=== PATIENT | male | born 1940 | race African-American/Black ===

== ENCOUNTER 2020-01-08 16:16 | Inpatient (IN) | payer OTHER, SELFPAY ==
--- NOTE | ~2020-01-08 | XR_ITS ---
EXAMINATION: XR chest 2V EXAM DATE: 01/08/2020 17:17 INDICATION: Left-sided weakness and shortness of breath. TECHNIQUE: Frontal and lateral projections of the chest obtained and reviewed. Comparison is made to prior examination from 10/16/2018. FINDINGS: Cardiac silhouette is enlarged but stable in size compared to prior exam. There is pulmonar y vascular congestion. There are small bilateral pleural effusions. Nonspecific small amount of rig ht basilar atelectasis, edema or pneumonia. There is no pneumothorax suspected. There are bony degene rative changes. IMPRESSION: 1. Findings consistent with mild CHF exacerbation. 2. Right basilar subsegmental nonspecific airspace disease. Reviewed, dictated and finalized at location A.
--- NOTE | ~2020-01-08 | MR_ITS ---
EXAMINATION: MR brain/brain stem wo con DATE: 01/11/2020 11:01 INDICATION: TIA. TECHNIQUE: Magnetic resonance imaging (MRI) of the brain and brainstem was performed without intraven ous contrast. Sequences included sagittal and axial T1-weighted SE, axial diffusion-weighted FS SE, a xial T2*-weighted GRE, axial T2-weighted FLAIR Propeller, and axial T2-weighted Propeller. Apparent d iffusion coefficient (ADC) maps were created. COMPARISON: CT dated 01/08/2020 and MRI dated 10/16/2018 FINDINGS: There is generalized atrophy. There are scattered severe periventricular and subcortical wh ite matter changes, most likely related to small vessel ischemic disease (microangiopathy). No eviden ce for acute infarction or hemorrhage. There are chronic bilateral cerebellar infarctions. No ventric ulomegaly or midline shift. Orbits are symmetric without disconjugate gaze. Paranasal sinuses are unr emarkable. Midline sagittal images are unremarkable. IMPRESSION: 1. No acute intracranial abnormality. 2: Chronic bilateral cerebellar infarctions. 3: Chronic age-related findings. Reviewed, dictated and finalized at location A.
--- NOTE | ~2020-01-08 | US_ITS ---
EXAMINATION: US carotid duplex BI DATE: 01/10/2020 10:00 INDICATION: Cerebellar infarct. Transient ischemic attack. TECHNIQUE: Grayscale, color Doppler, and pulsed Doppler images of the cervical carotid arteries were obtained. The degree of vessel stenosis is placed in one of the following categories: normal, <50%, 5 0-69%, >=70% but less than near-occlusion, near-occlusion, or total occlusion. Note that percent sten osis relative to normal distal artery lumen diameter is indirectly measured from velocity measurement s as described by Rommel, et al. Radiology 2003; 229:340-346. COMPARISON: Ultrasound 10/16/2018 FINDINGS: RIGHT: The right common carotid artery (CCA) peak systolic velocity (PSV) is 76 cm/s. The right internal car otid artery (ICA) PSV is 80 cm/s. The right ICA end-diastolic velocity (EDV) is 25 cm/s. The right IC A/CCA PSV ratio is 1.1. Grayscale and color Doppler images yield an estimate of <50% diameter reducti on from plaque in the ICA. There is antegrade flow in the right vertebral artery. LEFT: The left CCA PSV is 67 cm/s. The left ICA PSV is 94 cm/s. The left ICA EDV is 22 cm/s. The left ICA/C CA PSV ratio is 1.4. Grayscale and color Doppler images yield an estimate of <50% diameter reduction from plaque in the ICA. There is antegrade flow in the left vertebral artery. IMPRESSION: 1. <50% stenosis in the right internal carotid artery. 2. <50% stenosis in the left internal carotid artery. Reviewed, dictated and finalized at location A.
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
[2020-01-08 16:19] VITALS: BP 175/107; PULSE 82; RESP 18; TEMP 36.8; O2SAT 97
--- NOTE | 2020-01-08 16:28 | ECG_ITS ---
Measurements Intervals [place] Rate: 76 P: [place]: 0 QRS: 12 QRSD: 86 T: 120 QT: 425 QTc: 480 Interpretive Statements ATRIAL FIBRILLATION VENTRICULAR PREMATURE COMPLEX NONSPECIFIC T-WAVE ABNORMALITY- ANTEROLAT/LAT LEADS ABNORMAL ECG Electronically Signed On 01-08-2020 17:42:30 CDT by Hermelindo Mahoney D.O.
[2020-01-08 16:29] VITALS: PULSE 78
--- NOTE | 2020-01-08 16:30 | ED.GENADULT ---
HPI - General Adult General Chief complaint: Weakness Stated complaint: weakness Source: patient, family and EMS Mode of arrival: EMS Limitations: no limitations History of Present Illness HPI narrative: Patient is a 79-year-old gentleman with chronic kidney disease on dialysis who presents for evaluation of several symptoms including cough, congestion, sore throat, weakness originally seen at [facility] for coronavirus type symptoms. Patient's states he has been weak on the right side over the past 72 hours. She states that his foot has been dragging while he walks. Patient is mostly reporting difficulty walking, cough and congestion; he denies current dypsnea. No chest pain or shortness of breath. No nausea, vomiting or diarrhea. Patient has felt febrile at night, has not been taking his temperature. No recent sick contacts. His is still working. Patient otherwise has been staying at home. Related Data Allergies Allergy/AdvReac Type Severity Reaction Status Date / Time No Known Allergies Allergy Verified 01/08/20 16:28 Review of Systems Review of Systems: Narrative: CONSTITUTIONAL: Reports fever EYES: Denies visual changes, redness, or discharge. ENT: Reports rhinorrhea, congestion, sore throat, otalgia CARDIOVASCULAR: Denies chest pain, palpitations, or edema. RESPIRATORY: Reports productive cough GASTROINTESTINAL: Denies abdominal pain, nausea, vomiting, or diarrhea. GENITOURINARY: Denies dysuria or hematuria. SKIN: Denies rash or itching. MUSCULOSKELETAL: Denies back pain, joint pain, or myalgia. NEUROLOGIC: Denies headache, numbness, reports right sided weakness PMFSH Past Medical History Medical History (Updated 01/08/20 @ 18:39 by María Hernandez MD) Amputation of finger of right hand Arthritis Dialysis patient Hypertension Osteoporosis Sleep apnea Surgical History Surgical History (Updated 01/08/20 @ 16:34 by María Hernandez MD) Status post surgical amputation of finger of right hand Exam Narrative: Exam Narrative: GENERAL: Awake, alert, conversant HEAD: Normocephalic, atraumatic. EYES: PERRLA and EOMI. ENT: Nares clear, no rhinorrhea or epistaxis. Mucous membranes moist. Cerumen obstruction bilaterally. Oropharynx is clear without exudate. No trismus. NECK: Supple. CHEST: No respiratory distress, breathing even and non labored HEART: Regular rate, sinus rhythm ABDOMEN:Non distended, non tender EXTREMITIES: Normal range of motion. No edema. SKIN: Warm, dry, no rash. NEURO: Alert and oriented x3. Finger to nose intact bilaterally slowed on the right. EOMs intact without nystagmus. No facial droop/asymmetry noted bilaterally. Grimace intact. Intact sensation in face. Hearing intact bilaterally. Shoulder shrug lessened on the right. Strength 5/5 bilateral upper extremities. Strength 5/5 bilateral lower extremities, greater on the left than on the right. Reflexes 2+ patellar. Ambulatory exam deferred. Course Course Emergency Course: Pt presented to the ED for evaluation of weakness, cough/cold type symptoms. Pt referred from . At time of assessment, patient is neurologically intact without any focal deficits. He is somewhat decreased strength with right shoulder shrug and right leg. However, his strength is still 5/5 in both upper and lower extremities. Not able to localize any lesion. Laboratory work is consistent with CHF exacerbation given elevated BNP, pulmonary edema on CXR. Stable anemia. Pt also swabbed for COVID19 given prodrome of URI type symptoms. Pt is afebrile here, no markers of severe disease based on lab markers. CXR at this point with elevated BNP most consistent with CHF. Pt with possible stroke type symptoms, but no findings on CT of acute infarct. Pt given Lasix in the ED. Neurologist was consulted. Pt was admitted to telemetry in stable condition. Vital Signs Vital signs: Vital Signs Temperature 36.8 C 01/08/20 16:19 Pulse Rate 82 01/08/20 16:19 Respiratory Ra
[2020-01-08 16:54] LABS: Basophils Percent Auto 0.5 % (0.2-1.2); Eosinophils Percent Auto 0.7 % (0-4.4); Hematocrit 30.9 % (42.0-52.0); Immature Granulocyte Absolute 0.03 K/mm3 (0.00-0.031); Immature Granulocyte Percent A 0.5 % (0-0.5); Immature Platelet Fraction Pct 9.8 % (0.9-11.2); Lymphocytes Absolute Auto 1.03 K/mm3 (0.9-3.2); Lymphocytes Percent Auto 16.9 % (18.3-44.2); Mean Corpuscular HGB Conc 32.4 g/dl (32-36); Mean Corpuscular Hemoglobin 34.2 pg (26-34); Mean Corpuscular Volume 105.8 fl (80-100); Mean Platelet Volume 12.2 fl (7.4-10.4); Monocytes Absolute Auto 0.6 K/mm3 (0.1-0.6); Monocytes Percent Auto 10.2 % (2.6-8.5); Neutrophils Absolute Auto 4.3 K/mm3 (1.3-6.7); Neutrophils Percent Auto 71.2 % (45.5-73.1); Platelet Count Result 126 k/mm3 (150-375); Red Blood Count 2.92 M/mm3 (4.6-6.20); Red Cell Distribution Width 15.9 % (11.5-14.5); White Blood Count 6.1 K/mm3 (4.5-10.0)
[2020-01-08 17:02] LABS: INR 1.1; Prothrombin Time 13.7 Seconds (11.1-14.7)
[2020-01-08 17:03] LABS: Partial Thromboplastin Time 30.3 SECONDS (22.3-36.8)
[2020-01-08 17:16] LABS: Troponin I 0.031 ng/mL (0.000-0.034)
[2020-01-08 17:29] LABS: Alanine Aminotransferase 14 U/L (4-50); Albumin Level 4.1 g/dL (3.5-5.1); Alkaline Phosphatase 109 U/L (38-126); Aspartate Amino Transferase 27 U/L (17-59); Bilirubin,Total 0.8 mg/dL (0.2-1.3); Blood Urea Nitrogen 25 mg/dL (9-20); Calcium 9.4 mg/dL (8.4-10.2); Carbon Dioxide 35 mmol/L (22-30); Chloride 91 mmol/L (98-107); Estimated CRCL calculation 9 ml/min; Estimated Glomerular Filt Rate 9; Glucose 103 mg/dL (75-110); Potassium 3.5 mmol/L (3.4-5.0); Sodium 137 mmol/L (137-145)
[2020-01-08 17:51] LABS: Lactate Dehydrogenase 409 U/L (313-618)
[2020-01-08 17:54] LABS: NT Pro B Type Natriuretic Pept > 35000 PG/ML (5-100)
--- NOTE | 2020-01-08 18:00 | PC.NURSE ---
Called lab to add on BNP.
[2020-01-08 18:19] VITALS: BP 157/100; PULSE 67; RESP 18; TEMP 36.3; O2SAT 100
[2020-01-08 19:22] VITALS: BP 145/89; PULSE 70; RESP 18; TEMP 36.6; O2SAT 96
[2020-01-08] MEDS: FUROSEMIDE INJ 40 MG/4 ML VIAL 20 MG IV PUSH (19:52)
[2020-01-08 20:10] VITALS: BP 166/93; PULSE 76; RESP 18; TEMP 36.8; O2SAT 97
[2020-01-08 20:30] VITALS: BMI 27.9
--- NOTE | 2020-01-08 20:40 | ADMGEN ---
This patient, Partha Carias, was admitted to [facility] Surg Room 331-01. Patient/family oriented to hospital policies and general routines including ID bracelet, bed and alarms, visiting hours, pain management, procedures, bathroom and other care routines, personal items, smoking policy, room service/diet, and visiting hours. Valuables list has been completed. Information on how to activate the Rapid Response Team has been discussed. Patient/Family are encouraged to report perceived risks to care and to ask questions if they do not understand what they are told or what they should do.
[2020-01-08 22:00] VITALS: BMI 28.2
[2020-01-08 22:14] LABS: Troponin I 0.028 ng/mL (0.000-0.034)
--- NOTE | 2020-01-08 23:24 | PM.IMHP ---
H&P: HPI History of Present Illness Chief complaint: CHF Exacerbation Narrative: This is a 79 year old male with ESRD on HD M/W/ and who presented to the hospital from Urgent care for shortness of breath and a dry hacking cough for the past 2 weeks. The patient states his has been urging him to be seen for his symptoms and today he finally decided to go to Urgent Care. The patient presented to the ER and complained of shortness of breath, congestion, fever and generalized weakness. The patient has not required any oxygen whatsover and was evaluated in the ER. Routine labs were obtained and CXR was consistent with mild CHF. On my encounter with the patient he has no complaints and asking me when he can go home. I did not experience any coughing from the patient during my encounter with him. He denies any chest pain, palpitations, headache, abdominal pain, dysuria, hematuria, diarrhea, nausea, vomiting, or rectal bleeding. The patient was incidently found to have atrial fibrillation on his EKG which he tells me is new to him. The patient was tested for COVID-19 viral infection in ER. Review of Systems Review of Systems: All systems reviewed & are unremarkable except as noted in HPI and below PMFSH Past Medical History Medical History Amputation of finger of right hand Arthritis Dialysis patient Hypertension Osteoporosis Sleep apnea Surgical History Surgical History Status post surgical amputation of finger of right hand Family History Family History Sibling CKD (chronic kidney disease) Social History Social History Smoking status: Never smoker Alcohol intake: current Drinks per week: 1 Substance use: never Gender identity (if verbalized by the patient): Male Spiritual care concerns: No Agree to blood products: No Meds Home Medications and Allergies Home Medications Medication Instructions Recorded Confirmed Type atorvastatin 20 mg tablet 20 mg PO DAILY #30 tablet 10/24/19 01/08/20 Rx cinacalcet 30 mg PO DAILY 01/08/20 01/08/20 History sodium bicarbonate 1,300 mg PO DAILY 01/08/20 01/08/20 History Allergies Allergy/AdvReac Type Severity Reaction Status Date / Time No Known Allergies Allergy Verified 01/08/20 16:28 Vital Signs Vital Signs - 24 hr 01/08/20 16:19 01/08/20 16:29 01/08/20 18:19 Temperature 36.8 C 36.3 C L Pulse Rate 82 78 67 Respiratory Rate 18 18 Blood Pressure 175/107 H 157/100 H Pulse Oximetry 97 100 01/08/20 19:22 01/08/20 20:10 Temperature 36.6 C 36.8 C Pulse Rate 70 76 Respiratory Rate 18 18 Blood Pressure 145/89 H 166/93 H Pulse Oximetry 96 97 Exam Const: General: cooperative, no acute distress, alert and awake Nutritional Appearance: well nourished Orientation/consciousness: patient oriented x3 HENMT: Head: normal to inspection General nose exam: Normal external nose present Face and sinus: normal facial exam Mouth: Yes Normal oral and palatal mucosa present and Yes oropharynx normal Eyes: Pupils: Equal, round and reactive pupils present EOM: EOMs intact bilaterally Neck: Neck: supple and no JVD Thyroid: thyroid normal Lymphatic: lymphadenopathy not noted Resp: Effort & Inspection: normal respiratory effort Auscultation: clear to auscultation bilaterally Cardio: Rate: regular rate Rhythm: regular rhythm Heart sounds: no murmurs GI: Inspection: normal to inspection Auscultation: normal bowel sounds Skin: General skin exam: normal color and no rashes or lesions noted Neuro: General: patient oriented x3 Cranial nerves: Yes CN's II-XII intact bilaterally and Yes Equal, round and reactive pupils present Speech: normal speech Motor exam (neuro): 5/5 motor strength present throughout Sensory Exam: normal
[2020-01-08 23:50] LABS: Troponin I 0.029 ng/mL (0.000-0.034)
[2020-01-09] VITALS (30 sets, daily range): BP systolic 141–206; BP diastolic 59–111; PULSE 64–92; RESP 16–18; TEMP 36.3–37; O2SAT 94–98
[2020-01-09 06:11] LABS: Basophils Percent Auto 0.5 % (0.2-1.2); Eosinophils Absolute Auto 0.1 K/mm3 (0-0.3); Eosinophils Percent Auto 1.4 % (0-4.4); Immature Granulocyte Absolute 0.01 K/mm3 (0.00-0.031); Immature Granulocyte Percent A 0.2 % (0-0.5); Lymphocytes Absolute Auto 1.22 K/mm3 (0.9-3.2); Mean Corpuscular HGB Conc 33.3 g/dl (32-36); Mean Corpuscular Hemoglobin 34.7 pg (26-34); Mean Corpuscular Volume 104.2 fl (80-100); Mean Platelet Volume 12.2 fl (7.4-10.4); Monocytes Absolute Auto 0.6 K/mm3 (0.1-0.6); Monocytes Percent Auto 10.8 % (2.6-8.5); Neutrophils Absolute Auto 3.6 K/mm3 (1.3-6.7); Neutrophils Percent Auto 65.1 % (45.5-73.1); Platelet Count Result 121 k/mm3 (150-375); Red Blood Count 2.88 M/mm3 (4.6-6.20); Red Cell Distribution Width 15.9 % (11.5-14.5); White Blood Count 5.6 K/mm3 (4.5-10.0)
[2020-01-09 06:14] LABS: Blood Urea Nitrogen 30 mg/dL (9-20); Calcium 9.4 mg/dL (8.4-10.2); Carbon Dioxide 34 mmol/L (22-30); Chloride 94 mmol/L (98-107); Estimated CRCL calculation 8 ml/min; Estimated Glomerular Filt Rate 8; Glucose 102 mg/dL (75-110); Magnesium 2.2 mg/dL (1.6-2.3); Potassium 3.5 mmol/L (3.4-5.0); Sodium 138 mmol/L (137-145)
--- NOTE | 2020-01-09 07:17 | PHAR ---
PT EPOGEN INFO SHEET SENT WITH FIRST DOSE
[2020-01-09] MEDS: ATORVASTATIN 20 MG TABLET PO (08:19)
[2020-01-09] MEDS: SODIUM BICARBONATE TAB 650 MG TABLET 1300 MG PO (08:19)
[2020-01-09] MEDS: FUROSEMIDE INJ 40 MG/4 ML VIAL 20 MG IV PUSH (09:46)
--- NOTE | 2020-01-09 12:12 | CONS_ITS ---
DATE OF CONSULTATION: 01/08/2020 HISTORY OF PRESENT ILLNESS: A 79-year-old has been admitted to [facility] through the emergency room with the ongoing diagnoses of: 1. End-stage renal disease for which he is on hemodialysis on Tuesday, Tuesday, and Tuesday. 2. Shortness of breath with dry hacking cough for 48 hours duration along with the fever and generalized weakness. On initial evaluation in the emergency room, chest x-ray was consistent with mild congestive heart failure. 3. Atrial fibrillation on his EKG. 4. Has also been tested for COVID-19 in the ER. PAST HISTORY: Consistent with the amputation of the finger of the right hand, arthritis, hypertension, osteoporosis, and sleep apnea. FAMILY HISTORY: Positive for chronic kidney disease in his siblings. SOCIAL HISTORY: He is a never smoker. Drinks 1 drink per week. Do not use substance abuse. MEDICATIONS: Included: 1. Atorvastatin 20 mg daily. 2. Cinacalcet 30 mg daily. 3. Sodium bicarb 1300 mg daily. ALLERGIES: HE IS NOT ALLERGIC TO ANY MEDICATION. PHYSICAL EXAMINATION: VITAL SIGNS: Evaluation revealed him to be afebrile with pulse 82, respirations 18, blood pressure 175/107, which has come down to 157/100, pulse ox 97%. GENERAL: Examination revealed him to be awake, alert, cooperative, in no obvious acute distress. HEENT: Head normocephalic with no cranial bruits. Ear, nose, throat examination normal. NECK: Supple with no meningeal signs. No cervical bruits. No thyromegaly. No lymphadenopathy. HEART: Regular. LUNGS: Clear. ABDOMEN: Soft. NEUROLOGICAL: Awake, alert, oriented x3. Pupils round, regular. [place] of vision full. Extraocular movements full. Face symmetrical. Tongue midline. Motor examination revealed him to have no drift of one side or other side. EXTREMITIES: Noted to have very mild lower extremity edema. LABORATORY DATA: Evaluation up until now documented WBC 6.1, hemoglobin 10.0 with platelet count 126. Normal basic metabolic panel. Troponin 0.031. Hepatic enzymes normal. Chest x-ray consistent with mild congestive heart failure, right basilar subsegmental nonspecific airspace disease. Negative CT scan of the head. In addition to the atrial fibrillation has had CT scan of the head in the emergency room, which was negative and at this stage, he is receiving all his medication. Plan is to continue the treatment as such. Further recommendation as needed. KEMAL GONZALEZ M.D. BOXING INSTRUCTOR BOXING INSTRUCTOR D Yaw MT: Faye
--- NOTE | 2020-01-09 13:16 | PM.IMPN ---
Progress Note: A&P Assessment and Plan (1) Right sided weakness: Code(s): R53.1 - Weakness Status: Acute Assessment and Plan: -----resolved. Concerning for TIA since the patient has new onset atrial fibrillation. CT of the brain negative. Patient is not on aspirin at this time but is on Lipitor. Will start 81 mg of aspirin. Echo pending. Will order carotid ultrasound. CHADS2 Vasc 5, consider anticoagulation but I want to get the MRI before starting it. MRI planned for tomorrow once his COVID-19 testing is back. (2) Fluid overload: Qualifiers: Hypervolemia type: unspecified Qualified Code(s): E87.70 - Fluid overload, unspecified Code(s): E87.70 - Fluid overload, unspecified Status: Acute Assessment and Plan: -----The patient has mild fluid overload which may be secondary to mild acute CHF. Echo pending. Patient is feeling much better on room air at this time. Plan for dialysis later I believe. Continue Lasix (3) Dialysis patient: Code(s): Z99.2 - Dependence on renal dialysis Status: Acute Assessment and Plan: -----continue dialysis per Nephrology. (4) Atrial fibrillation: Qualifiers: Atrial fibrillation type: unspecified Qualified Code(s): I48.91 - Unspecified atrial fibrillation Code(s): I48.91 - Unspecified atrial fibrillation Status: Acute Assessment and Plan: -----new onset atrial fibrillation without pain. Troponins negative x3. Echo pending. Will order TSH for the morning. No infection suspected at this time to be the etiology. COVID pending although I think his cough was from fluid overload as it has improved with the Lasix. He has been afebrile. CRP is normal, again makes infection less likely. Will consult Cardiology. CHADS2 Vasc 5, see above. Awaiting MRI for anticoagulation.. (5) Hypertension: Code(s): I10 - Essential (primary) hypertension Status: Acute Assessment and Plan: Last blood pressure 167/101. Patient not on any hypertension medications other than Lasix. Will await echo before starting hypertensive medications. If this is normal, will likely start Norvasc. (6) Sleep apnea: Qualifiers: Sleep apnea type: unspecified type Qualified Code(s): G47.30 - Sleep apnea, unspecified Code(s): G47.30 - Sleep apnea, unspecified Status: Chronic Assessment and Plan: -----The patient is being investigated for possible COVID-19 infection. We will hold on home Cpap until we are certain he is COVID-19 negative. (7) Upper respiratory infection: Qualifiers: URI type: unspecified viral URI Qualified Code(s): J06.9 - Acute upper respiratory infection, unspecified Code(s): J06.9 - Acute upper respiratory infection, unspecified Status: Acute Assessment and Plan: -----infection seems less likely at this time.. No antibiotics needed. COVID pending (8) Suspected COVID-19 virus infection: Code(s): R68.89 - Other general symptoms and signs Status: Acute Assessment and Plan: -----being tested for COVID-19 due to cough. LDH and CRP normal. Additional Plan Date of service was 01/08/2020 at 22:45 hrs. Time Spent With Patient Time with patient: 25 - 35 minutes Subjective Date/time seen: 01/09/20 13:16 Interval history: Pt is a 79-year-old male here for cough and right-sided weakness. Patient states that his right side does not feel weak anymore and his cough has improved significantly. He does not feel short of breath at this time. He is awaiting dialysis. He is eating drinking well with no complaints there. He denies chest pain, shortness of breath, fevers, chills, heart palpitations, abdominal pain, or leg swelling. Review of Systems Review of Systems: All systems reviewed & are unremarkable except as noted in HPI and below Exam Narrative: Exam
--- NOTE | 2020-01-09 15:24 | PM.CNCAR ---
Assessment and Plan Assessment and plan (1) Atrial fibrillation: Qualifiers: Atrial fibrillation type: unspecified Qualified Code(s): I48.91 - Unspecified atrial fibrillation Code(s): I48.91 - Unspecified atrial fibrillation Status: Acute Assessment and Plan: History of atrial fibrillation. Uncertain if he is on anticoagulation. Reportedly discharged on Eliquis in the past but apparently not taking at this point. Heart rate is controlled. 2D echocardiogram Doppler will be ordered and reviewed. Depending on COVID test and potential MRI, would recommend anticoagulation. Given his end-stage renal disease, in my opinion, warfarin would be best option. Certainly could start with heparinization and then transition to warfarin. He definitely has a chest vascular which would support need for anticoagulation long-term. (2) Suspected COVID-19 virus infection: Code(s): R68.89 - Other general symptoms and signs Status: Acute Assessment and Plan: Symptoms are certainly concerning for COVID. Test pending (3) Fluid overload: Qualifiers: Hypervolemia type: unspecified Qualified Code(s): E87.70 - Fluid overload, unspecified Code(s): E87.70 - Fluid overload, unspecified Status: Acute Assessment and Plan: chest x-ray may be CHF versus viral pneumonia. Volume removal via dialysis and diuresis (4) Sleep apnea: Qualifiers: Sleep apnea type: unspecified type Qualified Code(s): G47.30 - Sleep apnea, unspecified Code(s): G47.30 - Sleep apnea, unspecified Status: Chronic (5) Hypertension: Code(s): I10 - Essential (primary) hypertension Status: Acute Assessment and Plan: will add some carvedilol 3.125 mg p.o. b.i.d. History of Present Illness History of Present Illness Consult date/time: 01/09/20 15:24 Requesting physician: Bhavesh Rodriguez MD Consult reason: atrial fibrillation and congestive heart failure Reason For Visit: CHF Exacerbation Narrative: Date of service: 01/09/2020 History: Patient is a 79-year-old male came to the hospital via urgent care because of shortness of breath, cough as well as some concerns about some weakness involving the right side. He is found to be in atrial fibrillation and consultation was requested. Patient formally saw Dr. Yeung remotely. He has not been seen though in our office in several years. He does have a history of atrial fibrillation even dating back to 2013. Also has chronic kidney disease and now in stage renal disease, hyperlipidemia, hypertension. Patient admits to having chest pain for years with exertion. He states that this is not particularly worse. He has been short of breath recently and he does describe a cough. He denies any palpitations, syncope, presyncope, paroxysmal nocturnal dyspnea, orthopnea. He is feeling better today. He is less short of breath and his cough has improved. Review of Systems Review of Systems: All systems reviewed & are unremarkable except as noted in HPI and below Constitutional: Constitutional: Reports weakness Eyes: Eyes: Denies blurry vision ENT: Denies Normal hearing present Cardiovascular: Cardiovascular: Reports chest pain Respiratory: Respiratory: Reports cough and Reports dyspnea Gastrointestinal: Gastrointestinal: Denies abdominal pain Genitourinary: Genitourinary: Denies dysuria and Denies urinary frequency Musculoskeletal: Musculoskeletal: Denies back pain and Denies neck pain Integumentary/Breasts: Skin/Breast: Denies pruritus, Denies rash and Denies skin pain Neurologic: Denies headache(s) and Denies numbness Psychiatric: Psychiatric: Denies anxiety and Denies behavioral changes Endocrine: Endocrine: Denies fatigue and Denies flushing Hematologic/Lymphatic: Hematologic/Lymphatic: Denies easy bleeding and Denies easy bruising Allergic/Immunologic: Allergic/Immunologic: Denies GI upset with c
--- NOTE | 2020-01-09 18:41 | PM.PNNEP ---
Progress Note: A&P Assessment and Plan (1) End stage renal disease: Code(s): N18.6 - End stage renal disease Status: Acute Assessment and Plan: HD today and continue M/W/ schedule while hospitalized FULL CONSULT TO FOLLOW Subjective Date/time seen: 01/09/20 18:41 Tolerating dialysis at the time of my visit (seen on HD at ~ 6:30PM); no apparent issues or problems voiced at this time. Exam Narrative: Exam Narrative: General: WD/WN male in NAD Heart: normal S1 and S2; no rub Lungs: clear to auscultation Abdomen: soft, nontender, nondistended, positive bowel sounds Extremities: no cyanosis or clubbing; no edema Skin: warm and dry Objective Data Vital Signs Vital Signs: Vital Signs Temp Pulse Resp BP Pulse Ox 01/09/20 18:12 36.3 C L 74 18 181/88 H 96 01/09/20 16:00 73 01/09/20 13:46 36.7 C 73 18 141/93 H 96 01/09/20 12:00 78 01/09/20 08:00 75 01/09/20 06:00 36.9 C 78 18 167/101 H 94 01/09/20 05:14 94 01/09/20 04:00 75 01/09/20 02:00 36.6 C 68 18 152/101 H 96 01/09/20 00:00 72 01/08/20 20:10 36.8 C 76 18 166/93 H 97 01/08/20 19:22 36.6 C 70 18 145/89 H 96 Intake/Output Intake/Output: Intake & Output 01/06/20 01/07/20 01/08/20 01/09/20 23:59 23:59 23:59 23:59 Intake Total 2570 Output Total 300 Balance 2270 Meds/Results Medications: Active Medications Generic Name Dose Route Start Last Admin Trade Name Freq PRN Reason Stop Dose Admin Acetaminophen 650 mg 01/08/20 23:35 Tylenol Tablet PO Q4H PRN Mild Pain (1-3) or Fever Aspirin 81 mg 01/09/20 13:45 Aspirin Ec PO QAM [facility] Atorvastatin Calcium 20 mg 01/09/20 09:00 01/09/20 08:19 Lipitor PO 20 mg DAILY JAY Administration Carvedilol 3.125 mg 01/09/20 21:00 Coreg PO Q12HR JAY Cinacalcet 30 mg 01/09/20 17:00 Sensipar PO DAILY@1700 JAY Furosemide 20 mg 01/09/20 09:00 01/09/20 09:46 Lasix Inj IV PUSH 20 mg DAILY JAY Administration Hydralazine HCl 10 mg 01/09/20 06:34 Apresoline Hcl Inj IV PUSH 01/10/20 07:00 Q8H PRN see comment Albumin Human 50 mls @ 999 mls/hr 01/09/20 06:56 Albutein IVPB 02/08/20 06:57 Q10M PRN HYPOTENSION Ondansetron HCl 4 mg 01/08/20 18:33 Zofran Inj IV PUSH Q4H PRN Nausea Sodium Bicarbonate 1,300 mg 01/09/20 09:00 01/09/20 08:19 Sodium Bicarbonate Tab PO 1,300 mg DAILY JAY Administration Radiology Results: ITS Impressions Head CT 01/08/20 17:11 IMPRESSION: 1. No acute intracranial findings. 2. Chronic age related findings. Chest X-Ray 01/08/20 17:19 IMPRESSION: 1. Findings consistent with mild CHF exacerbation. 2. Right basilar subsegmental nonspecific airspace disease. Labs Labs: Laboratory Tests 01/09/20 05:34 01/09/20 05:34
[2020-01-09] MEDS: carvediloL 3.125 MG TABLET PO (21:37)
[2020-01-09] MEDS: ASPIRIN 81 MG ENTERIC TABLET PO (21:39)
[2020-01-09] MEDS: CINACALCET 30 MG TABLET PO (21:39)
[2020-01-10] VITALS (14 sets, daily range): BP systolic 141–155; BP diastolic 81–98; PULSE 66–80; RESP 16–20; TEMP 36.4–36.7; O2SAT 95–98
[2020-01-10 06:50] LABS: Blood Urea Nitrogen 23 mg/dL (9-20); Carbon Dioxide 27 mmol/L (22-30); Chloride 99 mmol/L (98-107); Estimated CRCL calculation 11 ml/min; Estimated Glomerular Filt Rate 11; Glucose 100 mg/dL (75-110); Phosphorus 3.5 mg/dL (2.5-4.5); Potassium 4.1 mmol/L (3.4-5.0); Sodium 136 mmol/L (137-145)
[2020-01-10 07:14] LABS: Thyroid Stimulating Hormone Reflex 0.904 uIU/mL (0.465-4.68)
[2020-01-10 07:20] LABS: Folic Acid 4.2 ng/mL (2.76->20)
[2020-01-10] MEDS: carvediloL 3.125 MG TABLET PO (08:08)
[2020-01-10] MEDS: ASPIRIN 81 MG ENTERIC TABLET PO (08:08)
[2020-01-10] MEDS: FUROSEMIDE INJ 40 MG/4 ML VIAL 20 MG IV PUSH (08:08)
[2020-01-10] MEDS: ATORVASTATIN 20 MG TABLET PO (08:08)
[2020-01-10] MEDS: SODIUM BICARBONATE TAB 650 MG TABLET 1300 MG PO (08:09)
--- NOTE | 2020-01-10 10:17 | PM.PNCARD ---
Progress Note: A&P Assessment and Plan (1) Atrial fibrillation: Qualifiers: Atrial fibrillation type: unspecified Qualified Code(s): I48.91 - Unspecified atrial fibrillation Code(s): I48.91 - Unspecified atrial fibrillation Status: Acute Assessment and Plan: History of atrial fibrillation. Uncertain if he is on anticoagulation. Reportedly discharged on Eliquis in the past but apparently not taking at this point. Heart rate is controlled. 2D echocardiogram Doppler is pending. Depending on COVID test and potential MRI, would recommend anticoagulation. Given his end-stage renal disease, in my opinion, warfarin would be best option. Certainly could start with heparinization and then transition to warfarin. He definitely has a Mauricio Vasc score which would support need for anticoagulation long-term. (2) Suspected COVID-19 virus infection: Code(s): R68.89 - Other general symptoms and signs Status: Acute Assessment and Plan: Symptoms are certainly concerning for COVID. Test pending (3) Fluid overload: Qualifiers: Hypervolemia type: unspecified Qualified Code(s): E87.70 - Fluid overload, unspecified Code(s): E87.70 - Fluid overload, unspecified Status: Acute Assessment and Plan: chest x-ray may be CHF versus viral pneumonia. Volume removal via dialysis and diuresis (4) Sleep apnea: Qualifiers: Sleep apnea type: unspecified type Qualified Code(s): G47.30 - Sleep apnea, unspecified Code(s): G47.30 - Sleep apnea, unspecified Status: Chronic (5) Hypertension: Code(s): I10 - Essential (primary) hypertension Status: Acute Assessment and Plan: Increase carvedilol to 6.25 mg p.o. b.i.d. Subjective Date/time seen: 01/10/20 10:17 Interval history: Chief complaint: Weakness, cough, atrial fibrillation Date of service 01/10/2020: No active chest pain or shortness of breath Review of Systems Review of Systems: All systems reviewed & are unremarkable except as noted in HPI and below Constitutional: Constitutional: Denies fatigue, Denies headache(s) and Reports weakness Eyes: Eyes: Denies blurry vision ENT: Denies Normal hearing present, Denies headache(s) and Denies neck pain Cardiovascular: Cardiovascular: Reports chest pain and Reports dyspnea Respiratory: Respiratory: Reports cough and Reports dyspnea Gastrointestinal: Gastrointestinal: Denies abdominal pain Genitourinary: Genitourinary: Denies dysuria and Denies urinary frequency Musculoskeletal: Musculoskeletal: Denies back pain, Denies neck pain and Denies numbness Integumentary/Breasts: Skin/Breast: Denies pruritus, Denies rash and Denies skin pain Neurologic: Denies Normal hearing present, Denies behavioral changes, Denies headache(s), Denies numbness and Reports weakness Psychiatric: Psychiatric: Denies anxiety and Denies behavioral changes Endocrine: Endocrine: Denies fatigue and Denies flushing Hematologic/Lymphatic: Hematologic/Lymphatic: Denies easy bleeding and Denies easy bruising Allergic/Immunologic: Allergic/Immunologic: Denies GI upset with certain foods Exam Narrative: Exam Narrative: alert oriented Const: General: comfortable and no acute distress HENMT: General nose exam: Normal nares present and no epistaxis Eyes: Sclera: sclerae normal Neck: Neck: no JVD Resp: Effort & Inspection: normal respiratory effort Cardio: Rhythm: abnormal rhythm irregularly irregular Skin: General skin exam: normal color Neuro: Cognition (Neuro): normal cognition Speech: normal speech Extrem: General: edema Other: 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
[2020-01-10] MEDS: CYANOCOBALAMIN INJ 1,000 MCG/ML VIAL 1000 MCG IM (11:03)
--- NOTE | 2020-01-10 13:40 | PM.IMPN ---
Progress Note: A&P Assessment and Plan (1) Right sided weakness: Code(s): R53.1 - Weakness Status: Acute Assessment and Plan: -----resolved. Concerning for TIA since the patient has new onset atrial fibrillation. CT of the brain negative.Continue aspirin and Lipitor. Echo pending. Carotids are clear. CHADS2 Vasc 5, consider anticoagulation but I want to get the MRI before starting it. MRI planned for tomorrow once his COVID-19 testing is back. If it is a small stroke, would be able to start anticoagulation 3 days after the stroke. Medium to large strokes would require 7 days. I doubt he has had a very large stroke since he has no residuals but will await MRI. (2) Fluid overload: Qualifiers: Hypervolemia type: unspecified Qualified Code(s): E87.70 - Fluid overload, unspecified Code(s): E87.70 - Fluid overload, unspecified Status: Acute Assessment and Plan: -----The patient has mild fluid overload which may be secondary to mild acute CHF. Echo pending. Patient is feeling much better on room air at this time. Continue scheduled dialysis Tuesday, Tuesday, and Tuesday (3) Dialysis patient: Code(s): Z99.2 - Dependence on renal dialysis Status: Acute Assessment and Plan: -----continue dialysis per Nephrology. (4) Atrial fibrillation: Qualifiers: Atrial fibrillation type: unspecified Qualified Code(s): I48.91 - Unspecified atrial fibrillation Code(s): I48.91 - Unspecified atrial fibrillation Status: Acute Assessment and Plan: -----new onset atrial fibrillation without pain. Troponins negative x3. Echo pending. TSH normal. No infection suspected at this time to be the etiology. COVID pending although I think his cough was from fluid overload as it has improved with the Lasix. He has been afebrile. CRP is normal, again makes infection less likely. Cardiology consulted and their recommendations were reviewed. CHADS2 Vasc 5, see above. Awaiting MRI for anticoagulation.. (5) Hypertension: Code(s): I10 - Essential (primary) hypertension Status: Acute Assessment and Plan: Last blood pressure 151/90 Patient not on any hypertension medications other than Lasix. Cardiology has started carvedilol. Will continue with that and observed blood pressure (6) Sleep apnea: Qualifiers: Sleep apnea type: unspecified type Qualified Code(s): G47.30 - Sleep apnea, unspecified Code(s): G47.30 - Sleep apnea, unspecified Status: Chronic Assessment and Plan: -----The patient is being investigated for possible COVID-19 infection. We will hold on home Cpap until we are certain he is COVID-19 negative. (7) Upper respiratory infection: Qualifiers: URI type: unspecified viral URI Qualified Code(s): J06.9 - Acute upper respiratory infection, unspecified Code(s): J06.9 - Acute upper respiratory infection, unspecified Status: Acute Assessment and Plan: -----infection seems less likely at this time.. No antibiotics needed. COVID pending (8) Suspected COVID-19 virus infection: Code(s): R68.89 - Other general symptoms and signs Status: Acute Assessment and Plan: -----being tested for COVID-19 due to cough. LDH and CRP normal. Additional Plan Subjective Date/time seen: 01/10/20 13:40 Interval history: Pt is a 79-year-old male here for cough and right-sided weakness. Patient was seen today and states he is doing well. He denies weakness, chest pain, palpitations or much of a cough. His shortness of breath is much better. He tried to sit in the chair earlier today but had some back pain which improved once he got back in bed. He has problems with back pain occasionally. We talked about the current plan and workup for him and I answered all his questions Exam Narrative: Exam Narrative:
--- NOTE | 2020-01-10 14:37 | PM.CNNEP ---
Assessment and Plan Assessment and plan (1) End stage renal disease: Code(s): N18.6 - End stage renal disease Status: Acute (2) Fluid overload: Qualifiers: Hypervolemia type: unspecified Qualified Code(s): E87.70 - Fluid overload, unspecified Code(s): E87.70 - Fluid overload, unspecified Status: Acute (3) Atrial fibrillation: Qualifiers: Atrial fibrillation type: unspecified Qualified Code(s): I48.91 - Unspecified atrial fibrillation Code(s): I48.91 - Unspecified atrial fibrillation Status: Acute (4) Hypertension: Code(s): I10 - Essential (primary) hypertension Status: Acute (5) Weakness: Code(s): R53.1 - Weakness Status: Acute Assessment and Plan: . Additional Plan Ksenia has end-stage renal disease and does dialysis 3 times a week. He received dialysis yesterday to maintain his outpatient dialysis schedule of Tuesday, Tuesday, and Tuesday and I will continue this schedule while he remains hospitalized. Efforts to maintain stability in his electrolytes, volume status, and clearance will be optimized as tolerated. Cardiology has been consulted with regard to his new finding of atrial fibrillation with recommendations noted. Given the concern for weakness on presentation and the a for mentioned atrial fibrillation, the concern for possible TIA or other neurological event is of concern. He is scheduled for an MRI of his head for further evaluation of this issue as he will likely also require chronic anticoagulation for his atrial fibrillation in general. As already mentioned, COVID-19 testing is pending any remains on isolation until results of this test are available. His respiratory status has improved significantly following his dialysis treatment are green more in favor of fluid overload as the culprit with regard to his shortness of breath. I will continue to follow his CKD parameters while he remains hospitalized and make further adjustments to his medications as well as his dialysis prescription as deemed necessary to maintain stability with regard to these issues. I will make further recommendations with regard to his dialysis and treatment of his end-stage renal disease a during his hospital course and is more information/data becomes available. Thank you for allowing me to participate in the care of this patient. History of Present Illness Reason for Consult Consult date: 01/10/20 Reason for consult: end stage renal disease Chief Complaint Chief complaint: CHF Exacerbation History of Present Illness Narrative: The patient is a 79 year old male with a past medical history as outlined below who presented to the [facility] from Urgent care for shortness of breath and a dry hacking cough. Apparently, both of these symptoms have going on for at least 2 weeks but did not seek any medical attention for it. His has been urging him to be evaluated for these symptoms and finally decided to go to Urgent Care on the day of admission. Because of these symptoms and the concern for possible COVID-19 infection, he was sent to the ER for further evaluation. Workup and evaluation in the ER demonstrated labs consistent with his known history of end-stage renal disease as well as a chest x-ray that demonstrated mild CHF changes. He still states he has some shortness of breath but also relates symptoms of upper respiratory congestion, low-grade fevers, and generalized weakness. Incidentally, EKG which was performed in the ER demonstrated atrial fibrillation with the patient having no documented history of. Given the symptoms as mention, the concern for COVID-19 infection, and mild CHF changes on x-ray, he was admitted the hospital for further intervention. Renal consultation was requested due to his end-stage renal disease. The patient is well known to me as I take care of his outpatient dialysis needs. He normally di
[2020-01-10] MEDS: CINACALCET 30 MG TABLET PO (17:04)
[2020-01-10] MEDS: carvediloL 6.25 MG TABLET PO (22:53)
--- NOTE | 2020-01-10 23:37 | ECHO_ITS ---
Patient Info Name: Partha Carias Age: 79 years : 1940 Gender: Male Ht: 73 in Wt: 213 lbs BSA: 2.25 m2 HR: 75 bpm BP: 152 / 101 mmHg Heart Rhythm: Atrial Fibrillation Technical Quality: Good Exam Date: 01/10/2020 3:57 PM Exam Location: [facility] Pulmonary Exam Room: 331 Patient Status: Outpatient Admit Date: 01/08/2020 Staff Ordering Physician: Bhavesh Rodriguez MD Tire Layer: Tiffany Varela RDCS Attending Provider: Elisa Kamara PA-C Referring Physician: Michael VARGAS; Exam Type: CA echo doppler color flow Study Info Indications - afib Complete two-dimensional, color flow and Doppler transthoracic echocardiogram is performed. Summary 1. Left ventricular chamber dimension is normal. 2. Left ventricular systolic function is normal, estimated at 60-65%. 3. There is mildly increased left ventricular wall thickness. 4. Left ventricular septal wall motion is normal. 5. The left ventricular diastolic function is abnormal. 6. Right ventricular chamber dimension is mildly enlarged. 7. Left atrial chamber dimension is severely enlarged. 8. Right atrial chamber dimension is moderately enlarged. 9. There is severe aortic valve sclerosis. 10. There is mild to moderate aortic valve regurgitation. 11. There is moderate mitral valve regurgitation. 12. The mitral valve annulus is moderately calcified. 13. There is moderate to severe tricuspid valve regurgitation. 14. Moderate pulmonary hypertension, estimated pulmonary arterial systolic pressure is 57 mmHg. 15. There is mild pulmonic regurgitation. Left Ventricle Left ventricular chamber dimension is normal. Left ventricular systolic function is normal, estimated at 60-65%. There is mildly increased left ventricular wall thickness. Left ventricular septal wall motion is normal. The left ventricular diastolic function is abnormal. Right Ventricle Right ventricular chamber dimension is mildly enlarged. Right ventricular systolic function is normal. Left Atria Left atrial chamber dimension is severely enlarged. Right Atria Right atrial chamber dimension is moderately enlarged. Atrial Septum Intact interatrial septum visualized by color flow imaging. Aortic Valve The aortic valve is trileaflet. There is severe aortic valve sclerosis. There is no aortic valve stenosis. There is mild to moderate aortic valve regurgitation. Pulmonic Valve The pulmonic valve is normal. There is no pulmonic valve stenosis. There is mild pulmonic regurgitation. Mitral Valve The mitral valve has thickened leaflets. There is no mitral valve stenosis. There is moderate mitral valve regurgitation. The mitral valve annulus is moderately calcified. Tricuspid Valve The tricuspid valve leaflets are normal. There is no significant tricuspid valve stenosis. There is moderate to severe tricuspid valve regurgitation. Moderate pulmonary hypertension, estimated pulmonary arterial systolic pressure is 57 mmHg. Pericardium/Pleural The pericardium appears normal. There is no pericardial effusion. Inferior Vena Cava Dilated inferior vena cava with <50% collapse upon inspiration consistent with elevated right atrial pressure, 15 mmHg. Aorta The aortic root size at the sinus of Valsalva is normal. The prox ascending aorta size is normal. Left Ventricular Outflow Tract Name Value Normal
[2020-01-11] VITALS (22 sets, daily range): BP systolic 146–183; BP diastolic 68–100; PULSE 58–99; RESP 16–18; TEMP 36–36.9; O2SAT 92–98
[2020-01-11 06:30] LABS: Albumin Level 3.8 g/dL (3.5-5.1); Blood Urea Nitrogen 34 mg/dL (9-20); Carbon Dioxide 28 mmol/L (22-30); Chloride 97 mmol/L (98-107); Estimated CRCL calculation 8 ml/min; Estimated Glomerular Filt Rate 8; Glucose 101 mg/dL (75-110); Phosphorus 3.5 mg/dL (2.5-4.5); Potassium 4.5 mmol/L (3.4-5.0); Sodium 134 mmol/L (137-145)
[2020-01-11 08:03] LABS: SARS-CoV-2 RNA PCR Negative
[2020-01-11] MEDS: ASPIRIN 81 MG ENTERIC TABLET PO (08:18)
[2020-01-11] MEDS: ATORVASTATIN 20 MG TABLET PO (08:19)
[2020-01-11] MEDS: carvediloL 6.25 MG TABLET PO (08:19)
[2020-01-11] MEDS: FUROSEMIDE INJ 40 MG/4 ML VIAL 20 MG IV PUSH (08:19)
[2020-01-11] MEDS: CYANOCOBALAMIN 1,000 MCG TABLET 1000 MCG PO (08:19)
[2020-01-11] MEDS: SODIUM BICARBONATE TAB 650 MG TABLET 1300 MG PO (08:19)
--- NOTE | 2020-01-11 11:06 | PM.PNCARD ---
Progress Note: A&P Assessment and Plan (1) Atrial fibrillation: Qualifiers: Atrial fibrillation type: unspecified Qualified Code(s): I48.91 - Unspecified atrial fibrillation Code(s): I48.91 - Unspecified atrial fibrillation Status: Acute Assessment and Plan: History of atrial fibrillation. Uncertain if he is on anticoagulation. Reportedly discharged on Eliquis in the past but apparently not taking at this point. Heart rate is controlled. Depending on COVID test and potential MRI, would recommend anticoagulation. Given his end-stage renal disease, in my opinion, warfarin would be best option. Certainly could start with heparinization and then transition to warfarin. He definitely has a Mauricio Vasc score which would support need for anticoagulation long-term. (2) Suspected COVID-19 virus infection: Code(s): R68.89 - Other general symptoms and signs Status: Acute Assessment and Plan: Symptoms are certainly concerning for COVID. Test negative (3) Fluid overload: Qualifiers: Hypervolemia type: unspecified Qualified Code(s): E87.70 - Fluid overload, unspecified Code(s): E87.70 - Fluid overload, unspecified Status: Acute Assessment and Plan: chest x-ray may be CHF versus viral pneumonia. Volume removal via dialysis and diuresis (4) Sleep apnea: Qualifiers: Sleep apnea type: unspecified type Qualified Code(s): G47.30 - Sleep apnea, unspecified Code(s): G47.30 - Sleep apnea, unspecified Status: Chronic (5) Hypertension: Code(s): I10 - Essential (primary) hypertension Status: Acute Assessment and Plan: Further Increase carvedilol to 12.5 mg p.o. b.i.d. Subjective Date/time seen: 01/11/20 11:06 Interval history: Chief complaint: Weakness, cough, atrial fibrillation Date of service 01/11/2020: No active chest pain or shortness of breath. Feels much better than when he came in. No longer coughing Review of Systems Review of Systems: All systems reviewed & are unremarkable except as noted in HPI and below Constitutional: Constitutional: Denies fatigue, Denies headache(s) and Reports weakness Eyes: Eyes: Denies blurry vision ENT: Denies Normal hearing present, Denies headache(s) and Denies neck pain Cardiovascular: Cardiovascular: Reports chest pain and Reports dyspnea Respiratory: Respiratory: Reports cough and Reports dyspnea Gastrointestinal: Gastrointestinal: Denies abdominal pain Genitourinary: Genitourinary: Denies dysuria and Denies urinary frequency Musculoskeletal: Musculoskeletal: Denies back pain, Denies neck pain and Denies numbness Integumentary/Breasts: Skin/Breast: Denies pruritus, Denies rash and Denies skin pain Neurologic: Denies Normal hearing present, Denies behavioral changes, Denies headache(s), Denies numbness and Reports weakness Psychiatric: Psychiatric: Denies anxiety and Denies behavioral changes Endocrine: Endocrine: Denies fatigue and Denies flushing Hematologic/Lymphatic: Hematologic/Lymphatic: Denies easy bleeding and Denies easy bruising Allergic/Immunologic: Allergic/Immunologic: Denies GI upset with certain foods Exam Narrative: Exam Narrative: alert oriented Const: General: comfortable and no acute distress HENMT: General nose exam: Normal nares present and no epistaxis Eyes: Sclera: sclerae normal Neck: Neck: no JVD Chest: Other: no chest wall pain to palpation Resp: Effort & Inspection: normal respiratory effort Auscultation: diminished lung sounds Cardio: Rhythm: abnormal rhythm irregularly irregular Skin: General skin exam: normal color Neuro: Cranial nerves: No Normal hearing present Cognition (Neuro): normal cognition Speech: normal speech Extrem: General: edema Other: 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
[2020-01-11] MEDS: AMLODIPINE BESYLATE 5 MG TABLET PO (12:13)
[2020-01-11] MEDS: EPOETIN ALFA 3,000 UNITS/ML VIAL 5000 UNITS IV PUSH (13:02)
--- NOTE | 2020-01-11 13:45 | PM.PNNEP ---
Progress Note: A&P Assessment and Plan (1) End stage renal disease: Code(s): N18.6 - End stage renal disease Status: Acute Assessment and Plan: HD today and continue M/W/F hospital while hospitalized follow electrolytes, volume status, and clearance (2) Fluid overload: Qualifiers: Hypervolemia type: unspecified Qualified Code(s): E87.70 - Fluid overload, unspecified Code(s): E87.70 - Fluid overload, unspecified Status: Acute Assessment and Plan: as noted by admission CXR doing better with more aggressive ultrafiltration/fluid removal respiratory status stable (3) Atrial fibrillation: Qualifiers: Atrial fibrillation type: unspecified Qualified Code(s): I48.91 - Unspecified atrial fibrillation Code(s): I48.91 - Unspecified atrial fibrillation Status: Acute Assessment and Plan: new or old?? Cardiology following restart eliquis? (4) Hypertension: Code(s): I10 - Essential (primary) hypertension Status: Acute Assessment and Plan: reasonable control at this time follow hemodynamics Not opposed to discharge from renal perspective if otherwise medically stable. Will continue to follow. Subjective Date/time seen: 01/11/20 13:45 Tolerating dialysis at the time of my visit (seen on HD at ~ ); no apparent distress voiced at this time; COVID-19 testing negative so isolation discontinued. Exam Narrative: Exam Narrative: General: WD/WN AA male in NAD Heart: normal S1 and S2; no rub Lungs: clear to auscultation Abdomen: soft, nontender, nondistended, positive bowel sounds Extremities: no cyanosis or clubbing; no edema Skin: warm and dry Objective Data Vital Signs Vital Signs: Vital Signs Temp Pulse Resp BP Pulse Ox 01/11/20 08:19 78 01/11/20 08:00 74 01/11/20 06:00 36.2 C L 78 18 183/89 H 97 01/11/20 04:00 72 01/11/20 02:00 36.2 C L 74 16 154/98 H 92 01/11/20 00:00 74 01/10/20 22:53 77 01/10/20 22:00 36.5 C 77 18 155/92 H 98 01/10/20 20:00 70 01/10/20 18:47 36.7 C 75 16 151/98 H 98 01/10/20 16:00 70 01/10/20 14:32 36.7 C 73 16 146/84 H 98 Intake/Output Intake/Output: Intake & Output 01/08/20 01/09/20 01/10/20 01/11/20 23:59 23:59 23:59 23:59 Intake Total 2570 2520 510 Output Total 3800 300 50 Balance -1230 2220 460 Meds/Results Medications: Active Medications Generic Name Dose Route Start Last Admin Trade Name Freq PRN Reason Stop Dose Admin Acetaminophen 650 mg 01/08/20 23:35 Tylenol Tablet PO Q4H PRN Mild Pain (1-3) or Fever Amlodipine Besylate 5 mg 01/11/20 09:00 01/11/20 12:13 Norvasc PO 5 mg QAM JAY Administration Aspirin 81 mg 01/09/20 13:45 01/11/20 08:18 Aspirin Ec PO 81 mg QAM JAY Administration Atorvastatin Calcium 20 mg 01/09/20 09:00 01/11/20 08:19 Lipitor PO 20 mg DAILY JAY Administration Carvedilol 12.5 mg 01/11/20 21:00 Coreg PO Q12HR JAY Cinacalcet 30 mg 01/09/20 17:00 01/10/20 17:04 Sensipar PO 30 mg DAILY@1700 JAY Administration Cyanocobalamin 1,000 mcg 01/11/20 09:00 01/11/20 08:19 Vitamin B-12 Tab PO 1,000 mcg QAM JAY Administration Furosemide 20 mg 01/09/20 09:00 01/11/20 08:19 Lasix Inj IV PUSH 20 mg DAILY JAY Administration Albumin Human 50 mls @ 999 mls/hr 01/09/20 06:56 Albutein IVPB 02/08/20 06:57 Q10M PRN HYPOTENSION Ondansetron HCl 4 mg 01/08/20 18:33 Zofran Inj IV PUSH Q4H PRN Nausea Sodium Bicarbonate 1,300 mg 01/09/20 09:00 01/11/20 08:19 Sodium Bicarbonate Tab PO 1,300 mg DAILY JAY Administration Sodium Chloride 1 applic 01/11/20 11:25 [place] Saline Nasal Gel NASAL DAILY [facility] Radiology Results: ITS Impressions Head CT 01/08/20 17:11 IMPRESSION: 1. No acute intracranial findings. 2. Chronic a
--- NOTE | 2020-01-11 15:34 | PM.DS ---
DS: Diagnosis Admitting Diagnosis Admitting Diagnosis: Fluid overload, unspecified Discharge Diagnosis (1) Right sided weakness: Code(s): R53.1 - Weakness Status: Acute (2) Fluid overload: Qualifiers: Hypervolemia type: unspecified Qualified Code(s): E87.70 - Fluid overload, unspecified Code(s): E87.70 - Fluid overload, unspecified Status: Acute Assessment and Plan: No evidence of overt heart failure on echo. Fluid overload likely due to end-stage renal disease. Improved with dialysis (3) Dialysis patient: Code(s): Z99.2 - Dependence on renal dialysis Status: Acute (4) Atrial fibrillation: Qualifiers: Atrial fibrillation type: unspecified Qualified Code(s): I48.91 - Unspecified atrial fibrillation Code(s): I48.91 - Unspecified atrial fibrillation Status: Acute (5) Hypertension: Code(s): I10 - Essential (primary) hypertension Status: Acute (6) Sleep apnea: Qualifiers: Sleep apnea type: unspecified type Qualified Code(s): G47.30 - Sleep apnea, unspecified Code(s): G47.30 - Sleep apnea, unspecified Status: Chronic (7) Upper respiratory infection: Qualifiers: URI type: unspecified viral URI Qualified Code(s): J06.9 - Acute upper respiratory infection, unspecified Code(s): J06.9 - Acute upper respiratory infection, unspecified Status: Acute (8) Suspected COVID-19 virus infection: Code(s): R68.89 - Other general symptoms and signs Status: Acute (9) TIA (transient ischemic attack): Code(s): G45.9 - Transient cerebral ischemic attack, unspecified Status: Acute DS: Summary Hospital Course Reason for hospitalization: Shortness of breath and right-sided weakness Hospital Course: Who presented emergency room for cough, congestion, and right-sided weakness over the past 3 days. Vitals in the ER were temperature 36.8?, pulse 82, respiratory rate 18, blood pressure 175/107, pulse ox 97 on room air. White blood cell count 6.1, hemoglobin 10.0, hematocrit 30.9, platelets 126, sodium 137, potassium 3.5, chloride 91, carbon dioxide 35, BUN 25, creatinine 7.4, glucose 103. EKG showed atrial fibrillation with a controlled rate of 76. This was new to the patient. CT of the brain was negative for acute processes. Chest x-ray showed mild fluid overload. Patient was admitted to the hospitalist service and underwent COVID-19 testing which was negative. He was also worked up for TIA with a normal brain MRI and normal carotid Dopplers. His right-sided weakness completely resolved and this was thought to be a TIA from a new onset atrial fibrillation. Cardiology was consulted and suggested warfarin. Once the MRI was back this warfarin was started. I called Dr. Botello and he is going to follow the INR. The next INR is to be drawn 01/14/20. He is going to follow up with Cardiology and continue his regularly scheduled dialysis. Patient was educated about the worrisome signs symptoms come back to emergency room for was discharged stable condition. Status at Discharge Overall status at discharge: patient is back to baseline Time Spent with Patient Time attestation: Total time spent providing and/or coordinating discharge services:36 min Time spent: Greater than 30 minutes Exam Narrative: Exam Narrative: General: Well developed well nourished patient resting comfortably in bed in no acute distress HEENT: normocephalic Neck: supple Neuro: Alert and oriented x4. Equal strength the upper lower extremities 5/5. Able to do rapid alternating movements and [id number]. No facial droop noted. CV: Irregularly irregular. Telemetry shows occasional atrial fibrillation with controlled rate. Resp:CTA Abd: Soft, non distended. No pain to palpation. Positive bowel sounds Extremities: No swelling, erythema, or pain to palpation to lower extremity. DS: Data Data Completed and
[2020-01-11] MEDS: WARFARIN (*PBKC) 5 MG TABLET PO (16:49)
[2020-01-11] MEDS: SODIUM CHLORIDE NASAL GEL 14.1 GM 1 APPLIC NASAL (16:49)
[2020-01-11] MEDS: CINACALCET 30 MG TABLET PO (16:50)
--- NOTE | 2020-01-14 06:51 | WPDCDIQUERY2 ---
CDI Query Clarification Request 1) Right sided weakness, resolved, concerning for TIA documented Brain MRI with no acute intracranial abnormality, and head CT with no acute findings Please clarify if TIA has been ruled in or ruled out. If ruled out, please clarify possible cause of right sided weakness. 2) Fluid overload which may be secondary to mild acute CHF has been documented Echo with EF 60-65% and abnormal left ventricular diastolic function Please clarify if acute CHF has been ruled in or ruled out. Also if ruled in, please further specify type of CHF: systolic, diastolic, both systolic and diastolic, unable to determine.
== END 2020-01-11 17:40 | disposition home or self-care (01) | DRG 640 ==
LOC: ANHED 18:41 → ANH3MEDSUR 19:00
PROVIDERS: Family Medicine; Physician Assistant; Admitting Provider Internal Medicine; Emergency Provider Emergency Medicine; PCP Family Medicine; Visit Provider Internal Medicine
DX: E87.79 Other fluid overload (principal); N18.6 End stage renal disease; I12.0 Hypertensive chronic kidney disease with stage 5 chronic kidney disease or end stage renal disease; Z20.828 Contact with and (suspected) exposure to other viral communicable diseases; I48.91 Unspecified atrial fibrillation; G47.33 Obstructive sleep apnea (adult) (pediatric); M81.0 Age-related osteoporosis without current pathological fracture; M19.90 Unspecified osteoarthritis, unspecified site; E78.5 Hyperlipidemia, unspecified; Z99.2 Dependence on renal dialysis; Z89.021 Acquired absence of right finger(s)
CPT/HCPCS: 36415; 70450; 70551; 71046; 80048; 80053; 80069; 82607; 82728; 82746; 83615; 83735; 83880; 84443; 84484; 85025; 85055; 85610; 85730; 86140; 87081; 87635; 87804; 87880; 93005; 93306; 93880; 96374; 96376; 99285; A9270; G0257; G0378; J1940; J3420; J7030; Q4081; U0003

== ENCOUNTER 2020-01-24 11:13 | Outpatient (CLI) | payer OTHER, SELFPAY ==
[2020-01-24 12:00] LABS: INR 2.4
== END 2020-01-24 11:14 | disposition home or self-care (01) ==
LOC: ANHLAB 11:15
PROVIDERS: PCP Family Medicine; Visit Provider Physician Assistant
DX: Z79.01 Long term (current) use of anticoagulants (principal)
CPT/HCPCS: 36415; 85610

== ENCOUNTER 2020-02-07 08:21 | Outpatient (CLI) | payer OTHER, SELFPAY ==
--- NOTE | ~2020-02-07 | US_ITS ---
EXAMINATION: US arterial ankle brachial ind DATE: 02/07/2020 09:09 INDICATION: Peripheral vascular disease, unspecified. TECHNIQUE: Segmental pressures and plethysmographic and Doppler waveforms of the brachial and lower e xtremity arteries were obtained. COMPARISON: None. FINDINGS: Right brachial artery pressure is 125 mm Hg. The left brachial artery pressure was not measured due t o the dialysis graft. The right ankle-brachial index (DEJA) is 1.33 (normal >= 0.9-1.0). The right great toe-brachial index (TBI) is 0.97 (normal >= 0.65). Arterial Doppler waveforms are at least triphasic at the ankle. The left DEJA is 1.36. The left TBI is 1.09. Arterial Doppler waveforms are at least triphasic at the ankle. IMPRESSION: 1. No significant arterial occlusive disease. Reviewed, dictated and finalized at location A.
== END 2020-02-07 08:22 | disposition home or self-care (01) ==
PROVIDERS: PCP Family Medicine; Visit Provider Physician Assistant
DX: I73.9 Peripheral vascular disease, unspecified (principal)
CPT/HCPCS: 93922

== ENCOUNTER 2020-02-29 09:59 | Emergency (ER) | payer OTHER, SELFPAY ==
--- NOTE | ~2020-02-29 | XR_ITS ---
EXAMINATION: XR knee RT min 4V DATE: 02/29/2020 11:23 INDICATION: Right knee pain. TECHNIQUE: 4 views of right knee were obtained. COMPARISON: Right knee radiographs 11/10/2017 FINDINGS: Bone alignment is normal. No fracture. There is mild osteoarthritis of medial and lateral c ompartments and severe osteoarthritis of patellofemoral compartment. No knee joint effusion. There is prepatellar soft tissue swelling. IMPRESSION: 1. Severe right knee osteoarthritis. Reviewed, dictated and finalized at location A.
--- NOTE | ~2020-02-29 | XR_ITS ---
EXAMINATION: XR chest 2V DATE: 02/29/2020 11:23 INDICATION: Shortness of breath TECHNIQUE: Portable AP view the chest at 1120 hours COMPARISON: 01/08/2020 FINDINGS: There is stable cardiomegaly. A small right pleural effusion is present. A mild diffuse int erstitial pattern is noted. There are airspace opacities of the lung bases. No pneumothorax is identi fied. There is advanced osteoarthritis of the shoulders. IMPRESSION: 1. Cardiomegaly with mild pulmonary edema. 2. Bibasilar airspace opacities, consistent with atelectasis versus pneumonia. 3. Small right pleural effusion. Reviewed, dictated and finalized at location A.
--- NOTE | ~2020-02-29 | XR_ITS ---
EXAMINATION: XR chest 1V portable INDICATION: Shortness of breath TECHNIQUE: Portable AP view the chest at 1120 hours COMPARISON: 01/08/2020 FINDINGS: There is stable cardiomegaly. A small right pleural effusion is present. A mild diffuse int erstitial pattern is noted. There are airspace opacities of the lung bases. No pneumothorax is identi fied. There is advanced osteoarthritis of the shoulders. IMPRESSION: 1. Cardiomegaly with mild pulmonary edema. 2. Bibasilar airspace opacities, consistent with atelectasis versus pneumonia. 3. Small right pleural effusion. Reviewed, dictated and finalized at location A.
[2020-02-29 10:11] VITALS: BP 157/82; PULSE 80; RESP 20; TEMP 36.6; O2SAT 99
--- NOTE | 2020-02-29 10:14 | ECG_ITS ---
Measurements Intervals [place] Rate: 73 P: RI: 0 QRS: 36 QRSD: 90 T: 131 QT: 397 QTc: 438 Interpretive Statements ATRIAL FIBRILLATION NONSPECIFIC T-WAVE ABNORMALITY- ANTEROLAT/LAT LEADS ABNORMAL ECG Electronically Signed On 02-29-2020 10:49:27 CDT by Hermelindo Mahoney D.O.
--- NOTE | 2020-02-29 10:36 | ED.GENADULT ---
HPI - General Adult General Chief complaint: Recheck/Abnormal Lab/Rx Stated complaint: lab re ck Time Seen by Provider: 02/29/20 10:03 Source: RN notes reviewed History of Present Illness HPI narrative: Patient presents emergency department from dialysis for bleeding from his mouth. Patient states he had teeth pulled approximately 3 days ago and continued to have oozing from where the teeth were pulled. States he is on Coumadin and has been holding his Coumadin since Tuesday has not scheduled to take it until this coming Tuesday. He did go to dialysis today and was stopped short on his dialysis secondary to the bleeding. Patient denies any fevers or chills chest pain shortness of breath abdominal pain or any other symptoms. Patient did have a fall trying to get into the emergency department but was caught and landed on his bottom did not strike his head mild abrasion to his right knee Related Data Home Medications Medication Instructions Recorded Confirmed cinacalcet 30 mg PO DAILY 01/08/20 02/29/20 sodium bicarbonate 1,300 mg PO DAILY 01/08/20 02/29/20 Allergies Allergy/AdvReac Type Severity Reaction Status Date / Time No Known Allergies Allergy Verified 02/29/20 10:19 Review of Systems Review of Systems: Narrative: Gen.: Denies fevers or chills Eyes: Denies eye pain or visual change ENT: Bleeding from his mouth Respiratory: Denies shortness of breath or cough CV: Denies chest pain or palpitations GI: Denies abdominal pain nausea, emesis or diarrhea reports dialysis Musculoskeletal: Denies back pain or muscle pain Neuro: Denies numbness, tingling, weakness or focal weakness Skin: Denies rash Except as documented, all other systems reviewed and negative [facility] Past Medical History Medical History Amputation of finger of right hand Arthritis Dialysis patient Hypertension Osteoporosis Sleep apnea Social History Social History Smoking status: Never smoker Alcohol intake: current Drinks per week: 1 Substance use: never Gender identity (if verbalized by the patient): Male Spiritual care concerns: No Agree to blood products: No Exam Narrative: Exam Narrative: APPEARANCE: No acute distress, nontoxic, resting in bed EYES: EOMI HEENT: Normocephalic, atraumatic, oral mucosa moist, oozing from his right upper gums were teeth been pulled airway patent tolerating own secretions voice normal RESPIRATORY: No respiratory distress Clear to auscultation bilaterally with no rhonchi wheezing or rales. CARDIOVASCULAR: Regular rate and rhythm without murmurs rubs or gallops. ABDOMINAL: Soft, nontender, nondistended, no rebound or guarding MUSCULOSKELETAl: Moves all extremities. No clubbing, cyanosis or edema. Mild abrasion right anterior knee for range of motion without pain no tenderness of right ankle or hip, dorsalis pedis pulse 2+ NEURO: Awake and alert. Following commands, speech normal, no focal deficits SKIN:: Warm, dry. No rashes lesions or abrasions PSYCHIATRIC: Normal affect/mood, Course Course Emergency Course: Patient's bleeding has been controlled in the emergency department Discussed with Dr. Lee presentation work-up. States patient may be discharged with follow-up with his regular dialysis on Tuesday Discussed with patient results of workup and diagnosis. Discussed need for follow-up with primary care, proper use of medication, and reasons to return to the emergency department. Patient understands and agrees to current treatment plan discussed with patient family and patient will not resume Coumadin until Tuesday Vital Signs Vital signs: Vital Signs Temperature 97.8 F 02/29/20 10:11 Pulse Rate 80 02/29/20 10:11 Respiratory Rate 20 02/29/20 10:11 Blood Pressure 157/82 H 02/29/20 10:11 Pulse Oximetry 99 02/29/20 10:11 Temperature 97.8 F 02/29/20 10:11 Pulse Rate
[2020-02-29 10:55] LABS: Basophils Percent Auto 0.3 % (0.2-1.2); Eosinophils Percent Auto 0.5 % (0-4.4); Hematocrit 28.3 % (42.0-52.0); Hemoglobin 9.3 g/dL (14.0-18.0); Immature Granulocyte Absolute 0.02 K/mm3 (0.00-0.031); Immature Granulocyte Percent A 0.3 % (0-0.5); Lymphocytes Absolute Auto 0.81 K/mm3 (0.9-3.2); Lymphocytes Percent Auto 12.6 % (18.3-44.2); Mean Corpuscular HGB Conc 32.9 g/dl (32-36); Mean Corpuscular Hemoglobin 33.2 pg (26-34); Mean Corpuscular Volume 101.1 fl (80-100); Mean Platelet Volume 11.8 fl (7.4-10.4); Monocytes Absolute Auto 0.9 K/mm3 (0.1-0.6); Monocytes Percent Auto 13.9 % (2.6-8.5); Neutrophils Absolute Auto 4.7 K/mm3 (1.3-6.7); Neutrophils Percent Auto 72.4 % (45.5-73.1); Platelet Count Result 161 k/mm3 (150-375); White Blood Count 6.4 K/mm3 (4.5-10.0)
[2020-02-29 11:07] LABS: Alanine Aminotransferase 12 U/L (4-50); Alkaline Phosphatase 120 U/L (38-126); Aspartate Amino Transferase 20 U/L (17-59); Bilirubin,Total 0.9 mg/dL (0.2-1.3); Blood Urea Nitrogen 27 mg/dL (9-20); Calcium 9.6 mg/dL (8.4-10.2); Carbon Dioxide 34 mmol/L (22-30); Chloride 94 mmol/L (98-107); Estimated CRCL calculation 12 ml/min; Estimated Glomerular Filt Rate 11; Glucose 103 mg/dL (75-110); INR 2.6; Potassium 3.7 mmol/L (3.4-5.0); Prothrombin Time 27.1 Seconds (11.1-14.7); Sodium 136 mmol/L (137-145)
[2020-02-29 11:08] LABS: Partial Thromboplastin Time 42.2 SECONDS (22.3-36.8)
[2020-02-29 11:29] VITALS: BP 140/79; PULSE 55; RESP 19; O2SAT 96
[2020-02-29 13:58] VITALS: BP 139/76; PULSE 54; RESP 18; O2SAT 97
== END 2020-02-29 14:38 | disposition home or self-care (01) ==
PROVIDERS: Emergency Provider Emergency Medicine; PCP Family Medicine
DX: K91.840 Postprocedural hemorrhage of a digestive system organ or structure following a digestive system procedure (principal); N18.6 End stage renal disease; Z99.2 Dependence on renal dialysis; T45.515A Adverse effect of anticoagulants, initial encounter; I48.91 Unspecified atrial fibrillation; G47.30 Sleep apnea, unspecified; M17.11 Unilateral primary osteoarthritis, right knee; R91.8 Other nonspecific abnormal finding of lung field; Z89.021 Acquired absence of right finger(s); I51.7 Cardiomegaly; J81.1 Chronic pulmonary edema
CPT/HCPCS: 36415; 71045; 71046; 73564; 80053; 85025; 85610; 85730; 93005; 99284

== ENCOUNTER → 2020-07-14 16:24 | Outpatient (CLI) | payer OTHER, SELFPAY ==
--- NOTE | ~2020-07-14 | XR_ITS ---
EXAMINATION: XR chest 2V DATE: 07/14/2020 17:10 INDICATION: Dyspnea. TECHNIQUE: Frontal and lateral views of the chest were obtained. COMPARISON: Chest single view 02/29/2020, chest CT 01/17/2016 FINDINGS: There is mild atelectasis at left lung base. No pleural effusion or pneumothorax. Cardiomeg jammie is noted. IMPRESSION: 1. Mild atelectasis at left lung base. 2. Cardiomegaly. Reviewed, dictated and finalized at location A. OMS VERIFIER
--- NOTE | ~2020-07-14 | XR_ITS ---
EXAMINATION: XR shoulder RT min 2V DATE: 07/14/2020 17:10 INDICATION: Right shoulder pain. TECHNIQUE: 4 views of right shoulder were obtained. COMPARISON: None. FINDINGS: Bone alignment is normal. No fracture. There is severe osteoarthritis of glenohumeral joint and mild osteoarthritis of acromioclavicular joint. IMPRESSION: 1. Severe osteoarthritis of glenohumeral joint. Reviewed, dictated and finalized at location A. LAY COORDINATOR
== END ==
PROVIDERS: PCP Family Medicine; Visit Provider Family Medicine
DX: R06.09 Other forms of dyspnea (principal); M19.011 Primary osteoarthritis, right shoulder; R91.8 Other nonspecific abnormal finding of lung field; I51.7 Cardiomegaly
CPT/HCPCS: 71046; 73030

== ENCOUNTER 2020-12-20 08:10 | Inpatient (IN) | payer OTHER, SELFPAY ==
[2020-12-20] VITALS (12 sets, daily range): BP systolic 124–153; BP diastolic 69–88; PULSE 67–92; RESP 12–24; TEMP 36.6–37.6; O2SAT 93–99; BMI 24.3
--- NOTE | ~2020-12-20 | US_ITS ---
EXAMINATION: US renal BI DATE: 12/21/2020 13:48 INDICATION: Urinary retention TECHNIQUE: Multiple grayscale and Doppler ultrasound images of the kidneys were obtained. COMPARISON: CT from yesterday FINDINGS: The right kidney measures 12.0 x 5.4 x 9.8 cm and contains multiple cysts measuring up to 5 .3 cm. The left kidney measures 9.2 x 4.0 x 4.0 cm and contains multiple cysts measuring up to 1.9 cm . The kidneys demonstrate increased parenchymal echogenicity. A large volume of ascites is noted. The re is no hydronephrosis. The bladder demonstrates wall thickening and contains debris. The prostate i s enlarged. IMPRESSION: 1. Multiple cysts of the kidneys and medical renal disease. 2. Bladder wall thickening with debris in the bladder, possibly reflecting urinary tract infection ve rsus chronic outlet obstruction. 3. Prostatomegaly. Reviewed, dictated and finalized at location A. IMPRESSION: 1. Multiple cysts of the kidneys and medical renal disease. 2. Bladder wall thickening with debris in the bladder, possibly reflecting urin adelina tract infection versus chronic outlet obstruction. 3. Prostatomegaly.
--- NOTE | ~2020-12-20 | XR_ITS ---
EXAMINATION: XR chest 1V portable EXAM DATE: 12/20/2020 08:47 INDICATION: Weakness and diarrhea. TECHNIQUE: Portable AP frontal chest x-ray was obtained. Comparison is made to prior examination from 07/14/2020. FINDINGS: There is cardiomegaly. Moderate hyperinflation. The lungs are clear. There are no pleural effusions. The cardiomediastinal silhouette is within normal limits. There is no pneumothorax suspe cted. The bones and soft tissues are unremarkable. There is no significant interval change. IMPRESSION: Cardiomegaly. Hyperinflation. Reviewed, dictated and finalized at location A.
--- NOTE | ~2020-12-20 | CT_ITS ---
EXAMINATION: CT abd pelvis lumbar wo con EXAM DATE: 12/20/2020 10:06 INDICATION: Diarrhea. Leukocytosis. Fall and back pain. TECHNIQUE: Spiral CT of the abdomen and pelvis, and lumbar spine was performed without contrast. Ax ial, coronal and sagittal images abdomen pelvis were reviewed. Axial, coronal and sagittal images of the lumbar spine were reviewed. The dose-length product (DLP) for this examination was 1089.38 mGy- cm. The exposure was tailored according to patient size (auto mA exposure control), and iterative re construction (ASIR) was used as additional dose reduction technique. Correlation is made to chest CT 01/17/2016. FINDINGS: Moderate to large amount of ascites. Spleen is normal in size. Nodular liver contour consi stent with cirrhosis. Pancreas, adrenal glands are unremarkable. Gallbladder is unremarkable. No bi liary obstruction. Moderate bilateral renal atrophy with multiple renal cysts. No hydronephrosis. M oderate prostatomegaly, prostate measuring 6.5 cm. Diffuse bladder wall thickening, could be chronic cystitis but recommend checking urinalysis to exclude acute cystitis. There is no retroperitoneal o r pelvic lymphadenopathy. There is moderate scattered arteriosclerotic disease. There are large alexi ateral inguinal hernias, the left containing nonobstructed sigmoid colon and the right containing asc ites. The appendix is normal. There are a few scattered colonic diverticulosis. Sensitivity for diverticuli tis is low due to ascites. There is small sliding gastroesophageal hiatal hernia. There is small am ount of colonic stool. No free intraperitoneal gas. There is cardiomegaly. The lung bases are un remarkable. Lumbar spine: Diffusely dense bones, renal osteodystrophy given appearance to the kidneys. There are no acute fractures identified. Sacroiliac joints appear intact. Mild to moderate lumbar levoscoliosis . Moderate to severe disc disease. Large endplate indentations likely Schmorl's nodes, no paraspinal fluid collection to suggest discitis/osteomyelitis. IMPRESSION: 1. Severe diffuse bladder wall thickening, acute and/or chronic cystitis. 2. Cirrhosis, moderate to large amount of ascites. 3. Large inguinal hernias, left containing nonobstructed sigmoid colon. 4. Spondylosis and renal osteodystrophy. No lumbar fracture. 5. Prostatomegaly. 6. Cardiomegaly. Reviewed, dictated and finalized at location A.
--- NOTE | ~2020-12-20 | CT_ITS ---
EXAMINATION: CT brain wo [facility] EXAM DATE: 12/20/2020 10:07 INDICATION: Fall, weakness, head injury. TECHNIQUE: Spiral CT of the head was performed without contrast. Axial, coronal and sagittal images were reviewed. The dose-length product (DLP) for this examination was 605.33 mGy-cm. The exposure w as tailored according to patient size, and iterative reconstruction (ASIR) was used as additional dos e reduction technique. There is no prior study for comparison. FINDINGS: There is no acute intraparenchymal hemorrhage. No evidence of intraparenchymal brain mass lesion. No evidence of acute infarction. Please note that initial head CT has limited sensitivity f or small or acute infarctions. 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 There is moderate periventricular and subcortical hypodensity, nonspecific but probably related to small vessel ischemi c disease. There is moderate prominence of the sulci and ventricles related to cerebral atrophy. There is intracranial carotid arteriosclerosis. There are no extra-axial collections. There is no m ass effect or midline shift. Patient has had bilateral ocular lens surgery. Soft tissue is unremark able. The visualized sinuses and mastoid air cells are well aerated. IMPRESSION: 1. No acute intracranial findings. 2. Chronic age related findings. 3. 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 Reviewed, dictated and finalized at location A.
--- NOTE | 2020-12-20 08:27 | ECG_ITS ---
Measurements Intervals [place] Rate: 78 P: [place]: 0 QRS: 56 QRSD: 86 T: 98 QT: 420 QTc: 479 Interpretive Statements ATRIAL FIBRILLATION BORDERLINE T WAVE ABNORMALITY- HIGH LATERAL LEADS BASELINE WANDER- I, III, AVL ABNORMAL ECG Electronically Signed On 12-20-2020 9:16:15 CDT by Hermelindo Mahoney D.O.
[2020-12-20 08:50] LABS: Basophils Percent Auto 0.1 % (0.2-1.2); Eosinophils Absolute Auto 0.1 K/mm3 (0-0.3); Eosinophils Percent Auto 0.5 % (0-4.4); Hematocrit 34.8 % (42.0-52.0); Hemoglobin 11.2 g/dL (14.0-18.0); Immature Granulocyte Absolute 0.75 K/mm3 (0.00-0.031); Immature Granulocyte Percent A 3.4 % (0-0.5); Lymphocytes Absolute Auto 0.67 K/mm3 (0.9-3.2); Lymphocytes Percent Auto 3.1 % (18.3-44.2); Mean Corpuscular HGB Conc 32.2 g/dl (32-36); Mean Corpuscular Hemoglobin 31.2 pg (26-34); Mean Corpuscular Volume 96.9 fl (80-100); Mean Platelet Volume 10.7 fl (7.4-10.4); Monocytes Absolute Auto 1.5 K/mm3 (0.1-0.6); Neutrophils Absolute Auto 18.8 K/mm3 (1.3-6.7); Neutrophils Percent Auto 85.9 % (45.5-73.1); Platelet Count Result 244 k/mm3 (150-375); Red Blood Count 3.59 M/mm3 (4.6-6.20); Red Cell Distribution Width 15.1 % (11.5-14.5); White Blood Count 21.9 K/mm3 (4.5-10.0)
[2020-12-20 09:02] LABS: INR 1.3; Prothrombin Time 16.5 Seconds (11.1-14.7)
[2020-12-20 09:03] LABS: Alanine Aminotransferase 10 U/L (4-50); Albumin Level 4.2 g/dL (3.5-5.1); Alkaline Phosphatase 109 U/L (38-126); Anion Gap 11 mmol/L (8-16); Aspartate Amino Transferase 23 U/L (17-59); Bilirubin,Total 1.1 mg/dL (0.2-1.3); Blood Urea Nitrogen 35 mg/dL (9-20); Calcium 9.6 mg/dL (8.4-10.2); Carbon Dioxide 34 mmol/L (22-30); Chloride 95 mmol/L (98-107); Estimated CRCL calculation 10 ml/min; Estimated Glomerular Filt Rate 10; Glucose 110 mg/dL (75-110); Lactic Acid Reflex 1.6 mmol/L (0.7-2.1); Partial Thromboplastin Time 37.6 SECONDS (22.3-36.8); Potassium 4.5 mmol/L (3.4-5.0); Sodium 140 mmol/L (137-145)
[2020-12-20 09:04] LABS: Lipase 25 U/L (23-300); Magnesium 1.9 mg/dL (1.6-2.3)
[2020-12-20 09:22] LABS: Ovalocytes 1+ (NORMAL); Platelet Estimate Adequate (Adequate)
--- NOTE | 2020-12-20 09:22 | ED.WEAKNESS ---
HPI - Weakness General Chief complaint: Weakness Stated complaint: weakness Time Seen by Provider: 12/20/20 08:47 Source: patient and family Mode of arrival: ambulatory Limitations: no limitations History of Present Illness HPI Narrative: This is a 80 year old male who presents for evaluation of diarrhea and weakness. Patient's states that he fell 3 days ago in the garage. He reports that he tripped and he hit his face. He reports intermittent headache. His is also complaining that patient has been having frequent loose stools since last night. He reports he feels urgency to have bowel movement but he is unable to make it to the restroom. He has had a couple episodes of incontinence due to this. He denies associated nausea, vomiting or abdominal pain. She reports he is weak but patient denies increased weakness. He reports chronic low back pain but it is not worse since fall. He is a dialysis patient and he was last dialyzed yesterday. HE denies chest pain, sob, cough or fever. 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, on chronic dialysis Arthritis Dialysis patient Hypertension Osteoarthritis of right shoulder Osteoporosis Sleep apnea Surgical History Surgical History Status post surgical amputation of finger of right hand Family History Family History Sibling CKD (chronic kidney disease) Father Family history of coronary artery disease Social History Social History Smoking status: Never smoker Alcohol intake: never Drinks per week: 1 Substance use: never Substance use type: does not use Gender identity (if verbalized by the patient): Male Spiritual care concerns: No Agree to blood products: No Exam Const: General: no acute distress and alert Orientation/consciousness: patient oriented x3 HENMT: Head: normocephalic and atraumatic Mouth: Yes moist mucous membranes abnormal and Yes other (left upper lip wound, no bleeding) Eyes: Pupils: Equal, round and reactive pupils present EOM: EOMs intact bilaterally Chest: Chest palpation & inspection: normal inspection of the chest Resp: Effort & Inspection: normal respiratory effort and no retractions Auscultation: clear to auscultation bilaterally Cardio: Rate: regular rate Rhythm: regular rhythm Heart sounds: Murmur heart sound present GI: GI Palp: Yes Soft to palpation, No Tenderness to palpation present (GI) and No Guarding due to palpation present (GI) Auscultation: normal bowel sounds Rectal Exam: normal sphincter tone and No Abnormal stool present Skin: General skin exam: normal color Rashes: no rashes Neuro: General: patient oriented x3, moves all extremities and CN's II-XI intact bilaterally Extrem: Other: decreased ROM right shoulder due to previous injury, amputation fingers 2-5 on right Course Reevaluation(s) Reevaluation #1: PAtient and were made aware of plan to admit patient. Date: 12/20/20 Time: 11:34 Consultations Consultation #1: I Discussed case and labs with Dr. Gentile who accepts patient to medical floor of hospitalist service. Date: 12/20/20 Time: 11:34 Vital Signs Vital signs: Vital Signs Temperature 99.6 F
[2020-12-20 09:33] LABS: Add Urine Microscopic? YES; Appearance Urine Cloudy (Clear); Bacteria Urine Trace /hpf; Bilirubin Urine Negative (Negative); Blood Urine Negative (Negative); Color Urine Yellow (Yellow); Glucose Urine UA Negative (Negative); Ketones Urine Negative (Negative); Leukocyte Esterase Ur 3+ LEU/UL (Negative); Nitrate Urine Negative (Negative); Protein Urine 3+ mg/dL (Negative); Specific Grav Ur 1.013 (1.001-1.035); Squamous Epithelial Cell Urine Rare /hpf (Few); WBC Urine >75 /hpf
--- NOTE | 2020-12-20 12:56 | PM.IMHP ---
H&P: HPI History of Present Illness Date/Time: 12/20/20 12:56 Chief Complaint: Weakness and fecal incontinence Narrative: 80-year-old gentleman who has been on dialysis for 5 years was in his usual state of health until about 2 days ago. He still makes a small amount of urine every day. He began feeling weak 2 days ago. Was so weak he was having trouble getting to the bathroom for defecation.. He had a few somewhat loose incontinent stools that he was unable to enumerate. 3 days ago he fell by tripping on a step. He has had a poor appetite and some weight loss. He denied pain dysuria hematuria increased frequency or urgency. He denied prior history of UTI. Because his weakness was worsening his brought in the emergency room where he was found to have a thickened bladder wall by CT and pyuria on urinalysis. 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, on chronic dialysis Arthritis Dialysis patient Hypertension Osteoarthritis of right shoulder Osteoporosis Sleep apnea Surgical History Surgical History Status post surgical amputation of finger of right hand Family History Family History Sibling CKD (chronic kidney disease) Father Family history of coronary artery disease Social History Social History Smoking status: Never smoker Alcohol intake: current Drinks per week: 1 Substance use: never Substance use type: does not use Gender identity (if verbalized by the patient): Male Spiritual care concerns: No Agree to blood products: No Meds Home Medications and Allergies Home Medications Medication Instructions Recorded Confirmed Type cinacalcet 30 mg PO DAILY 01/08/20 02/29/20 History sodium bicarbonate 1,300 mg PO DAILY 01/08/20 02/29/20 History cyanocobalamin (vitamin B-12) 1,000 mcg PO QAM #90 tablet 02/11/20 02/29/20 Rx 1,000 mcg tablet aspirin 81 mg tablet,delayed 81 mg PO QAM #90 tablet 02/18/20 02/29/20 Rx release amlodipine 5 mg tablet 5 mg PO QAM #90 tablet 05/15/20 Rx carvedilol 12.5 mg tablet 12.5 mg PO Q12HR #180 tablet 08/20/20 Rx Allergies Allergy/AdvReac Type Severity Reaction Status Date / Time No Known Allergies Allergy Verified 12/20/20 08:24 Vital Signs Vital Signs - 24 hr 12/20/20 08:21 12/20/20 08:24 12/20/20 09:09 Temperature 99.6 F Pulse Rate 77 77 77 Respiratory Rate 22 H Blood Pressure 137/82 132/79 Pulse Oximetry 97 12/20/20 09:10 12/20/20 09:11 12/20/20 09:39 Temperature Pulse Rate 69 92 74 Respiratory Rate 18 Blood Pressure 136/79 153/88 H 136/85 Pulse Oximetry 98 12/20/20 10:30 12/20/20 11:41 Temperature Pulse Rate 70 77 Respiratory Rate 24 H 15 Blood Pressure 124/75 136/69 Pulse Oximetry 96 93 Exam Narrative: Exam Narrative: HEENT: EOMI, PERRL, sclerae nonicteric, pharyngeal mucosa pink and intact NECK: No JVD, adenopathy, or thyromegaly CHEST: Clear to auscultation. Normal effort. HEART: NL S1/S2, regular, no murmur ABDOMEN: BS+, distended but soft, nontender, no mass, no bruits EXTREMITIES: No cyanosis, edema, or clubbing NEUROLOGIC: CN intact and symmetric to inspection. MUSCULOSKELETAL: Tone and strength symmetric. Status post amputation digits 2 through 5 right hand PSYCH: Alert. Oriented to person, place, and time. H&P: Results Labs Labs: Short CBC 12/20/20 Range/Units 08:35 WBC 21.9 H (4.5-10.0) K/mm3 Hgb 11.2 L (14.0-18.0) g/dL Hct 34.8 L (42.0-52.0) % Plt Count 244 D (150-375) k/mm3 [facility] 12/20/20 08:35
--- NOTE | 2020-12-20 13:25 | ADMGEN ---
This patient, Partha Carias Jr., was admitted to Medical Room 341-01. Patient/family oriented to hospital policies and general routines including ID bracelet, bed and alarms, visiting hours, pain management, procedures, bathroom and other care routines, personal items, smoking policy, room service/diet, and visiting hours. Information on how to activate the Rapid Response Team has been discussed. Patient/Family are encouraged to report perceived risks to care and to ask questions if they do not understand what they are told or what they should do.
[2020-12-20] MEDS: SODIUM BICARBONATE TAB 650 MG TABLET 1300 MG PO (18:36)
[2020-12-20] MEDS: CINACALCET 30 MG TABLET PO (18:37)
[2020-12-20] MEDS: carvediloL 12.5 MG TABLET PO (22:15)
[2020-12-20] MEDS: HEPARIN SODIUM 5,000 UNITS/ML VIAL 5000 UNITS SUB-Q (22:16)
[2020-12-21 05:39] VITALS: BP 142/74; PULSE 65; RESP 12; TEMP 36.8; O2SAT 94
[2020-12-21 06:19] LABS: Basophils Percent Auto 0.2 % (0.2-1.2); Eosinophils Percent Auto 0.1 % (0-4.4); Hematocrit 32.2 % (42.0-52.0); Hemoglobin 10.5 g/dL (14.0-18.0); Immature Granulocyte Absolute 0.13 K/mm3 (0.00-0.031); Immature Granulocyte Percent A 0.8 % (0-0.5); Lymphocytes Absolute Auto 0.61 K/mm3 (0.9-3.2); Lymphocytes Percent Auto 3.6 % (18.3-44.2); Mean Corpuscular HGB Conc 32.6 g/dl (32-36); Mean Corpuscular Hemoglobin 30.6 pg (26-34); Mean Corpuscular Volume 93.9 fl (80-100); Mean Platelet Volume 10.9 fl (7.4-10.4); Monocytes Absolute Auto 1.3 K/mm3 (0.1-0.6); Monocytes Percent Auto 7.6 % (2.6-8.5); Neutrophils Absolute Auto 14.7 K/mm3 (1.3-6.7); Neutrophils Percent Auto 87.7 % (45.5-73.1); Platelet Count Result 221 k/mm3 (150-375); Red Blood Count 3.43 M/mm3 (4.6-6.20); White Blood Count 16.8 K/mm3 (4.5-10.0)
[2020-12-21 06:46] LABS: Alanine Aminotransferase 8 U/L (4-50); Albumin Level 3.7 g/dL (3.5-5.1); Alkaline Phosphatase 104 U/L (38-126); Anion Gap 11 mmol/L (8-16); Aspartate Amino Transferase 23 U/L (17-59); Bilirubin,Total 0.8 mg/dL (0.2-1.3); Blood Urea Nitrogen 49 mg/dL (9-20); Calcium 8.6 mg/dL (8.4-10.2); Carbon Dioxide 32 mmol/L (22-30); Chloride 95 mmol/L (98-107); Estimated CRCL calculation 8 ml/min; Estimated Glomerular Filt Rate 8; Glucose 105 mg/dL (75-110); Phosphorus 5.4 mg/dL (2.5-4.5); Potassium 4.4 mmol/L (3.4-5.0); Sodium 138 mmol/L (137-145)
[2020-12-21 06:59] LABS: Hypochromasia 1+ (NORMAL); Platelet Estimate Adequate (Adequate)
[2020-12-21 07:00] LABS: Ovalocytes 1+ (NORMAL); Poikilocytosis 1+ (NORMAL); Target Cells 1+ (NORMAL)
[2020-12-21 08:17] VITALS: PULSE 65
[2020-12-21] MEDS: ASPIRIN 81 MG ENTERIC TABLET PO (08:17)
[2020-12-21] MEDS: carvediloL 12.5 MG TABLET PO ×2 (08:17→20:11)
[2020-12-21] MEDS: amLODIPine BESYLATE 5 MG TABLET PO (08:17)
[2020-12-21] MEDS: HEPARIN SODIUM 5,000 UNITS/ML VIAL 5000 UNITS SUB-Q ×2 (08:17→20:10)
[2020-12-21] MEDS: CYANOCOBALAMIN 1,000 MCG TABLET 1000 MCG PO (08:17)
[2020-12-21] MEDS: SODIUM BICARBONATE TAB 650 MG TABLET 1300 MG PO ×2 (08:17→17:28)
--- NOTE | 2020-12-21 08:23 | PM.CNNEP ---
Assessment and Plan Assessment and plan (1) End stage renal disease: Code(s): N18.6 - End stage renal disease Status: Acute Assessment and Plan: the patient has end-stage renal disease. Etiology is hypertension. he had his dialysis on Tuesday and finished his treatment and got down to his dry weight. Currently he looks euvolemic. He does not have any swelling in his lungs are clear. Electrolytes and potassium are okay such that we do not need to do dialysis today. He is due for dialysis tomorrow I will write orders. (2) Complicated urinary tract infection: Code(s): N39.0 - Urinary tract infection, site not specified Status: Acute Assessment and Plan: The patient has frequent urination and pyuria. He is on antibiotics. He has blood and urine cultures pending. His CT scan showed thickened bladder. He also has a large prostate. I suspect he may have some prostatic retention. I will have the nurses check a postvoid residual using the bladder scanner. I will have them call me the results. He may need tamsulosin. Even if he does not make much urine, if he does not empty his bladder completely he will still have stasis increasing his risk for recurrent bladder infections. (3) Weakness: Code(s): R53.1 - Weakness Status: Acute Assessment and Plan: This is probably due to his bladder infection. (4) Diarrhea: Code(s): R19.7 - Diarrhea, unspecified Status: Acute Assessment and Plan: Hopefully this will improve with the bladder infection's improvement. (5) Anemia due to chronic kidney disease, on chronic dialysis: Code(s): N18.6 - End stage renal disease; D63.1 - Anemia in chronic kidney disease; Z99.2 - Dependence on renal dialysis Status: Acute Assessment and Plan: Hemoglobin is target. Will continue EPO. (6) Hypertension: Qualifiers: Hypertension type: unspecified Qualified Code(s): I10 - Essential (primary) hypertension Code(s): I10 - Essential (primary) hypertension Status: Acute Assessment and Plan: Blood pressure is pretty well controlled. He is on amlodipine and carvedilol at home. (7) Sleep apnea: Qualifiers: Sleep apnea type: unspecified type Qualified Code(s): G47.30 - Sleep apnea, unspecified Code(s): G47.30 - Sleep apnea, unspecified Status: Chronic (8) Atrial fibrillation: Qualifiers: Atrial fibrillation type: unspecified Qualified Code(s): I48.91 - Unspecified atrial fibrillation Code(s): I48.91 - Unspecified atrial fibrillation Status: Acute Assessment and Plan: Heart rate is well controlled. History of Present Illness Reason for Consult Consult date: 12/21/20 Chief Complaint Chief complaint: sepsis/UTI/ESRD dialysis/weakness History of Present Illness Narrative: Ksenia is a very pleasant 80-year-old gentleman who has end-stage renal disease on dialysis Wednesdays and Fridays under Dr. 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 The patient came to the emergency room because of weakness. He also was having diarrhea. He had urgency as well such that he sometimes was incontinent on the way to the bathroom. He also was urinating frequently as well. He says normally he does not make very much urine. Occasionally he will get up at night to urinate but not every night. In the last few days he has been urinating very frequently with urgency as well. The patient did not have any pain with urination suprapubic pain or flank pain. No fevers or chills. He did feel cold in dialysis on Tuesday but the keep the dialysis units cold. He came to the emergency room yesterday and was found to have a bladder infection. He was admitted and is on antibio
[2020-12-21 09:34] LABS: Hepatitis B Surface Antigen Negative (Negative)
[2020-12-21] MEDS: TAMSULOSIN HCL 0.4 MG CAPSULE PO ×2 (12:10→17:28)
--- NOTE | 2020-12-21 12:20 | PM.IMPN ---
Progress Note: A&P Assessment and Plan (1) Complicated urinary tract infection: Code(s): N39.0 - Urinary tract infection, site not specified Status: Acute Assessment and Plan: Thickened bladder wall on CT imaging, grossly abnormal urinalysis. Continue IV rocephin (day 2) with urine and blood cultures pending. Enlarged prostate, may be having some retention. Dr Lee started Flomax. (2) Sepsis: Qualifiers: Sepsis acute organ dysfunction status: without acute organ dysfunction Sepsis type: sepsis due to unspecified organism Qualified Code(s): A41.9 - Sepsis, unspecified organism Code(s): A41.9 - Sepsis, unspecified organism Status: Acute Assessment and Plan: Suspected source is urinary. Continue antibiotics as above. Monitor microbiology. Monitor vital signs and urine output. (3) ESRD (end stage renal disease) on dialysis: Code(s): N18.6 - End stage renal disease; Z99.2 - Dependence on renal dialysis Status: Chronic Assessment and Plan: HD management per Nephrology. He gets HD via left upper extremity fistula MWF at [facility]. (4) Osteoarthritis of right shoulder: Qualifiers: Osteoarthritis type: unspecified Qualified Code(s): M19.011 - Primary osteoarthritis, right shoulder Code(s): M19.011 - Primary osteoarthritis, right shoulder Status: Chronic Assessment and Plan: Aggravated by a recent fall Acetaminophen PRN. Follows with Dr Lovell outpatient. (5) Atrial fibrillation: Qualifiers: Atrial fibrillation type: unspecified Qualified Code(s): I48.91 - Unspecified atrial fibrillation Code(s): I48.91 - Unspecified atrial fibrillation Status: Chronic Assessment and Plan: Chronic and stable. Continue home carvedilol. (6) Hypertension: Qualifiers: Hypertension type: unspecified Qualified Code(s): I10 - Essential (primary) hypertension Code(s): I10 - Essential (primary) hypertension Status: Chronic Assessment and Plan: Continue home carvedilol and norvasc. Monitor BP and adjust treatment as needed. (7) Anemia due to chronic kidney disease, on chronic dialysis: Code(s): N18.6 - End stage renal disease; D63.1 - Anemia in chronic kidney disease; Z99.2 - Dependence on renal dialysis Status: Chronic Assessment and Plan: Stable. Gets Epo with dialysis. No evidence of acute bleeding. Monitor CBC. (8) AV (arteriovenous fistula): Code(s): I77.0 - Arteriovenous fistula, acquired Status: Chronic Assessment and Plan: Intact and functioning left upper extremity (9) Weakness: Code(s): R53.1 - Weakness Status: Acute Assessment and Plan: May be related to acute infection. Recent fall. PT/OT evals appreciated. Subjective Date/time seen: 12/21/20 12:15 Interval history: Mr. Carias is a pleasant 80yo M admitted with UTI and generalized weakness. He reports feeling better today. Had incontinent loose stools prior to arrival but he has had no loose BMs today. Eating lunch and denies abdominal pain, nausea or vomiting. No chest pain or shortness of breath. Describes issues with urinary frequency starting Tuesday but prior to that, denies urinary symptoms. Review of Systems Review of Systems: All systems reviewed & are unremarkable except as noted in HPI and below Exam Narrative: Exam Narrative: GENERAL: Male resting comfortably sitting up in bedside chair in no acute distress, eating lunch. HEENT: EOMI, PERRL, sclerae n
[2020-12-21 14:15] VITALS: BP 112/70; PULSE 61; RESP 22; TEMP 36.3; O2SAT 97
[2020-12-21] MEDS: CINACALCET 30 MG TABLET PO (17:28)
[2020-12-21 19:54] VITALS: BP 103/63; PULSE 71; RESP 20; TEMP 36.4; O2SAT 95
[2020-12-21 20:11] VITALS: PULSE 71
[2020-12-22] VITALS (19 sets, daily range): BP systolic 106–127; BP diastolic 50–77; PULSE 53–75; RESP 16–18; TEMP 36–36.5; O2SAT 98–100
--- NOTE | 2020-12-22 | ECHO_ITS ---
Patient Info Name: Partha Carias Age: 80 years : 1940 Gender: Male Ht: 73 in Wt: 184 lbs BSA: 2.08 m2 HR: 64 bpm BP: 122 / 74 mmHg Technical Quality: Good Exam Date: 12/22/2020 9:20 AM Exam Location: [facility] Pulmonary Exam Room: 341 Patient Status: Inpatient Admit Date: 12/21/2020 Staff Ordering Physician: Aime Gentile MD Window Repairer: Tiffany Varela RDCS Attending Provider: Angelica Potter PA-C Referring Physician: Krupa SHELL; Exam Type: CA echo doppler color flow Study Info Indications - murmur Complete two-dimensional, color flow and Doppler transthoracic echocardiogram is performed. Summary 1. Complete two-dimensional, color flow and Doppler transthoracic echocardiogram is performed. 2. Left ventricular chamber dimension is normal. 3. Left ventricular systolic function is normal, estimated at 65-70%. 4. The left ventricular diastolic function is grade I diastolic dysfunction. 5. E/e' 8 is minimally elevated. 6. Left atrial chamber dimension is severely enlarged. 7. Right atrial chamber dimension is severely enlarged. 8. There is moderate aortic valve sclerosis. 9. There is mild aortic valve regurgitation. 10. The mitral valve has moderately thickened leaflets and moderately calcified annulus. 11. There is moderate mitral valve regurgitation. 12. There is moderate tricuspid valve regurgitation. 13. Severe pulmonary hypertension, estimated pulmonary arterial systolic pressure is 64 mmHg. 14. There is trace pulmonic regurgitation. 15. Dilated inferior vena cava with >50% collapse upon inspiration consistent with elevated right atrial pressure, 10 mmHg. Left Ventricle E/e' 8 is minimally elevated. Left ventricular chamber dimension is normal. Left ventricular systolic function is normal, estimated at 65-70%. The left ventricular diastolic function is grade I diastolic dysfunction. Right Ventricle Right ventricular systolic function is normal with normal TAPSE 2.1 cm.. Right ventricular chamber dimension is normal. Left Atria Left atrial chamber dimension is severely enlarged. Right Atria Right atrial chamber dimension is severely enlarged. Aortic Valve The aortic valve is trileaflet. There is moderate aortic valve sclerosis. There is no aortic valve stenosis. There is mild aortic valve regurgitation. Pulmonic Valve There is trace pulmonic regurgitation. Mitral Valve The mitral valve has moderately thickened leaflets and moderately calcified annulus. There is no mitral valve stenosis. There is moderate mitral valve regurgitation. Tricuspid Valve The tricuspid valve leaflets are normal. There is moderate tricuspid valve regurgitation. Severe pulmonary hypertension, estimated pulmonary arterial systolic pressure is 64 mmHg. Pericardium/Pleural There is no pericardial effusion. Inferior Vena Cava Dilated inferior vena cava with >50% collapse upon inspiration consistent with elevated right atrial pressure, 10 mmHg. Aorta The aortic root size at the sinus of Valsalva is normal. Left Ventricular Outflow Tract Name Value Normal LVOT 2D LVOT Diameter 2.1 cm LVOT Doppler
[2020-12-22 05:59] LABS: Hematocrit 32.4 % (42.0-52.0); Hemoglobin 10.6 g/dL (14.0-18.0); Mean Corpuscular HGB Conc 32.7 g/dl (32-36); Mean Corpuscular Hemoglobin 30.5 pg (26-34); Mean Corpuscular Volume 93.1 fl (80-100); Mean Platelet Volume 10.9 fl (7.4-10.4); Platelet Count Result 227 k/mm3 (150-375); Red Blood Count 3.48 M/mm3 (4.6-6.20); Red Cell Distribution Width 14.8 % (11.5-14.5); White Blood Count 10.6 K/mm3 (4.5-10.0)
[2020-12-22 06:23] LABS: Albumin Level 3.9 g/dL (3.5-5.1); Anion Gap 12 mmol/L (8-16); Blood Urea Nitrogen 65 mg/dL (9-20); Carbon Dioxide 31 mmol/L (22-30); Chloride 95 mmol/L (98-107); Estimated CRCL calculation 8 ml/min; Estimated Glomerular Filt Rate 8; Glucose 109 mg/dL (75-110); Phosphorus 5.3 mg/dL (2.5-4.5); Potassium 5.1 mmol/L (3.4-5.0); Sodium 138 mmol/L (137-145)
[2020-12-22] MEDS: SODIUM BICARBONATE TAB 650 MG TABLET 1300 MG PO ×2 (08:59→19:11)
[2020-12-22] MEDS: CYANOCOBALAMIN 1,000 MCG TABLET 1000 MCG PO (08:59)
[2020-12-22] MEDS: ASPIRIN 81 MG ENTERIC TABLET PO (09:00)
[2020-12-22] MEDS: carvediloL 12.5 MG TABLET PO (09:00)
[2020-12-22] MEDS: amLODIPine BESYLATE 5 MG TABLET PO (09:00)
[2020-12-22] MEDS: HEPARIN SODIUM 5,000 UNITS/ML VIAL 5000 UNITS SUB-Q (09:01)
--- NOTE | 2020-12-22 15:00 | PC.NURSE ---
Patient to dialysis per bed.
--- NOTE | 2020-12-22 16:00 | PM.PNNEP ---
Progress Note: A&P Assessment and Plan (1) End stage renal disease: Code(s): N18.6 - End stage renal disease Status: Acute Assessment and Plan: HD today and continue M/W/ dialysis schedule follow electrolytes, volume status, and clearance (2) Complicated urinary tract infection: Code(s): N39.0 - Urinary tract infection, site not specified Status: Acute Assessment and Plan: urine culture with E.coli on antibiotics component of urinary retention due to BPH(?) (3) Hypertension: Qualifiers: Hypertension type: unspecified Qualified Code(s): I10 - Essential (primary) hypertension Code(s): I10 - Essential (primary) hypertension Status: Chronic Assessment and Plan: well controlled at this time follow trend of hemodynamics (4) Anemia due to chronic kidney disease, on chronic dialysis: Code(s): N18.6 - End stage renal disease; D63.1 - Anemia in chronic kidney disease; Z99.2 - Dependence on renal dialysis Status: Chronic Assessment and Plan: H/H at goal for ESRD Epogen with HD follow H/H (5) Diarrhea: Code(s): R19.7 - Diarrhea, unspecified Status: Acute Assessment and Plan: related to UTI(?) follow symptoms (6) Weakness: Code(s): R53.1 - Weakness Status: Acute Assessment and Plan: presumably secondary to UTI clinically better Will continue to follow -- not opposed to discharge from renal perspective. Subjective Date/time seen: 12/22/20 16:00 Patient is tolerating dialysis treatment at the time of my visit (seen on HD at ~ 3:50PM); appears to be doing reasonably well; no acute issues or problems to report; no distress noted. Exam Narrative: Exam Narrative: General: WD/WN male in NAD Heart: normal S1 and S2; no rub Lungs: clear to auscultation Abdomen: soft, nontender, nondistended, positive bowel sounds Extremities: no cyanosis or clubbing; no edema Skin: warm and dry Objective Data Vital Signs Vital Signs: Vital Signs Temp Pulse Resp BP Pulse Ox 12/22/20 16:00 54 L 118/77 12/22/20 15:45 53 L 119/64 12/22/20 15:30 60 119/70 12/22/20 15:17 57 L 116/62 12/22/20 15:10 36.5 C 61 18 121/69 12/22/20 13:59 36.1 C L 61 16 106/50 L 100 12/22/20 09:00 64 12/22/20 04:26 36.4 C 64 18 122/74 98 12/21/20 20:11 71 12/21/20 19:54 36.4 C 71 20 103/63 95 Intake/Output Intake/Output: Intake & Output 12/19/20 12/20/20 12/21/20 12/22/20 23:59 23:59 23:59 23:59 Intake Total 630 1200 680 Output Total 200 Balance 630 1000 680 Meds/Results Medications: Active Medications Generic Name Dose Route Start Last Admin Trade Name Freq PRN Reason Stop Dose Admin Amlodipine Besylate 5 mg 12/21/20 09:00 12/22/20 09:00 Amlodipine Besylate 5 Mg Tablet PO 5 mg QAM JAY Administration Aspirin 81 mg 12/21/20 09:00 12/22/20 09:00 Aspirin 81 Mg Enteric Tablet PO 81 mg QAM JAY Administration Carvedilol 12.5 mg 12/20/20 21:00 12/22/20 09:00 Carvedilol 12.5 Mg Tablet PO 12.5 mg Q12HR JAY Administration Cefdinir 300 mg 12/22/20 17:00 Cefdinir 300 Mg Capsule PO 12/22/20 17:01 ONCE ONE Cinacalcet 30 mg 12/20/20 18:00 12/21/20 17:28 Cinacalcet 30 Mg Tablet PO 30 mg QPM JAY Administration Cyanocobalamin 1,000 mcg 12/21/20 09:00 12/22/20 08:59 Cyanocobalamin 1,000 Mcg Tablet PO 1,000 mcg QAM JAY Administration Epoetin Marco A-epbx 10,000 units 12/22/20 08:47 Epoetin Marco A-Epbx 10,000 Units/Ml Vial IV PUSH MOWEFR [facility] Heparin Sodium (Porcine) 5,000 units 12/20/20 21:00 12/22/20 09:01 Heparin Sodium 5,000 Units/Ml Vial SUB-Q 5,000 units Q12HR JAY Administration Ceftriaxone Sodium/Dextrose 1 gm in 50 mls @ 100 mls/hr 12/21/20 09:00 12/22/20 08:59 Rocephin 1 Gm/D5w 50 Ml IVPB 100 mls/hr Q24H JAY Administration Sodium
--- NOTE | 2020-12-22 16:01 | PM.DS ---
DS: Admitting Diagnosis Admitting Diagnosis Admitting Diagnosis: UTI DS: Discharge Diagnosis Discharge Diagnosis (1) Complicated urinary tract infection: Code(s): N39.0 - Urinary tract infection, site not specified Status: Acute Assessment and Plan: Date of Admission 12/20/20 Date of Discharge 12/22/20 Mr. Carias is a pleasant 80yo M with history of end-stage renal disease on hemodialysis, chronic anemia, hypertension, atrial fibrillation who presented to the ED for evaluation of generalized weakness and diarrhea. On arrival he was found to have grossly abnormal UA with pyuria and thickened bladder wall on CT imaging. He was started on IV rocephin. Urine culture grew E coli; blood cultures negative. He received hemodialysis here which he tolerated well. He is noted to have enlarged prostate on CT imaging and noted some urinary incontinence. Dr Lee started him on Flomax. If he continues to have urinary symptoms after resolution of his UTI, he may benefit from outpatient urology referral. He was feeling improved with the therapy outlined above and walked independently in the room with therapy. His diarrhea resolved. He was hemodynamically stable for discharge on 12/22/20 with instructions to follow up with PCP. Thickened bladder wall on CT imaging, grossly abnormal urinalysis. Urine culture gre E coli; blood cultures negative. Treated with IV rocephin and discharged with oral cefdinir to complete the course. Enlarged prostate, he does still make some urine and is having incontinence, may be having some trouble completely emptying bladder. Dr Lee started Flomax. Follow up with urology if symptoms persist. (2) Sepsis: Qualifiers: Sepsis acute organ dysfunction status: without acute organ dysfunction Sepsis type: sepsis due to unspecified organism Qualified Code(s): A41.9 - Sepsis, unspecified organism Code(s): A41.9 - Sepsis, unspecified organism Status: Acute Assessment and Plan: Suspected source is urinary. Continue antibiotics as above. (3) ESRD (end stage renal disease) on dialysis: Code(s): N18.6 - End stage renal disease; Z99.2 - Dependence on renal dialysis Status: Chronic Assessment and Plan: HD management per Nephrology. He gets HD via left upper extremity fistula MWF at [facility]. (4) Osteoarthritis of right shoulder: Qualifiers: Osteoarthritis type: unspecified Qualified Code(s): M19.011 - Primary osteoarthritis, right shoulder Code(s): M19.011 - Primary osteoarthritis, right shoulder Status: Chronic Assessment and Plan: Aggravated by a recent fall Acetaminophen PRN. Follows with Dr Lovell outpatient. (5) Atrial fibrillation: Qualifiers: Atrial fibrillation type: unspecified Qualified Code(s): I48.91 - Unspecified atrial fibrillation Code(s): I48.91 - Unspecified atrial fibrillation Status: Chronic Assessment and Plan: Chronic and stable. Continue home carvedilol. (6) Hypertension: Qualifiers: Hypertension type: unspecified Qualified Code(s): I10 - Essential (primary) hypertension Code(s): I10 - Essential (primary) hypertension Status: Chronic Assessment and Plan: Continue home carvedilol and norvasc. (7) Anemia due to chronic kidney disease, on chronic dialysis: Code(s): N18.6 - End stage renal disease; D63.1 - Anemia in chronic kidney disease; Z99.2 - Dependence on renal dialysis Status: Chronic Assessment and Plan: Stable. Gets Epo with dialysis. No evidence of acute bleeding. Monitor CBC.
--- NOTE | 2020-12-22 19:02 | PC.NURSE ---
Patient returned from dialysis. 3L removed per dialysis nurse.
[2020-12-22] MEDS: CEFDINIR 300 MG CAPSULE PO (19:11)
[2020-12-22] MEDS: CINACALCET 30 MG TABLET PO (19:11)
[2020-12-22] MEDS: TAMSULOSIN HCL 0.4 MG CAPSULE PO (19:11)
== END 2020-12-22 19:39 | disposition home or self-care (01) | DRG 871 ==
LOC: ANHED 11:51 → ANH3MED 12:35
PROVIDERS: Internal Medicine Nephrology; Admitting Provider Internal Medicine; Emergency Provider General Practice; PCP Family Medicine; Visit Provider Physician Assistant
DX: A41.9 Sepsis, unspecified organism (principal); N18.6 End stage renal disease; N39.0 Urinary tract infection, site not specified; I12.0 Hypertensive chronic kidney disease with stage 5 chronic kidney disease or end stage renal disease; Z99.2 Dependence on renal dialysis; D63.1 Anemia in chronic kidney disease; B96.20 Unspecified Escherichia coli [E. coli] as the cause of diseases classified elsewhere; M19.011 Primary osteoarthritis, right shoulder; I48.91 Unspecified atrial fibrillation; G47.30 Sleep apnea, unspecified; S09.90XA Unspecified injury of head, initial encounter; W01.10XA Fall on same level from slipping, tripping and stumbling with subsequent striking against unspecified object, initial encounter; R53.1 Weakness; R19.7 Diarrhea, unspecified; N25.0 Renal osteodystrophy; M81.0 Age-related osteoporosis without current pathological fracture; Z79.82 Long term (current) use of aspirin
CPT/HCPCS: 36415; 70450; 71045; 72131; 74176; 76775; 80053; 80069; 81001; 83605; 83690; 83735; 84100; 85025; 85027; 85610; 85730; 87040; 87077; 87086; 87088; 87186; 87340; 93005; 93306; 96365; 96366; 96372; 96375; 97161; 97165; 99285; A9270; G0257; G0378; J0131; J0696; J1644

== ENCOUNTER 2022-02-04 08:11 | Outpatient (CLI) | payer OTHER, SELFPAY ==
[2022-02-04 08:34] LABS: Basophils Absolute Auto 0.1 K/mm3 (0.0-0.1); Basophils Percent Auto 0.7 % (0.2-1.2); Eosinophils Absolute Auto 0.1 K/mm3 (0-0.3); Eosinophils Percent Auto 1.7 % (0-4.4); Hematocrit 34.2 % (42.0-52.0); Hemoglobin 10.4 g/dL (14.0-18.0); Immature Granulocyte Absolute 0.02 K/mm3 (0.00-0.031); Immature Granulocyte Percent A 0.3 % (0-0.5); Lymphocytes Absolute Auto 1.12 K/mm3 (0.9-3.2); Lymphocytes Percent Auto 15.7 % (18.3-44.2); Mean Corpuscular HGB Conc 30.4 g/dl (32-36); Mean Corpuscular Hemoglobin 30.5 pg (26-34); Mean Corpuscular Volume 100.3 fl (80-100); Mean Platelet Volume 10.5 fl (7.4-10.4); Monocytes Absolute Auto 0.8 K/mm3 (0.1-0.6); Monocytes Percent Auto 11.2 % (2.6-8.5); Neutrophils Percent Auto 70.4 % (45.5-73.1); Platelet Count Result 199 k/mm3 (150-375); Red Blood Count 3.41 M/mm3 (4.6-6.20); Red Cell Distribution Width 13.9 % (11.5-14.5); White Blood Count 7.1 K/mm3 (4.5-10.0)
[2022-02-04 08:46] LABS: Alanine Aminotransferase 10 U/L (6-50); Albumin Level 4.2 g/dL (3.5-5.1); Alkaline Phosphatase 127 U/L (38-126); Anion Gap 13 mmol/L (8-16); Aspartate Amino Transferase 26 U/L (17-59); Bilirubin,Total 0.8 mg/dL (0.2-1.3); Blood Urea Nitrogen 43 mg/dL (9-20); Calcium 9.5 mg/dL (8.4-10.2); Carbon Dioxide 32 mmol/L (22-30); Chloride 93 mmol/L (98-107); Cholesterol 142 mg/dL (0-200); Estimated Glomerular Filt Rate 10; Glucose 92 mg/dL (65-110); HDL Direct 38 mg/dL; Potassium 4.3 mmol/L (3.4-5.0); Sodium 138 mmol/L (137-145); Triglycerides 79 mg/dL (<150)
[2022-02-04 08:57] LABS: LDL Cholesterol Direct 60 mg/dL
== END 2022-02-04 08:12 | disposition home or self-care (01) ==
LOC: ANHLAB 08:15
PROVIDERS: PCP Family Medicine; Visit Provider Family Medicine
DX: I13.2 Hypertensive heart and chronic kidney disease with heart failure and with stage 5 chronic kidney disease, or end stage renal disease (principal); D63.1 Anemia in chronic kidney disease; Z99.2 Dependence on renal dialysis; I50.9 Heart failure, unspecified; N18.6 End stage renal disease
CPT/HCPCS: 36415; 80053; 80061; 84443; 85025

== ENCOUNTER 2022-05-27 20:35 | Inpatient (IN) | payer OTHER, SELFPAY ==
--- NOTE | ~2022-05-27 | CT_ITS ---
EXAMINATION: CT pelvis wo/w con DATE: 05/28/2022 20:43 INDICATION: Right inguinal hernia. TECHNIQUE: Computed tomography (CT) of the pelvis was performed without and with 100 mL Omnipaque 350 intravenous contrast. Automated exposure control and iterative reconstruction technique were employe d. The dose-length product was 1212.85 mGy-cm. COMPARISON: CT abdomen and pelvis at 12:02 AM FINDINGS: There is a left inguinal hernia containing nonobstructed sigmoid colon. There are no dilate d loops of bowel. The appendix is normal. There is a moderate volume of ascites. There is moderate at rophy of the kidneys. There are cysts in the kidneys measuring up to 5.5 cm on the right. There is an umbilical hernia containing ascites. There is a right inguinal hernia containing ascites. There are no pathologically enlarged lymph nodes. There is severe lumbar spondylosis. IMPRESSION: 1. Right inguinal hernia containing ascites. 2. Left inguinal hernia containing nonobstructed sigmoid colon. 3. Umbilical hernia containing ascites. 4. Moderate volume of ascites. Reviewed, dictated and finalized at location A.
--- NOTE | ~2022-05-27 | US_ITS ---
EXAMINATION: US paracentesis abd w/image DATE: 05/28/2022 15:19 INDICATION: Ascites TECHNIQUE: The procedure and its risks and benefits were discussed with the patient. Potential risks discussed included bleeding and infection. The skin was prepped and draped in sterile fashion. 1% lid ocaine was used for local anesthesia. Under ultrasound guidance, a 5 Fr catheter with trochar was adv anced into the ascites in the right lower quadrant. Fluid was aspirated into vacuum bottles. The cath eter was removed, and a dressing was applied. There were no immediate complications. FINDINGS: Ultrasound images demonstrate ascites and the catheter within the fluid. IMPRESSION: 1. Successful ultrasound-guided paracentesis yielding 5500 mL of peter-colored fluid. Reviewed, dictated and finalized at location A.
--- NOTE | ~2022-05-27 | US_ITS ---
EXAMINATION: US scrotum doppler DATE: 05/30/2022 09:56 INDICATION: Right testicular pain. TECHNIQUE: Grayscale and Doppler ultrasound images of the testes were obtained. COMPARISON: Ultrasound 05/28/2022 FINDINGS: The right testis measures 3.6 x 2.8 x 1.5 cm. The left testis measures 3.3 x 2.2 x 1.3 cm. There is normal vascular flow to both testes. The right epididymis is normal with normal vascular baudilio w. The left epididymis demonstrates a 1.5 cm cyst with low level echoes that may be a hemorrhagic cys t. There is a small right hydrocele. There is a right inguinal hernia containing ascites. There is a small left hydrocele. There is a left inguinal hernia containing ascites. IMPRESSION: 1. Normal vascular flow in the right testis with interval improvement. 2. Small bilateral hydroceles. 3. Bilateral inguinal hernias containing ascites. Reviewed, dictated and finalized at location A.
--- NOTE | ~2022-05-27 | CT_ITS ---
EXAMINATION: CT abdomen pelvis wo con DATE: 05/28/2022 00:15 INDICATION: Abdominal pain with nausea, vomiting and scrotal swelling TECHNIQUE: Computed tomography (CT) of the abdomen and pelvis was performed without intravenous contr ast. Automated exposure control and iterative reconstruction technique were employed. The dose-length product was 1406.43 mGy-cm. COMPARISON: 12/20/2020 FINDINGS: Small right pleural effusion with mild dependent atelectasis in bilateral lower lobes. Unchanged smal l calcified and 5 mm noncalcified nodules at the left posterior sulcus. Cardiomegaly. Atherosclerotic coronary artery calcific lesion. Aortic valve and mitral annular calcification. No pericardial effus ion. Large amount of ascites scattered throughout the abdomen and pelvis. A few hepatic and splenic c alcification consistent with old granulomatous disease. Asymmetric increased density along the depend ent wall of the gallbladder which could represent sludge or gallstones. Pancreas and bilateral adrena l glands are normal. Moderate to severe bilateral renal atrophy with bilateral renal cysts the larges t on the right measuring 5.3 cm. Ascites along with loops of nonobstructed bowel extending into a lar ge bilateral inguinal hernias. No dilated bowel to suggest obstruction. Bladder is normal. Prostatome alberto. There is calcified atherosclerosis of the aorta and many of the other arteries. Mild lumbar lev oscoliosis. There is moderate to severe lumbar and lower thoracic spondylosis. Endplate erosions at m ultiple levels of the lumbar and lower thoracic spine and subtle erosions at the bilateral sacroiliac joints likely related to renal osteodystrophy. IMPRESSION: 1. Large amount of ascites and small right pleural effusion which may be related to volume overload r esulting from renal insufficiency with moderate to severe bilateral renal atrophy. 2. Large bilateral inguinal hernias, both containing ascites and nonobstructed loops of bowel. 3. Prostatomegaly. 4. Moderate to severe spondylosis and changes of renal osteodystrophy throughout the thoracic and lum bar spine.. Reviewed, dictated and finalized at location A. IMPRESSION: 1. Large amount of ascites and small right pleural effusion which may be relate d to volume overload resulting from renal insufficiency with moderate to severe bilateral renal atrophy. 2. Large bilateral inguinal hernias, both containing ascites and nonobstructed loops of bowel. 3. Prostatomegaly. 4. Moderate to severe spondylosis and changes of renal osteodystrophy throughou t the thoracic and lumbar spine..
--- NOTE | ~2022-05-27 | XR_ITS ---
EXAMINATION: XR chest 2V DATE: 05/28/2022 03:58 INDICATION: Fluid overload TECHNIQUE: AP and lateral views of the chest are obtained. COMPARISON: 12/20/2020 FINDINGS: Cardiac megaly is noted. There is a mild diffuse interstitial pattern. There are small pleu ral effusions. No pneumothorax is identified. There is advanced osteoarthritis of the left glenohumer al joint. There is severe thoracic spondylosis. Surgical changes are noted in the left chest wall. IMPRESSION: 1. Cardiomegaly with mild pulmonary edema. 2. Small pleural effusions. Reviewed, dictated and finalized at location B.
--- NOTE | ~2022-05-27 | US_ITS ---
EXAMINATION: US scrotum doppler DATE: 05/28/2022 15:20 INDICATION: Right testicular pain. Scrotal edema. TECHNIQUE: Grayscale and Doppler ultrasound images of the testes were obtained. COMPARISON: CT abdomen and pelvis 05/28/2022 FINDINGS: The right testis measures 3.8 x 0.7 x 2.2 cm. The left testis measures 3.0 x 2.1 x 2.1 cm. There is decreased vascular flow in the right testis. There is normal vascular flow in the left testi s. The right epididymis is not visualized. The left epididymis is normal with normal vascular flow. T here are bilateral inguinal hernias containing bowel and ascites. IMPRESSION: 1. Bilateral inguinal hernias containing bowel and ascites. 2. Decreased vascular flow in the right testis suspicious for torsion. Reviewed, dictated and finalized at location A.
[2022-05-27 20:38] VITALS: BP 135/68; PULSE 71; RESP 18; TEMP 36.9; O2SAT 99
[2022-05-27 21:38] LABS: Basophils Absolute Auto 0.1 K/mm3 (0.0-0.1); Basophils Percent Auto 0.5 % (0.2-1.2); Eosinophils Percent Auto 0.3 % (0-4.4); Hematocrit 28.7 % (42.0-52.0); Hemoglobin 9.2 g/dL (14.0-18.0); Immature Granulocyte Absolute 0.04 K/mm3 (0.00-0.031); Immature Granulocyte Percent A 0.4 % (0-0.5); Lymphocytes Absolute Auto 2.55 K/mm3 (0.9-3.2); Lymphocytes Percent Auto 25.4 % (18.3-44.2); Mean Corpuscular HGB Conc 32.1 g/dl (32-36); Mean Corpuscular Hemoglobin 32.3 pg (26-34); Mean Corpuscular Volume 100.7 fl (80-100); Mean Platelet Volume 10.7 fl (7.4-10.4); Monocytes Percent Auto 9.5 % (2.6-8.5); Neutrophils Absolute Auto 6.4 K/mm3 (1.3-6.7); Neutrophils Percent Auto 63.9 % (45.5-73.1); Platelet Count Result 222 k/mm3 (150-375); Red Blood Count 2.85 M/mm3 (4.6-6.20); Red Cell Distribution Width 14.3 % (11.5-14.5)
[2022-05-27 21:49] LABS: Alanine Aminotransferase 12 U/L (6-50); Albumin Level 4.2 g/dL (3.5-5.1); Alkaline Phosphatase 121 U/L (38-126); Anion Gap 17 mmol/L (8-16); Aspartate Amino Transferase 24 U/L (17-59); Bilirubin,Total 0.8 mg/dL (0.2-1.3); Blood Urea Nitrogen 65 mg/dL (9-20); Calcium 9.7 mg/dL (8.4-10.2); Carbon Dioxide 30 mmol/L (22-30); Chloride 91 mmol/L (98-107); Estimated CRCL calculation 8 ml/min; Estimated Glomerular Filt Rate 8; Glucose 124 mg/dL (65-110); Lipase 122 U/L (23-300); Potassium 5.1 mmol/L (3.4-5.0); Sodium 138 mmol/L (137-145)
--- NOTE | 2022-05-27 23:59 | ED.ABDPAIN ---
HPI - Abdominal Pain General Chief Complaint: Abdominal Pain Stated Complaint: abdominal pain Time Seen by Provider: 05/27/22 23:50 History of Present Illness HPI narrative: Patient is an 81-year-old male who is a Tuesday dialysis patient here for evaluation of abdominal pain for the past several days. Patient states that pain is diffuse in nature but is concentrated in the suprapubic region. He denies any fevers or chills but does note that he is had several episodes of nausea and vomiting over the past several days. He still makes urine but notes he has had decreased urine output over the past several days. Additionally notes scrotal swelling. No chest pain, shortness of breath, neck swelling. Related Data Home Medications Medication Instructions Recorded Confirmed cinacalcet 30 mg tablet 30 mg PO DAILY 01/08/20 03/04/22 Allergies Allergy/AdvReac Type Severity Reaction Status Date / Time No Known Allergies Allergy Verified 05/27/22 20:36 Review of Systems Review of Systems: Gen: Denies fevers or chills Eyes: Denies eye pain or visual change ENT: Denies congestion Respiratory: Denies shortness of breath or cough CV: Denies chest pain or palpitations GI: Reports abdominal pain, nausea and vomiting. : denies burning, urgency, frequency or hematuria Musculoskeletal: Denies back pain or muscle pain Neuro: Denies numbness, tingling, weakness or focal weakness Skin: Denies rash Except as documented, all other systems reviewed and negative [facility] Past Medical History Medical History (Updated 05/28/22 @ 11:06 by Shikha Marie PA-C) Amputation of finger of right hand Four digits sparing thumb, secondary to machinery accident Anemia due to chronic kidney disease, on chronic dialysis Arthritis Dialysis patient Diarrhea ESRD (end stage renal disease) Hypertension Osteoarthritis of right shoulder Osteoporosis Sleep apnea Surgical History Surgical History (Updated 05/24/22 @ 15:00 by Walter Botello MD) Presence of arteriovenous dialysis shunt L forearm w/ removal s/p infx, L upper arm placed Status post surgical amputation of finger of right hand Family History Family History Sibling CKD (chronic kidney disease) Father Family history of coronary artery disease Social History Social History (Updated 05/28/22 @ 11:02 by Shikha Marie PA-C) Social History: Lives at home with his . He is independent in his daily activities. He drives. He does not use any assistive devices such as walker or cane. PCP is Dr. Botello. Designates his , Disha, as his surrogate decision maker. He would like to be a full code. Smoking status: Never smoker Alcohol intake: current Alcohol use details: 2-3 beers per week. Denies history of heavy alcohol use. Substance use: never Exam Narrative: APPEARANCE: Well appearing, no pain in distress, well-nourished. Head: Normocephalic and atraumatic. EYES: PERRLA/EOMI, conjunctivae clear NOSE: No nasal drainage EARS: External ear normal in appearance THROAT: Oropharynx is clear. Mucous membranes are moist. NECK: Supple. No adenopathy, no masses. RESPIRATORY: Airway patent, respirations nonlabored. Clear to auscultation bilaterally, no rales, rhonchi, wheezing. CARDIOVASCULAR: Regular rate and rhythm without murmurs, rubs, or gallops. ABDOMINAL: palpable fluid wave to abdomen. Normoactive bowel sounds. Soft, nontender. No rebound tenderness or guarding. : Patient has nontender fullness in scrotum MUSCULOSKELETAL: Extremities are warm and well-perfused. Moves all extremities well. No edema. NEURO: Normal speech. No focal neurologic deficits. SKIN: Skin is warm and dry. No rashes. PSYCHIATRIC: Normal affect/mood. Course Vital Signs Vital signs: Vital Signs Temperature 98.5 F 05/27/22 20:38 Pulse Rate 71 05/27/22 20:38 Respiratory Rate 18 05/27/22 20:38 Blood Pre
[2022-05-28] MEDS: ONDANSETRON INJ 4 MG/2 ML VIAL IV PUSH (00:46)
[2022-05-28] MEDS: MORPHINE SULFATE (*CRX) 4 MG/ML INJ IV PUSH (00:46)
[2022-05-28 04:25] LABS: INR 1.2; Prothrombin Time 14.7 Seconds (11.1-14.7)
[2022-05-28 04:26] LABS: Partial Thromboplastin Time 30.6 SECONDS (22.3-36.8)
[2022-05-28 05:15] VITALS: BP 142/88; PULSE 69; RESP 20; O2SAT 98
--- NOTE | 2022-05-28 05:30 | ADMGEN ---
This patient, Partha Carias Jr., was admitted to Medical Room 343-01. Patient/family oriented to hospital policies and general routines including ID bracelet, bed and alarms, visiting hours, pain management, procedures, bathroom and other care routines, personal items, smoking policy, room service/diet, and visiting hours. Information on how to activate the Rapid Response Team has been discussed. Patient/Family are encouraged to report perceived risks to care and to ask questions if they do not understand what they are told or what they should do.
[2022-05-28 05:43] VITALS: BMI 24.3
[2022-05-28 05:44] VITALS: BP 138/70; PULSE 60; RESP 16; TEMP 36.6; O2SAT 99
[2022-05-28 06:51] LABS: Magnesium 2.2 mg/dL (1.6-2.3); Phosphorus 6.7 mg/dL (2.5-4.5)
[2022-05-28 07:10] LABS: Lactate Dehydrogenase 210 U/L (120-246)
[2022-05-28 07:55] LABS: Basophils Percent Auto 0.5 % (0.2-1.2); Hematocrit 31.6 % (42.0-52.0); Hemoglobin 9.7 g/dL (14.0-18.0); Immature Granulocyte Absolute 0.03 K/mm3 (0.00-0.031); Immature Granulocyte Percent A 0.4 % (0-0.5); Lymphocytes Absolute Auto 1.14 K/mm3 (0.9-3.2); Lymphocytes Percent Auto 13.9 % (18.3-44.2); Mean Corpuscular HGB Conc 30.7 g/dl (32-36); Mean Corpuscular Hemoglobin 31.9 pg (26-34); Mean Corpuscular Volume 103.9 fl (80-100); Monocytes Absolute Auto 0.7 K/mm3 (0.1-0.6); Monocytes Percent Auto 8.2 % (2.6-8.5); Neutrophils Absolute Auto 6.3 K/mm3 (1.3-6.7); Platelet Count Result 213 k/mm3 (150-375); Red Blood Count 3.04 M/mm3 (4.6-6.20); Red Cell Distribution Width 14.5 % (11.5-14.5); White Blood Count 8.2 K/mm3 (4.5-10.0)
[2022-05-28 08:40] LABS: Alanine Aminotransferase 10 U/L (6-50); Albumin Level 4.4 g/dL (3.5-5.1); Alkaline Phosphatase 104 U/L (38-126); Anion Gap 21 mmol/L (8-16); Aspartate Amino Transferase 25 U/L (17-59); Bilirubin,Total 0.6 mg/dL (0.2-1.3); Blood Urea Nitrogen 67 mg/dL (9-20); Calcium 9.2 mg/dL (8.4-10.2); Carbon Dioxide 25 mmol/L (22-30); Chloride 91 mmol/L (98-107); Estimated CRCL calculation 8 ml/min; Estimated Glomerular Filt Rate 8; Glucose 116 mg/dL (65-110); Potassium 5.5 mmol/L (3.4-5.0); Sodium 137 mmol/L (137-145)
--- NOTE | 2022-05-28 10:28 | PM.IMHP ---
H&P: HPI History of Present Illness Date/Time: 05/28/22 10:28 Chief Complaint: can't pee Narrative: Date of service: 05/28/2022 Partha Carias Jr is an 81 year old male with a history of ESRD on hemodialysis MWF, anemia, arthritis, HTN, and SHONDA who presented to the emergency department on 05/27/22 with complaints of suprapubic discomfort. He states that while he does not make much urine due to ESRD, he typically urinates 2-3 times per day. Yesterday he noticed he could not urinate. He felt the urge to urinate but was not able to go. He also notes scrotal swelling for the past week. He described abdominal bloating. In the ED, his vital signs were stable, potassium 5.1, BUN 65, Cr 7.6. Imaging revealed large amount of ascites and small right pleural effusion with large bilateral inguinal hernias containing ascites and nonobstructed bowel. He was admitted to the hospitalist service for further evaluation and management. Bladder scan done on admission which revealed >300 cc. Straight cath completed with 200 cc urine output. On my evaluation, the patient states his abdominal discomfort has improved. He continues to endorse scrotal swelling. He denies any scrotal wounds, drainage, redness, pain. No fevers or chills. Denies shortness of breath. No chest pain. No cough. Review of Systems Review of Systems: All systems reviewed & are unremarkable except as noted in HPI and below PMFSH Past Medical History Medical History (Updated 05/28/22 @ 11:06 by Shikha Marie PA-C) Amputation of finger of right hand Four digits sparing thumb, secondary to machinery accident Anemia due to chronic kidney disease, on chronic dialysis Arthritis Dialysis patient Diarrhea ESRD (end stage renal disease) Hypertension Osteoarthritis of right shoulder Osteoporosis Sleep apnea Surgical History Surgical History (Updated 05/24/22 @ 15:00 by Walter Botello MD) Presence of arteriovenous dialysis shunt L forearm w/ removal s/p infx, L upper arm placed Status post surgical amputation of finger of right hand Family History Family History Sibling CKD (chronic kidney disease) Father Family history of coronary artery disease Social History Social History (Updated 05/28/22 @ 11:02 by Shikha Marie PA-C) Social History: Lives at home with his . He is independent in his daily activities. He drives. He does not use any assistive devices such as walker or cane. PCP is Dr. Botello. Designates his , Disha, as his surrogate decision maker. He would like to be a full code. Smoking status: Never smoker Alcohol intake: current Alcohol use details: 2-3 beers per week. Denies history of heavy alcohol use. Substance use: never Meds Home Medications and Allergies Home Medications Medication Instructions Recorded Confirmed Type cinacalcet 30 mg tablet 30 mg PO DAILY 01/08/20 03/04/22 History cyanocobalamin (vitamin B-12) 1,000 mcg PO QAM #90 tabs 02/11/20 03/04/22 Rx 1,000 mcg tablet (Vitamin B-12) aspirin 81 mg tablet,delayed 81 mg PO QAM #90 tabs 02/18/20 03/04/22 Rx release tamsulosin 0.4 mg capsule 0.4 mg PO QPM 30 days #90 caps 01/13/21 03/04/22 Rx carvedilol 12.5 mg tablet (Coreg) 6.25 mg PO Q12HR #180 tabs 09/02/21 03/04/22 Rx amlodipine 5 mg tablet (Norvasc) 5 mg PO QAM #90 tabs 12/07/21 03/04/22 Rx sodium bicarbonate 650 mg tablet 1,300 mg PO BID #360 tabs 05/25/22 Rx Allergies Allergy/AdvReac Type Severity Reaction Status Date / Time No Known Allergies Allergy Verified 05/27/22 20:36 Vital Signs Vital Signs - 24 hr 05/27/22 20:38 05/28/22 05:15 05/28/22 05:44 Temperature 98.5 F 98 F Pulse Rate 71 69 60 Respiratory Rate 18 20 16 Blood Pressure 135/68 142/88 H 138/70 Pulse Oximetry 99 98 99 Oxygen Delivery Room Air Exam Narrative: General: Well-nourished, well-appearing 81-year-old male, sitting up in bed, comfortable, N
--- NOTE | 2022-05-28 12:54 | WPDURCON ---
Assessment and Plan Assessment and plan (1) Urinary retention: Code(s): R33.9 - Retention of urine, unspecified Status: Acute Assessment and Plan: PVR is 200cc upon straight catheterization, no need for an indwelling pack catheter. Straight cath PRN. (2) Scrotal edema: Code(s): N50.89 - Other specified disorders of the male genital organs Status: Acute Assessment and Plan: Unable to get a proper evaluation, will get a stat Scrotal US. General Surgery consulted to evaluate inguinal hernias and a need to operate inpatient versus outpatient or if he is a surgical candidate. RLQ pain is likely related to the hernia's/scrotal edema. Another secondary cause is ascites, elevate scrotum, apply scrotal support. (3) Abdominal ascites: Code(s): R18.8 - Other ascites Status: Acute (4) BPH (benign prostatic hyperplasia): Code(s): N40.0 - Benign prostatic hyperplasia without lower urinary tract symptoms Status: Acute Assessment and Plan: Increase Tamsulosin to BID 0.4mg and start Finasteride 5mg QD. He has never had a PSA screening, we will get one today as a baseline prior to starting Finasteride. (5) Inguinal hernia bilateral, non-recurrent: Code(s): K40.20 - Bilateral inguinal hernia, without obstruction or gangrene, not specified as recurrent Status: Acute Urology Consult Note HPI Date Seen: 05/28/22 Time Seen: 12:54 Requesting Physician: Shikha Marie PA-C Primary Care Provider: Walter Botello MD Consult Narrative Reason for consult: Retention/Scrotal Edema Narrative: Partha Carias Jr. is a 81 year old male who presented to the ER for RLQ pain that became more severe over the past few days. His is at the bedside today and is also stating he has had scrotal edema for one month. He has a history of CKD and he does dialysis three days a week normally, but still makes urine on his own. His creatinine today is 7.60, and is at baseline 6.0 on 01/10/2020. WBC is 8.2 and he is afebrile. He is also c/o difficulty with urination, hesitancy and straining for two weeks. He has little output according to his . He has been on Tamsulosin 0.4mg QD for about one year which did help initially but lately has not helped. He denies dysuria, hematuria, frequency, urgency and has nocturia 1-2x/night. His CT scan upon arrival to the ER shows prostatomegaly, and large bilateral inguinal hernias as well as bilateral renal atrophy. His PVR on bladder scan was >300cc, however he had 200cc upon straight catheterization today and no hydronephrosis or bladder distention noted on CT. Review of Systems Cardiovascular: Cardiovascular: Denies chest pain Respiratory: Respiratory: Reports no additional respiratory complaints Gastrointestinal: Gastrointestinal: Reports abdominal pain, Denies nausea and Denies vomiting Genitourinary: Genitourinary: Denies hematuria, Denies dysuria, Denies flank pain, Denies urinary frequency and Reports urinary hesitancy Comments: scrotal edema PMFSH Past Medical History Medical History Amputation of finger of right hand Four digits sparing thumb, secondary to machinery accident Anemia due to chronic kidney disease, on chronic dialysis Arthritis Dialysis patient Diarrhea ESRD (end stage renal disease) Hypertension Osteoarthritis of right shoulder Osteoporosis Sleep apnea Surgical History Surgical History Presence of arteriovenous dialysis shunt L forearm w/ removal s/p infx, L upper arm placed Status post surgical amputation of finger of right hand Family History Family History Sibling CKD (chronic kidney disease) Father Family history of coronary artery disease Social History Social History Soc
[2022-05-28 14:00] VITALS: BP 128/89; PULSE 69; RESP 20; TEMP 36.6; O2SAT 97
--- NOTE | 2022-05-28 14:09 | PM.CNNEP ---
Assessment and Plan Assessment and plan (1) ESRD (end stage renal disease) on dialysis: Code(s): N18.6 - End stage renal disease; Z99.2 - Dependence on renal dialysis Status: Chronic Assessment and Plan: due for dialysis today (does M/W/F schedule as an outpatient) unfortunately, due to lack of critical dialysis supplies, unable to get dialysis treatment today will plan dialysis tomorrow and eventually resume M/W/F schedule follow trend of volume status, clearance, and electrolytes (2) Abdominal ascites: Code(s): R18.8 - Other ascites Status: Acute Assessment and Plan: presented with abdominal discomfort CT scan reveals large amount of ascites due to liver disease/hepatic cirrhosis(?) kidney disease in of itself usually does not cause this diagnostic and therapeutic paracentesis to be done this afternoon attempt to be more aggressive with ultrafiltration with HD (although ascites is usually resistant to ultrafiltration with HD) (3) Scrotal edema: Code(s): N50.89 - Other specified disorders of the male genital organs Status: Acute Assessment and Plan: as noted by exam on admission Pelvic CT shows prostatomegaly with no evidence of mass or obstruction CT also notes ascites within bilateral inguinal hernias which may contributing to scrotal edema Urology recommendations noted scrotal ultrasound ordered (4) Hypertension: Qualifiers: Hypertension type: unspecified Qualified Code(s): I10 - Essential (primary) hypertension Code(s): I10 - Essential (primary) hypertension Status: Chronic Assessment and Plan: reasonable control at this time follow trend of hemodynamics (5) Anemia: Code(s): D64.9 - Anemia, unspecified Status: Chronic Assessment and Plan: due to ESRD Epogen with HD follow trend of H/H (6) Inguinal hernia bilateral, non-recurrent: Code(s): K40.20 - Bilateral inguinal hernia, without obstruction or gangrene, not specified as recurrent Status: Acute Assessment and Plan: as noted by CT scan Surgery consulted Will continue to follow. History of Present Illness Reason for Consult Consult date: 05/28/22 Reason for consult: end stage renal disease Chief Complaint Chief complaint: ascites History of Present Illness Narrative: The patient is an 81-year-old male with an extensive past medical history as outlined below who presented to [facility] Emergency room with complaints of abdominal pain. On further questioning, it seemed the abdominal pain was more localized to the suprapubic area. He states he does not make much urine since he is a dialysis patient but does urinate about 2 to 3 times a day but he noticed in the last 24 hours that he has not urinated all. He states he felt the urge to go but was unable to do so. Further complicating matters is the fact he has also had significant scrotal swelling for the past week. Along with the suprapubic pain, he has also noticed that his abdomen in general seems to be more distended than usual which he describes as a abdominal bloating sensation. He finally decided to come to the emergency room for further evaluation of these complaints appear Workup and evaluation emergency room demonstrated the patient to be hemodynamically stable with routine blood tests that were consistent with his known history of end-stage renal disease with a mildly elevated potassium as well as an elevated BUN and creatinine. CT scan imaging demonstrated a large amount of ascites as well as a small right pleural effusion and large bilateral inguinal hernias contain ascites and nonobstructing bowel. Bladder ultrasound only demonstrated about 300cc of urine and the straight cath only yielded about 200 cc of urine. He denies any other subjective symptoms otherwise. Given his constellation of complaints as noted above in co
[2022-05-28 15:04] LABS: Prostate Specific Antigen 0.2 ng/mL (< OR = 4.0)
[2022-05-28 16:48] LABS: Source Peritoneal Fluid Peritoneal Fluid
[2022-05-28 16:49] LABS: Appearance Peritoneal Fluid Hazy (Clear); Color Peritoneal Fluid Yellow (Colorless)
[2022-05-28 16:50] LABS: Lymphocytes Peritoneal Fluid 66 %; Monocytes Peritoneal Fluid 26 %; Neutrophils Peritoneal Fluid 8 % (0-25)
--- NOTE | 2022-05-28 17:15 | PM.CNGS ---
Assessment and Plan Assessment and plan (1) Inguinal hernia bilateral, non-recurrent: Code(s): K40.20 - Bilateral inguinal hernia, without obstruction or gangrene, not specified as recurrent Status: Acute Assessment and Plan: I reviewed this patient's CT scan, and ultrasound of the scrotum prior to seeing him. Then as noted above in the physical exam I noted a very significant swelling of the right hemiscrotum and tenderness on exam in the upper Rt. scrotum and inguinal region. By placing the patient in mild Trendelenburg position and by having previously had the US guided paracentesis, which relieved a lot of the ascitic pressure on his right inguinal hernia, I believe I did reduce the loop of small bowel out of the upper part of his fairly large right inguinal hernia. Subsequently a lot of the fluid then that was trapped below it I suspect, drained into the abdomen where he had had his paracentesis. His scrotum now looks much more normal. I also suspect that this will take pressure off the blood supply to the right testicle so if the ultrasound was repeated I would suspect now that his blood flow would be better. I suspect that it was being compressed by the tense ascites and the fact that there was a loop of bowel caught at the neck of the hernia. On the left patient shows a sliding inguinal hernia with probable colon in it. This was also reducible was in this position and it was much easier to reduce than the right side. I recommended and showed the nurse how to keep 2 folded wash cloths underneath the scrotum to elevate scrotum overnight and will have the patient sleep flat if possible overnight. At this time in view of the fact that the patient has multiple medical problems I would not recommend repair. I believe we need to better sort out the reason or reasons for his ascitic fluid and have it well-controlled prior to considering any inguinal hernia repair. Smaller versions of these were present in early 2020. Which shows he has had them some time and has done okay without repair. I believe with his current condition he may be best served by watchful waiting and knowing how to reduce these hernias himself every evening or if they begin bothering him. (2) Urinary retention: Code(s): R33.9 - Retention of urine, unspecified Status: Acute Assessment and Plan: Unknown etiology see Urology notes. (3) Abdominal ascites: Code(s): R18.8 - Other ascites Status: Acute Assessment and Plan: Unknown etiology possiblely related to cirrhosis. ( interestingly patient had significant ascites on a previous CT scan from 12/2020 ). he states he does not remember ever being told that he has had cirrhosis or hepatitis. Further blood in the ascitic fluid testing is in progress. History of Present Illness Consult details Consult date: 05/28/22 Reason for consult: hernia (Bilateral inguinal with nonobstructed bowel in each.) Requesting physician: Shikha Marie PA-C Review of Systems Constitutional: Constitutional: Reports as per HPI, Denies chills and Denies fever(s) Eyes: Eyes: Reports no additional eye complaints ENT: Reports Normal hearing present and Denies dizziness Cardiovascular: Cardiovascular: Reports no additional cardiovascular complaints, Denies chest pain and Denies irregular heart rhythm Comments: Hypertension Respiratory: Respiratory: Reports no additional respiratory complaints Gastrointestinal: Gastrointestinal: Reports no additional gastrointestinal complaints Comments: Reports that he was having some lower right abdominal pain over the last few days. States that he did not know he had inguinal hernias. Genitourinary: Genitourinary: Denies hematuria Comments: End-stage renal disease on dialysis. Musculoskeletal: Musculoskeletal: Denies back pain Integumentary/Breasts: Skin/Breast: Reports system reviewed and no additional complaints, except as
[2022-05-28 20:51] VITALS: BP 120/64; PULSE 73; RESP 16; TEMP 36.6; O2SAT 95
[2022-05-28] MEDS: TAMSULOSIN HCL 0.4 MG CAPSULE PO (20:54)
[2022-05-28] MEDS: SODIUM BICARBONATE TAB 650 MG TABLET 1300 MG PO (20:54)
[2022-05-28 20:55] VITALS: PULSE 74
[2022-05-28] MEDS: carvediloL 6.25 MG TABLET PO (20:55)
[2022-05-29] VITALS (20 sets, daily range): BP systolic 88–111; BP diastolic 46–65; PULSE 58–69; RESP 16–18; TEMP 36–36.7; O2SAT 93–98
[2022-05-29 01:58] LABS: Hepatitis B Surface Antigen Negative (Negative)
[2022-05-29 02:03] LABS: HAV RESULT Negative (Negative); Hepatitis B Core IgM Result Negative (Negative)
[2022-05-29 02:15] LABS: Hepatitis C Virus Antibody Negative (Negative)
[2022-05-29 05:45] LABS: Hematocrit 28.5 % (42.0-52.0); Hemoglobin 9.2 g/dL (14.0-18.0); Mean Corpuscular HGB Conc 32.3 g/dl (32-36); Mean Corpuscular Hemoglobin 32.1 pg (26-34); Mean Corpuscular Volume 99.3 fl (80-100); Mean Platelet Volume 10.8 fl (7.4-10.4); Platelet Count Result 207 k/mm3 (150-375); Red Blood Count 2.87 M/mm3 (4.6-6.20); Red Cell Distribution Width 14.2 % (11.5-14.5); White Blood Count 7.3 K/mm3 (4.5-10.0)
[2022-05-29 06:00] LABS: Alanine Aminotransferase 8 U/L (6-50); Albumin Level 3.6 g/dL (3.5-5.1); Alkaline Phosphatase 86 U/L (38-126); Anion Gap 20 mmol/L (8-16); Aspartate Amino Transferase 18 U/L (17-59); Bilirubin,Total 0.6 mg/dL (0.2-1.3); Blood Urea Nitrogen 73 mg/dL (9-20); Calcium 8.5 mg/dL (8.4-10.2); Carbon Dioxide 27 mmol/L (22-30); Chloride 90 mmol/L (98-107); Estimated CRCL calculation 7 ml/min; Estimated Glomerular Filt Rate 7; Glucose 105 mg/dL (65-110); Potassium 5.3 mmol/L (3.4-5.0); Sodium 137 mmol/L (137-145)
[2022-05-29] MEDS: CYANOCOBALAMIN 1,000 MCG TABLET 1000 MCG PO (08:14)
[2022-05-29] MEDS: amLODIPine BESYLATE 5 MG TABLET PO (08:14)
[2022-05-29] MEDS: CALCIUM ACETATE 667 MG TABLET PO (08:14)
[2022-05-29] MEDS: SODIUM BICARBONATE TAB 650 MG TABLET 1300 MG PO ×2 (08:14→16:16)
[2022-05-29] MEDS: FINASTERIDE 5 MG TABLET PO (08:14)
[2022-05-29] MEDS: carvediloL 6.25 MG TABLET PO ×2 (08:14→21:21)
[2022-05-29] MEDS: TAMSULOSIN HCL 0.4 MG CAPSULE PO ×2 (08:14→16:16)
[2022-05-29] MEDS: EPOETIN ALFA-EPBX 10,000 UNITS/ML VIAL 10000 UNITS IV PUSH (11:42)
[2022-05-29] MEDS: SODIUM CHLORIDE 0.9% IV 1,000 ML 999 ML IV CONT (11:42)
--- NOTE | 2022-05-29 12:20 | P.PNNP_ITS ---
Progress Note: A&P Assessment and Plan (1) ESRD (end stage renal disease) on dialysis: Code(s): N18.6 - End stage renal disease; Z99.2 - Dependence on renal dialysis Status: Chronic Assessment and Plan: * HD today (since unable to get yesterday) * plan next HD on Tuesday to maintain M/W/F schedule * follow trend of volume status, clearance, and electrolytes (2) Abdominal ascites: Code(s): R18.8 - Other ascites Status: Acute Assessment and Plan: * presented with abdominal discomfort * CT scan reveals large amount of ascites * due to liver disease/hepatic cirrhosis(?) * kidney disease in of itself usually does not cause this * s/p diagnostic and therapeutic paracentesis with symptomatic improvement * if this is a recurrent issue, may need outpatient GI/Liver referral and PRN scheduling of paracenteses in the future (3) Scrotal edema: Code(s): N50.89 - Other specified disorders of the male genital organs Status: Acute Assessment and Plan: * as noted by exam on admission * Pelvic CT shows prostatomegaly with no evidence of mass or obstruction * CT also notes ascites within bilateral inguinal hernias which may contributing to scrotal edema * Urology recommendations noted * scrotal ultrasound results reviewed (4) Hypertension: Qualifiers: Hypertension type: unspecified Qualified Code(s): I10 - Essential (primary) hypertension Code(s): I10 - Essential (primary) hypertension Status: Chronic Assessment and Plan: * reasonable control at this time * follow trend of hemodynamics (5) Anemia: Code(s): D64.9 - Anemia, unspecified Status: Chronic Assessment and Plan: * due to ESRD * Epogen with HD * follow trend of H/H (6) Inguinal hernia bilateral, non-recurrent: Code(s): K40.20 - Bilateral inguinal hernia, without obstruction or gangrene, not specified as recurrent Status: Acute Assessment and Plan: * as noted by CT scan * Surgery recommendations/interventions noted * need sugery for definitive management(?) Will continue to follow. Subjective Date/time seen: 05/29/22 12:20 Tolerating hemodialysis treatment reasonably well at the time of my visit (seen on HD at 12:00PM); fluid removal limited by hemodynamics; s/p large volume paracentesis yesterday with almost 6L fluid removal; seen by Surgery with manual reduction of hernia at bedside with improvement scrotal appearance; abdominal discomfort doing better following these interventions yesterday. Exam Narrative: General: WD/WN AA male in NAD Heart: normal S1 and S2; no rub Lungs: clear to auscultation Abdomen: soft, nontender, significant reduction in distension, positive bowel sounds Extremities: no cyanosis or clubbing; trace edema Skin: warm and dry Objective Data Vital Signs Vital Signs: Vital Signs Temp Pulse Resp BP Pulse Ox O2 Del Method 05/29/22 12:20 59 L 91/54 L 05/29/22 12:00 61 92/46 L 05/29/22 11:40 65 98/62 L 05/29/22 11:20 61 101/57 L 05/29/22 11:00 59 L 88/54 L 05/29/22 10:40 62 90/60 L 05/29/22 10:20 60 93/58 L 05/29/22 10:00 60 103/55 L 05/29/22 09:44 36.1 C L 61 16 104/59 L 05/29/22 08:00 Room Air 05/29/22 08:14 64 05/29/22 05
--- NOTE | 2022-05-29 12:20 | PM.PNNEP ---
Progress Note: A&P Assessment and Plan (1) ESRD (end stage renal disease) on dialysis: Code(s): N18.6 - End stage renal disease; Z99.2 - Dependence on renal dialysis Status: Chronic Assessment and Plan: HD today (since unable to get yesterday) plan next HD on Tuesday to maintain M/W/F schedule follow trend of volume status, clearance, and electrolytes (2) Abdominal ascites: Code(s): R18.8 - Other ascites Status: Acute Assessment and Plan: presented with abdominal discomfort CT scan reveals large amount of ascites due to liver disease/hepatic cirrhosis(?) kidney disease in of itself usually does not cause this s/p diagnostic and therapeutic paracentesis with symptomatic improvement if this is a recurrent issue, may need outpatient GI/Liver referral and PRN scheduling of paracenteses in the future (3) Scrotal edema: Code(s): N50.89 - Other specified disorders of the male genital organs Status: Acute Assessment and Plan: as noted by exam on admission Pelvic CT shows prostatomegaly with no evidence of mass or obstruction CT also notes ascites within bilateral inguinal hernias which may contributing to scrotal edema Urology recommendations noted scrotal ultrasound results reviewed (4) Hypertension: Qualifiers: Hypertension type: unspecified Qualified Code(s): I10 - Essential (primary) hypertension Code(s): I10 - Essential (primary) hypertension Status: Chronic Assessment and Plan: reasonable control at this time follow trend of hemodynamics (5) Anemia: Code(s): D64.9 - Anemia, unspecified Status: Chronic Assessment and Plan: due to ESRD Epogen with HD follow trend of H/H (6) Inguinal hernia bilateral, non-recurrent: Code(s): K40.20 - Bilateral inguinal hernia, without obstruction or gangrene, not specified as recurrent Status: Acute Assessment and Plan: as noted by CT scan Surgery recommendations/interventions noted need sugery for definitive management(?) Will continue to follow. Subjective Date/time seen: 05/29/22 12:20 Tolerating hemodialysis treatment reasonably well at the time of my visit (seen on HD at 12:00PM); fluid removal limited by hemodynamics; s/p large volume paracentesis yesterday with almost 6L fluid removal; seen by Surgery with manual reduction of hernia at bedside with improvement scrotal appearance; abdominal discomfort doing better following these interventions yesterday. Exam Narrative: General: WD/WN AA male in NAD Heart: normal S1 and S2; no rub Lungs: clear to auscultation Abdomen: soft, nontender, significant reduction in distension, positive bowel sounds Extremities: no cyanosis or clubbing; trace edema Skin: warm and dry Objective Data Vital Signs Vital Signs: Vital Signs Temp Pulse Resp BP Pulse Ox O2 Del Method 05/29/22 12:20 59 L 91/54 L 05/29/22 12:00 61 92/46 L 05/29/22 11:40 65 98/62 L 05/29/22 11:20 61 101/57 L 05/29/22 11:00 59 L 88/54 L 05/29/22 10:40 62 90/60 L 05/29/22 10:20 60 93/58 L 05/29/22 10:00 60 103/55 L 05/29/22 09:44 36.1 C L 61 16 104/59 L 05/29/22 08:00 Room Air 05/29/22 08:14 64 05/29/22 05:11 36.1 C L 69 18 105/60 93 05/28/22 20:50 Room Air 05/28/22 20:55 74 05/28/22 20:51 36.6 C 73 16 120/64 95 Intake/Output Intake/Output: Intake & Output 05/26/22 05/27/22 05/28/22 05/29/22 23:59 23:59 23:59 23:59 Intake Total 120 215 Output Total 5900 Balance -5780 215 Meds/Results Medications: Active Medications Generic Name Dose Route Start Last Admin Trade Name Jana PRN Reason Stop Dose Admin Amlodipine Besylate 5 mg 05/29/22 09:00 05/29/22 08:14 Amlodipine Besylate 5 Mg Tablet PO 5 mg QAM JAY Administration Calcium Acetate 667 mg 05/29/22 09:00
[2022-05-29] MEDS: ALBUMIN HUMAN 25% 12.5 GM/50ML 50 ML IVPB (12:49)
--- NOTE | 2022-05-29 13:27 | PM.PNGS ---
Progress Note: A&P Assessment and Plan (1) Inguinal hernia bilateral, non-recurrent: Code(s): K40.20 - Bilateral inguinal hernia, without obstruction or gangrene, not specified as recurrent Status: Acute Assessment and Plan: This is the main reason that I saw him. During consultation yesterday was able to reduce both inguinal hernias. The right was the largest and probably had a tightly compressed loop of small bowel within it. Once it was reduced significant amount of ascitic fluid exited the scrotum which was giving it its main dilation. Today while the patient is sitting in both sides of the scrotum are again significantly swollen. (2) Anemia: Code(s): D64.9 - Anemia, unspecified Status: Chronic (3) Scrotal edema: Code(s): N50.89 - Other specified disorders of the male genital organs Status: Acute Assessment and Plan: Most likely secondary to ascitic fluid descending into the bilateral large indirect inguinal hernias. In view of the patient's significant medical comorbidities and significant ascites probably under pressure I would not recommend repairing these hernias unless we are able to control his ascites significantly after completed diagnostic studies. (4) Abdominal ascites: Code(s): R18.8 - Other ascites Status: Acute Assessment and Plan: Now 1 day status post ultrasound-guided paracentesis. ( 5.5 L removed) diagnostic studies pending. Of note no significant wbc's or bacteria noted on initial review at microbiology. (5) ESRD (end stage renal disease): Code(s): N18.6 - End stage renal disease Status: Acute Assessment and Plan: Receiving dialysis late morning today. Subjective Subjective Date/Time Seen: 05/29/22 08:27 Patient reports: no new complaints, feels better, tolerating a regular diet ( Renal diet) and flatus Interval history: patient could not tell me if wash cloth was kept under his scrotum overnight. Patient was sitting up in the chair when I came in the room. He denies lower abdominal pain or scrotal pain today. Review of Systems Review of Systems: All systems reviewed & are unremarkable except as noted in HPI and below Constitutional: Constitutional: Reports as per HPI, Denies chills and Denies fever(s) Cardiovascular: Cardiovascular: Denies chest pain and Denies dyspnea Respiratory: Respiratory: Reports no additional respiratory complaints and Denies dyspnea Gastrointestinal: Gastrointestinal: Reports as per HPI and Denies bloating Musculoskeletal: Musculoskeletal: Reports no additional musculoskeletal complaints Psychiatric: Psychiatric: Denies anxiety Exam Const: General: cooperative, comfortable, alert and awake Orientation/consciousness: patient oriented x3 HENMT: Head: normal to inspection Mouth: Yes moist mucous membranes Eyes: Sclera: sclerae normal Pupils: Equal, round and reactive pupils present Neck: Neck: normal visual inspection and no JVD Resp: Effort & Inspection: normal respiratory effort GI: Inspection: normal to inspection Auscultation: normal bowel sounds Other: Evaluation of the groins was difficult because the patient was sitting. However, it appears that his scrotum is significantly dilated again on both sides. And I suspect that he has accumulated some ascites into both hernias again. Was not able to try to reduce the hernias again today because he was sitting. Will try to catch him in bed and re-evaluate in a.m. on Tuesday. Patient seen a 2nd time when he was in dialysis and he did have a cloth under the scrotum to elevate the scrotum. Neuro: General: patient oriented x3 Cranial nerves: Yes Equal, round and reactive pupils present Extrem: Right upper extremity: normal to inspection Left upper extremity: edema ( Some swelling compared to the right (also see below)) Other: incisions on the left upper arm from his recent vascular graft placement appeare
--- NOTE | 2022-05-29 14:16 | P.PNIM_ITS ---
Progress Note: A&P Assessment and Plan (1) Abdominal ascites: Code(s): R18.8 - Other ascites Status: Acute Assessment and Plan: Presented with abdominal discomfort * CT scan revealed large amount of ascites * Initial stat read report indicated hepatic cirrhosis. Not indicated on final report, however reviewed with radiologist who does report surface nodularity of liver is evident. Patient denies any history of cirrhosis and has not undergone evaluation before * Underwent diagnostic and therapeutic paracentesis on 05/28/2022 yielding 5500 mL peter colored fluid * Diagnostic studies are pending. Gram stain with no organisms or WBC seen. * Discussed with nephrology. Pt is a poor candidate for diuretic therapy given ESRD and risk for electrolyte imbalance. He may have to have scheduled therapeutic paracentesis if ascites persists, however will await further evaluation of ascites fluid and determine next steps for management. * hepatitis panel is negative (2) Scrotal edema: Code(s): N50.89 - Other specified disorders of the male genital organs Status: Acute Assessment and Plan: Patient with painless scrotal edema ongoing for 1 week. * Likely secondary to bilateral inguinal sliding hernia. * Pt seen by general surgery on 05/28 and hernia was reduced bilaterally with improvement in edema. Today swelling has recurred. * Pelvic CT revealed right inguinal hernia containing ascites fluid and left hernia containing sigmoid colon. * Pt is a poor candidate for hernia repair given ascites. Surgical intervention may be considered at a later date based on completion of ascites workup. * He is asymptomatic. * Scrotal ultrasound completed which did reveal decreased vascular flow. Urology aware and no plans for intervention at this time given lack of symptoms and adequate contralateral flow. (3) Urinary retention: Code(s): R33.9 - Retention of urine, unspecified Status: Acute Assessment and Plan: Resolved. Patient unable to urinate prior to presentation * Urine output is reduced secondary to ESRD, however patient reports typically urinating 2-3 times per day * Bladder scan on admission revealed >300 cc and straight catheterization completed with 200 cc urine output * Appreciate urology consultation * 05/29 patient now voiding independently * Monitor urine output * Tamsulosin increased to 0.4 mg BID and finasteride added at 5 mg dailly * Appreciate urology evaluation (4) ESRD (end stage renal disease) on dialysis: Code(s): N18.6 - End stage renal disease; Z99.2 - Dependence on renal dialysis Status: Chronic Assessment and Plan: Maintained on hemodialysis Tuesday, Tuesday, Tuesday * Nephrology has been consulted for management during admission. * Dialysis not able to be completed yesterday due to lack of supplies. Patient being dialyzed today (5) Hypertension: Qualifiers: Hypertension type: unspecified Qualified Code(s): I10 - Essential (primary) hypertension Code(s): I10 - Essential (primary) hypertension Status: Chronic Assessment and Plan: Blood pressure reviewed and has been stable. running soft while being dialyzed * continue home amlodipine and carvedilol (6) Hyperkalemia: Code(s): E87.5 - Hyperkalemia Status: Acute Assessment and Plan: Potassium is 5.3 * Appreciate nephrology consultation * Anticipate resolution following dialysis today Subjective Date/time seen: 05/29/22 14:16 Interval history
--- NOTE | 2022-05-29 14:16 | PM.IMPN ---
Progress Note: A&P Assessment and Plan (1) Abdominal ascites: Code(s): R18.8 - Other ascites Status: Acute Assessment and Plan: Presented with abdominal discomfort CT scan revealed large amount of ascites Initial stat read report indicated hepatic cirrhosis. Not indicated on final report, however reviewed with radiologist who does report surface nodularity of liver is evident. Patient denies any history of cirrhosis and has not undergone evaluation before Underwent diagnostic and therapeutic paracentesis on 05/28/2022 yielding 5500 mL peter colored fluid Diagnostic studies are pending. Gram stain with no organisms or WBC seen. Discussed with nephrology. Pt is a poor candidate for diuretic therapy given ESRD and risk for electrolyte imbalance. He may have to have scheduled therapeutic paracentesis if ascites persists, however will await further evaluation of ascites fluid and determine next steps for management. hepatitis panel is negative (2) Scrotal edema: Code(s): N50.89 - Other specified disorders of the male genital organs Status: Acute Assessment and Plan: Patient with painless scrotal edema ongoing for 1 week. Likely secondary to bilateral inguinal sliding hernia. Pt seen by general surgery on 05/28 and hernia was reduced bilaterally with improvement in edema. Today swelling has recurred. Pelvic CT revealed right inguinal hernia containing ascites fluid and left hernia containing sigmoid colon. Pt is a poor candidate for hernia repair given ascites. Surgical intervention may be considered at a later date based on completion of ascites workup. He is asymptomatic. Scrotal ultrasound completed which did reveal decreased vascular flow. Urology aware and no plans for intervention at this time given lack of symptoms and adequate contralateral flow. (3) Urinary retention: Code(s): R33.9 - Retention of urine, unspecified Status: Acute Assessment and Plan: Resolved. Patient unable to urinate prior to presentation Urine output is reduced secondary to ESRD, however patient reports typically urinating 2-3 times per day Bladder scan on admission revealed >300 cc and straight catheterization completed with 200 cc urine output Appreciate urology consultation 05/29 patient now voiding independently Monitor urine output Tamsulosin increased to 0.4 mg BID and finasteride added at 5 mg bollserjio Appreciate urology evaluation (4) ESRD (end stage renal disease) on dialysis: Code(s): N18.6 - End stage renal disease; Z99.2 - Dependence on renal dialysis Status: Chronic Assessment and Plan: Maintained on hemodialysis Tuesday, Tuesday, Tuesday Nephrology has been consulted for management during admission. Dialysis not able to be completed yesterday due to lack of supplies. Patient being dialyzed today (5) Hypertension: Qualifiers: Hypertension type: unspecified Qualified Code(s): I10 - Essential (primary) hypertension Code(s): I10 - Essential (primary) hypertension Status: Chronic Assessment and Plan: Blood pressure reviewed and has been stable. running soft while being dialyzed continue home amlodipine and carvedilol (6) Hyperkalemia: Code(s): E87.5 - Hyperkalemia Status: Acute Assessment and Plan: Potassium is 5.3 Appreciate nephrology consultation Anticipate resolution following dialysis today Subjective Date/time seen: 05/29/22 14:16 Interval history: date of service: 05/29/2022 Partha Jr Jv is an 81 year old male with a history of ESRD on hemodialysis MWF, anemia, arthritis, HTN, and SHONDA seen in follow-up ascites. He is in dialysis during my encounter. he feels a lot better today. He had fluid drained from his abdomen yesterday and he feels much better today. He also endorses improvement in his scrotal swelling. He has no other complaints. Denies shortness of breat
[2022-05-30 05:49] LABS: Hematocrit 29.5 % (42.0-52.0); Hemoglobin 9.3 g/dL (14.0-18.0); Mean Corpuscular HGB Conc 31.5 g/dl (32-36); Mean Corpuscular Volume 101.4 fl (80-100); Mean Platelet Volume 10.8 fl (7.4-10.4); Platelet Count Result 199 k/mm3 (150-375); Red Blood Count 2.91 M/mm3 (4.6-6.20); Red Cell Distribution Width 14.1 % (11.5-14.5); White Blood Count 6.3 K/mm3 (4.5-10.0)
[2022-05-30 05:55] VITALS: BP 135/56; PULSE 58; RESP 16; TEMP 36.7; O2SAT 95
[2022-05-30 06:17] LABS: Alanine Aminotransferase 9 U/L (6-50); Albumin Level 3.4 g/dL (3.5-5.1); Alkaline Phosphatase 92 U/L (38-126); Anion Gap 13 mmol/L (8-16); Aspartate Amino Transferase 18 U/L (17-59); Bilirubin,Total 0.7 mg/dL (0.2-1.3); Blood Urea Nitrogen 41 mg/dL (9-20); Calcium 8.5 mg/dL (8.4-10.2); Carbon Dioxide 30 mmol/L (22-30); Chloride 95 mmol/L (98-107); Estimated CRCL calculation 11 ml/min; Estimated Glomerular Filt Rate 12; Glucose 100 mg/dL (65-110); Sodium 138 mmol/L (137-145)
--- NOTE | 2022-05-30 08:22 | WPDUROPN2 ---
Progress Note: A&P Assessment and Plan (1) Scrotal edema: Code(s): N50.89 - Other specified disorders of the male genital organs Status: Acute Assessment and Plan: Bilateral testicular flow documented. No intervention needed from a urologic standpoint at this time Subjective Subjective Date/Time Seen: 05/30/22 08:22 no testicular pain. Seen by General surgery yesterday. They were able to reduce his hernia. Ultrasound present in the room today. I was there for the study. Bilateral flow documented to both testicles. Exam Narrative: Significant hydroceles bilaterally. No skin changes. Phallus is hidden. Otherwise in no acute distress. No scrotal / testicular pain present in the room as well. Objective Data Vital Signs Vital Signs: Vital Signs - 24 hr 05/29/22 09:44 05/29/22 10:00 05/29/22 10:20 Temperature 96.9 F L Pulse Rate 61 60 60 Respiratory Rate 16 Blood Pressure 104/59 L 103/55 L 93/58 L Pulse Oximetry Oxygen Delivery 05/29/22 10:40 05/29/22 11:00 05/29/22 11:20 Temperature Pulse Rate 62 59 L 61 Respiratory Rate Blood Pressure 90/60 L 88/54 L 101/57 L Pulse Oximetry Oxygen Delivery 05/29/22 11:40 05/29/22 12:00 05/29/22 12:20 Temperature Pulse Rate 65 61 59 L Respiratory Rate Blood Pressure 98/62 L 92/46 L 91/54 L Pulse Oximetry Oxygen Delivery 05/29/22 12:40 05/29/22 14:00 05/29/22 13:00 Temperature 97.6 F Pulse Rate 65 58 L 61 Respiratory Rate 16 Blood Pressure 92/60 L 111/65 99/59 L Pulse Oximetry 94 Oxygen Delivery 05/29/22 13:20 05/29/22 13:31 05/29/22 13:37 Temperature 96.8 F L Pulse Rate 61 59 L 60 Respiratory Rate 16 Blood Pressure 97/58 L 105/64 103/55 L Pulse Oximetry Oxygen Delivery 05/29/22 21:21 05/29/22 21:34 05/29/22 21:20 Temperature 98.1 F Pulse Rate 58 L 60 Respiratory Rate 18 Blood Pressure 100/57 L Pulse Oximetry 98 Oxygen Delivery Room Air 05/30/22 05:55 Temperature 98.1 F Pulse Rate 58 L Respiratory Rate 16 Blood Pressure 135/56 L Pulse Oximetry 95 Oxygen Delivery Intake/Output Intake/Output: Intake & Output 05/27/22 05/28/22 05/29/22 05/30/22 23:59 23:59 23:59 23:59 Intake Total 120 685 Output Total 5900 830 0 Balance -5780 -145 0 Meds/Results Medications: Active Medications Generic Name Dose Route Start Last Admin Trade Name Freq PRN Reason Stop Dose Admin Amlodipine Besylate 5 mg 05/29/22 09:00 05/29/22 08:14 Amlodipine Besylate 5 Mg Tablet PO 5 mg QAM JAY Administration Calcium Acetate 667 mg 05/29/22 09:00 05/29/22 08:14 Calcium Acetate 667 Mg Tablet PO 667 mg DAILY JAY Administration Carvedilol 6.25 mg 05/28/22 21:00 05/29/22 21:21 Carvedilol 6.25 Mg Tablet PO 6.25 mg Q12HR JAY Administration Cyanocobalamin 1,000 mcg 05/29/22 09:00 05/29/22 08:14 Cyanocobalamin 1,000 Mcg Tablet PO 1,000 mcg QAM JAY Administration Finasteride 5 mg 05/29/22 09:00 05/29/22 08:14 Finasteride 5 Mg Tablet PO 5 mg QAM JAY Administration Albumin Human 50 mls @ 999 mls/hr 05/28/22 06:48 05/29/22 12:49 Albutein IVPB 06/27/22 06:47 999 mls/hr Q10M PRN Administration HYPOTENSION Morphine Sulfate 2 mg 05/28/22 03:34 Morphine Sulfate (*Crx) 2 Mg/Ml Inj IV PUSH Q4H PRN Pain Rated 7-10 Ondansetron HCl 4 mg 05/28/22 03:34 Ondansetron Inj 4 Mg/2 Ml Vial IV PUSH Q4H PRN Nausea Sodium Bicarbonate 1,300 mg 05/28/22 17:00 05/29/22 16:16 Sodium Bicarbonate Tab 650 Mg Tablet PO 1,300 mg BID JAY Administration Tamsulosin HCl 0.4 mg 05/28/22 17:00 05/29/22 16:16 Tamsulosin Hcl 0.4 Mg Capsule PO 0.4 mg BID JAY Administration Radiology Results: ITS Impressions Chest X-Ray 05/28/22 08:07 IMPRESSION: 1. Cardiomegaly with mild pulmonary edema. 2. Small pleural effusions. Abdomen/Pelvis CT 05/13
[2022-05-30 09:24] VITALS: O2SAT 92
[2022-05-30] MEDS: CALCIUM ACETATE 667 MG TABLET PO (09:24)
[2022-05-30] MEDS: amLODIPine BESYLATE 5 MG TABLET PO (09:24)
[2022-05-30] MEDS: TAMSULOSIN HCL 0.4 MG CAPSULE PO ×2 (09:25→16:49)
[2022-05-30] MEDS: CYANOCOBALAMIN 1,000 MCG TABLET 1000 MCG PO (09:25)
[2022-05-30] MEDS: SODIUM BICARBONATE TAB 650 MG TABLET 1300 MG PO ×2 (09:25→16:49)
[2022-05-30] MEDS: FINASTERIDE 5 MG TABLET PO (09:25)
[2022-05-30 09:26] VITALS: PULSE 64
[2022-05-30] MEDS: carvediloL 6.25 MG TABLET PO ×2 (09:26→21:09)
[2022-05-30] MEDS: polyethylene glycoL 3350 17 GM POWD.PACK PO (09:31)
--- NOTE | 2022-05-30 10:23 | P.PNIM_ITS ---
Progress Note: A&P Assessment and Plan (1) Abdominal ascites: Code(s): R18.8 - Other ascites Status: Acute Assessment and Plan: Presented with abdominal discomfort * CT scan revealed large amount of ascites * Initial stat rad report indicated hepatic cirrhosis. Not indicated on final report, however reviewed with radiologist who does report surface nodularity of liver is evident. Patient denies any history of cirrhosis and has not undergone evaluation before * Underwent diagnostic and therapeutic paracentesis on 05/28/2022 yielding 5500 mL peter colored fluid * Diagnostic studies are pending. Gram stain with no organisms or WBC seen. Preliminary cultures negative to date. * Discussed with nephrology. Pt is a poor candidate for diuretic therapy given ESRD and risk for electrolyte imbalance. He may have to have scheduled therapeutic paracentesis if ascites persists, however will await further evaluation of ascites fluid and determine next steps for management. * Hepatitis panel is negative (2) Scrotal edema: Code(s): N50.89 - Other specified disorders of the male genital organs Status: Acute Assessment and Plan: Patient with painless scrotal edema ongoing for 1 week. * Secondary to bilateral inguinal sliding hernia. * Pt seen by general surgery on 05/28 and hernia was reduced bilaterally with improvement in edema. Swelling recurred today with patient supine. Dr. Castillo (general surgery) provided education to patient and his so that they can safely reduce the hernia as needed * Pelvic CT revealed right inguinal hernia containing ascites fluid and left hernia containing sigmoid colon. * Pt is a poor candidate for hernia repair given ascites. Surgical intervention may be considered at a later date based on completion of ascites workup. * He is asymptomatic. * Scrotal ultrasound completed which did reveal decreased vascular flow. Urology aware and no plans for intervention at this time given lack of symptoms and adequate contralateral flow. (3) Urinary retention: Code(s): R33.9 - Retention of urine, unspecified Status: Acute Assessment and Plan: Resolved. Patient unable to urinate prior to presentation * Urine output is reduced secondary to ESRD, however patient reports typically urinating 2-3 times per day * Bladder scan on admission revealed >300 cc and straight catheterization completed with 200 cc urine output * Appreciate urology consultation * Patient now voiding independently * Monitor urine output * Tamsulosin increased to 0.4 mg BID and finasteride added at 5 mg dailly * Appreciate urology evaluation (4) ESRD (end stage renal disease) on dialysis: Code(s): N18.6 - End stage renal disease; Z99.2 - Dependence on renal dialysis Status: Chronic Assessment and Plan: Maintained on hemodialysis Tuesday, Tuesday, Tuesday * Nephrology has been consulted for management during admission. * Patient dialyzed on 05/29. (not able to be completed on his normal schedule Tuesday due to lack of supplies so was done on on Tuesday) (5) Hypertension: Qualifiers: Hypertension type: unspecified Qualified Code(s): I10 - Essential (primary) hypertension Code(s): I10 - Essential (primary) hypertension Status: Chronic Assessment and Plan: Blood pressure reviewed and has been stable. Last BP 136/56 * continue home amlodipine and carvedilol (6) Hyperkalemia: Code(s): E87.5 - Hyperkalemia Status: Acute Assessment and Plan: Resolved. Stalin
--- NOTE | 2022-05-30 10:23 | PM.IMPN ---
Progress Note: A&P Assessment and Plan (1) Abdominal ascites: Code(s): R18.8 - Other ascites Status: Acute Assessment and Plan: Presented with abdominal discomfort CT scan revealed large amount of ascites Initial stat rad report indicated hepatic cirrhosis. Not indicated on final report, however reviewed with radiologist who does report surface nodularity of liver is evident. Patient denies any history of cirrhosis and has not undergone evaluation before Underwent diagnostic and therapeutic paracentesis on 05/28/2022 yielding 5500 mL peter colored fluid Diagnostic studies are pending. Gram stain with no organisms or WBC seen. Preliminary cultures negative to date. Discussed with nephrology. Pt is a poor candidate for diuretic therapy given ESRD and risk for electrolyte imbalance. He may have to have scheduled therapeutic paracentesis if ascites persists, however will await further evaluation of ascites fluid and determine next steps for management. Hepatitis panel is negative (2) Scrotal edema: Code(s): N50.89 - Other specified disorders of the male genital organs Status: Acute Assessment and Plan: Patient with painless scrotal edema ongoing for 1 week. Secondary to bilateral inguinal sliding hernia. Pt seen by general surgery on 05/28 and hernia was reduced bilaterally with improvement in edema. Swelling recurred today with patient supine. Dr. Castillo (general surgery) provided education to patient and his so that they can safely reduce the hernia as needed Pelvic CT revealed right inguinal hernia containing ascites fluid and left hernia containing sigmoid colon. Pt is a poor candidate for hernia repair given ascites. Surgical intervention may be considered at a later date based on completion of ascites workup. He is asymptomatic. Scrotal ultrasound completed which did reveal decreased vascular flow. Urology aware and no plans for intervention at this time given lack of symptoms and adequate contralateral flow. (3) Urinary retention: Code(s): R33.9 - Retention of urine, unspecified Status: Acute Assessment and Plan: Resolved. Patient unable to urinate prior to presentation Urine output is reduced secondary to ESRD, however patient reports typically urinating 2-3 times per day Bladder scan on admission revealed >300 cc and straight catheterization completed with 200 cc urine output Appreciate urology consultation Patient now voiding independently Monitor urine output Tamsulosin increased to 0.4 mg BID and finasteride added at 5 mg bollserjio Appreciate urology evaluation (4) ESRD (end stage renal disease) on dialysis: Code(s): N18.6 - End stage renal disease; Z99.2 - Dependence on renal dialysis Status: Chronic Assessment and Plan: Maintained on hemodialysis Tuesday, Tuesday, Tuesday Nephrology has been consulted for management during admission. Patient dialyzed on 05/29. (not able to be completed on his normal schedule Tuesday due to lack of supplies so was done on on Tuesday) (5) Hypertension: Qualifiers: Hypertension type: unspecified Qualified Code(s): I10 - Essential (primary) hypertension Code(s): I10 - Essential (primary) hypertension Status: Chronic Assessment and Plan: Blood pressure reviewed and has been stable. Last BP 136/56 continue home amlodipine and carvedilol (6) Hyperkalemia: Code(s): E87.5 - Hyperkalemia Status: Acute Assessment and Plan: Resolved. Potassium is 4.0 Appreciate nephrology consultation Subjective Date/time seen: 05/30/22 10:23 Interval history: date of service: 05/30/2022 Partha Carias Jr is an 81 year old male with a history of ESRD on hemodialysis MWF, anemia, arthritis, HTN, and SHONDA seen in follow-up ascites. is feeling well today. He does complain of feeling constipated. States his last bowel movement was 2-3 days a
--- NOTE | 2022-05-30 10:46 | PM.PNGS ---
Progress Note: A&P Assessment and Plan (1) Inguinal hernia bilateral, non-recurrent: Code(s): K40.20 - Bilateral inguinal hernia, without obstruction or gangrene, not specified as recurrent Status: Acute Assessment and Plan: This is the main reason that I saw him. During his initial consultation I was able to reduce both inguinal hernias. The right was the largest and probably had a tightly compressed loop of small bowel within it. Once it was reduced a significant amount of ascitic fluid exited the scrotum which was, I believe it's main dilation. Today even while the patient is supine both sides of the scrotum are again significantly swollen. however, with the patient's permission I showed his how when he is laying flat supine the fluid can be compressed out of the bilateral inguinal hernias with slow steady pressure such that the swelling is at least half of what it is when I entered the room. Also explained that he is currently not a good candidate for a elective inguinal hernia repair in view of the probable reaccumulation of significant pressure with the ascites. Awaiting further studies to determine the cause of his liver disease and ascites. Discussed with Shikha from the hospitalist service today. Repeat scrotal ultrasound findings noted. (2) Anemia: Code(s): D64.9 - Anemia, unspecified Status: Chronic (3) Scrotal edema: Code(s): N50.89 - Other specified disorders of the male genital organs Status: Acute Assessment and Plan: Most likely secondary to ascitic fluid descending into the bilateral large indirect inguinal hernias. In view of the patient's significant medical comorbidities and significant ascites probably under pressure I would not recommend repairing these hernias unless we are able to control his ascites significantly after completed diagnostic studies. (4) Abdominal ascites: Code(s): R18.8 - Other ascites Status: Acute Assessment and Plan: Now 2 day status post ultrasound-guided paracentesis. ( 5.5 L removed) diagnostic studies pending. Of note no significant wbc's or bacteria noted on initial review at microbiology. Aerobic and anaerobic culture still pending. However, patient's white count is normal and he has no abdominal discomfort so I doubt there is an infective component. (5) ESRD (end stage renal disease): Code(s): N18.6 - End stage renal disease Status: Acute Assessment and Plan: Receiving dialysis routinely Subjective Subjective Date/Time Seen: 05/30/22 08:46 Patient states that he is feeling well. He ate supper okay last night. He has no abdominal pain. He has no scrotal pain on the right. Patient's is in the room this date and I discussed with her some of the findings regarding his right inguinal hernia and its reduction. Also, his ascites and possible cirrhosis. Review of Systems Review of Systems: All systems reviewed & are unremarkable except as noted in HPI and below Gastrointestinal: Comments: Today patient's confirms that they have never known about any history of cirrhosis or the ascites that were discovered this hospitalization. Exam Const: General: cooperative, comfortable, alert and awake Orientation/consciousness: patient oriented x3 HENMT: Head: normal to inspection Mouth: Yes moist mucous membranes Eyes: Sclera: sclerae normal Pupils: Equal, round and reactive pupils present Neck: Neck: normal visual inspection and no JVD Resp: Effort & Inspection: normal respiratory effort GI: Inspection: normal to inspection Auscultation: normal bowel sounds Other: On evaluation of the groins it appears that his scrotum is significantly dilated again on both sides. (However, this is less than when I originally saw him 2 days ago ). I suspect that he has accumulated some ascites into both hernias again. I was able to reduce the hernias again today
[2022-05-30 11:05] LABS: Albumin Peritoneal Fluid 2.2 g/dL
--- NOTE | 2022-05-30 12:40 | P.PNNP_ITS ---
Progress Note: A&P Assessment and Plan (1) ESRD (end stage renal disease) on dialysis: Code(s): N18.6 - End stage renal disease; Z99.2 - Dependence on renal dialysis Status: Chronic Assessment and Plan: * HD tomorrow * continue M/W/F schedule * follow trend of volume status, clearance, and electrolytes (2) Abdominal ascites: Code(s): R18.8 - Other ascites Status: Acute Assessment and Plan: * presented with abdominal discomfort * CT scan reveals large amount of ascites * due to liver disease/hepatic cirrhosis(?) * kidney disease in of itself usually does not cause this * s/p diagnostic and therapeutic paracentesis with symptomatic improvement * if this is a recurrent issue, may need outpatient GI/Liver referral and PRN scheduling of paracenteses in the future (3) Scrotal edema: Code(s): N50.89 - Other specified disorders of the male genital organs Status: Acute Assessment and Plan: * as noted by exam on admission * Pelvic CT shows prostatomegaly with no evidence of mass or obstruction * CT also notes ascites within bilateral inguinal hernias which may contributing to scrotal edema * Urology recommendations noted * repeat scrotal ultrasound results reviewed (4) Hypertension: Qualifiers: Hypertension type: unspecified Qualified Code(s): I10 - Essential (primary) hypertension Code(s): I10 - Essential (primary) hypertension Status: Chronic Assessment and Plan: * reasonable control at this time * follow trend of hemodynamics (5) Anemia: Code(s): D64.9 - Anemia, unspecified Status: Chronic Assessment and Plan: * due to ESRD * Epogen with HD * follow trend of H/H (6) Inguinal hernia bilateral, non-recurrent: Code(s): K40.20 - Bilateral inguinal hernia, without obstruction or gangrene, not specified as recurrent Status: Acute Assessment and Plan: * as noted by CT scan * Surgery recommendations/interventions noted Will continue to follow. Subjective Date/time seen: 05/30/22 12:40 Tolerated dialysis treatment yesterday without any issues or problems; no apparent distress voiced at the time of my visit; overall, he feels significantly better in comparison to admission; no issues/events overnight or earlier this AM. Exam Narrative: General: WD/WN AA male in NAD Heart: normal S1 and S2; no rub Lungs: clear to auscultation Abdomen: soft, nontender, significant reduction in distension, positive bowel sounds Extremities: no cyanosis or clubbing; trace edema : scrotal swelling noted Skin: warm and intact Objective Data Vital Signs Vital Signs: Vital Signs Temp Pulse Resp BP Pulse Ox O2 Del Method 05/30/22 12:40 Room Air 05/30/22 08:00 Room Air 05/30/22 09:24 92 Room Air 05/30/22 09:26 64 05/30/22 05:55 36.7 C 58 L 16 135/56 L 95 05/29/22 21:20 Room Air 05/29/22 21:34 36.7 C 60 18 100/57 L 98 05/29/22 21:21 58 L Intake/Output Intake/Output: Intake & Output 05/27/22 05/28/22 05/29/22 05/30/22 23:59 23:59 23:59 23:59 Intake Total 120 685 540 Output Total 5900 830 0 Balance -5780 -145 540 Meds/Results Me
--- NOTE | 2022-05-30 12:40 | PM.PNNEP ---
Progress Note: A&P Assessment and Plan (1) ESRD (end stage renal disease) on dialysis: Code(s): N18.6 - End stage renal disease; Z99.2 - Dependence on renal dialysis Status: Chronic Assessment and Plan: HD tomorrow continue M/W/F schedule follow trend of volume status, clearance, and electrolytes (2) Abdominal ascites: Code(s): R18.8 - Other ascites Status: Acute Assessment and Plan: presented with abdominal discomfort CT scan reveals large amount of ascites due to liver disease/hepatic cirrhosis(?) kidney disease in of itself usually does not cause this s/p diagnostic and therapeutic paracentesis with symptomatic improvement if this is a recurrent issue, may need outpatient GI/Liver referral and PRN scheduling of paracenteses in the future (3) Scrotal edema: Code(s): N50.89 - Other specified disorders of the male genital organs Status: Acute Assessment and Plan: as noted by exam on admission Pelvic CT shows prostatomegaly with no evidence of mass or obstruction CT also notes ascites within bilateral inguinal hernias which may contributing to scrotal edema Urology recommendations noted repeat scrotal ultrasound results reviewed (4) Hypertension: Qualifiers: Hypertension type: unspecified Qualified Code(s): I10 - Essential (primary) hypertension Code(s): I10 - Essential (primary) hypertension Status: Chronic Assessment and Plan: reasonable control at this time follow trend of hemodynamics (5) Anemia: Code(s): D64.9 - Anemia, unspecified Status: Chronic Assessment and Plan: due to ESRD Epogen with HD follow trend of H/H (6) Inguinal hernia bilateral, non-recurrent: Code(s): K40.20 - Bilateral inguinal hernia, without obstruction or gangrene, not specified as recurrent Status: Acute Assessment and Plan: as noted by CT scan Surgery recommendations/interventions noted Will continue to follow. Subjective Date/time seen: 05/30/22 12:40 Tolerated dialysis treatment yesterday without any issues or problems; no apparent distress voiced at the time of my visit; overall, he feels significantly better in comparison to admission; no issues/events overnight or earlier this AM. Exam Narrative: General: WD/WN AA male in NAD Heart: normal S1 and S2; no rub Lungs: clear to auscultation Abdomen: soft, nontender, significant reduction in distension, positive bowel sounds Extremities: no cyanosis or clubbing; trace edema : scrotal swelling noted Skin: warm and intact Objective Data Vital Signs Vital Signs: Vital Signs Temp Pulse Resp BP Pulse Ox O2 Del Method 05/30/22 12:40 Room Air 05/30/22 08:00 Room Air 05/30/22 09:24 92 Room Air 05/30/22 09:26 64 05/30/22 05:55 36.7 C 58 L 16 135/56 L 95 05/29/22 21:20 Room Air 05/29/22 21:34 36.7 C 60 18 100/57 L 98 05/29/22 21:21 58 L Intake/Output Intake/Output: Intake & Output 05/27/22 05/28/22 05/29/22 05/30/22 23:59 23:59 23:59 23:59 Intake Total 120 685 540 Output Total 5900 830 0 Balance -5780 -145 540 Meds/Results Medications: Active Medications Generic Name Dose Route Start Last Admin Trade Name Jana PRN Reason Stop Dose Admin Amlodipine Besylate 5 mg 05/29/22 09:00 05/30/22 09:24 Amlodipine Besylate 5 Mg Tablet PO 5 mg QAM JAY Administration Calcium Acetate 667 mg 05/29/22 09:00 05/30/22 09:24 Calcium Acetate 667 Mg Tablet PO 667 mg DAILY JAY Administration Carvedilol 6.25 mg 05/28/22 21:00 05/30/22 09:26 Carvedilol 6.25 Mg Tablet PO 6.25 mg Q12HR JAY Administration Cyanocobalamin 1,000 mcg 05/29/22 09:00 05/30/22 09:25 Cyanocobalamin 1,000 Mcg Tablet PO 1,000 mcg QAM JAY Administration Docusate Sodium 100 mg 05/30/22 21:00 Docusate Sodium 100 Mg Capsule PO Q12HR S
[2022-05-30 15:00] VITALS: BP 98/54; PULSE 67; RESP 18; TEMP 35.9; O2SAT 100
[2022-05-30] MEDS: DOCUSATE SODIUM 100 MG CAPSULE PO (21:08)
[2022-05-30 21:09] VITALS: PULSE 67
[2022-05-30 21:46] VITALS: BP 108/54; PULSE 72; RESP 16; TEMP 36.9; O2SAT 100
[2022-05-31] VITALS (18 sets, daily range): BP systolic 85–139; BP diastolic 50–85; PULSE 56–79; RESP 16–18; TEMP 36–36.9; O2SAT 96–97
[2022-05-31 05:53] LABS: Hematocrit 29.6 % (42.0-52.0); Hemoglobin 9.5 g/dL (14.0-18.0); Mean Corpuscular HGB Conc 32.1 g/dl (32-36); Mean Corpuscular Hemoglobin 32.9 pg (26-34); Mean Corpuscular Volume 102.4 fl (80-100); Mean Platelet Volume 10.6 fl (7.4-10.4); Platelet Count Result 197 k/mm3 (150-375); Red Blood Count 2.89 M/mm3 (4.6-6.20); Red Cell Distribution Width 14.1 % (11.5-14.5)
[2022-05-31 06:13] LABS: Anion Gap 13 mmol/L (8-16); Blood Urea Nitrogen 48 mg/dL (9-20); Calcium 8.4 mg/dL (8.4-10.2); Carbon Dioxide 30 mmol/L (22-30); Chloride 96 mmol/L (98-107); Estimated CRCL calculation 9 ml/min; Estimated Glomerular Filt Rate 9; Glucose 101 mg/dL (65-110); Potassium 4.1 mmol/L (3.4-5.0); Sodium 139 mmol/L (137-145)
[2022-05-31] MEDS: CYANOCOBALAMIN 1,000 MCG TABLET 1000 MCG PO (08:35)
[2022-05-31] MEDS: TAMSULOSIN HCL 0.4 MG CAPSULE PO (08:35)
[2022-05-31] MEDS: CALCIUM ACETATE 667 MG TABLET PO (08:36)
[2022-05-31] MEDS: FINASTERIDE 5 MG TABLET PO (08:36)
[2022-05-31] MEDS: DOCUSATE SODIUM 100 MG CAPSULE PO (08:36)
[2022-05-31] MEDS: SODIUM BICARBONATE TAB 650 MG TABLET 1300 MG PO (08:36)
[2022-05-31] MEDS: carvediloL 6.25 MG TABLET PO (08:36)
[2022-05-31] MEDS: amLODIPine BESYLATE 5 MG TABLET PO (08:38)
--- NOTE | 2022-05-31 11:23 | P.PNNP_ITS ---
Progress Note: A&P Assessment and Plan (1) ESRD (end stage renal disease) on dialysis: Code(s): N18.6 - End stage renal disease; Z99.2 - Dependence on renal dialysis Status: Chronic Assessment and Plan: * HD today. * Volume status looks okay. Will remove some fluid. * Electrolytes look okay. Potassium is 4.1 (2) Abdominal ascites: Code(s): R18.8 - Other ascites Status: Acute Assessment and Plan: * presented with abdominal discomfort * CT scan reveals large amount of ascites * due to liver disease/hepatic cirrhosis(?) * kidney disease in of itself usually does not cause this * s/p diagnostic and therapeutic paracentesis with symptomatic improvement * try to keep fluid off to prevent this from coming back. I talked with dialysis nurse to maximize output as valerie by bp. (3) Scrotal edema: Code(s): N50.89 - Other specified disorders of the male genital organs Status: Acute Assessment and Plan: * as noted by exam on admission * Pelvic CT shows prostatomegaly with no evidence of mass or obstruction * CT also notes ascites within bilateral inguinal hernias which may contributing to scrotal edema * Urology recommendations noted * Try to keep fluid off as much as possible (4) Hypertension: Qualifiers: Hypertension type: unspecified Qualified Code(s): I10 - Essential (primary) hypertension Code(s): I10 - Essential (primary) hypertension Status: Chronic Assessment and Plan: * reasonable control at this time * systolic in the 120s (5) Anemia: Code(s): D64.9 - Anemia, unspecified Status: Chronic Assessment and Plan: * due to ESRD * Epogen with HD * follow trend of H/H (6) Inguinal hernia bilateral, non-recurrent: Code(s): K40.20 - Bilateral inguinal hernia, without obstruction or gangrene, not specified as recurrent Status: Acute Assessment and Plan: * as noted by CT scan * Surgery recommendations/interventions noted Will continue to follow. Subjective Date/time seen: 05/31/22 11:23 Interval history: Ksenia is feeling about the same today. He has not had a bowel movement in a few days. No chest pain or shortness of breath Exam Narrative: General: WD/WN AA male in NAD Heart: normal S1 and S2; no rub Lungs: clear Abdomen: soft, nontender, significant reduction in distension, positive bowel sounds Extremities: no cyanosis or clubbing; trace edema : scrotal swelling noted Skin: no rash Objective Data Vital Signs Vital Signs: Vital Signs - 24 hr 05/30/22 12:40 05/30/22 15:00 05/30/22 21:09 Temperature 35.9 C L Pulse Rate 67 67 Respiratory Rate 18 Blood Pressure 98/54 L Pulse Oximetry 100 Oxygen Delivery Room Air 05/30/22 21:46 05/30/22 20:00 05/31/22 06:00 Temperature 36.9 C 36.9 C Pulse Rate 72 70 Respiratory Rate 16 16 Blood Pressure 108/54 L 119/67 Pulse Oximetry 100 97 Oxygen Delivery Room Air 05/31/22 08:36 05/31/22 09:05 05/31/22 09:05 Temperature 36.4 C L Pulse Rate 65 59 L 59 L Respiratory Rate 16 Blood Pressure 123/83 139/85 Pulse Oximetry Oxygen Delivery
--- NOTE | 2022-05-31 11:23 | PM.PNNEP ---
Progress Note: A&P Assessment and Plan (1) ESRD (end stage renal disease) on dialysis: Code(s): N18.6 - End stage renal disease; Z99.2 - Dependence on renal dialysis Status: Chronic Assessment and Plan: HD today. Volume status looks okay. Will remove some fluid. Electrolytes look okay. Potassium is 4.1 (2) Abdominal ascites: Code(s): R18.8 - Other ascites Status: Acute Assessment and Plan: presented with abdominal discomfort CT scan reveals large amount of ascites due to liver disease/hepatic cirrhosis(?) kidney disease in of itself usually does not cause this s/p diagnostic and therapeutic paracentesis with symptomatic improvement try to keep fluid off to prevent this from coming back. I talked with dialysis nurse to maximize output as valerie by bp. (3) Scrotal edema: Code(s): N50.89 - Other specified disorders of the male genital organs Status: Acute Assessment and Plan: as noted by exam on admission Pelvic CT shows prostatomegaly with no evidence of mass or obstruction CT also notes ascites within bilateral inguinal hernias which may contributing to scrotal edema Urology recommendations noted Try to keep fluid off as much as possible (4) Hypertension: Qualifiers: Hypertension type: unspecified Qualified Code(s): I10 - Essential (primary) hypertension Code(s): I10 - Essential (primary) hypertension Status: Chronic Assessment and Plan: reasonable control at this time systolic in the 120s (5) Anemia: Code(s): D64.9 - Anemia, unspecified Status: Chronic Assessment and Plan: due to ESRD Epogen with HD follow trend of H/H (6) Inguinal hernia bilateral, non-recurrent: Code(s): K40.20 - Bilateral inguinal hernia, without obstruction or gangrene, not specified as recurrent Status: Acute Assessment and Plan: as noted by CT scan Surgery recommendations/interventions noted Will continue to follow. Subjective Date/time seen: 05/31/22 11:23 Interval history: Ksenia is feeling about the same today. He has not had a bowel movement in a few days. No chest pain or shortness of breath Exam Narrative: General: WD/WN AA male in NAD Heart: normal S1 and S2; no rub Lungs: clear Abdomen: soft, nontender, significant reduction in distension, positive bowel sounds Extremities: no cyanosis or clubbing; trace edema : scrotal swelling noted Skin: no rash Objective Data Vital Signs Vital Signs: Vital Signs - 24 hr 05/30/22 12:40 05/30/22 15:00 05/30/22 21:09 Temperature 35.9 C L Pulse Rate 67 67 Respiratory Rate 18 Blood Pressure 98/54 L Pulse Oximetry 100 Oxygen Delivery Room Air 05/30/22 21:46 05/30/22 20:00 05/31/22 06:00 Temperature 36.9 C 36.9 C Pulse Rate 72 70 Respiratory Rate 16 16 Blood Pressure 108/54 L 119/67 Pulse Oximetry 100 97 Oxygen Delivery Room Air 05/31/22 08:36 05/31/22 09:05 05/31/22 09:05 Temperature 36.4 C L Pulse Rate 65 59 L 59 L Respiratory Rate 16 Blood Pressure 123/83 139/85 Pulse Oximetry Oxygen Delivery 05/31/22 09:20 05/31/22 09:40 Temperature Pulse Rate 65 79 Respiratory Rate Blood Pressure 130/79 115/76 Pulse Oximetry Oxygen Delivery Intake/Output Intake/Output: Intake & Output 05/28/22 05/29/22 05/30/22 05/31/22 23:59 23:59 23:59 23:59 Intake Total 120 685 780 240 Output Total 5900 830 0 0 Balance -5780 -145 780 240 Meds/Results Medications: Active Medications Generic Name Dose Route Start Last Admin Trade Name Jana PRN Reason Stop Dose Admin Amlodipine Besylate 5 mg 05/29/22 09:00 05/31/22 08:38 Amlodipine Besylate 5 Mg Tablet PO 5 mg QAM [facility] Administration Calcium Acetate 1,334 mg 05/31/22 12:00 Calcium Acetate 667 Mg Tablet PO TIDWM [facility] Calcium Acetate 667 mg 05/31/22 09:39 Calcium
[2022-05-31] MEDS: CALCIUM ACETATE 667 MG TABLET 1334 MG PO (13:51)
[2022-05-31] MEDS: LACTULOSE 20 GM/30 ML UDC PO (13:51)
--- NOTE | 2022-05-31 14:07 | PM.DS ---
DS: Admitting Diagnosis Discharge Date 05/31/2022 Admitting Diagnosis ascites DS: Discharge Diagnosis Discharge Diagnosis (1) Abdominal ascites: Code(s): R18.8 - Other ascites Status: Acute Assessment and Plan: Presented with abdominal discomfort CT scan revealed large amount of ascites Initial stat rad report indicated hepatic cirrhosis. Not indicated on final report, however reviewed with radiologist who does report surface nodularity of liver is evident. Patient denies any history of cirrhosis and has not undergone evaluation before Underwent diagnostic and therapeutic paracentesis on 05/28/2022 yielding 5500 mL peter colored fluid Diagnostic studies are pending. Gram stain with no organisms or WBC seen. Preliminary cultures negative to date after >48 hours. No concern for SBP or other infectious process. Cytology pending. Discussed with nephrology. Pt is a poor candidate for diuretic therapy given ESRD and risk for electrolyte imbalance. He may have to have scheduled therapeutic paracentesis if ascites persists, however will await further evaluation of ascites fluid and determine next steps for management. Hepatitis panel is negative Patient will follow up with PCP in 1 week to review diagnostic results. (2) Scrotal edema: Code(s): N50.89 - Other specified disorders of the male genital organs Status: Acute Assessment and Plan: Patient with painless scrotal edema ongoing for 1 week. Secondary to bilateral inguinal sliding hernia. Pelvic CT revealed right inguinal hernia containing ascites fluid and left hernia containing sigmoid colon. Pt seen by general surgery on 05/28 and hernia was reduced bilaterally with improvement in edema. Swelling recurred today with patient supine. Dr. Castillo (general surgery) provided education to patient and his so that they can safely reduce the hernia as needed Pt is a poor candidate for hernia repair given ascites. Surgical intervention may be considered at a later date based on completion of ascites workup. Per general surgery, surgical repair would only be recommended if ascites is able to be well controlled He is asymptomatic. Scrotal ultrasound completed which did reveal decreased vascular flow. Urology aware and no plans for intervention at this time given lack of symptoms and adequate contralateral flow. (3) Urinary retention: Code(s): R33.9 - Retention of urine, unspecified Status: Acute Assessment and Plan: Resolved. Patient unable to urinate prior to presentation Urine output is reduced secondary to ESRD, however patient reports typically urinating 2-3 times per day Bladder scan on admission revealed >300 cc and straight catheterization completed with 200 cc urine output Patient was seen in consultation by urology Started on tamsulosin0.4 mg BID and finasteride 5 mg daily Patient able to void independently following initial straight cath throughout remainder of hospitalization. (4) ESRD (end stage renal disease) on dialysis: Code(s): N18.6 - End stage renal disease; Z99.2 - Dependence on renal dialysis Status: Chronic Assessment and Plan: Maintained on hemodialysis Tuesday, Tuesday, Tuesday Nephrology was consulted for management during admission. Had dialysis on 05/29 and 05/31. Next HD on 06/02. (5) Hypertension: Qualifiers: Hypertension type: unspecified Qualified Code(s): I10 - Essential (primary) hypertension Code(s): I10 - Essential (primary) hypertension Status: Chronic Assessment and Plan: Blood pressure reviewed during admission. continue home amlodipine and carvedilol (6) Hyperkalemia: Code(s): E87.5 - Hyperkalemia Status: Acute Assessment and Plan: Resolved. Secondary to ESRD Continue routine monitoring with dialysis DS: Summary Hospital Course Hospital Course: date of admission:
--- NOTE | 2022-05-31 15:45 | PM.PNGS ---
Progress Note: A&P Assessment and Plan (1) Inguinal hernia bilateral, non-recurrent: Code(s): K40.20 - Bilateral inguinal hernia, without obstruction or gangrene, not specified as recurrent Status: Acute Assessment and Plan: This is the main reason that I saw him. During his initial consultation I was able to reduce both inguinal hernias. The right was the largest and probably had a tightly compressed loop of small bowel within it. Once it was reduced a significant amount of ascitic fluid exited the scrotum which was, I believe it's main dilation. Today even while the patient is supine both sides of the scrotum are again significantly swollen. However, with the patient's permission I again showed his how when he is laying flat/ supine the fluid can be compressed out of the bilateral inguinal hernias with slow steady pressure such that the swelling is at least half of what it is when I entered the room. Also explained that he is currently not a good candidate for a elective inguinal hernia repair in view of the probable reaccumulation of significant pressure with the ascites. Awaiting further studies to determine the cause of his liver disease and ascites. Discussed with Shikha from the hospitalist service yesterday. Repeat scrotal ultrasound findings noted. If the patient is found to have ascites based on liver disease my recommendation would be that he see a GI liver specialist and then that specialist work with a general surgeon that he knows to control the ascites and allow the inguinal hernias to be repaired will both follow the patient in order to try to avoid the common complications of ascitic leakage through the area where hernias are repaired. Therefore, I will not plan to see him back in the office or plan on any elective hernia repair for him unless further consulted. (2) Anemia: Code(s): D64.9 - Anemia, unspecified Status: Chronic (3) Scrotal edema: Code(s): N50.89 - Other specified disorders of the male genital organs Status: Acute Assessment and Plan: Most likely secondary to ascitic fluid descending into the bilateral large indirect inguinal hernias. In view of the patient's significant medical comorbidities and significant ascites probably under pressure I would not recommend repairing these hernias unless we are able to control his ascites significantly after completed diagnostic studies. (4) Abdominal ascites: Code(s): R18.8 - Other ascites Status: Acute Assessment and Plan: Now 3 day status post ultrasound-guided paracentesis. ( 5.5 L removed) diagnostic studies pending. Of note no significant wbc's or bacteria noted on initial review at microbiology. Aerobic and anaerobic culture still pending. However, patient's white count is normal and he has no abdominal discomfort so I doubt there is an infective component. (5) ESRD (end stage renal disease): Code(s): N18.6 - End stage renal disease Status: Acute Assessment and Plan: Receiving dialysis routinely Subjective Subjective Date/Time Seen: 05/31/22 15:45 Patient reports: no new complaints and bowel movement Interval history: Denies abdominal or groin pain. Was at dialysis this morning and tolerated it well. Review of Systems Review of Systems: All systems reviewed & are unremarkable except as noted in HPI and below Constitutional: Constitutional: Reports as per HPI, Denies chills and Denies fever(s) Cardiovascular: Cardiovascular: Denies chest pain and Denies dyspnea Respiratory: Respiratory: Reports no additional respiratory complaints and Denies dyspnea Gastrointestinal: Gastrointestinal: Reports as per HPI and Denies bloating Musculoskeletal: Musculoskeletal: Reports no additional musculoskeletal complaints Psychiatric: Psychiatric: Denies anxiety Exam Const: General: cooperative, comfortable, alert and awake Orientation/con
[2022-05-31 16:29] LABS: Amylase Peritoneal Fluid 43 U/L
[2022-06-02 05:42] LABS: Glucose Peritoneal Fluid 110 mg/dL; LDH Peritoneal Fluid 70 U/L (<63)
== END 2022-05-31 16:45 | disposition home or self-care (01) | DRG 947 ==
LOC: ANHED 05-28 00:25 → ANH3MED 05-28 04:29
PROVIDERS: Emergency Medicine; Nurse Practitioner Adult Health; Physician Assistant; Admitting Provider Internal Medicine; Emergency Provider Emergency Medicine; PCP Family Medicine; Visit Provider Family Medicine
DX: R18.8 Other ascites (principal); N18.6 End stage renal disease; I12.0 Hypertensive chronic kidney disease with stage 5 chronic kidney disease or end stage renal disease; K40.20 Bilateral inguinal hernia, without obstruction or gangrene, not specified as recurrent; D63.1 Anemia in chronic kidney disease; N50.89 Other specified disorders of the male genital organs; N43.3 Hydrocele, unspecified; E87.5 Hyperkalemia; G47.33 Obstructive sleep apnea (adult) (pediatric); M19.90 Unspecified osteoarthritis, unspecified site; Z79.82 Long term (current) use of aspirin; Z79.899 Other long term (current) drug therapy; Z99.2 Dependence on renal dialysis
CPT/HCPCS: 36415; 49083; 71046; 72194; 74176; 76870; 80048; 80053; 80074; 82042; 82150; 82945; 83615; 83690; 83735; 84100; 84153; 84157; 85025; 85027; 85610; 85730; 87070; 87075; 87205; 88108; 88305; 89051; 93976; 96374; 96375; 97161; 97165; 99285; A9270; G0257; J2270; J2405; J7030; P9047; Q5105; Q9967

== ENCOUNTER 2022-08-08 08:51 | Emergency (ER) | payer OTHER, SELFPAY ==
--- NOTE | ~2022-08-08 | XR_ITS ---
XR shoulder RT min 2V DATE: 08/08/2022 09:40 INDICATION: Fall. Right shoulder injury, pain TECHNIQUE: 4 views COMPARISON: 07/14/2020 right shoulder FINDINGS: There is diffuse osteopenia. There is very severe osteoarthritic change including very prominent periarticular spurring at the rig ht glenohumeral joint. There is interval deformity of the glenoid process which is more flattened and broadened compared to 07/14/2020. No fracture or dislocation is detected. IMPRESSION: Severe osteoarthritic change and deformity at the right glenohumeral joint Osteopenia No fracture or dislocation Reviewed, dictated and finalized at location A. [employer] IMPRESSION: Severe osteoarthritic change and deformity at the right glenohumera l joint Osteopenia No fracture or dislocation
[2022-08-08 08:57] VITALS: BP 128/64; PULSE 73; RESP 16; TEMP 36.4; O2SAT 100
[2022-08-08 09:16] VITALS: BP 117/66; PULSE 69; RESP 18; O2SAT 99
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
[2022-08-08 10:28] LABS: Basophils Percent Auto 0.3 % (0.2-1.2); Eosinophils Percent Auto 0.2 % (0-4.4); Hematocrit 31.3 % (42.0-52.0); Hemoglobin 10.2 g/dL (14.0-18.0); Immature Granulocyte Absolute 0.05 K/mm3 (0.00-0.031); Immature Granulocyte Percent A 0.6 % (0-0.5); Lymphocytes Percent Auto 12.4 % (18.3-44.2); Mean Corpuscular HGB Conc 32.6 g/dl (32-36); Mean Corpuscular Hemoglobin 31.3 pg (26-34); Mean Platelet Volume 11.5 fl (7.4-10.4); Monocytes Absolute Auto 0.8 K/mm3 (0.1-0.6); Monocytes Percent Auto 8.8 % (2.6-8.5); Neutrophils Absolute Auto 6.9 K/mm3 (1.3-6.7); Neutrophils Percent Auto 77.7 % (45.5-73.1); Platelet Count Result 235 k/mm3 (150-375); Red Blood Count 3.26 M/mm3 (4.6-6.20); Red Cell Distribution Width 15.3 % (11.5-14.5); White Blood Count 8.9 K/mm3 (4.5-10.0)
[2022-08-08 10:44] LABS: Alanine Aminotransferase 18 U/L (6-50); Albumin Level 3.4 g/dL (3.5-5.1); Alkaline Phosphatase 192 U/L (38-126); Anion Gap 13 mmol/L (8-16); Aspartate Amino Transferase 36 U/L (17-59); Bilirubin,Total 1.9 mg/dL (0.2-1.3); Blood Urea Nitrogen 49 mg/dL (9-20); Calcium 8.4 mg/dL (8.4-10.2); Carbon Dioxide 34 mmol/L (22-30); Chloride 89 mmol/L (98-107); Estimated CRCL calculation 12 ml/min; Estimated Glomerular Filt Rate 13; Glucose 96 mg/dL (65-110); Sodium 136 mmol/L (137-145)
[2022-08-08 10:54] VITALS: BP 101/64; PULSE 64; RESP 16; O2SAT 97
[2022-08-08 11:12] VITALS: BP 108/60; PULSE 67; RESP 18; O2SAT 99
== END 2022-08-08 11:13 | disposition home or self-care (01) ==
PROVIDERS: Emergency Provider Physician Assistant; PCP Family Medicine
DX: S49.91XA Unspecified injury of right shoulder and upper arm, initial encounter (principal); I12.0 Hypertensive chronic kidney disease with stage 5 chronic kidney disease or end stage renal disease; N18.6 End stage renal disease; D63.1 Anemia in chronic kidney disease; G47.30 Sleep apnea, unspecified; M19.011 Primary osteoarthritis, right shoulder; M81.0 Age-related osteoporosis without current pathological fracture; Z99.2 Dependence on renal dialysis; Z89.021 Acquired absence of right finger(s); W07.XXXA Fall from chair, initial encounter
CPT/HCPCS: 36415; 73030; 80053; 85025; 99283

== ENCOUNTER → 2023-01-19 09:33 | Outpatient (CLI) | payer OTHER, SELFPAY ==
--- NOTE | ~2023-01-19 | XR_ITS ---
EXAMINATION: XR hand RT min 3V DATE: 01/19/2023 10:49 INDICATION: Right hand pain TECHNIQUE: Posteroanterior, oblique and lateral views of the right hand were obtained. COMPARISON: None. FINDINGS: Diffuse osteopenia. No fracture. Previous partial amputation of the second-fourth digits at the level of the proximal interphalangeal joint of the fifth digit and with osteotomies across the necks of th e second-fourth proximal phalanges. There is a smoothly corticated osteotomy margin at the fourth pro ximal phalanx. Slight irregular contour to the osteotomy margins at the second and third proximal pha langes as well as the radial side of the tuft of the first distal phalanx but without definitive oste olysis. Mild palmar subluxation of the third proximal phalanx at the metacarpophalangeal joint with m ild associated osteoarthritis. Additional mild osteoarthritis at the distal radioulnar, triscaphe, fi rst carpometacarpal and first interphalangeal joints. Small chronic erosion with corticated margins a long the proximal margin of the lunate. IMPRESSION: 1. Partial amputations of the second-fifth digits as detailed above. Irregular margins to the osteoto mies at the second and third proximal phalanges along the radial side of the tuft of the first distal phalanx without evident increased lucency in the underlying bone island capsule and although could n ot absolutely exclude osteomyelitis, the level of suspicion is very low. Reviewed, dictated and finalized at location A. IMPRESSION: 1. Partial amputations of the second-fifth digits as detailed above. Irregular margins to the osteotomies at the second and third proximal phalanges along the radial side of the tuft of the first distal phalanx without evident increased lucency in the underlying bone island capsule and although could not absolutely exclude osteomyelitis, the level of suspicion is very low.
== END ==
PROVIDERS: PCP Family Medicine; Visit Provider Physician Assistant
DX: M79.641 Pain in right hand (principal); Z89.021 Acquired absence of right finger(s)
CPT/HCPCS: 73130

== ENCOUNTER → 2023-02-08 10:25 | Outpatient (CLI) | payer OTHER, SELFPAY ==
--- NOTE | ~2023-02-08 | XR_ITS ---
Lumbosacral Spine: AP and lateral views Clinical History: Pain Findings: 23 degrees levoscoliosis of the lumbar spine noted. There is moderate degenerative disc lauryn rowing throughout the lumbar spine. There is advanced facet arthropathy throughout the lumbar spine. The sacroiliac joints are normally outlined. Impression: 23 degrees levoscoliosis, moderate to advanced degenerative spondylitic changes, as above. Reviewed, dictated and finalized at location . Impression: 23 degrees levoscoliosis, moderate to advanced degenerative spondylitic changes , as above.
--- NOTE | ~2023-02-08 | XR_ITS ---
AP and lateral views of the right hip Clinical history: Pain Findings: No acute fracture or dislocation is seen. Osseous alignment is anatomic. The right hip join t is preserved. Soft tissues are unremarkable. Impression: No significant abnormality is seen. Reviewed, dictated and finalized at location . Impression: No significant abnormality is seen.
== END ==
PROVIDERS: PCP Family Medicine; Visit Provider Family Medicine
DX: M54.50 Low back pain, unspecified (principal); M25.551 Pain in right hip
CPT/HCPCS: 72100; 73502

== ENCOUNTER 2023-02-28 04:24 | Observation (INO) | payer OTHER, SELFPAY ==
[2023-02-28] VITALS (37 sets, daily range): BP systolic 90–137; BP diastolic 54–78; PULSE 60–100; RESP 16–29; TEMP 36–38.9; O2SAT 90–100; BMI 23.2
--- NOTE | ~2023-02-28 | CT_ITS ---
CT Scan of the Chest without Contrast: Clinical Indication: Pneumonia Technique: Contiguous sections were acquired throughout the chest without intravenous contrast. Dose reduction technique was used on this scan by utilizing automated exposure control and iterative recon struction technique. The dose-length product (DLP) was 323.99 mGy-cm. COMPARISON: 01/17/2016 Findings: There is no evidence of any significant mediastinal, hilar or axillary lymphadenopathy. There is card iomegaly. Coronary artery calcifications are present. No pericardial effusion. Probable minimal bilateral pleural effusions present, with minimal bibasilar atelectasis. Images through the upper abdomen reveal moderate to large amount of upper abdominal ascites. Impression: Minimal pleural effusions and minimal bibasilar atelectasis. Moderate to large amount of upper abdominal ascites. Cardiomegaly. Reviewed, dictated and finalized at [facility]. Impression: Minimal pleural effusions and minimal bibasilar atelectasis. Moderate to large amount of upper abdominal ascites. Cardiomegaly.
--- NOTE | ~2023-02-28 | XR_ITS ---
Portable chest x-ray Comparison: 05/28/2022 Clinical History: Cough, shortness of breath Findings: There is minimal haziness in the lungs, relatively sparing the left upper lobe. No pleural effusion or pneumothorax. Cardiomediastinal silhouette is stable. Bones and soft tissues are unchan ged. Impression: Minimal haziness in the lungs. Correlate for minimal pulmonary edema or atypical infection. Stable cardiomegaly. Reviewed, dictated and finalized at location . Impression: Minimal haziness in the lungs. Correlate for minimal pulmonary edema or atypica l infection. Stable cardiomegaly.
--- NOTE | ~2023-02-28 | US_ITS ---
EXAMINATION: US paracentesis abd w/image DATE: 02/28/2023 12:19 INDICATION: Ascites. TECHNIQUE: The procedure and its risks and benefits were discussed with the patient. Potential risks discussed included bleeding and infection. The skin was prepped and draped in sterile fashion. 1% lid ocaine was used for local anesthesia. Under ultrasound guidance, a 5 Fr catheter with trochar was adv anced into the ascites in the right lower quadrant. Fluid was aspirated into vacuum bottles. The cath eter was removed, and a dressing was applied. There were no immediate complications. FINDINGS: Ultrasound images demonstrate ascites and the catheter within the fluid. IMPRESSION: 1. Successful ultrasound-guided paracentesis yielding 5000 mL of peter-colored fluid. Reviewed, dictated and finalized at location A.
--- NOTE | ~2023-02-28 | CT_ITS ---
CT of the Abdomen and Pelvis: Indication: Abdominal distention, fever Technique: 2.5 mm axial scans were obtained through the abdomen and pelvis following intravenous adm inistration of 100 cc of Omnipaque 350. Dose reduction technique was used on this scan by utilizing a utomated exposure control and iterative reconstruction technique. The dose-length product (DLP) was 1 206.95 mGy-cm. COMPARISON: 05/28/2022 Findings: Scans through the lung bases demonstrate cardiomegaly. Questionable micronodular contour of the liver. The spleen, pancreas, gallbladder, and adrenal glands are within normal limits. Kidneys are atrophic with bilateral renal cysts present. There are atheros clerotic calcifications of the aorta. No lymphadenopathy. Large amount of abdominopelvic ascites is present. Large left inguinal hernia contains a large portio n of the distal descending and proximal sigmoid colon as well as a large amount of fat/fluid. Right i nguinal hernia contains the appendix as well as moderate to large amount of fluid/fat. No bowel obstr uction or definite bowel wall thickening identified. Small fluid containing umbilical hernia present. Underlying carcinomatosis difficult to exclude. Images through the pelvis were performed. Urinary bladder unremarkable. Prostate gland seminal vesicl es are unremarkable. Impression: Large amount of abdominal ascites. Left inguinal hernia contains a large portion of the distal descending and proximal sigmoid colon as well as large amount of fat/fluid. Right inguinal hernia contains ascites/mental fat as well as the appendix. No bowel obstruction. Questionable micronodular contour of liver. Correlate for cirrhosis. Reviewed, dictated and finalized at [facility]. Impression: Large amount of abdominal ascites. Left inguinal hernia contains a large portion of the distal descending and prox imal sigmoid colon as well as large amount of fat/fluid. Right inguinal hernia contains ascites/mental fat as well as the appendix. No bowel obstruction. Questionable micronodular contour of liver. Correlate for cirrhosis.
--- NOTE | 2023-02-28 04:30 | ECG_ITS ---
Measurements Intervals [place] Rate: 83 P: VT: 0 QRS: 64 QRSD: 88 T: 87 QT: 379 QTc: 446 Interpretive Statements ATRIAL FIBRILLATION BORDERLINE LEFTWARD AXIS NONSPECIFIC T-WAVE ABNORMALITY ABNORMAL RHYTHM ECG COMPARED TO ECG 12/20/2020 08:35:06 NO CHANGE OF SIGNIFICANCE Electronically Signed On 02-28-2023 15:47:47 CDT by Cisco Pascual M.D.
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
[2023-02-28 05:02] LABS: Basophils Absolute Auto 0.1 K/mm3 (0.0-0.1); Basophils Percent Auto 0.3 % (0.2-1.2); Eosinophils Percent Auto 0.3 % (0-4.4); Hemoglobin 11.1 g/dL (14.0-18.0); Immature Granulocyte Absolute 0.08 K/mm3 (0.00-0.031); Immature Granulocyte Percent A 0.5 % (0-0.5); Lymphocytes Percent Auto 3.3 % (18.3-44.2); Mean Corpuscular HGB Conc 31.7 g/dl (32-36); Mean Corpuscular Hemoglobin 30.6 pg (26-34); Mean Corpuscular Volume 96.4 fl (80-100); Mean Platelet Volume 10.2 fl (7.4-10.4); Monocytes Percent Auto 6.5 % (2.6-8.5); Neutrophils Absolute Auto 13.4 K/mm3 (1.3-6.7); Neutrophils Percent Auto 89.1 % (45.5-73.1); Platelet Count Result 292 k/mm3 (150-375); Red Blood Count 3.63 M/mm3 (4.6-6.20); Red Cell Distribution Width 15.1 % (11.5-14.5)
[2023-02-28 05:13] LABS: Alanine Aminotransferase 14 U/L (6-50); Albumin Level 4.4 g/dL (3.5-5.1); Alkaline Phosphatase 100 U/L (38-126); Anion Gap 17 mmol/L (8-16); Aspartate Amino Transferase 28 U/L (17-59); Bilirubin,Total 0.8 mg/dL (0.2-1.3); Blood Urea Nitrogen 71 mg/dL (9-20); Carbon Dioxide 31 mmol/L (22-30); Chloride 90 mmol/L (98-107); Estimated CRCL calculation 8 ml/min; Estimated Glomerular Filt Rate 8; Glucose 99 mg/dL (65-110); Lactic Acid Reflex 2.4 mmol/L (0.7-2.0); Lipase 81 U/L (23-300); Magnesium 2.2 mg/dL (1.6-2.3); Phosphorus 6.4 mg/dL (2.5-4.5); Potassium 4.4 mmol/L (3.4-5.0); Sodium 138 mmol/L (137-145)
[2023-02-28 05:14] LABS: INR 1.2; Prothrombin Time 15.7 Seconds (11.1-14.7)
[2023-02-28 05:15] LABS: Partial Thromboplastin Time 32.2 SECONDS (22.3-36.8)
[2023-02-28 05:15] LABS: Appearance Urine Clear (Clear); Bacteria Urine None Seen /hpf; Bilirubin Urine Negative (Negative); Blood Urine Trace (Negative); Color Urine Yellow (Yellow); Glucose Urine UA Trace mg/dL (Negative); Ketones Urine Negative (Negative); Leukocyte Esterase Ur Trace LEU/UL (Negative); Need Manual Microscopic Reviewed; Nitrate Urine Negative (Negative); Protein Urine 2+ mg/dL (Negative); RBC Urine 0-2 /hpf (0-2); Specific Grav Ur 1.015 (1.001-1.035); Squamous Epithelial Cell Urine None seen /hpf (Few); pH Urine 7.5 (5.0-9.0)
[2023-02-28 05:16] LABS: Add Urine Microscopic? YES
[2023-02-28 05:38] LABS: Influenza A QL RT-PCR Negative (Negative); Influenza B QL RT-PCR Negative (Negative); RSV RNA, RT-PCR Negative (Negative); SARS-CoV-2 RNA PCR Negative (Negative)
[2023-02-28] MEDS: PIPERACILLN/TAZ 3.375GM/NS50ML 3.375 GM/50 ML BAG IVPB (06:19)
--- NOTE | 2023-02-28 07:44 | ADMGEN ---
This patient, Partha Carias Jr., was admitted to [facility] Surg Room 329-01. Patient/family oriented to hospital policies and general routines including ID bracelet, bed and alarms, visiting hours, pain management, procedures, bathroom and other care routines, personal items, smoking policy, room service/diet, and visiting hours. Information on how to activate the Rapid Response Team has been discussed. Patient/Family are encouraged to report perceived risks to care and to ask questions if they do not understand what they are told or what they should do.
[2023-02-28 07:58] LABS: Reflex Lactic Acid Yes or No Add Lactic
[2023-02-28 08:34] LABS: Lactic Acid 2.3 mmol/L (0.7-2.0)
[2023-02-28 08:43] LABS: Hepatitis B Surface Antigen Negative (Negative)
[2023-02-28 08:48] LABS: Hepatitis B Core IgM Result Negative (Negative)
[2023-02-28 09:03] LABS: Hepatitis B Surface Anti Res Positive
[2023-02-28] MEDS: ASPIRIN 81 MG ENTERIC TABLET PO (09:15)
[2023-02-28] MEDS: FINASTERIDE 5 MG TABLET PO (09:15)
[2023-02-28] MEDS: amLODIPine BESYLATE 5 MG TABLET PO (09:15)
[2023-02-28] MEDS: CYANOCOBALAMIN 1,000 MCG TABLET 1000 MCG PO (09:15)
[2023-02-28] MEDS: SODIUM BICARBONATE TAB 650 MG TABLET 1300 MG PO ×2 (09:15→21:09)
[2023-02-28] MEDS: CALCIUM ACETATE 667 MG TABLET 1334 MG PO ×3 (09:15→21:09)
[2023-02-28] MEDS: carvediloL 6.25 MG TABLET PO ×2 (09:15→21:09)
--- NOTE | 2023-02-28 11:22 | PC.NURSE ---
Patient to ultrasound for paracentesis via stretcher.
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
[2023-02-28 12:26] LABS: Lactate Dehydrogenase 177 U/L (120-246)
[2023-02-28] MEDS: PIPERACILLIN/TAZ 2.25G/NS 50ML 2.25 GM/50 ML BAG IVPB ×2 (12:55→21:10)
[2023-02-28 13:26] LABS: Source Peritoneal Fluid Peritoneal Fluid
[2023-02-28 13:29] LABS: Appearance Peritoneal Fluid Clear (Clear); Color Peritoneal Fluid Yellow (Colorless)
[2023-02-28 14:03] LABS: Lymphocytes Peritoneal Fluid 30 %; Macrophages Peritoneal Fluid 7 %; Mesothelial Cells Peritoneal Fluid 49 %; Monocytes Peritoneal Fluid 12 %; Neutrophils Peritoneal Fluid 2 % (0-25); Nucleated Cells Peritoneal Flu 220 /uL (0-500); RBC Peritoneal Fluid < 2000 /uL (0-100000)
[2023-02-28 14:16] LABS: Lactic Acid Reflex 2.6 mmol/L (0.7-2.0)
[2023-02-28 14:49] LABS: Vancomycin Random 14.7 ug/mL (10-20)
--- NOTE | 2023-02-28 15:08 | PC.NURSE ---
Patient to dialysis via bed at 1430.
[2023-02-28] MEDS: ALBUMIN HUMAN 25% 12.5 GM/50ML 50 ML IVPB (15:21)
[2023-02-28] MEDS: APIXABAN 2.5 MG TABLET PO (21:09)
[2023-03-01] VITALS (10 sets, daily range): BP systolic 104–122; BP diastolic 63–74; PULSE 62–75; RESP 18; TEMP 36.7–37; O2SAT 92–94
[2023-03-01] MEDS: VANCOMYCIN 1,000 MG/NS 250 ML 1,000 MG/250 ML BAG 250 MG IVPB (00:54)
[2023-03-01 06:22] LABS: Basophils Percent Auto 0.3 % (0.2-1.2); Eosinophils Absolute Auto 0.1 K/mm3 (0-0.3); Eosinophils Percent Auto 0.4 % (0-4.4); Hematocrit 30.6 % (42.0-52.0); Hemoglobin 9.7 g/dL (14.0-18.0); Immature Granulocyte Absolute 0.06 K/mm3 (0.00-0.031); Immature Granulocyte Percent A 0.5 % (0-0.5); Lymphocytes Absolute Auto 1.03 K/mm3 (0.9-3.2); Lymphocytes Percent Auto 8.9 % (18.3-44.2); Mean Corpuscular HGB Conc 31.7 g/dl (32-36); Mean Corpuscular Hemoglobin 30.5 pg (26-34); Mean Corpuscular Volume 96.2 fl (80-100); Mean Platelet Volume 10.6 fl (7.4-10.4); Monocytes Absolute Auto 1.4 K/mm3 (0.1-0.6); Monocytes Percent Auto 11.7 % (2.6-8.5); Neutrophils Percent Auto 78.2 % (45.5-73.1); Platelet Count Result 235 k/mm3 (150-375); Red Blood Count 3.18 M/mm3 (4.6-6.20); Red Cell Distribution Width 15.5 % (11.5-14.5); White Blood Count 11.6 K/mm3 (4.5-10.0)
[2023-03-01] MEDS: PIPERACILLIN/TAZ 2.25G/NS 50ML 2.25 GM/50 ML BAG IVPB ×3 (06:24→20:17)
[2023-03-01 07:00] LABS: Albumin Level 3.5 g/dL (3.5-5.1); Anion Gap 12 mmol/L (8-16); Blood Urea Nitrogen 44 mg/dL (9-20); Calcium 9.6 mg/dL (8.4-10.2); Carbon Dioxide 33 mmol/L (22-30); Chloride 92 mmol/L (98-107); Estimated CRCL calculation 12 ml/min; Estimated Glomerular Filt Rate 13; Glucose 92 mg/dL (65-110); Phosphorus 5.2 mg/dL (2.5-4.5); Potassium 4.7 mmol/L (3.4-5.0); Sodium 137 mmol/L (137-145)
[2023-03-01] MEDS: CYANOCOBALAMIN 1,000 MCG TABLET 1000 MCG PO (08:33)
[2023-03-01] MEDS: FINASTERIDE 5 MG TABLET PO (08:34)
[2023-03-01] MEDS: APIXABAN 2.5 MG TABLET PO ×2 (08:34→20:17)
[2023-03-01] MEDS: FUROSEMIDE 20 MG TABLET PO (08:34)
[2023-03-01] MEDS: amLODIPine BESYLATE 5 MG TABLET PO (08:34)
[2023-03-01] MEDS: ASPIRIN 81 MG ENTERIC TABLET PO (08:34)
[2023-03-01] MEDS: CALCIUM ACETATE 667 MG TABLET 1334 MG PO ×3 (08:34→17:08)
[2023-03-01] MEDS: carvediloL 6.25 MG TABLET PO ×2 (08:34→20:17)
[2023-03-01] MEDS: SODIUM BICARBONATE TAB 650 MG TABLET 1300 MG PO ×2 (08:34→17:08)
--- NOTE | 2023-03-01 08:45 | P.CDI_ITS ---
CDI Query Clarification Request Documented history of CHF. CHF noted in the assessment and plan. Furosemide listed as a home medication. Patient receiving furosemide. Pulmonary edema noted on the 02/28/23 chest xray. Please specify type and acuity of heart failure if known. * Acute * Chronic * Acute on Chronic * Unknown * Systolic * Diastolic * Combined Systolic and Diastolic * Unknown
--- NOTE | 2023-03-01 12:06 | PM.IMPN ---
Progress Note: A&P Assessment and Plan (1) Sepsis: Code(s): A41.9 - Sepsis, unspecified organism Status: Acute Assessment and Plan: Continue IV antibiotics. Patient has received vanc in the ER. Continue Zosyn. Panculture. Source unknown at this time. CT scan of the abdomen and pelvis noted. CT of the chest negative Ascitic fluid is pending. (2) End-stage renal disease (ESRD): Code(s): N18.6 - End stage renal disease Status: Acute Assessment and Plan: Consult renal (3) Ascites: Code(s): R18.8 - Other ascites Status: Acute Assessment and Plan: Paracentesis ordered, studies will be ordered and are pending as well. (4) CHF (congestive heart failure): Code(s): I50.9 - Heart failure, unspecified Status: Acute Assessment and Plan: History of. Most recent echo May of 2022. Elevated RVSP. (5) Sleep apnea: Qualifiers: Sleep apnea type: unspecified type Qualified Code(s): G47.30 - Sleep apnea, unspecified Code(s): G47.30 - Sleep apnea, unspecified Status: Chronic Assessment and Plan: Monitor in the hospital. (6) Right sided weakness: Code(s): R53.1 - Weakness Status: Acute (7) Scrotal edema: Code(s): N50.89 - Other specified disorders of the male genital organs Status: Acute Assessment and Plan: Likely related from end-stage renal disease with volume overload. (8) Urinary retention: Code(s): R33.9 - Retention of urine, unspecified Status: Acute Assessment and Plan: Pack if needed. (9) HLD (hyperlipidemia): Code(s): E78.5 - Hyperlipidemia, unspecified Status: Acute Assessment and Plan: History of (10) BPH (benign prostatic hyperplasia): Code(s): N40.0 - Benign prostatic hyperplasia without lower urinary tract symptoms Status: Acute Assessment and Plan: monitor pack if retention (11) Atrial fibrillation: Qualifiers: Atrial fibrillation type: unspecified Qualified Code(s): I48.91 - Unspecified atrial fibrillation Code(s): I48.91 - Unspecified atrial fibrillation Status: Chronic Assessment and Plan: has been documented before, ekg shows afib will start on anticoagulation echo reviewed Subjective Date/time seen: 03/01/23 12:06 Interval history: Edema is improved. Ascites is also improved. Feeling better. Afebrile. Cultures in workup in Exam Narrative: General: alert and oriented Psych: appropriate mood nad affect Eyes: PERRLA Neck: Trachea midline, no new lesions Skin: no changes Lungs: CTA Cardiac: Normal S1,S2, no MGR ABD: soft, nd, nt, nbs Ext: no new lesions, no cce Vasc: Pulses intact Objective Data Vital Signs Vital Signs: Vital Signs - 24 hr 02/28/23 16:00 02/28/23 21:09 02/28/23 14:41 Temperature 98.0 F Pulse Rate 60 73 72 Respiratory Rate 20 Blood Pressure 92/55 L Pulse Oximetry 96 Oxygen Delivery 02/28/23 15:11 02/28/23 15:20 02/28/23 15:40 Temperature Pulse Rate 66 64 60 Respiratory Rate Blood Pressure 95/54 L 93/56 L 99/61 L Pulse Oximetry Oxygen Delivery 02/28/23 16:00 02/28/23 16:20 02/28/23 16:40 Temperature Pulse Rate 83 68 72 Respiratory Rate Blood Pressure 90/63 L 108/62 98/68 L Pulse Oximetry Oxygen Delivery 02/28/23 17:00 02/28/23 17:20 02/28/23 17:40 Temperature Pulse Rate 82 62 100 Respiratory Rate Blood Pressure 101/64 98/59 L 98/70 L Pulse Oximetry Oxygen Delivery 02/28/23 18:00 02/28/23 18:20 02/28/23 18:42 Temperature Pulse Rate 71 74 74 Respiratory Rate Blood Pressure 110/73 120/67 119/77 Pulse Oximetry Oxygen Delivery 02/28/23 18:46 02/28/23 22:00 02/28/23 20:00 Temperature 97.9 F 98.3 F Pulse Rate 72 68 Respiratory Rate 18 18 Blood Pressure 109/75 131/72 Pulse Oximetry 95 95 Oxygen Delivery Room Air
--- NOTE | 2023-03-01 18:20 | PM.PNNEP ---
Progress Note: A&P Assessment and Plan (1) ESRD (end stage renal disease) on dialysis: Code(s): N18.6 - End stage renal disease; Z99.2 - Dependence on renal dialysis Status: Chronic Assessment and Plan: HD Was done yesterday. Due tomorrow. Volume status looks okay. Electrolytes look okay. Potassium is 4.7 (2) Hypertension: Qualifiers: Hypertension type: unspecified Qualified Code(s): I10 - Essential (primary) hypertension Code(s): I10 - Essential (primary) hypertension Status: Inactive Assessment and Plan: Blood pressure ranging from 98-131. Mostly in the 110-120 range (3) Anemia: Code(s): D64.9 - Anemia, unspecified Status: Chronic Assessment and Plan: due to ESRD Epogen with HD (4) Fever: Code(s): R50.9 - Fever, unspecified Status: Acute Assessment and Plan: blood and urine cultures negative so far. abdominal fluid cultures Pending. Cell count does not look remarkable. Subjective Date/time seen: 03/01/23 18:20 Interval history: Ksenia is feeling better today. No fevers or chills. No chest pain or shortness of breath he is eating supper right now. Review of Systems Cardiovascular: Cardiovascular: Reports no additional cardiovascular complaints Respiratory: Respiratory: Reports no additional respiratory complaints Gastrointestinal: Gastrointestinal: Reports no additional gastrointestinal complaints Genitourinary: Genitourinary: Reports no additional male genitourinary complaints Exam Narrative: WDWN in NAD skin no rash head ncat lungs clear cor reg no rub abd BS+ nontender and soft ext no edema. Objective Data Vital Signs Vital Signs: Vital Signs - 24 hr 02/28/23 21:09 02/28/23 18:42 02/28/23 18:46 Temperature 97.9 F Pulse Rate 73 74 72 Respiratory Rate 18 Blood Pressure 119/77 109/75 Pulse Oximetry 95 Oxygen Delivery 02/28/23 22:00 02/28/23 20:00 02/28/23 20:00 Temperature 98.3 F Pulse Rate 68 69 Respiratory Rate 18 Blood Pressure 131/72 Pulse Oximetry 95 Oxygen Delivery Room Air 03/01/23 00:00 03/01/23 04:00 03/01/23 06:00 Temperature 98.1 F Pulse Rate 72 62 75 Respiratory Rate 18 Blood Pressure 122/74 Pulse Oximetry 94 Oxygen Delivery 03/01/23 08:00 03/01/23 12:11 03/01/23 08:00 Temperature 98.6 F Pulse Rate 62 Respiratory Rate Blood Pressure Pulse Oximetry Oxygen Delivery Room Air 03/01/23 12:00 03/01/23 16:00 Temperature Pulse Rate 73 73 Respiratory Rate Blood Pressure Pulse Oximetry Oxygen Delivery Intake/Output Intake/Output: Intake & Output 02/26/23 02/27/23 02/28/23 03/01/23 23:59 23:59 23:59 23:59 Intake Total 1230 1250 Output Total 5000 30 Balance -3770 1220 Meds/Results Medications: Active Medications Generic Name Dose Route Start Last Admin Trade Name Freq PRN Reason Stop Dose Admin Amlodipine Besylate 5 mg 02/28/23 09:00 03/01/23 08:34 Amlodipine Besylate 5 Mg Tablet PO 5 mg QAM JAY Administration Apixaban 2.5 mg 02/28/23 21:00 03/01/23 08:34 Apixaban 2.5 Mg Tablet PO 2.5 mg Q12HR JAY Administration Aspirin 81 mg 02/28/23 09:00 03/01/23 08:34 Aspirin 81 Mg Enteric Tablet PO 81 mg QAM JAY Administration Calcium Acetate 1,334 mg 02/28/23 08:35 03/01/23 17:08 Calcium Acetate 667 Mg Tablet PO 1,334 mg TIDWM JAY Administration Calcium Acetate 667 mg 02/28/23 08:33 Calcium Acetate 667 Mg Tablet PO PRN PRN WITH SNACKS Carvedilol 6.25 mg 02/28/23 09:00 03/01/23 08:34 Carvedilol 6.25 Mg Tablet PO 6.25 mg Q12HR JAY Administration Cyanocobalamin 1,000 mcg 02/28/23 09:00 03/01/23 08:33 Cyanocobalamin 1,000 Mcg Tablet PO 1,000 mcg QAM JAY Administration Finasteride 5 mg 02/28/23 09:00 03/01/23 08:34 Finasteride 5 Mg Tablet PO 5 mg
[2023-03-02] VITALS (22 sets, daily range): BP systolic 95–139; BP diastolic 54–76; PULSE 48–72; RESP 12–18; TEMP 36–36.8; O2SAT 95–100
[2023-03-02] MEDS: PIPERACILLIN/TAZ 2.25G/NS 50ML 2.25 GM/50 ML BAG IVPB ×3 (04:56→20:41)
[2023-03-02 07:19] LABS: Albumin Level 3.6 g/dL (3.5-5.1); Anion Gap 12 mmol/L (8-16); Blood Urea Nitrogen 54 mg/dL (9-20); Calcium 9.3 mg/dL (8.4-10.2); Carbon Dioxide 35 mmol/L (22-30); Chloride 91 mmol/L (98-107); Estimated CRCL calculation 9 ml/min; Estimated Glomerular Filt Rate 9; Glucose 102 mg/dL (65-110); Phosphorus 5.6 mg/dL (2.5-4.5); Sodium 138 mmol/L (137-145)
[2023-03-02 07:24] LABS: Vancomycin Random 17.5 ug/mL (10-20)
[2023-03-02] MEDS: FINASTERIDE 5 MG TABLET PO (08:03)
[2023-03-02] MEDS: APIXABAN 2.5 MG TABLET PO ×2 (08:05→20:43)
[2023-03-02] MEDS: ASPIRIN 81 MG ENTERIC TABLET PO (08:05)
[2023-03-02] MEDS: CYANOCOBALAMIN 1,000 MCG TABLET 1000 MCG PO (08:05)
[2023-03-02] MEDS: SODIUM BICARBONATE TAB 650 MG TABLET 1300 MG PO ×2 (08:05→16:34)
[2023-03-02] MEDS: CALCIUM ACETATE 667 MG TABLET 1334 MG PO ×3 (08:05→16:34)
--- NOTE | 2023-03-02 09:31 | PC.NURSE ---
Patient to dialysis via bed at 0900.
[2023-03-02] MEDS: ACETAMINOPHEN 325 MG TABLET 650 MG PO ×2 (10:10→20:55)
[2023-03-02] MEDS: EPOETIN ALFA-EPBX 10,000 UNITS/ML VIAL 10000 UNITS IV PUSH (10:36)
--- NOTE | 2023-03-02 11:03 | PM.IMPN ---
Progress Note: A&P Assessment and Plan (1) Sepsis: Code(s): A41.9 - Sepsis, unspecified organism Status: Acute Assessment and Plan: Continue IV antibiotics. Patient has received vanc in the ER. Continue Zosyn. Panculture. Blood culture growing Gram-positive cocci in anaerobic bottle- staph epidermidis, likely contaminant. Will discontinue vancomycin Source unknown at this time. CT scan of the abdomen and pelvis noted. CT of the chest negative Ascitic fluid culture is pending. (2) End-stage renal disease (ESRD): Code(s): N18.6 - End stage renal disease Status: Acute Assessment and Plan: Consult renal On dialysis (3) Ascites: Code(s): R18.8 - Other ascites Status: Acute Assessment and Plan: Paracentesis done. studies ordered and are pending as well. Hepatitis-B antibody positive (4) CHF (congestive heart failure): Code(s): I50.9 - Heart failure, unspecified Status: Acute Assessment and Plan: Most recent echo May of 2022. Elevated RVSP. (5) Sleep apnea: Qualifiers: Sleep apnea type: unspecified type Qualified Code(s): G47.30 - Sleep apnea, unspecified Code(s): G47.30 - Sleep apnea, unspecified Status: Chronic Assessment and Plan: Monitor in the hospital. (6) Scrotal edema: Code(s): N50.89 - Other specified disorders of the male genital organs Status: Acute Assessment and Plan: Likely related from end-stage renal disease with volume overload. (7) BPH (benign prostatic hyperplasia): Code(s): N40.0 - Benign prostatic hyperplasia without lower urinary tract symptoms Status: Acute Assessment and Plan: monitor pack if retention (8) Atrial fibrillation: Qualifiers: Atrial fibrillation type: unspecified Qualified Code(s): I48.91 - Unspecified atrial fibrillation Code(s): I48.91 - Unspecified atrial fibrillation Status: Chronic Assessment and Plan: ekg shows afib on anticoagulation echo reviewed Subjective Date/time seen: 03/02/23 11:03 Interval history: Resting in bed Review of Systems Cardiovascular: Cardiovascular: Reports no additional cardiovascular complaints Respiratory: Respiratory: Reports no additional respiratory complaints Gastrointestinal: Gastrointestinal: Reports no additional gastrointestinal complaints Genitourinary: Genitourinary: Reports no additional male genitourinary complaints Exam Narrative: General: alert and oriented Psych: appropriate mood nad affect Eyes: PERRLA Neck: Trachea midline, no new lesions Skin: no changes Lungs: CTA Cardiac: Normal S1,S2, no MGR ABD: soft, nd, nt, nbs Ext: no new lesions, no cce Vasc: Pulses intact Objective Data Vital Signs Vital Signs: Vital Signs - 24 hr 03/01/23 12:11 03/01/23 12:00 03/01/23 16:00 Temperature 98.6 F Pulse Rate 73 73 Respiratory Rate Blood Pressure Pulse Oximetry Oxygen Delivery 03/01/23 20:17 03/01/23 21:48 03/01/23 20:00 Temperature 98.3 F Pulse Rate 69 69 Respiratory Rate 18 Blood Pressure 104/63 Pulse Oximetry 92 92 Oxygen Delivery Room Air 03/01/23 20:00 03/02/23 04:00 03/02/23 05:51 Temperature 98.3 F Pulse Rate 64 59 L 69 Respiratory Rate 18 Blood Pressure 126/75 Pulse Oximetry 98 Oxygen Delivery 03/02/23 08:00 Temperature Pulse Rate Respiratory Rate Blood Pressure Pulse Oximetry Oxygen Delivery Room Air Intake/Output Intake/Output: Intake & Output 02/27/23 02/28/23 03/01/23 03/02/23 23:59 23:59 23:59 23:59 Intake Total 1230 / 1230 2019 245 / 245 Output Total 5000 / 5000 80 / 80 50 / 50 Balance -3770 / -3770 1939 / 1939 195 / 195 Meds/Results Medications: Active Medications Generic Name Dose Route Start Last Admin Trade Name Freq PRN Reason Stop Dose Admin Acetaminophen 650 mg 03/02/23 09:56 03/02/23 10:
--- NOTE | 2023-03-02 12:24 | P.PNNP_ITS ---
Progress Note: A&P Assessment and Plan (1) ESRD (end stage renal disease) on dialysis: Code(s): N18.6 - End stage renal disease; Z99.2 - Dependence on renal dialysis Status: Chronic Assessment and Plan: * HD today * continue M/W/F dialysis schedule while hospitalized * follow electrolytes, volume status, and clearance (2) Fever: Code(s): R50.9 - Fever, unspecified Status: Acute Assessment and Plan: * evaluation negative to date * urine cultures negative so far * one blood culture with Staph epidermis (suspect contamination) * abdominal fluid cultures pending; however cell count does not look remarkable * imaging studies reviewed * possible viral etiology? * continue current therapy (3) Hypertension: Qualifiers: Hypertension type: unspecified Qualified Code(s): I10 - Essential (primary) hypertension Code(s): I10 - Essential (primary) hypertension Status: Inactive Assessment and Plan: * reasonable control at this time * follow trend of hemodynamics (4) Ascites: Code(s): R18.8 - Other ascites Status: Acute Assessment and Plan: * s/p large volume paracentesis done * normal WBC normal in ascitic fluid -- no evidence of SBP (5) Anemia: Code(s): D64.9 - Anemia, unspecified Status: Chronic Assessment and Plan: * due to ESRD * Epogen with HD * follow trend of H/H (6) Atrial fibrillation: Qualifiers: Atrial fibrillation type: unspecified Qualified Code(s): I48.91 - Unspecified atrial fibrillation Code(s): I48.91 - Unspecified atrial fibrillation Status: Chronic Assessment and Plan: * rate control strategy * on anticoagulation Will continue to follow. Subjective Date/time seen: 03/02/23 12:24 Interval history: Follow-up end stage renal disease on hemodialysis. Chart reviewed -- assuming care from Dr. Lee; tolerating dialysis treatment at the time of my visit (seen on HD at 12:15PM); no apparent distress noted; no issues/events overnight or earlier this morning. Exam Narrative: General: elderly AA male in NAD Heart: normal S1 and S2; no rub Lungs: clear to auscultation Abdomen: soft, nontender, nondistended, positive bowel sounds Extremities: no cyanosis or clubbing; no edema Skin: warm and dry Objective Data Vital Signs Vital Signs: Vital Signs Temp Pulse Resp BP Pulse Ox O2 Del Method 03/02/23 11:20 65 124/69 03/02/23 11:00 55 L 128/63 03/02/23 10:40 54 L 135/76 03/02/23 10:20 52 L 137/70 03/02/23 10:00 62 122/68 03/02/23 09:40 61 117/69 03/02/23 09:27 68 118/70 03/02/23 09:00 97.9 F 72 18 118/74 95 03/02/23 08:00 Room Air 03/02/23 05:51 98.3 F 69 18 126/75 98 03/02/23 04:00 59 L 03/01/23 20:00 64 03/01/23 20:00 92 Room Air 03/01/23 21:48 98.3 F 69 18 104/63 92 03/01/23 20:17 69 03/01/23 16:00 73 Intake/Output Intake/Output: Intake & Output 02/27/23 02/28/23 03/01/23 03/02/23 23:59 23:59 23:59 23:59 Intake Total 1230 2020 245 Output Total 5000 80 50
--- NOTE | 2023-03-02 12:24 | PM.PNNEP ---
Progress Note: A&P Assessment and Plan (1) ESRD (end stage renal disease) on dialysis: Code(s): N18.6 - End stage renal disease; Z99.2 - Dependence on renal dialysis Status: Chronic Assessment and Plan: HD today continue M/W/F dialysis schedule while hospitalized follow electrolytes, volume status, and clearance (2) Fever: Code(s): R50.9 - Fever, unspecified Status: Acute Assessment and Plan: evaluation negative to date urine cultures negative so far one blood culture with Staph epidermis (suspect contamination) abdominal fluid cultures pending; however cell count does not look remarkable imaging studies reviewed possible viral etiology? continue current therapy (3) Hypertension: Qualifiers: Hypertension type: unspecified Qualified Code(s): I10 - Essential (primary) hypertension Code(s): I10 - Essential (primary) hypertension Status: Inactive Assessment and Plan: reasonable control at this time follow trend of hemodynamics (4) Ascites: Code(s): R18.8 - Other ascites Status: Acute Assessment and Plan: s/p large volume paracentesis done normal WBC normal in ascitic fluid -- no evidence of SBP (5) Anemia: Code(s): D64.9 - Anemia, unspecified Status: Chronic Assessment and Plan: due to ESRD Epogen with HD follow trend of H/H (6) Atrial fibrillation: Qualifiers: Atrial fibrillation type: unspecified Qualified Code(s): I48.91 - Unspecified atrial fibrillation Code(s): I48.91 - Unspecified atrial fibrillation Status: Chronic Assessment and Plan: rate control strategy on anticoagulation Will continue to follow. Subjective Date/time seen: 03/02/23 12:24 Interval history: Follow-up end stage renal disease on hemodialysis. Chart reviewed -- assuming care from Dr. Lee; tolerating dialysis treatment at the time of my visit (seen on HD at 12:15PM); no apparent distress noted; no issues/events overnight or earlier this morning. Exam Narrative: General: elderly AA male in NAD Heart: normal S1 and S2; no rub Lungs: clear to auscultation Abdomen: soft, nontender, nondistended, positive bowel sounds Extremities: no cyanosis or clubbing; no edema Skin: warm and dry Objective Data Vital Signs Vital Signs: Vital Signs Temp Pulse Resp BP Pulse Ox O2 Del Method 03/02/23 11:20 65 124/69 03/02/23 11:00 55 L 128/63 03/02/23 10:40 54 L 135/76 03/02/23 10:20 52 L 137/70 03/02/23 10:00 62 122/68 03/02/23 09:40 61 117/69 03/02/23 09:27 68 118/70 03/02/23 09:00 97.9 F 72 18 118/74 95 03/02/23 08:00 Room Air 03/02/23 05:51 98.3 F 69 18 126/75 98 03/02/23 04:00 59 L 03/01/23 20:00 64 03/01/23 20:00 92 Room Air 03/01/23 21:48 98.3 F 69 18 104/63 92 03/01/23 20:17 69 03/01/23 16:00 73 Intake/Output Intake/Output: Intake & Output 02/27/23 02/28/23 03/01/23 03/02/23 23:59 23:59 23:59 23:59 Intake Total 1230 2020 245 Output Total 5000 80 50 Balance -3770 1940 195 Meds/Results Medications: Active Medications Generic Name Dose Route Start Last Admin Trade Name Freq PRN Reason Stop Dose Admin Acetaminophen 650 mg 03/02/23 09:56 03/02/23 10:10 Acetaminophen 325 Mg Tablet PO 650 mg Q6HR PRN Administration Pain or Fever Amlodipine Besylate 5 mg 02/28/23 09:00 03/02/23 08:01 Amlodipine Besylate 5 Mg Tablet PO Not Given QAM JAY Apixaban 2.5 mg 02/28/23 21:00 03/02/23 08:05 Apixaban 2.5 Mg Tablet PO 2.5 mg Q12HR JAY Administration Aspirin 81 mg 02/28/23 09:00 03/02/23 08:05 Aspirin 81 Mg Enteric Tablet PO 81 mg QAM JAY Administration Calcium Acetate 1,334 mg 02/28/23 08:35 03/02/23 08:05 Calcium Acetate 667 Mg Tablet PO 1,334 mg TIDWM JAY Admini
[2023-03-02] MEDS: carvediloL 6.25 MG TABLET PO (20:42)
[2023-03-03] VITALS (11 sets, daily range): BP systolic 129–134; BP diastolic 75–77; PULSE 62–79; RESP 14–16; TEMP 36.4–37.1; O2SAT 94–96
[2023-03-03] MEDS: PIPERACILLIN/TAZ 2.25G/NS 50ML 2.25 GM/50 ML BAG IVPB (05:24)
[2023-03-03] MEDS: ACETAMINOPHEN 325 MG TABLET 650 MG PO ×2 (05:32→21:00)
[2023-03-03] MEDS: ASPIRIN 81 MG ENTERIC TABLET PO (09:08)
[2023-03-03] MEDS: FINASTERIDE 5 MG TABLET PO (09:08)
[2023-03-03] MEDS: APIXABAN 2.5 MG TABLET PO ×2 (09:08→20:51)
[2023-03-03] MEDS: CALCIUM ACETATE 667 MG TABLET 1334 MG PO ×3 (09:08→16:30)
[2023-03-03] MEDS: CYANOCOBALAMIN 1,000 MCG TABLET 1000 MCG PO (09:09)
[2023-03-03] MEDS: amLODIPine BESYLATE 5 MG TABLET PO (09:09)
[2023-03-03] MEDS: SODIUM BICARBONATE TAB 650 MG TABLET 1300 MG PO ×2 (09:09→16:30)
[2023-03-03] MEDS: carvediloL 6.25 MG TABLET PO ×2 (09:09→20:51)
[2023-03-03] MEDS: FUROSEMIDE 20 MG TABLET PO (09:09)
--- NOTE | 2023-03-03 11:56 | PCNFU ---
Nutrition Follow-Up Complete: Suboptimal po intake related to appetite as evidenced by charted intake and family report. Goal:PO intake 75% of meals and supplements Pt is progressing towards goal, continue with same goal Pt current nutrition is Heart Healthy, Nepro shakes daily. Nutrition recommendation: continue with current plan of care. Last recorded weight is 79.5 kg. Bowel Motility: +BM 03/03 Labs Reviewed: Hgb:9.7, HCT:30.6, GFR:9, BUN:54, Cr:6.9, Phos:5.6 Meds Noted: Phoslo, lasix Skin: no skin issues noted Additional Notes: Pt continues on a heart healthy diet, nepro shakes in place per recommendation. Intake 50-75% of meals. Continue to encourage po intake of meals and supplements. Monitor intake, wt, labs. Follow up in 7 days.
--- NOTE | 2023-03-03 11:56 | PM.IMPN ---
Progress Note: A&P Assessment and Plan (1) Sepsis: Code(s): A41.9 - Sepsis, unspecified organism Status: Acute Assessment and Plan: not sure at this point if he had sepsis Patient has received vanc in the ER. discontinue Zosyn. Panculture negative. Blood culture growing Gram-positive cocci in anaerobic bottle- staph epidermidis, likely contaminant. Will discontinue vancomycin Source unknown at this time. CT scan of the abdomen and pelvis noted. CT of the chest negative Ascitic fluid culture negative so far (2) Diarrhea: Code(s): R19.7 - Diarrhea, unspecified Status: Acute Assessment and Plan: could be from antibiotics. Will check C diff (3) End-stage renal disease (ESRD): Code(s): N18.6 - End stage renal disease Status: Acute Assessment and Plan: Consulted renal On dialysis (4) Ascites: Code(s): R18.8 - Other ascites Status: Acute Assessment and Plan: Paracentesis done. WBC is normal in ascitic fluid so no evidence of SBP Hepatitis-B antibody positive (5) CHF (congestive heart failure): Code(s): I50.9 - Heart failure, unspecified Status: Acute Assessment and Plan: Most recent echo May of 2022. Elevated RVSP. (6) Sleep apnea: Qualifiers: Sleep apnea type: unspecified type Qualified Code(s): G47.30 - Sleep apnea, unspecified Code(s): G47.30 - Sleep apnea, unspecified Status: Chronic Assessment and Plan: Monitor in the hospital. (7) BPH (benign prostatic hyperplasia): Code(s): N40.0 - Benign prostatic hyperplasia without lower urinary tract symptoms Status: Acute Assessment and Plan: monitor pack if retention (8) Atrial fibrillation: Qualifiers: Atrial fibrillation type: unspecified Qualified Code(s): I48.91 - Unspecified atrial fibrillation Code(s): I48.91 - Unspecified atrial fibrillation Status: Chronic Assessment and Plan: ekg shows afib on anticoagulation echo reviewed Subjective Date/time seen: 03/03/23 11:56 Interval history: Patient reports no complaints but reports he has been having diarrhea for last 2 3 days Review of Systems Cardiovascular: Cardiovascular: Reports no additional cardiovascular complaints Respiratory: Respiratory: Reports no additional respiratory complaints Gastrointestinal: Gastrointestinal: Reports no additional gastrointestinal complaints Genitourinary: Genitourinary: Reports no additional male genitourinary complaints Exam Narrative: General: alert and oriented Psych: appropriate mood nad affect Eyes: PERRLA Neck: Trachea midline, no new lesions Skin: no changes Lungs: CTA Cardiac: Normal S1,S2, no MGR ABD: soft, nd, nt, nbs Ext: no new lesions, no cce Vasc: Pulses intact Objective Data Vital Signs Vital Signs: Vital Signs - 24 hr 03/02/23 14:08 03/02/23 12:00 03/02/23 12:20 Temperature 97.2 F L Pulse Rate 71 55 L 65 Respiratory Rate 12 Blood Pressure 122/74 117/63 109/54 L Pulse Oximetry 100 Oxygen Delivery 03/02/23 12:40 03/02/23 12:57 03/02/23 13:02 Temperature 98.0 F Pulse Rate 63 48 L 58 L Respiratory Rate 18 Blood Pressure 95/62 L 126/67 139/57 L Pulse Oximetry 95 Oxygen Delivery 03/02/23 12:00 03/02/23 16:00 03/02/23 20:42 Temperature Pulse Rate 54 L 72 69 Respiratory Rate Blood Pressure Pulse Oximetry Oxygen Delivery 03/02/23 20:00 03/02/23 20:00 03/03/23 00:00 Temperature Pulse Rate 69 79 Respiratory Rate Blood Pressure Pulse Oximetry Oxygen Delivery Room Air 03/03/23 04:00 03/03/23 09:09 03/03/23 09:57 Temperature Pulse Rate 63 62 Respiratory Rate Blood Pressure Pulse Oximetry Oxygen Delivery Room Air 03/03/23 08:00 03/03/23 10:41 Temperature 97.9 F Pulse Rate Respiratory Rate Blood Pressure Pulse Oximetry Oxyge
--- NOTE | 2023-03-03 14:32 | PM.PNNEP ---
Progress Note: A&P Assessment and Plan (1) ESRD (end stage renal disease) on dialysis: Code(s): N18.6 - End stage renal disease; Z99.2 - Dependence on renal dialysis Status: Chronic Assessment and Plan: HD tomorrow continue M/W/F dialysis schedule while hospitalized follow electrolytes, volume status, and clearance (2) Fever: Code(s): R50.9 - Fever, unspecified Status: Acute Assessment and Plan: evaluation negative to date urine cultures negative so far one blood culture with Staph epidermis (suspect contamination) abdominal fluid cultures negative to date; however cell count does not look remarkable imaging studies reviewed possible viral etiology? continue current therapy (3) Hypertension: Qualifiers: Hypertension type: unspecified Qualified Code(s): I10 - Essential (primary) hypertension Code(s): I10 - Essential (primary) hypertension Status: Inactive Assessment and Plan: reasonable control at this time follow trend of hemodynamics (4) Ascites: Code(s): R18.8 - Other ascites Status: Acute Assessment and Plan: s/p large volume paracentesis done normal WBC normal in ascitic fluid -- no evidence of SBP (5) Anemia: Code(s): D64.9 - Anemia, unspecified Status: Chronic Assessment and Plan: due to ESRD Epogen with HD follow trend of H/H (6) Atrial fibrillation: Qualifiers: Atrial fibrillation type: unspecified Qualified Code(s): I48.91 - Unspecified atrial fibrillation Code(s): I48.91 - Unspecified atrial fibrillation Status: Chronic Assessment and Plan: rate control strategy on anticoagulation Will continue to follow. Subjective Date/time seen: 03/03/23 14:32 Interval history: Follow-up end stage renal disease on hemodialysis. Tolerated dialysis yesterday without any issues or problems; no further fevers noted since admission; no apparent distress noted; overall, states he feels reasonably well. Exam Narrative: General: elderly AA male in NAD Heart: normal S1 and S2; no rub Lungs: clear to auscultation Abdomen: soft, nontender, nondistended, positive bowel sounds Extremities: no cyanosis or clubbing; no edema Skin: warm and intact Objective Data Vital Signs Vital Signs: Vital Signs Temp Pulse Resp BP Pulse Ox O2 Del Method 03/03/23 14:00 98.8 F 68 14 134/77 94 03/03/23 12:00 64 03/03/23 08:00 75 03/03/23 14:55 Room Air 03/03/23 10:41 97.9 F 03/03/23 08:00 Room Air 03/03/23 09:57 Room Air 03/03/23 09:09 62 03/03/23 04:00 63 03/03/23 00:00 79 03/02/23 20:00 Room Air 03/02/23 20:00 69 03/02/23 20:42 69 Intake/Output Intake/Output: Intake & Output 02/28/23 03/01/23 03/02/23 03/03/23 23:59 23:59 23:59 23:59 Intake Total 1230 2020 1069 312 Output Total 5000 80 1500 75 Balance -3770 1940 -471 237 Meds/Results Medications: Active Medications Generic Name Dose Route Start Last Admin Trade Name Freq PRN Reason Stop Dose Admin Acetaminophen 650 mg 03/02/23 09:56 03/03/23 05:32 Acetaminophen 325 Mg Tablet PO 650 mg Q6HR PRN Administration Pain or Fever Amlodipine Besylate 5 mg 02/28/23 09:00 03/03/23 09:09 Amlodipine Besylate 5 Mg Tablet PO 5 mg QAM JAY Administration Apixaban 2.5 mg 02/28/23 21:00 03/03/23 09:08 Apixaban 2.5 Mg Tablet PO 2.5 mg Q12HR JAY Administration Aspirin 81 mg 02/28/23 09:00 03/03/23 09:08 Aspirin 81 Mg Enteric Tablet PO 81 mg QAM JAY Administration Calcium Acetate 1,334 mg 02/28/23 08:35 03/03/23 12:08 Calcium Acetate 667 Mg Tablet PO 1,334 mg TIDWM JAY Administration Calcium Acetate 667 mg 02/28/23 08:33 Calcium Acetate 667 Mg Tablet PO PRN PRN WITH SNACKS Carvedilol 6.25 mg 02/28/23 09:00 03/03
--- NOTE | 2023-03-03 14:32 | P.PNNP_ITS ---
Progress Note: A&P Assessment and Plan (1) ESRD (end stage renal disease) on dialysis: Code(s): N18.6 - End stage renal disease; Z99.2 - Dependence on renal dialysis Status: Chronic Assessment and Plan: * HD tomorrow * continue M/W/F dialysis schedule while hospitalized * follow electrolytes, volume status, and clearance (2) Fever: Code(s): R50.9 - Fever, unspecified Status: Acute Assessment and Plan: * evaluation negative to date * urine cultures negative so far * one blood culture with Staph epidermis (suspect contamination) * abdominal fluid cultures negative to date; however cell count does not look remarkable * imaging studies reviewed * possible viral etiology? * continue current therapy (3) Hypertension: Qualifiers: Hypertension type: unspecified Qualified Code(s): I10 - Essential (primary) hypertension Code(s): I10 - Essential (primary) hypertension Status: Inactive Assessment and Plan: * reasonable control at this time * follow trend of hemodynamics (4) Ascites: Code(s): R18.8 - Other ascites Status: Acute Assessment and Plan: * s/p large volume paracentesis done * normal WBC normal in ascitic fluid -- no evidence of SBP (5) Anemia: Code(s): D64.9 - Anemia, unspecified Status: Chronic Assessment and Plan: * due to ESRD * Epogen with HD * follow trend of H/H (6) Atrial fibrillation: Qualifiers: Atrial fibrillation type: unspecified Qualified Code(s): I48.91 - Unspecified atrial fibrillation Code(s): I48.91 - Unspecified atrial fibrillation Status: Chronic Assessment and Plan: * rate control strategy * on anticoagulation Will continue to follow. Subjective Date/time seen: 03/03/23 14:32 Interval history: Follow-up end stage renal disease on hemodialysis. Tolerated dialysis yesterday without any issues or problems; no further fevers noted since admission; no apparent distress noted; overall, states he feels reasonably well. Exam Narrative: General: elderly AA male in NAD Heart: normal S1 and S2; no rub Lungs: clear to auscultation Abdomen: soft, nontender, nondistended, positive bowel sounds Extremities: no cyanosis or clubbing; no edema Skin: warm and intact Objective Data Vital Signs Vital Signs: Vital Signs Temp Pulse Resp BP Pulse Ox O2 Del Method 03/03/23 14:00 98.8 F 68 14 134/77 94 03/03/23 12:00 64 03/03/23 08:00 75 03/03/23 14:55 Room Air 03/03/23 10:41 97.9 F 03/03/23 08:00 Room Air 03/03/23 09:57 Room Air 03/03/23 09:09 62 03/03/23 04:00 63 03/03/23 00:00 79 03/02/23 20:00 Room Air 03/02/23 20:00 69 03/02/23 20:42 69 Intake/Output Intake/Output: Intake & Output 02/28/23 03/01/23 03/02/23 03/03/23 23:59 23:59 23:59 23:59 Intake Total 1230 2020 1069 312 Output Total 5000 80 1500 75 Balance -1480 6409 -737 237 Meds/Results Medications: Active Medications Generic Name Dose Route Start Last Adm
--- NOTE | 2023-03-03 16:12 | PCPTNOTE ---
On 03/03/23, the student, [Anna Briones], provided care and completed [employer] documentation on this patient. I have reviewed the student's documentation and agree with the findings.
[2023-03-03] MEDS: MELATONIN 5 MG TABLET PO (23:34)
[2023-03-04] VITALS (16 sets, daily range): BP systolic 108–134; BP diastolic 64–84; PULSE 52–88; RESP 14–16; TEMP 35.9–36.8; O2SAT 94
[2023-03-04 06:17] LABS: Basophils Percent Auto 0.4 % (0.2-1.2); Eosinophils Absolute Auto 0.2 K/mm3 (0-0.3); Eosinophils Percent Auto 2.3 % (0-4.4); Hemoglobin 10.1 g/dL (14.0-18.0); Immature Granulocyte Absolute 0.03 K/mm3 (0.00-0.031); Immature Granulocyte Percent A 0.4 % (0-0.5); Lymphocytes Absolute Auto 1.16 K/mm3 (0.9-3.2); Mean Corpuscular HGB Conc 30.6 g/dl (32-36); Mean Corpuscular Hemoglobin 29.7 pg (26-34); Mean Corpuscular Volume 97.1 fl (80-100); Mean Platelet Volume 10.5 fl (7.4-10.4); Monocytes Absolute Auto 0.9 K/mm3 (0.1-0.6); Monocytes Percent Auto 12.8 % (2.6-8.5); Neutrophils Absolute Auto 4.9 K/mm3 (1.3-6.7); Neutrophils Percent Auto 68.1 % (45.5-73.1); Platelet Count Result 248 k/mm3 (150-375); White Blood Count 7.3 K/mm3 (4.5-10.0)
[2023-03-04 06:42] LABS: Alanine Aminotransferase 12 U/L (6-50); Albumin Level 3.5 g/dL (3.5-5.1); Alkaline Phosphatase 74 U/L (38-126); Anion Gap 9 mmol/L (8-16); Aspartate Amino Transferase 21 U/L (17-59); Bilirubin,Total 0.7 mg/dL (0.2-1.3); Blood Urea Nitrogen 41 mg/dL (9-20); Calcium 9.2 mg/dL (8.4-10.2); Carbon Dioxide 37 mmol/L (22-30); Chloride 93 mmol/L (98-107); Estimated CRCL calculation 10 ml/min; Estimated Glomerular Filt Rate 11; Glucose 94 mg/dL (65-110); Phosphorus 4.9 mg/dL (2.5-4.5); Potassium 3.9 mmol/L (3.4-5.0); Sodium 139 mmol/L (137-145)
[2023-03-04] MEDS: ACETAMINOPHEN 325 MG TABLET 650 MG PO (08:42)
[2023-03-04] MEDS: ALBUMIN HUMAN 25% 12.5 GM/50ML 50 ML IVPB (09:28)
--- NOTE | 2023-03-04 09:35 | PCOTNOTE ---
Patient out of the room at this time. Patient is in dialysis at this time.
--- NOTE | 2023-03-04 09:51 | PM.DS ---
DS: Admitting Diagnosis Discharge Date 03/04/2023 Admitting Diagnosis fever, ESRD DS: Discharge Diagnosis Discharge Diagnosis (1) Atrial fibrillation: Qualifiers: Atrial fibrillation type: unspecified Qualified Code(s): I48.91 - Unspecified atrial fibrillation Code(s): I48.91 - Unspecified atrial fibrillation Status: Chronic (2) Weakness: Code(s): R53.1 - Weakness Status: Acute (3) End stage renal disease: Code(s): N18.6 - End stage renal disease Status: Acute DS: Summary Hospital Course Hospital Course: (1) Sepsis: ?Code(s): A41.9 - Sepsis, unspecified organism ?Status:?Acute ?Assessment and Plan: ?not sure at this point if he had sepsis Patient has received vanc in the ER. ?discontinue Zosyn. Panculture? negative.? Blood culture growing Gram-positive cocci in anaerobic bottle- staph epidermidis, likely contaminant.? Will discontinue vancomycin Source unknown at this time. CT scan of the abdomen and pelvis noted. CT of the chest negative Ascitic fluid culture? negative so far (2) Diarrhea: ?Code(s): R19.7 - Diarrhea, unspecified ?Status:?Acute ?Assessment and Plan: ?could be from antibiotics.? it has resolved now. (3) End-stage renal disease (ESRD): ?Code(s): N18.6 - End stage renal disease ?Status:?Acute ?Assessment and Plan: Consulted renal On dialysis (4) Ascites: ?Code(s): R18.8 - Other ascites ?Status:?Acute ?Assessment and Plan: Paracentesis done.? WBC is normal in ascitic fluid so no evidence of SBP Hepatitis-B antibody positive (5) CHF (congestive heart failure): ?Code(s): I50.9 - Heart failure, unspecified ?Status:?Acute ?Assessment and Plan: Most recent echo May of 2022. Elevated RVSP. (6) Sleep apnea: ?Qualifiers: ?Sleep apnea type:?unspecified type? Qualified Code(s):?G47.30 - Sleep apnea, unspecified ?Code(s): G47.30 - Sleep apnea, unspecified ?Status:?Chronic ?Assessment and Plan: Monitor in the hospital. (7) BPH (benign prostatic hyperplasia): ?Code(s): N40.0 - Benign prostatic hyperplasia without lower urinary tract symptoms ?Status:?Acute ?Assessment and Plan: monitor (8) Atrial fibrillation: ?Qualifiers: ?Atrial fibrillation type:?unspecified? Qualified Code(s):?I48.91 - Unspecified atrial fibrillation ?Code(s): I48.91 - Unspecified atrial fibrillation ?Status:?Chronic ?Assessment and Plan: ?ekg shows afib on anticoagulation echo reviewed Clinically stable and is being discharged back home Time Spent with Patient Time attestation: Total time spent providing and/or coordinating discharge services: DS: Data Data Completed and Pending Completed studies during hospitalization: Pending at discharge 02/28/23 10:57 Cytology [PTH] Routine Labs on day of discharge: Labs from last 24 hours 03/04/23 05:55 WBC 7.3 RBC 3.40 L Hgb 10.1 L Hct 33.0 L MCV 97.1 MCH 29.7 MCHC 30.6 L RDW 15.0 H Plt Count 248 MPV 10.5 H Immature Gran % (Auto) 0.4 Neut % (Auto) 68.1 Lymph % (Auto) 16.0 L [place] % (Auto) 12.8 H Eos % (Auto) 2.3 Baso % (Auto) 0.4 Lymph # (Auto) 1.16 [place] # (Auto) 0.9 H Eos # (Auto) 0.2 Baso # (Auto) 0.0 Abs Immat Gran (auto) 0.03 Absolute Neuts (auto) 4.9 Absolute Nucleated RBC 0.0 Nucleated RBC % 0.0 Sodium 139 Potassium 3.9 Chloride 93 L Carbon Dioxide 37 H Anion Gap 9 BUN 41 H D Creatinine 6.20 H Estim Creat Clear Calc 10 Estimated GFR 11 L Glucose 94 Calcium 9.2 Phosphorus 4.9 H Total Bilirubin 0.7 AST 21 ALT 12 Alkaline Phosphatase 74 Total Protein 7.0 Albumin 3.5 Preliminary micro results at discharge 02/28/23 04:47 Blood Culture - Preliminary Blood Staphylococcus epidermis 02/28/23 11:59 Anaerobic Culture - Preliminary Abdominal Fluid Aerobic Culture - Preliminary 06
--- NOTE | 2023-03-04 10:28 | PCPTNOTE ---
Patient out of the room and in dialysis at this time. Will continue per PT plan of care.
[2023-03-04] MEDS: EPOETIN ALFA-EPBX 10,000 UNITS/ML VIAL 10000 UNITS IV PUSH (10:52)
--- NOTE | 2023-03-04 12:00 | P.PNNP_ITS ---
Progress Note: A&P Assessment and Plan (1) ESRD (end stage renal disease) on dialysis: Code(s): N18.6 - End stage renal disease; Z99.2 - Dependence on renal dialysis Status: Chronic Assessment and Plan: * HD today * continue M/W/F dialysis schedule while hospitalized * follow electrolytes, volume status, and clearance (2) Fever: Code(s): R50.9 - Fever, unspecified Status: Acute Assessment and Plan: * evaluation negative to date * urine cultures negative so far * one blood culture with Staph epidermis (suspect contamination) * abdominal fluid cultures negative to date; however cell count does not look remarkable * imaging studies reviewed * possible viral etiology? * continue current therapy (3) Hypertension: Qualifiers: Hypertension type: unspecified Qualified Code(s): I10 - Essential (primary) hypertension Code(s): I10 - Essential (primary) hypertension Status: Inactive Assessment and Plan: * reasonable control at this time * follow trend of hemodynamics (4) Ascites: Code(s): R18.8 - Other ascites Status: Acute Assessment and Plan: * s/p large volume paracentesis done * normal WBC normal in ascitic fluid -- no evidence of SBP (5) Anemia: Code(s): D64.9 - Anemia, unspecified Status: Chronic Assessment and Plan: * due to ESRD * Epogen with HD * follow trend of H/H (6) Atrial fibrillation: Qualifiers: Atrial fibrillation type: unspecified Qualified Code(s): I48.91 - Unspecified atrial fibrillation Code(s): I48.91 - Unspecified atrial fibrillation Status: Chronic Assessment and Plan: * rate control strategy * on anticoagulation Will continue to follow. Subjective Date/time seen: 03/04/23 12:00 Interval history: Follow-up end stage renal disease on hemodialysis. Tolerating dialysis treatment at the time of my visit (seen on HD at 11:50AM); no new issues or problems voiced at this time; no apparent distress noted; no new issues/events overnight or earlier this morning. Exam Narrative: General: elderly AA male in NAD Heart: normal S1 and S2; no rub Lungs: clear to auscultation Abdomen: soft, nontender, nondistended, positive bowel sounds Extremities: no cyanosis or clubbing; no edema Skin: no rash or nodules Objective Data Vital Signs Vital Signs: Vital Signs Temp Pulse Resp BP Pulse Ox O2 Del Method 03/04/23 08:00 Room Air 03/04/23 11:20 52 L 108/74 03/04/23 11:00 74 126/84 03/04/23 10:40 58 L 118/70 03/04/23 10:20 57 L 108/64 03/04/23 10:00 58 L 114/70 03/04/23 09:40 80 134/77 03/04/23 09:20 58 L 119/79 03/04/23 09:04 69 120/76 03/04/23 08:50 97.9 F 79 16 119/80 03/04/23 06:00 98.2 F 66 14 124/71 94 03/04/23 04:00 61 03/04/23 00:00 69 03/03/23 20:00 72 03/03/23 20:00 Room Air 03/03/23 21:49 97.6 F 69 16 129/75 96 03/03/23 20:51 69 03/03/23 16:00 62 03/03/23 14:00 98.8 F 68 14 134/77 94 03/03/23 14:55 Room Air Intake/Output Intake/Output:
--- NOTE | 2023-03-04 12:00 | PM.PNNEP ---
Progress Note: A&P Assessment and Plan (1) ESRD (end stage renal disease) on dialysis: Code(s): N18.6 - End stage renal disease; Z99.2 - Dependence on renal dialysis Status: Chronic Assessment and Plan: HD today continue M/W/F dialysis schedule while hospitalized follow electrolytes, volume status, and clearance (2) Fever: Code(s): R50.9 - Fever, unspecified Status: Acute Assessment and Plan: evaluation negative to date urine cultures negative so far one blood culture with Staph epidermis (suspect contamination) abdominal fluid cultures negative to date; however cell count does not look remarkable imaging studies reviewed possible viral etiology? continue current therapy (3) Hypertension: Qualifiers: Hypertension type: unspecified Qualified Code(s): I10 - Essential (primary) hypertension Code(s): I10 - Essential (primary) hypertension Status: Inactive Assessment and Plan: reasonable control at this time follow trend of hemodynamics (4) Ascites: Code(s): R18.8 - Other ascites Status: Acute Assessment and Plan: s/p large volume paracentesis done normal WBC normal in ascitic fluid -- no evidence of SBP (5) Anemia: Code(s): D64.9 - Anemia, unspecified Status: Chronic Assessment and Plan: due to ESRD Epogen with HD follow trend of H/H (6) Atrial fibrillation: Qualifiers: Atrial fibrillation type: unspecified Qualified Code(s): I48.91 - Unspecified atrial fibrillation Code(s): I48.91 - Unspecified atrial fibrillation Status: Chronic Assessment and Plan: rate control strategy on anticoagulation Will continue to follow. Subjective Date/time seen: 03/04/23 12:00 Interval history: Follow-up end stage renal disease on hemodialysis. Tolerating dialysis treatment at the time of my visit (seen on HD at 11:50AM); no new issues or problems voiced at this time; no apparent distress noted; no new issues/events overnight or earlier this morning. Exam Narrative: General: elderly AA male in NAD Heart: normal S1 and S2; no rub Lungs: clear to auscultation Abdomen: soft, nontender, nondistended, positive bowel sounds Extremities: no cyanosis or clubbing; no edema Skin: no rash or nodules Objective Data Vital Signs Vital Signs: Vital Signs Temp Pulse Resp BP Pulse Ox O2 Del Method 03/04/23 08:00 Room Air 03/04/23 11:20 52 L 108/74 03/04/23 11:00 74 126/84 03/04/23 10:40 58 L 118/70 03/04/23 10:20 57 L 108/64 03/04/23 10:00 58 L 114/70 03/04/23 09:40 80 134/77 03/04/23 09:20 58 L 119/79 03/04/23 09:04 69 120/76 03/04/23 08:50 97.9 F 79 16 119/80 03/04/23 06:00 98.2 F 66 14 124/71 94 03/04/23 04:00 61 03/04/23 00:00 69 03/03/23 20:00 72 03/03/23 20:00 Room Air 03/03/23 21:49 97.6 F 69 16 129/75 96 03/03/23 20:51 69 03/03/23 16:00 62 03/03/23 14:00 98.8 F 68 14 134/77 94 03/03/23 14:55 Room Air Intake/Output Intake/Output: Intake & Output 03/01/23 03/02/23 03/03/23 03/04/23 23:59 23:59 23:59 23:59 Intake Total 2020 1069 1048 564 Output Total 80 1500 125 75 Balance 1940 -426 901 729 Meds/Results Medications: Active Medications Generic Name Dose Route Start Last Admin Trade Name Jana PRN Reason Stop Dose Admin Acetaminophen 650 mg 03/02/23 09:56 03/04/23 08:42 Acetaminophen 325 Mg Tablet PO 650 mg Q6HR PRN Administration Pain or Fever Amlodipine Besylate 5 mg 02/28/23 09:00 03/03/23 09:09 Amlodipine Besylate 5 Mg Tablet PO 5 mg QAM JAY Administration Apixaban 2.5 mg 02/28/23 21:00 03/03/23 20:51 Apixaban 2.5 Mg Tablet PO 2.5 mg Q12HR JAY Administration Aspirin 81 mg 02/28/23 09:00 03/03/23 09:08 Aspirin 81 Mg Enteric Tablet
--- NOTE | 2023-03-04 14:06 | PC.NURSE ---
Rose discontinued per MD order. Pt tolerated well.
[2023-03-05 20:28] LABS: Amylase Peritoneal Fluid 62 U/L
[2023-03-07 06:24] LABS: Glucose Peritoneal Fluid 114 mg/dL; LDH Peritoneal Fluid 89 U/L (<63); Total Protein Peritoneal Fluid 5.2 g/dL
== END 2023-03-04 15:00 | disposition home or self-care (01) ==
LOC: ANHED 06:28 → ANH3MEDSUR 09:50
PROVIDERS: Internal Medicine Nephrology; Admitting Provider Chiropractor; Emergency Provider Emergency Medicine; PCP Family Medicine; Visit Provider Hospitalist
DX: A41.9 Sepsis, unspecified organism (principal); R19.7 Diarrhea, unspecified; I13.2 Hypertensive heart and chronic kidney disease with heart failure and with stage 5 chronic kidney disease, or end stage renal disease; D63.1 Anemia in chronic kidney disease; N18.6 End stage renal disease; Z99.2 Dependence on renal dialysis; N25.0 Renal osteodystrophy; R18.8 Other ascites; G47.30 Sleep apnea, unspecified; Z20.822 Contact with and (suspected) exposure to COVID-19; N40.1 Benign prostatic hyperplasia with lower urinary tract symptoms; R33.8 Other retention of urine; I48.91 Unspecified atrial fibrillation; R53.1 Weakness; R50.9 Fever, unspecified; E78.5 Hyperlipidemia, unspecified; N50.89 Other specified disorders of the male genital organs; B95.7 Other staphylococcus as the cause of diseases classified elsewhere; J81.1 Chronic pulmonary edema; R05.9 Cough, unspecified; R06.02 Shortness of breath; K40.20 Bilateral inguinal hernia, without obstruction or gangrene, not specified as recurrent; M81.0 Age-related osteoporosis without current pathological fracture; R94.31 Abnormal electrocardiogram [ECG] [EKG]; F10.90 Alcohol use, unspecified, uncomplicated; Z79.82 Long term (current) use of aspirin; Z79.899 Other long term (current) drug therapy; Z84.1 Family history of disorders of kidney and ureter
CPT/HCPCS: 36415; 49083; 71045; 71250; 74177; 80053; 80069; 80202; 81001; 82042; 82150; 82945; 83605; 83615; 83690; 83735; 84100; 84157; 85025; 85610; 85730; 86705; 86706; 87040; 87070; 87075; 87077; 87086; 87147; 87181; 87186; 87205; 87340; 87637; 88104; 88108; 88305; 89051; 93005; 96365; 96366; 96367; 96374; 96375; 96376; 97161; 97165; 99285; A9270; G0257; G0378; J0131; J1644; J2543; J3370; J7030; P9047; Q5105; Q9967

== ENCOUNTER 2023-03-06 10:01 | Emergency (ER) | payer OTHER, SELFPAY ==
--- NOTE | ~2023-03-06 | CT_ITS ---
EXAMINATION: CT abdomen pelvis wo con DATE: 03/06/2023 14:14 INDICATION: Diarrhea TECHNIQUE: Computed tomography (CT) of the abdomen and pelvis was performed without intravenous contr ast. Automated exposure control and iterative reconstruction technique were employed. Exam dose: 111 3.29 mGy-cm total exam DLP. COMPARISON: 02/28/2023 CT abdomen pelvis FINDINGS: Approximately 5 mm posterior basilar left lower lobe pulmonary nodule. Cardiomegaly. No pericardial effusion. Slight right pleural effusion. There is prominent ascites. Hepatic surface nodularity suggesting cirrhosis. Splenic size is within normal range. The gallbladder is present. No bile duct or pancreatic duct dilatation is noted. Normal morphology of the adrenal glands. Bilateral small kidneys. Multiple bilateral renal cysts. No hydronephrosis. There is extensive calcification of the abdominal aorta and prominent callus location of the origins of the celiac and superior mesenteric and renal arteries. No abdominal aortic aneurysm. There is prom inent calcification of the iliac and femoral arteries. No intraperitoneal or retroperitoneal or pelvi c mass lesion or adenopathy is evident on this limited noncontrast examination. There is a fluid containing umbilical hernia. There are bilateral inguinal hernias containing fluid, in addition to nonobstructed bowel on the left . Ninth, 10th and 11th recent right rib fractures. IMPRESSION: Prominent ascites, probable cirrhosis Bilateral inguinal hernias, including nonobstructed bowel in the left Bilateral renal atrophy, multiple bilateral renal cysts Right ninth, 10th and 11th recent rib fractures Reviewed, dictated and finalized at [facility] Reviewed, dictated and finalized at [facility].
[2023-03-06 10:49] VITALS: BP 121/53; PULSE 64; RESP 17; TEMP 36.4; O2SAT 99
[2023-03-06 11:58] LABS: Basophils Absolute Auto 0.1 K/mm3 (0.0-0.1); Basophils Percent Auto 0.8 % (0.2-1.2); Eosinophils Absolute Auto 0.2 K/mm3 (0-0.3); Eosinophils Percent Auto 2.6 % (0-4.4); Hematocrit 36.6 % (42.0-52.0); Hemoglobin 11.3 g/dL (14.0-18.0); Immature Granulocyte Absolute 0.01 K/mm3 (0.00-0.031); Immature Granulocyte Percent A 0.1 % (0-0.5); Lymphocytes Absolute Auto 1.27 K/mm3 (0.9-3.2); Lymphocytes Percent Auto 15.1 % (18.3-44.2); Mean Corpuscular HGB Conc 30.9 g/dl (32-36); Mean Corpuscular Hemoglobin 30.7 pg (26-34); Mean Corpuscular Volume 99.5 fl (80-100); Mean Platelet Volume 10.8 fl (7.4-10.4); Monocytes Absolute Auto 0.7 K/mm3 (0.1-0.6); Monocytes Percent Auto 8.2 % (2.6-8.5); Neutrophils Absolute Auto 6.1 K/mm3 (1.3-6.7); Neutrophils Percent Auto 73.2 % (45.5-73.1); Platelet Count Result 271 k/mm3 (150-375); Red Blood Count 3.68 M/mm3 (4.6-6.20); Red Cell Distribution Width 15.1 % (11.5-14.5); White Blood Count 8.4 K/mm3 (4.5-10.0)
[2023-03-06 12:07] LABS: Alanine Aminotransferase 16 U/L (6-50); Albumin Level 4.2 g/dL (3.5-5.1); Alkaline Phosphatase 99 U/L (38-126); Anion Gap 11 mmol/L (8-16); Aspartate Amino Transferase 22 U/L (17-59); Bilirubin,Total 0.7 mg/dL (0.2-1.3); Blood Urea Nitrogen 32 mg/dL (9-20); Calcium 9.7 mg/dL (8.4-10.2); Carbon Dioxide 29 mmol/L (22-30); Chloride 99 mmol/L (98-107); Estimated CRCL calculation 10 ml/min; Estimated Glomerular Filt Rate 10; Glucose 86 mg/dL (65-110); Lipase 161 U/L (23-300); Potassium 3.9 mmol/L (3.4-5.0); Sodium 139 mmol/L (137-145)
[2023-03-06 13:23] VITALS: PULSE 61; RESP 16
[2023-03-06 13:24] VITALS: BP 143/75; RESP 21
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
[2023-03-06 13:30] VITALS: PULSE 50; RESP 18
[2023-03-06 13:45] VITALS: PULSE 48; RESP 14
[2023-03-06 13:46] VITALS: BP 134/69; PULSE 51; RESP 18
[2023-03-06 14:46] LABS: Appearance Urine Clear (Clear); Bacteria Urine None Seen /hpf; Bilirubin Urine Negative (Negative); Blood Urine 3+ (Negative); Color Urine Yellow (Yellow); Glucose Urine UA Trace mg/dL (Negative); Ketones Urine Negative (Negative); Leukocyte Esterase Ur Negative LEU/UL (Negative); Need Manual Microscopic Reviewed; Nitrate Urine Negative (Negative); Non Pathogenic Casts 0-2; Protein Urine 3+ mg/dL (Negative); RBC Urine >100 /hpf (0-2); Specific Grav Ur 1.014 (1.001-1.035); Squamous Epithelial Cell Urine None seen /hpf (Few); Urobilinogen Urine 0.2 mg/dL (<2.0); WBC Urine 0-5 /hpf; pH Urine 8.5 (5.0-9.0)
[2023-03-06 14:48] LABS: Add Urine Microscopic? YES
== END 2023-03-06 15:10 | disposition home or self-care (01) ==
PROVIDERS: Preventive Medicine Aerospace Medicine; Emergency Provider Nurse Practitioner Family; PCP Family Medicine
DX: R19.7 Diarrhea, unspecified (principal); I12.0 Hypertensive chronic kidney disease with stage 5 chronic kidney disease or end stage renal disease; N18.6 End stage renal disease; Z99.2 Dependence on renal dialysis
CPT/HCPCS: 36415; 74176; 80053; 81001; 83690; 85025; 99284

== ENCOUNTER 2023-06-18 13:17 | Emergency (ER) | payer OTHER, SELFPAY ==
--- NOTE | ~2023-06-18 | XR_ITS ---
XR finger 3rd LT min 2V DATE: 06/18/2023 13:31 INDICATION: Injury to distal third digit. Pain, swelling TECHNIQUE: 4 views COMPARISON: None FINDINGS: There is soft tissue swelling and irregularity at the distal third digit and comminuted fra cture of the tuft of the distal phalanx. Diffuse osteopenia. IMPRESSION: Comminuted fracture of tuft of distal phalanx Soft tissue swelling of the third digit Reviewed, dictated and finalized at [facility].
[2023-06-18 13:19] VITALS: BP 110/55; PULSE 80; RESP 16; TEMP 36.7; O2SAT 98
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
[2023-06-18 14:48] LABS: Basophils Percent Auto 0.4 % (0.2-1.2); Eosinophils Absolute Auto 0.1 K/mm3 (0-0.3); Eosinophils Percent Auto 1.1 % (0-4.4); Hematocrit 32.4 % (42.0-52.0); Hemoglobin 10.4 g/dL (14.0-18.0); Immature Granulocyte Absolute 0.03 K/mm3 (0.00-0.031); Immature Granulocyte Percent A 0.4 % (0-0.5); Lymphocytes Absolute Auto 0.75 K/mm3 (0.9-3.2); Lymphocytes Percent Auto 10.3 % (18.3-44.2); Mean Corpuscular HGB Conc 32.1 g/dl (32-36); Mean Corpuscular Hemoglobin 30.6 pg (26-34); Mean Corpuscular Volume 95.3 fl (80-100); Mean Platelet Volume 10.7 fl (7.4-10.4); Monocytes Absolute Auto 0.9 K/mm3 (0.1-0.6); Monocytes Percent Auto 12.2 % (2.6-8.5); Neutrophils Absolute Auto 5.5 K/mm3 (1.3-6.7); Neutrophils Percent Auto 75.6 % (45.5-73.1); Platelet Count Result 250 k/mm3 (150-375); Red Cell Distribution Width 15.2 % (11.5-14.5); White Blood Count 7.3 K/mm3 (4.5-10.0)
[2023-06-18 14:57] LABS: Anion Gap 10 mmol/L (8-16); Blood Urea Nitrogen 45 mg/dL (9-20); CRP 4.6 mg/dL (<1.0); Calcium 9.8 mg/dL (8.4-10.2); Carbon Dioxide 35 mmol/L (22-30); Chloride 90 mmol/L (98-107); Estimated CRCL calculation 10 ml/min; Estimated Glomerular Filt Rate 11; Glucose 97 mg/dL (65-110); Potassium 3.5 mmol/L (3.4-5.0); Sodium 135 mmol/L (137-145)
[2023-06-18] MEDS: ceFAZolin 1 GM/NS 50 ML 1 GM/50 ML BAG IVPB (15:16)
[2023-06-18 15:19] LABS: Erythrocyte Sedimentation Rate 102 mm/hr (0-20)
[2023-06-18 17:13] VITALS: BP 129/80; PULSE 67; RESP 14; O2SAT 99
== END 2023-06-18 17:15 | disposition home or self-care (01) ==
PROVIDERS: Emergency Provider Emergency Medicine; PCP Family Medicine
DX: S62.633B Displaced fracture of distal phalanx of left middle finger, initial encounter for open fracture (principal); I12.0 Hypertensive chronic kidney disease with stage 5 chronic kidney disease or end stage renal disease; N18.6 End stage renal disease; D63.1 Anemia in chronic kidney disease; G47.30 Sleep apnea, unspecified; M19.011 Primary osteoarthritis, right shoulder; M81.0 Age-related osteoporosis without current pathological fracture; Z99.2 Dependence on renal dialysis; Z89.021 Acquired absence of right finger(s); X58.XXXA Exposure to other specified factors, initial encounter
CPT/HCPCS: 36415; 73140; 80048; 85025; 85652; 86140; 87040; 87070; 87147; 87181; 87186; 87205; 96365; 99284; J0690

== ENCOUNTER 2023-07-14 01:18 | Day surgery (SDC) | payer OTHER, SELFPAY ==
--- NOTE | 2023-07-08 08:02 | PC.NURSE ---
Report to the Outpatient Waiting Room, entrance under the green pavilion located off [facility], at time _0930 on date __07/14/23 . Planned Procedure Time: ___1030 . Time changes happen often and if your time is changed the preop area will call you the afternoon before. - You and your visitor will be asked to self-screen and do not enter if you have any COVID symptoms. - A mask is optional within the hospital at this time. Patients may have LIGHT BREAKFAST Take the following medications with a SIP of water the morning of surgery: __ALL ROUTINE MORNING MEDICATIONS DO NOT STOP ANY OF YOUR OTHER PRESCRIPTION MEDICATIONS PRIOR TO SURGERY ?EXCEPT THE FOLLOWING Medications to discontinue per physician Date to take last dose PER DR SAEED CONTINUE ELIQUIS AND ASPIRIN Please no make-up, nail fijian, hairspray, perfume, deodorant, or body powder the day of surgery. No jewelry (including any body piercings) or valuables the day of surgery, leave them at home. Please take a shower or bath the night before, or the morning of, surgery with an antibacterial soap. Wear comfortable, loose fitting clothing. Children are encouraged to wear pajamas. - Jewelry must be removed prior to entering the operating room. Rings and piercings that are not removed may be cut off. - The hospital will not accept responsibility for valuables. - Please leave all valuables, including medications, at home the day of surgery. If you are going home after surgery, a licensed regional flatbed truck driver must drive you home. - NO public transportation without another adult if you receive anesthesia. - We recommend that an adult stay with you for 24 hours following discharge. - We also recommend that you do not drive, make important decision, drink alcoholic beverages, or take any drugs that were not prescribed by your health care provider for at least 24 hours after your discharge time. Follow any additional instructions given to you from your surgeon. If you or anyone in your household have experienced Covid symptoms in the past week, please notify your surgeon or the nurse liaison at the phone number below for possible testing. Telephone instructions given to __WIFE FABIÁN and asked if any additional questions and then verbalized understanding. Patient advised to call surgeon office or pre surgery nurse liaison [phone] if any additional questions.
[2023-07-08 08:05] VITALS: BMI 22.9
[2023-07-14] VITALS (7 sets, daily range): BP systolic 107–127; BP diastolic 59–75; PULSE 56–60; RESP 16–18; TEMP 37.1; O2SAT 94–100; BMI 22.9
--- NOTE | 2023-07-14 07:14 | WPDHPUPDATE1 ---
History and Physical Update Update Date/Time: 07/14/23 07:14 History and Physical has been reviewed, including an updated exam of the patient. There are NO changes in the patient's condition. Risks, benefits, and alternatives have been discussed and questions answered. Patient agrees to proceed with procedure.
[2023-07-14] MEDS: LIDOCAINE HCL 1% LOCAL INJ 20 ML VIAL 5 ML INFILTRATE (09:05)
--- NOTE | 2023-07-14 10:22 | W.PM.PROC2 ---
Procedure Note - Detailed Date of Procedure 07/14/23 Pre-op Diagnosis osteomyelitis tip of left middle finger Post-op Diagnosis Same Procedure Performed Amputation of the distal phalanx left 3rd finger Surgeon Cristian Solis MD Anesthesia Local Description of Procedure The patient's left middle finger was marked in the holding area. The wound seems to have almost healed today the tip. The distal phalanx is slightly shortened nail is beginning to curve downward. The patient reports no pain today there is no drainage he has been on Bactrim DS daily up once daily since in the ER. He was taken to the operating room and placed supine operating table. The left hand was prepped and draped in usual fashion. The digit was anesthetized with 1% lidocaine plain. A blue Tourni-Cot was applied to the finger. Amputation was done through a fishmouth type incision centered on the distal interphalangeal joint. The condyles were amputated off the middle phalanx and these were tapered. The volar plate remains and the flexor tendon attached to that remains. No cautery was utilized the closure was done without tension with 4-0 interrupted nylon sutures. The tourniquet was released. There was active bleeding at the wound margin is initially and this . On its own. A dressing of Mepilex Ag 2 x 2 gauze 2 in Tiffanie and inch Coban wrap was applied without pressure. A culture was taken from the amputation site for aerobes and anaerobes. Distal phalanx specimen was sent to pathology. The patient was discharged from the operating room stable condition. Estimated Blood Loss 2 Tourniquet Time 11 Drains No Packing No Pathology Yes Complications No immediate complications Condition Stable Disposition Same day
== END 2023-07-14 10:45 | disposition home or self-care (01) ==
PROVIDERS: PCP Family Medicine; Visit Provider Plastic Surgery
PROC: (CPT 26910; principal; 2023-07-14 07:30)
DX: M86.642 Other chronic osteomyelitis, left hand (principal); N18.6 End stage renal disease; Z99.2 Dependence on renal dialysis; Z79.82 Long term (current) use of aspirin; Z79.01 Long term (current) use of anticoagulants
CPT/HCPCS: 26236; 87070; 87075; 87147; 87181; 87186; 87205; 88305; A9270

== ENCOUNTER 2023-09-17 19:41 | Emergency (ER) | payer OTHER, SELFPAY ==
--- NOTE | ~2023-09-17 | XR_ITS ---
Clinical Indication: Shortness of breath AP and lateral views of the chest: Comparison: 02/28/2023 Findings: The lungs are clear, without evidence of focal consolidation or pleural effusion. Cardiome diastinal silhouette is enlarged. Bones and soft tissues are unremarkable. Impression: Clear lungs. Cardiomegaly. Reviewed, dictated and finalized at location . SERVICE SALES REPRESENTATIVES Impression: Clear lungs. Cardiomegaly.
[2023-09-17 19:43] VITALS: BP 126/60; PULSE 40; RESP 17; TEMP 36.5; O2SAT 98
--- NOTE | 2023-09-17 19:52 | ECG_ITS ---
Measurements Intervals [place] Rate: 58 P: NE: 0 QRS: 37 QRSD: 100 T: 95 QT: 428 QTc: 424 Interpretive Statements ATRIAL FIBRILLATION WITH SLOW VENTRICULAR RESPONSE FREQUENT VENTRICULAR PREMATURE COMPLEXES NONSPECIFIC ST & T-WAVE ABNORMALITY- DIFFUSE LEADS BASELINE ARTIFACT- V2-V6 ABNORMAL ECG COMPARED TO ECG 02/28/2023 04:41:14 HEART RATE HAS DECREASED VENTRICULAR PREMATURE COMPLEXES NOW PRESENT Electronically Signed On 09-18-2023 9:19:58 SALES TECHNICIAN by Hermelindo Mahoney D.O.
[2023-09-17 20:10] VITALS: BP 115/64; PULSE 57; RESP 15; O2SAT 99
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
[2023-09-17 20:35] LABS: Basophils Percent Auto 0.4 % (0.2-1.2); Eosinophils Absolute Auto 0.1 K/mm3 (0-0.3); Eosinophils Percent Auto 1.3 % (0-4.4); Hematocrit 32.9 % (42.0-52.0); Hemoglobin 10.2 g/dL (14.0-18.0); Immature Granulocyte Absolute 0.03 K/mm3 (0.00-0.031); Immature Granulocyte Percent A 0.3 % (0-0.5); Lymphocytes Absolute Auto 1.29 K/mm3 (0.9-3.2); Lymphocytes Percent Auto 13.4 % (18.3-44.2); Mean Corpuscular Hemoglobin 30.6 pg (26-34); Mean Corpuscular Volume 98.8 fl (80-100); Mean Platelet Volume 10.7 fl (7.4-10.4); Monocytes Percent Auto 9.9 % (2.6-8.5); Neutrophils Absolute Auto 7.2 K/mm3 (1.3-6.7); Neutrophils Percent Auto 74.7 % (45.5-73.1); Platelet Count Result 295 k/mm3 (150-375); Red Blood Count 3.33 M/mm3 (4.6-6.20); Red Cell Distribution Width 15.9 % (11.5-14.5); White Blood Count 9.6 K/mm3 (4.5-10.0)
[2023-09-17 20:49] LABS: Alanine Aminotransferase 10 U/L (6-50); Albumin Level 4.3 g/dL (3.5-5.1); Alkaline Phosphatase 113 U/L (38-126); Anion Gap 16 mmol/L (8-16); Aspartate Amino Transferase 35 U/L (17-59); Bilirubin,Total 0.8 mg/dL (0.2-1.3); Blood Urea Nitrogen 48 mg/dL (9-20); Calcium 10.1 mg/dL (8.4-10.2); Carbon Dioxide 31 mmol/L (22-30); Chloride 90 mmol/L (98-107); Estimated Glomerular Filt Rate 11; Glucose 98 mg/dL (65-110); Magnesium 2.2 mg/dL (1.6-2.3); Potassium 3.9 mmol/L (3.4-5.0); Sodium 137 mmol/L (137-145)
[2023-09-17 21:04] LABS: NT Pro B Type Natriuretic Pept > 30000 pg/mL (19.9-100); Troponin I 0.037 ng/mL (0.000-0.034)
[2023-09-17 21:33] LABS: Influenza A QL RT-PCR Negative (Negative); Influenza B QL RT-PCR Negative (Negative); RSV RNA, RT-PCR Negative (Negative); SARS-CoV-2 RNA PCR Negative (Negative)
[2023-09-17] MEDS: ACETAMINOPHEN 500 MG TABLET 1000 MG PO (21:44)
[2023-09-17 21:46] VITALS: BP 116/65; PULSE 64; RESP 15; O2SAT 98
[2023-09-17] MEDS: FUROSEMIDE INJ 40 MG/4 ML VIAL IV PUSH (21:52)
[2023-09-17 22:33] VITALS: BP 115/70; PULSE 61; RESP 15; O2SAT 99
[2023-09-17 22:55] VITALS: BP 116/70; PULSE 62; RESP 12; O2SAT 99
== END 2023-09-17 23:00 | disposition home or self-care (01) ==
PROVIDERS: Emergency Provider Student in an Organized Health Care Education/Training Program; PCP Family Medicine
DX: I13.2 Hypertensive heart and chronic kidney disease with heart failure and with stage 5 chronic kidney disease, or end stage renal disease (principal); I50.9 Heart failure, unspecified; N18.6 End stage renal disease; D63.1 Anemia in chronic kidney disease; I51.7 Cardiomegaly; R79.89 Other specified abnormal findings of blood chemistry; R53.1 Weakness; I48.91 Unspecified atrial fibrillation; G47.30 Sleep apnea, unspecified; M81.0 Age-related osteoporosis without current pathological fracture; M19.011 Primary osteoarthritis, right shoulder; Z99.2 Dependence on renal dialysis; Z89.021 Acquired absence of right finger(s); Z79.01 Long term (current) use of anticoagulants; I49.3 Ventricular premature depolarization; R94.31 Abnormal electrocardiogram [ECG] [EKG]
CPT/HCPCS: 36415; 71046; 80053; 83735; 83880; 84484; 85025; 87637; 93005; 96374; 99284; A9270; J1940

== ENCOUNTER 2023-10-08 13:14 | Observation (INO) | payer OTHER, SELFPAY ==
[2023-10-08] VITALS (29 sets, daily range): BP systolic 99–127; BP diastolic 52–84; PULSE 46–70; RESP 12–26; TEMP 36.5–36.8; O2SAT 96–100; BMI 22.4
--- NOTE | ~2023-10-08 | XR_ITS ---
XR chest 1V portable 10/08/2023 13:43 Indication: Shortness of breath. Procedure: AP portable chest Comparison: Comparison to multiple prior studies sequentially, with oldest reviewed study dated 12/20. Findings: Cardiomegaly. There is hiatal hernia. Mild interstitial edema. No significant effusion. No pneumothorax. Impression: 1: Mild interstitial edema. Reviewed, dictated and finalized at location B. NE LATHE TENDER Impression: 1: Mild interstitial edema.
--- NOTE | 2023-10-08 13:21 | ECG_ITS ---
Measurements Intervals [place] Rate: 60 P: NM: 0 QRS: 12 QRSD: 105 T: 161 QT: 451 QTc: 451 Interpretive Statements ATRIAL FIBRILLATION BORDERLINE ST-T WAVE ABNORMALITY- ANTEROLAT/INF LEADS BASELINE ARTIFACT- I, II, III, AVR, AVL ,AVF, V1-V6 ABNORMAL ECG NO PREVIOUS ECG AVAILABLE FOR COMPARISON Electronically Signed On 10-08-2023 16:07:53 POLYSOMNOGRAPHER by Hermelindo Mahoney D.O.
[2023-10-08 14:42] LABS: Basophils Percent Auto 0.5 % (0.2-1.2); Eosinophils Absolute Auto 0.1 K/mm3 (0-0.3); Eosinophils Percent Auto 1.1 % (0-4.4); Hematocrit 31.9 % (42.0-52.0); Hemoglobin 9.8 g/dL (14.0-18.0); Immature Granulocyte Absolute 0.01 K/mm3 (0.00-0.031); Immature Granulocyte Percent A 0.1 % (0-0.5); Lymphocytes Absolute Auto 0.73 K/mm3 (0.9-3.2); Lymphocytes Percent Auto 9.2 % (18.3-44.2); Mean Corpuscular HGB Conc 30.7 g/dl (32-36); Mean Corpuscular Hemoglobin 30.1 pg (26-34); Mean Corpuscular Volume 97.9 fl (80-100); Mean Platelet Volume 10.4 fl (7.4-10.4); Monocytes Absolute Auto 0.7 K/mm3 (0.1-0.6); Monocytes Percent Auto 8.8 % (2.6-8.5); Neutrophils Absolute Auto 6.4 K/mm3 (1.3-6.7); Neutrophils Percent Auto 80.3 % (45.5-73.1); Platelet Count Result 272 k/mm3 (150-375); Red Blood Count 3.26 M/mm3 (4.6-6.20); Red Cell Distribution Width 15.4 % (11.5-14.5)
--- NOTE | 2023-10-08 14:43 | ED.SOB ---
HPI - SOB/Dyspnea General Chief Complaint: Shortness of Breath/Dyspnea Stated Complaint: sudden onset dyspnea Time Seen by Provider: 10/08/23 13:33 History of Present Illness HPI Narrative: patient is an 82-year-old male who presents ER with sudden onset shortness of breath. He was in the kitchen with his thinning on up from the table when he suddenly developed extreme shortness of breath. He is diaphoretic. Patient has history of heart failure and end-stage renal disease. He is compliant with her medication. Last dialysis was yesterday. Patient was hypoxic for EMS and placed on BiPAP. Patient is tolerating well and reports he feels markedly improved. Related Data Home Medications Medication Instructions Recorded Confirmed amlodipine 5 mg tablet 5 mg PO DAILY 10/08/23 apixaban 2.5 mg tablet 2.5 mg PO Q12H 10/08/23 10/08/23 aspirin 81 mg tablet,delayed 81 mg PO DAILY 10/08/23 10/08/23 release calcium acetate(phosphat bind) 667 1,334 mg PO TIDWMEAL 10/08/23 10/08/23 mg capsule carvedilol 12.5 mg tablet 12.5 mg PO Q12H 10/08/23 10/08/23 cyanocobalamin (vitamin B-12) 1,000 mcg PO DAILY 10/08/23 10/08/23 1,000 mcg tablet finasteride 5 mg tablet 5 mg PO DAILY 10/08/23 furosemide 20 mg tablet 20 mg PO DIRECTED 10/08/23 10/08/23 sodium bicarbonate 650 mg tablet 650 mg PO BID 10/08/23 10/08/23 Allergies Allergy/AdvReac Type Severity Reaction Status Date / Time No Known Allergies Allergy Verified 10/08/23 13:31 Review of Systems Review of Systems: ROS unobtainable: Yes unobtainable due to medical condition PMFSH Past Medical History Medical History (Updated 10/08/23 @ 19:10 by Stewart Lundberg MD) Anemia in chronic kidney disease Atrial fibrillation Chronic anticoagulation Congestive heart failure End-stage renal disease on hemodialysis Hypertension Obstructive sleep apnea on CPAP Osteoarthritis Surgical History Surgical History (Updated 10/08/23 @ 16:44 by Sheron Jones PA-C) History of cataract extraction History of skin graft Status post creation of arteriovenous fistula Social History Social History (Updated 10/08/23 @ 16:45 by Sheron Jones PA-C) Social History: Surrogate medical decision maker: Disha Carias, spouse. Code status: Full code. Smoking status: Never smoker Alcohol intake: never Substance use: never Do You Feel Safe in your Home?: Yes Lack of Transportation: No Lack of Food: Never True Current Housing: I Have Housing Concerned About Future Housing: No Difficulty Paying Gas/Electric Bills: No Difficulty Paying for Meds: No Currently Unemployed: No Education: High School Diploma/GED Difficulty w/ Childcare or Family Care: No Spiritual care concerns: No Exam Narrative: GENERAL: Well-appearing, well-nourished, and in no acute distress. HEAD: Normocephalic, atraumatic. ENT: Mucous membranes moist. CHEST: Bibasilar crackles. No respiratory distress. HEART: Regular rate and rhythm. Normal peripheral pulses. ABDOMEN: Soft, nontender, nondistended. EXTREMITIES: Normal range of motion. +2 edema. SKIN: Warm, dry, no rash. NEURO: Alert and oriented x3. PSYCH: Normal mood and affect. Course Course Emergency Course: Admit to hospitalist service. Nephrology consulted. Patient has been able to be weaned off of the BiPAP. Vital Signs Vital signs: Vital Signs Temperature 97.7 F 10/08/23 13:13 Pulse Rate 64 10/08/23 13:13 Respiratory Rate 26 H 10/08/23 13:13 Blood Pressure 127/84 10/08/23 13:13 Pulse Oximetry 100 10/08/23 13:13 Oxygen Delivery BiPAP 10/08/23 13:13 Temperature 97.7 F 10/08/23 13:13 Pulse Rate 54 L 10/08/23 17:57 Respiratory Rate 15 10/08/23 17:30 Blood Pressure 109/65 10/08/23 17:57 Pulse Oximetry 100 10/08/23 17:57 Oxygen Delivery Nasal Cannula 10/08/23 17:24 Oxygen Flow Rate 3 10/08/23 17:24 MDM - SOB/Dyspnea Lab Data 10/08/23 14:38
[2023-10-08] MEDS: FUROSEMIDE INJ 100 MG/10 ML VIAL 80 MG IV PUSH (14:51)
[2023-10-08 14:54] LABS: Alanine Aminotransferase 12 U/L (6-50); Albumin Level 3.9 g/dL (3.5-5.1); Alkaline Phosphatase 120 U/L (38-126); Anion Gap 11 mmol/L (8-16); Aspartate Amino Transferase 27 U/L (17-59); Bilirubin,Total 0.7 mg/dL (0.2-1.3); Blood Urea Nitrogen 33 mg/dL (9-20); Calcium 9.7 mg/dL (8.4-10.2); Carbon Dioxide 36 mmol/L (22-30); Chloride 91 mmol/L (98-107); Estimated CRCL calculation 12 ml/min; Estimated Glomerular Filt Rate 13; Glucose 99 mg/dL (65-110); Potassium 3.1 mmol/L (3.4-5.0); Sodium 138 mmol/L (137-145)
[2023-10-08 16:35] LABS: Magnesium 2.2 mg/dL (1.6-2.3)
--- NOTE | 2023-10-08 16:41 | PM.IMHP ---
H&P: HPI History of Present Illness Date/Time: 10/08/23 17:45 Chief Complaint: Shortness of breath. Narrative: This is an 82-year-old male with end-stage renal disease on hemodialysis, congestive heart failure, paroxysmal atrial fibrillation on chronic anticoagulation, hypertension, anemia, dementia, and obstructive sleep apnea who presented to the emergency department via EMS from home for evaluation of sudden-onset shortness of breath. The patient provides the following history. Just prior to arrival he was in the kitchen with his when he developed sudden-onset shortness of breath associated with sweats and cough with frothy sputum. called 911 and he was hypoxic on EMS arrival. He was placed on BiPAP with marked improvement in his symptoms. Last dialysis treatment was yesterday and he has not missed any sessions. Labs were consistent with his baseline. He tested positive for RSV. Chest x-ray showed mild interstitial edema and he was given a dose of furosemide 80 mg IV x1 as he does still make urine and he is being admitted in this setting. At the time my evaluation he is on 2 L nasal cannula with an SpO2 of 100%. He reports feeling at his baseline has no specific complaints. He has no known sick contacts and denies fever, chills, sweats, headache, sore throat, sinus congestion, further cough, chest pain, pleuritic pain, current shortness of breath, nausea, vomiting, diarrhea, and dysuria. Review of Systems Review of Systems: Twelve systems were reviewed and are negative except for as per HPI. [facility] Past Medical History Medical History Anemia in chronic kidney disease Atrial fibrillation Chronic anticoagulation Congestive heart failure End-stage renal disease on hemodialysis Hypertension Obstructive sleep apnea on CPAP Osteoarthritis Surgical History Surgical History History of cataract extraction History of skin graft Status post creation of arteriovenous fistula Social History Social History Social History: Surrogate medical decision maker: Disha Carias, spouse. Code status: Full code. Smoking status: Never smoker Alcohol intake: never Substance use: never Do You Feel Safe in your Home?: Yes Lack of Transportation: No Lack of Food: Never True Current Housing: I Have Housing Concerned About Future Housing: No Difficulty Paying Gas/Electric Bills: No Difficulty Paying for Meds: No Currently Unemployed: No Education: High School Diploma/GED Difficulty w/ Childcare or Family Care: No Spiritual care concerns: No Meds Home Medications and Allergies Home Medications Medication Instructions Recorded Confirmed Type amlodipine 5 mg tablet 5 mg PO DAILY 10/08/23 History apixaban 2.5 mg tablet 2.5 mg PO Q12H 10/08/23 10/08/23 History aspirin 81 mg tablet,delayed 81 mg PO DAILY 10/08/23 10/08/23 History release calcium acetate(phosphat bind) 667 1,334 mg PO TIDWMEAL 10/08/23 10/08/23 History mg capsule carvedilol 12.5 mg tablet 12.5 mg PO Q12H 10/08/23 10/08/23 History cyanocobalamin (vitamin B-12) 1,000 mcg PO DAILY 10/08/23 10/08/23 History 1,000 mcg tablet finasteride 5 mg tablet 5 mg PO DAILY 10/08/23 History furosemide 20 mg tablet 20 mg PO DIRECTED 10/08/23 10/08/23 History sodium bicarbonate 650 mg tablet 650 mg PO BID 10/08/23 10/08/23 History Allergies Allergy/AdvReac Type Severity Reaction Status Date / Time No Known Allergies Allergy Verified 10/08/23 13:31 Vital Signs Vital Signs - 24 hr 10/08/23 13:13 10/08/23 13:15 10/08/23 13:27 Temperature 97.7 F Pulse Rate 64 67 59 L Respiratory Rate 26 H 22 H Blood Pressure 127/84 Pulse Oximetry 100 100 Oxygen Delivery BiPAP BiPAP 10/08/23 13:28 10/08/23 13:30 10/08/23 13:25 Temperature Pulse Rate 55 L 59
[2023-10-08 16:48] LABS: NT Pro B Type Natriuretic Pept > 30000 pg/mL (19.9-100); Troponin I 0.032 ng/mL (0.000-0.034)
[2023-10-08 17:45] LABS: Influenza A QL RT-PCR Negative (Negative); Influenza B QL RT-PCR Negative (Negative); RSV RNA, RT-PCR Positive (Negative); SARS-CoV-2 RNA PCR Negative (Negative)
--- NOTE | 2023-10-08 18:21 | ADMGEN ---
This patient, Partha Carias Jr., was admitted to IMU Room 201-01. Patient/family oriented to hospital policies and general routines including ID bracelet, bed and alarms, visiting hours, pain management, procedures, bathroom and other care routines, personal items, smoking policy, room service/diet, and visiting hours. Information on how to activate the Rapid Response Team has been discussed. Patient/Family are encouraged to report perceived risks to care and to ask questions if they do not understand what they are told or what they should do.
[2023-10-08 19:00] LABS: Potassium 3.6 mmol/L (3.4-5.0)
[2023-10-08 19:15] LABS: Troponin I 0.033 ng/mL (0.000-0.034)
[2023-10-08] MEDS: APIXABAN 2.5 MG TABLET PO (23:27)
[2023-10-08] MEDS: carvediloL 12.5 MG TABLET PO (23:27)
[2023-10-08] MEDS: CALCIUM ACETATE 667 MG TABLET 1334 MG PO (23:27)
[2023-10-08 23:48] LABS: Troponin I 0.037 ng/mL (0.000-0.034)
[2023-10-09] VITALS (14 sets, daily range): BP systolic 94–119; BP diastolic 45–62; PULSE 38–62; RESP 14–20; TEMP 36.4–36.8; O2SAT 94–100
[2023-10-09 05:06] LABS: Basophils Percent Auto 0.6 % (0.2-1.2); Eosinophils Absolute Auto 0.1 K/mm3 (0-0.3); Eosinophils Percent Auto 1.3 % (0-4.4); Hematocrit 28.2 % (42.0-52.0); Immature Granulocyte Absolute 0.02 K/mm3 (0.00-0.031); Immature Granulocyte Percent A 0.3 % (0-0.5); Lymphocytes Absolute Auto 0.99 K/mm3 (0.9-3.2); Mean Corpuscular HGB Conc 31.9 g/dl (32-36); Mean Corpuscular Hemoglobin 30.5 pg (26-34); Mean Corpuscular Volume 95.6 fl (80-100); Mean Platelet Volume 10.9 fl (7.4-10.4); Monocytes Absolute Auto 0.8 K/mm3 (0.1-0.6); Neutrophils Absolute Auto 5.2 K/mm3 (1.3-6.7); Neutrophils Percent Auto 72.8 % (45.5-73.1); Platelet Count Result 255 k/mm3 (150-375); Red Blood Count 2.95 M/mm3 (4.6-6.20); Red Cell Distribution Width 15.5 % (11.5-14.5); White Blood Count 7.1 K/mm3 (4.5-10.0)
[2023-10-09 05:24] LABS: Anion Gap 12 mmol/L (8-16); Blood Urea Nitrogen 43 mg/dL (9-20); Calcium 9.5 mg/dL (8.4-10.2); Carbon Dioxide 34 mmol/L (22-30); Chloride 91 mmol/L (98-107); Estimated CRCL calculation 11 ml/min; Estimated Glomerular Filt Rate 12; Glucose 86 mg/dL (65-110); Magnesium 2.2 mg/dL (1.6-2.3); Potassium 3.5 mmol/L (3.4-5.0); Sodium 137 mmol/L (137-145)
[2023-10-09] MEDS: ASPIRIN 81 MG ENTERIC TABLET PO (09:44)
[2023-10-09] MEDS: SODIUM BICARBONATE TAB 650 MG TABLET PO ×2 (09:44→16:38)
[2023-10-09] MEDS: APIXABAN 2.5 MG TABLET PO ×2 (09:44→20:52)
[2023-10-09] MEDS: CYANOCOBALAMIN 1,000 MCG TABLET 1000 MCG PO (09:45)
[2023-10-09] MEDS: CALCIUM ACETATE 667 MG TABLET 1334 MG PO ×2 (09:45→16:38)
[2023-10-09] MEDS: FUROSEMIDE 20 MG TABLET PO (09:53)
[2023-10-09] MEDS: carvediloL 6.25 MG TABLET PO (10:17)
[2023-10-09] MEDS: polyethylene glycoL 3350 17 GM POWD.PACK PO (10:28)
[2023-10-09 12:04] LABS: Phosphorus 4.9 mg/dL (2.5-4.5)
--- NOTE | 2023-10-09 12:20 | PM.CNNEP ---
Assessment and Plan Assessment and plan (1) End-stage renal disease on hemodialysis: Code(s): N18.6 - End stage renal disease; Z99.2 - Dependence on renal dialysis Status: Acute Assessment and Plan: The patient has end-stage renal disease. He gets hemodialysis on Wednesdays and Fridays. This is due to hypertension and vascular disease. The patient has pretty good volume status. He does have any swelling. He is only on 2L of oxygen hypoxia is more likely due to the RSV then it is due to volume. The patient's potassium is okay and bicarbonate looks okay as well. Will hold off on dialysis until tomorrow. (2) RSV (acute bronchiolitis due to respiratory syncytial virus): Code(s): J21.0 - Acute bronchiolitis due to respiratory syncytial virus Status: Acute Assessment and Plan: The patient has RSV. He is getting supportive care. He is on respiratory isolation (3) Atrial fibrillation: Code(s): I48.91 - Unspecified atrial fibrillation Status: Acute Assessment and Plan: Patient has atrial fibrillation. He is on anticoagulants (Eliquis) and his heart rate is under good control. (4) Obstructive sleep apnea on CPAP: Code(s): G47.33 - Obstructive sleep apnea (adult) (pediatric) Status: Acute Assessment and Plan: He has sleep apnea and uses CPAP machine at home. (5) Anemia in chronic kidney disease: Code(s): N18.9 - Chronic kidney disease, unspecified; D63.1 - Anemia in chronic kidney disease Status: Acute Assessment and Plan: Hemoglobin is 9. Will give him some Epogen tomorrow. (6) Hypertension: Code(s): I10 - Essential (primary) hypertension Status: Acute Assessment and Plan: Systolic is under good control ranging from 100-130 (7) Renal osteodystrophy: Code(s): N25.0 - Renal osteodystrophy Status: Acute Assessment and Plan: Will check a phosphorus level in the morning History of Present Illness Reason for Consult Consult date: 10/09/23 Chief Complaint Chief complaint: Pulmonary Edema,Acute Respiratory Failure History of Present Illness Narrative: Partha is a very pleasant 82-year-old gentleman who has multiple medical problems including end-stage renal disease on dialysis Wednesdays and Fridays, renal osteodystrophy, anemia, hypertension, sleep apnea and uses a CPAP machine, degenerative joint disease, congestive heart failure, chronic anticoagulation for atrial fibrillation. The patient had dialysis on Tuesday and did okay. He got all of his fluid off. After got home on Tuesday he started getting short of breath and had a cough. He did not have chest pain. No fevers. No one else in the house was sick. He had not been eating and drinking very well during those 2 days. His symptoms got worse and so came to the emergency room yesterday afternoon. He was evaluated in the ER and chest x-ray showed some infiltrates. He was hypoxic and so was placed on BiPAP. When he settled down he was breathing better so they switched him to nasal cannula. Overnight the patient improved and is now on just 2L of oxygen and comfortable lying in semi-Mai's position. He slept okay last night. Today he is much less short of breath. He still has a little bit of a cough. Review of Systems Constitutional: Constitutional: Reports no additional constitutional complaints Eyes: Eyes: Reports no additional eye complaints ENT: Reports system reviewed and no additional complaints, except as documented Cardiovascular: Cardiovascular: Reports no additional cardiovascular complaints Respiratory: Respiratory: Reports no additional respiratory complaints Gastrointestinal: Gastrointestinal: Reports no additional gastrointestinal complaints Genitourinary: Genitourinary: Reports no additional male genitourinary complaints Musculoskeletal: Musculoskeletal: Reports no additional musculoskeletal complai
--- NOTE | 2023-10-09 17:54 | PM.IMPN ---
Progress Note: A&P Assessment and Plan (1) Pulmonary edema: Code(s): J81.1 - Chronic pulmonary edema Status: Acute (2) Congestive heart failure: Code(s): I50.9 - Heart failure, unspecified Status: Acute (3) End-stage renal disease on hemodialysis: Code(s): N18.6 - End stage renal disease; Z99.2 - Dependence on renal dialysis Status: Acute (4) Atrial fibrillation: Code(s): I48.91 - Unspecified atrial fibrillation Status: Acute (5) Chronic anticoagulation: Code(s): Z79.01 - intermediate manager (current) use of anticoagulants Status: Acute (6) Obstructive sleep apnea on CPAP: Code(s): G47.33 - Obstructive sleep apnea (adult) (pediatric) Status: Acute (7) Anemia in chronic kidney disease: Code(s): N18.9 - Chronic kidney disease, unspecified; D63.1 - Anemia in chronic kidney disease Status: Acute (8) Hypertension: Code(s): I10 - Essential (primary) hypertension Status: Acute (9) Sudden onset dyspnea: Code(s): R06.00 - Dyspnea, unspecified Status: Acute (10) Respiratory syncytial virus (RSV): Code(s): B33.8 - Other specified viral diseases Status: Acute (11) Hypoxia: Code(s): R09.02 - Hypoxemia Status: Acute (12) RSV (acute bronchiolitis due to respiratory syncytial virus): Code(s): J21.0 - Acute bronchiolitis due to respiratory syncytial virus Status: Acute (13) Renal osteodystrophy: Code(s): N25.0 - Renal osteodystrophy Status: Acute Plan Place patient in IMU under observation status Continuous cardiac tele monitoring Patient is dropping his heart rate down in 30s when at rest Hold off on oral carvedilol Cardiology consult given for evaluation and treatment recommendations regarding bradycardia Patient admitted with hypoxia secondary to RSV He required BiPAP in the ER, now weaned off to oxygen via nasal cannula Continue with oxygen via nasal cannula to keep O2 sats around 94% Patient has ESRD with scheduled 3 times a week hemodialysis Nephrology consult given for hemodialysis and management recommendations PT/OT evaluation ordered DC patient home in next 24-48 hours if he remains stable, improves clinically and cleared by both Nephrology and Cardiology for discharge ? Patient seen and examined at bedside during my morning rounds ? Collaborated with patient's nurse at the bedside in detail and addressed all concerns ? Labs, electrolytes, radiology, investigations and test results reviewed ? Consult/Nursing/Ancilliary notes on the chart reviewed and appreciated ? Spoke with patient/family at the bedside and answered all the questions that they had Repeat labs in a.m. Electrolyte replacement as per protocol. Patient will be monitored very closely on the floor. Further recommendations as per the hospital course. Time Spent With Patient Time with patient: 25 - 35 minutes Subjective Date/time seen: 10/09/23 17:54 Interval history: Patient is feeling better today. He is off of his BiPAP. Feels weak and tired. Patient is dropping down his heart rate in 30s on tele monitoring. Review of Systems Review of Systems: 14 systems were reviewed with pertinent positives and negatives per HPI. Except as documented in the HPI/progress notes, all other systems were reviewed and are negative. All systems reviewed & are unremarkable except as noted in HPI and below Exam Narrative: PHYSICAL EXAMINATION: Vital signs: Please see the chart General physical exam: Patient lying in bed, appears to be tired and fatigued, pleasant and cooperative with exam Head/eyes: Atraumatic, EOMI, PERRLA ENT: Moist mucous membranes, nasal passages clear Neck: Supple, full range of motion, trachea midline CVS: S1 + S2, + sinus bradycardia, no murmurs Respiratory: Bilaterally decreased air entry in both lung sweeney, + mild-moderate B/L crackles, symmetric chest expansion Abdomen: Soft,
[2023-10-10] VITALS (27 sets, daily range): BP systolic 82–114; BP diastolic 40–91; PULSE 39–65; RESP 12–20; TEMP 36.3–37; O2SAT 96–100
[2023-10-10 05:26] LABS: Basophils Percent Auto 0.5 % (0.2-1.2); Eosinophils Absolute Auto 0.1 K/mm3 (0-0.3); Eosinophils Percent Auto 1.7 % (0-4.4); Hematocrit 27.6 % (42.0-52.0); Hemoglobin 8.5 g/dL (14.0-18.0); Immature Granulocyte Absolute 0.03 K/mm3 (0.00-0.031); Immature Granulocyte Percent A 0.4 % (0-0.5); Lymphocytes Absolute Auto 1.02 K/mm3 (0.9-3.2); Lymphocytes Percent Auto 13.5 % (18.3-44.2); Mean Corpuscular HGB Conc 30.8 g/dl (32-36); Mean Corpuscular Hemoglobin 30.1 pg (26-34); Mean Corpuscular Volume 97.9 fl (80-100); Monocytes Absolute Auto 0.7 K/mm3 (0.1-0.6); Monocytes Percent Auto 9.2 % (2.6-8.5); Neutrophils Absolute Auto 5.7 K/mm3 (1.3-6.7); Neutrophils Percent Auto 74.7 % (45.5-73.1); Platelet Count Result 292 k/mm3 (150-375); Red Blood Count 2.82 M/mm3 (4.6-6.20); Red Cell Distribution Width 15.2 % (11.5-14.5); White Blood Count 7.6 K/mm3 (4.5-10.0)
[2023-10-10 05:38] LABS: Albumin Level 3.8 g/dL (3.5-5.1); Anion Gap 10 mmol/L (8-16); Blood Urea Nitrogen 53 mg/dL (9-20); Calcium 9.5 mg/dL (8.4-10.2); Carbon Dioxide 34 mmol/L (22-30); Chloride 91 mmol/L (98-107); Estimated CRCL calculation 9 ml/min; Estimated Glomerular Filt Rate 10; Glucose 97 mg/dL (65-110); Magnesium 2.2 mg/dL (1.6-2.3); Phosphorus 5.1 mg/dL (2.5-4.5); Potassium 3.7 mmol/L (3.4-5.0); Sodium 135 mmol/L (137-145)
[2023-10-10 06:07] LABS: Hepatitis B Surface Antigen Negative (Negative)
[2023-10-10 06:29] LABS: Hepatitis B Surface Anti Res Positive
--- NOTE | 2023-10-10 09:10 | ECG_ITS ---
Measurements Intervals [place] Rate: 58 P: GA: 0 QRS: 37 QRSD: 102 T: 119 QT: 437 QTc: 430 Interpretive Statements ATRIAL FIBRILLATION WITH SLOW VENTRICULAR RESPONSE VENTRICULAR PREMATURE COMPLEXES BORDERLINE ST-T WAVE ABNORMALITY- ANTEROLAT/HIGH LAT LEADS ABNORMAL ECG COMPARED TO ECG 10/08/2023 13:29:14 HEART RATE HAS DECREASED Electronically Signed On 10-10-2023 14:35:19 DYE ROOM HELPER by Hermelindo Mahoney D.O.
--- NOTE | 2023-10-10 09:55 | PM.PNNEP ---
Progress Note: A&P Assessment and Plan (1) End stage renal disease: Status: Chronic Assessment and Plan: HD today continue M/W/F dialysis schedule follow electrolytes, volume status (2) RSV (acute bronchiolitis due to respiratory syncytial virus): Status: Acute Assessment and Plan: as noted by testing in ER likely etiology of r worsening shortness of breath supportive therapy (3) Atrial fibrillation: Status: Chronic Assessment and Plan: rate control strategy on anticoagulation (4) Hypertension: Status: Chronic Assessment and Plan: reasonable control follow trend of hemodynamics (5) Anemia in chronic kidney disease: Status: Chronic Assessment and Plan: due to ESRD Epogen with HD' follow H/H Will continue to follow. Subjective Date/time seen: 10/10/23 09:55 Interval history: Follow-up for end stage renal disease on hemodialysis. Chart reviewed -- assuming care from Dr. Lee; tolerating dialysis treatment at the time of my visit (seen on HD at 9:45AM); no apparent distress noted; breathing seems to be doing better; no events overnight or earlier today. Exam Narrative: General: elderly male in NAD Heart: normal S1 and S2; no rub Lungs: coarse breath sounds; diminished at bases Abdomen: soft, nontender, nondistended, positive bowel sounds Extremities: no cyanosis or clubbing; 1+ edema Skin: warm and dry Objective Data Vital Signs Vital Signs: Vital Signs Temp Pulse Resp BP Pulse Ox O2 Del Method O2 Flow Rate 10/10/23 09:45 54 L 113/56 L 10/10/23 09:43 3 10/10/23 09:15 97.3 F L 39 L 16 103/50 L 100 10/10/23 09:28 39 L 103/50 L 10/10/23 08:00 98.3 F 49 L 12 114/91 H 100 10/10/23 04:00 100 Nasal Cannula 2 10/10/23 04:00 60 10/10/23 00:00 60 10/09/23 20:00 45 L 10/10/23 03:14 97.6 F 60 20 100/58 L 96 10/10/23 00:00 100 Nasal Cannula 2 10/10/23 00:33 97.9 F 54 L 20 97/52 L 97 10/09/23 20:00 100 Nasal Cannula 2 10/09/23 21:45 97.8 F 45 L 20 100/56 L 98 10/09/23 21:16 94 Nasal Cannula 3 10/09/23 18:00 50 L 10/09/23 16:00 38 L 10/09/23 16:00 100 Nasal Cannula 2 10/09/23 16:00 98.3 F 48 L 20 117/59 L 100 Intake/Output Intake/Output: Intake & Output 10/07/23 10/08/23 10/09/23 10/10/23 23:59 23:59 23:59 23:59 Intake Total 40 1170 790 Output Total 0 Balance 40 1170 790 Meds/Results Medications: Active Medications Generic Name Dose Route Start Last Admin Trade Name Freq PRN Reason Stop Dose Admin Acetaminophen 650 mg 10/08/23 15:41 Acetaminophen 325 Mg Tablet PO Q4H PRN Mild Pain (1-3) or Fever Hydrocodone Bitart/Acetaminophen 1 tab 10/08/23 15:41 Hydrocodone/Acetaminophen (*Crx) 5-325 Mg Tablet PO Q4H PRN Pain Rated 4-6 Apixaban 2.5 mg 10/08/23 22:00 10/09/23 20:52 Apixaban 2.5 Mg Tablet PO 2.5 mg Q12HR JYA Administration Aspirin 81 mg 10/09/23 09:00 10/09/23 09:44 Aspirin 81 Mg Enteric Tablet PO 81 mg DAILY JAY Administration Calcium Acetate 1,334 mg 10/08/23 22:00 10/09/23 16:38 Calcium Acetate 667 Mg Tablet PO 1,334 mg TIDWM JAY Administration Carvedilol 6.25 mg 10/09/23 09:49 10/09/23 10:17 Carvedilol 6.25 Mg Tablet PO 6.25 mg Q12HR JAY Administration Cyanocobalamin 1,000 mcg 10/09/23 09:00 10/09/23 09:45 Cyanocobalamin 1,000 Mcg Tablet PO 1,000 mcg DAILY JAY Administration Epoetin Marco A-epbx 10,000 units 10/10/23 09:00 10/10/23 11:15 Epoetin Marco A-Epbx 10,000 Units/Ml Vial IV PUSH 10,000 units MOWEFR@09 JAY Administration Furosemide 20 mg 10/09/23 09:00 10/09/23 09:53 Furosemide 20 Mg Tablet PO 20 mg SuTuThSa@0900 JAY Administration Albumin Human 50 mls @ 999 mls/hr 10/09/23 12:26 Albutein IVPB
--- NOTE | 2023-10-10 11:10 | PM.CNCAR ---
Assessment and Plan Assessment and plan (1) Bradycardia: Code(s): R00.1 - Bradycardia, unspecified Status: Acute Assessment and Plan: Overall, duration and persistence of atrial fibrillation remains unknown he carries a known diagnosis of atrial fibrillation for which she is managed with apixaban and carvedilol. Patient is otherwise hemodynamically stable with asymptomatic bradycardic response in atrial fibrillation. Bradycardia no doubt exacerbated by use of carvedilol in which I agree with discontinuation. I would avoid re-initiation of AV michael blocking agents as expect his heart rate to recover further with ongoing washout of Carvedilol. In fact, while expect his heart rate to improve I do not anticipate he will have a significant tachycardic response in general off AV michael blocking agents. Nonetheless, there is no indication for permanent pacemaker implantation at this time unless he develops pathologic pauses greater than 5 seconds or significant sustained symptomatic bradycardia and or with associated near-syncope or syncope. There is no report in this regard complications stemming from his bradycardia to date. Patient should be monitored as an outpatient. I would recommend 48 hour Holter to document heart rate control approximately 1 week post discontinuation of beta-flaco therapy. He should follow-up in the office within 1 month. Ambulate with caution to avoid risk for falls injuries. Continue systemic anticoagulation for stroke risk reduction with apixaban 2.5 mg twice daily. Do not resume carvedilol at discharge. Patient denies following up with a vascular ultrasound technician routine basis but if he does in fact have a vascular ultrasound technician he should follow up within the next month or he may follow-up with us in 1 month if he chooses. CHADS2 Vasc score at least 4. I do not see an echocardiogram in the system or any other prior evaluation available for review. Echocardiogram would be advised given systolic murmur exam suggestive possible degree of aortic stenosis and mitral regurgitation. However, no indication this is clinically impact his current status which should be evaluated in general. As such, patient stable for discharge otherwise from a medical perspective he may obtain in our office as an outpatient. If, however, he will remain hospitalized 2D echocardiogram reasonable to obtain this admission. Recommendation to follow after review of echocardiogram. (2) Atrial fibrillation: Code(s): I48.91 - Unspecified atrial fibrillation Status: Acute Assessment and Plan: As above, asymptomatic, persistent atrial fibrillation since admission. Continue to hold carvedilol. If heart rate his poorly controlled off beta-flaco therapy consistent with tachycardia bradycardia syndrome pacemaker implantation may then be warranted at this time no indication. Continue systemic anticoagulation apixaban 2.5 mg twice daily monitor leading. Follow H& H. Ambulate with caution. (3) Acute hypoxic respiratory failure: Code(s): J96.01 - Acute respiratory failure with hypoxia Status: Acute Assessment and Plan: Patient remains on oxygen supplementation. Wean as tolerated. Home Lasix 20 mg with dialysis. He is not currently in clinical decompensated heart failure on exam. Volume management per hemodialysis. (4) RSV (acute bronchiolitis due to respiratory syncytial virus): Code(s): J21.0 - Acute bronchiolitis due to respiratory syncytial virus Status: Acute Assessment and Plan: Management per primary service. Supportive care as warranted. (5) Obstructive sleep apnea on CPAP: Code(s): G47.33 - Obstructive sleep apnea (adult) (pediatric) Status: Acute Assessment and Plan: Compliance with CPAP important also to less than anticipated bradycardia particularly while asleep. (6) Anemia in chronic kidney disease: Code(s): N18.9 - Chronic kidney disease, unspecified; D63.1 - An
--- NOTE | 2023-10-10 11:13 | PCPTNOTE ---
Attempted PT evaluation this date however pt currently in dialysis. Will attempt at a later date/time.
[2023-10-10] MEDS: EPOETIN ALFA-EPBX 10,000 UNITS/ML VIAL 10000 UNITS IV PUSH (11:15)
[2023-10-10] MEDS: SODIUM CHLORIDE 0.9% IV 1,000 ML 999 ML IV CONT (11:16)
--- NOTE | 2023-10-10 11:29 | ECHO_ITS ---
Patient Info Name: Partha Carias Age: 82 years : 1940 Gender: Male Ht: 74 in Wt: 171 lbs BSA: 2.01 m2 HR: 53 bpm BP: 107 / 40 mmHg Heart Rhythm: Atrial Fibrillation Technical Quality: Good Exam Date: 10/10/2023 4:21 PM Exam Location: Echo Lab Patient Status: Outpatient Admit Date: 10/08/2023 Staff Ordering Physician: Aleksandr Kimball MD Attending Provider: Darnell Devine MD Referring Physician: Jigar HUITRON; Exam Type: CA echo doppler color flow Study Info Indications R01.1 - Cardiac murmur, unspecified R00.1 - Bradycardia, unspecified I48.0 - Paroxysmal atrial fibrillation Complete two-dimensional, color flow and Doppler transthoracic echocardiogram is performed. Summary 1. Complete two-dimensional, color flow and Doppler transthoracic echocardiogram is performed. 2. Left ventricular chamber dimension is normal. 3. Left ventricular systolic function is normal, estimated at 60-65%. 4. There is mildly increased left ventricular wall thickness. 5. Right ventricular chamber dimension is normal. 6. Right ventricular systolic function is reduced. 7. Left atrial chamber dimension is severely enlarged. 8. Right atrial chamber dimension is severely enlarged. 9. There is severe aortic valve calcification. 10. There is moderate aortic valve stenosis with a peak velocity of 305 cm/s, mean gradient of 14 mmHg, and aortic valve area of 1.1 cm2. 11. There is mild aortic valve regurgitation. 12. There is moderate mitral valve regurgitation. 13. There is severe tricuspid valve regurgitation. 14. There is mild pulmonic regurgitation. 15. Pulmonary hypertension. Estimated pulmonary arterial systolic pressure is 80 mmHg. Left Ventricle Left ventricular chamber dimension is normal. Left ventricular systolic function is normal, estimated at 60-65%. There is mildly increased left ventricular wall thickness. Right Ventricle Right ventricular chamber dimension is normal. Right ventricular systolic function is reduced. Left Atria Left atrial chamber dimension is severely enlarged. Right Atria Right atrial chamber dimension is severely enlarged. Atrial Septum Intact interatrial septum visualized by color flow imaging. Aortic Valve The aortic valve is probable trileaflet. There is moderate aortic valve stenosis with a peak velocity of 305 cm/s, mean gradient of 14 mmHg, and aortic valve area of 1.1 cm2. There is mild aortic valve regurgitation. There is severe aortic valve calcification. Pulmonic Valve The pulmonic valve is not well visualized. There is mild pulmonic regurgitation. Mitral Valve There is moderate mitral valve regurgitation. The mitral valve annulus is moderately calcified. Tricuspid Valve There is severe tricuspid valve regurgitation. Pulmonary hypertension. Estimated pulmonary arterial systolic pressure is 80 mmHg. Pericardium/Pleural There is no pericardial effusion. Inferior Vena Cava Dilated inferior vena cava with <50% collapse upon inspiration consistent with elevated right atrial pressure, 15 mmHg. Aorta The aortic root size at the sinus of Valsalva is normal. Left Ventricular Outflow Tract Name Value Normal LVOT 2D LVOT Diameter 2.2 cm LVOT Doppler LVOT Pea
[2023-10-10] MEDS: ASPIRIN 81 MG ENTERIC TABLET PO (13:40)
[2023-10-10] MEDS: CYANOCOBALAMIN 1,000 MCG TABLET 1000 MCG PO (13:40)
[2023-10-10] MEDS: APIXABAN 2.5 MG TABLET PO (13:40)
[2023-10-10] MEDS: SODIUM BICARBONATE TAB 650 MG TABLET PO (13:40)
[2023-10-10] MEDS: CALCIUM ACETATE 667 MG TABLET 1334 MG PO (13:43)
--- NOTE | 2023-10-10 13:58 | PM.DS ---
DS: Admitting Diagnosis Discharge Date 10/10/2023: Admitting Diagnosis RSV infection Hypoxemia ESRD on hemodialysis DS: Discharge Diagnosis Discharge Diagnosis (1) Acute hypoxic respiratory failure: Code(s): J96.01 - Acute respiratory failure with hypoxia Status: Acute (2) Bradycardia: Code(s): R00.1 - Bradycardia, unspecified Status: Acute (3) RSV (acute bronchiolitis due to respiratory syncytial virus): Code(s): J21.0 - Acute bronchiolitis due to respiratory syncytial virus Status: Acute (4) Congestive heart failure: Code(s): I50.9 - Heart failure, unspecified Status: Acute (5) End-stage renal disease on hemodialysis: Code(s): N18.6 - End stage renal disease; Z99.2 - Dependence on renal dialysis Status: Acute (6) Atrial fibrillation: Code(s): I48.91 - Unspecified atrial fibrillation Status: Acute (7) Chronic anticoagulation: Code(s): Z79.01 - longterm (current) use of anticoagulants Status: Acute (8) Obstructive sleep apnea on CPAP: Code(s): G47.33 - Obstructive sleep apnea (adult) (pediatric) Status: Acute (9) Anemia in chronic kidney disease: Code(s): N18.9 - Chronic kidney disease, unspecified; D63.1 - Anemia in chronic kidney disease Status: Acute (10) Hypertension: Code(s): I10 - Essential (primary) hypertension Status: Acute (11) Renal osteodystrophy: Code(s): N25.0 - Renal osteodystrophy Status: Acute DS: Summary Hospital Course Reason for hospitalization: Patient admitted with shortness of breath Hospital Course: H&P: HPI History of Present Illness Date/Time: 10/08/23? 17:45 Chief Complaint: Shortness of breath. Narrative: This is an 82-year-old male with end-stage renal disease on hemodialysis, congestive heart failure, paroxysmal atrial fibrillation on chronic anticoagulation, hypertension, anemia, dementia, and obstructive sleep apnea who presented to the emergency department via EMS from home for evaluation of sudden-onset shortness of breath. The patient provides the following history. Just prior to arrival he was in the kitchen with his when he developed sudden-onset shortness of breath associated with sweats and cough with frothy sputum. called 911 and he was hypoxic on EMS arrival. He was placed on BiPAP with marked improvement in his symptoms. Last dialysis treatment was yesterday and he has not missed any sessions. Labs were consistent with his baseline. He tested positive for RSV. Chest x-ray showed mild interstitial edema and he was given a dose of furosemide 80 mg IV x1 as he does still make urine and he is being admitted in this setting. At the time my evaluation he is on 2 L nasal cannula with an SpO2 of 100%. He reports feeling at his baseline has no specific complaints. He has no known sick contacts and denies fever, chills, sweats, headache, sore throat, sinus congestion, further cough, chest pain, pleuritic pain, current shortness of breath, nausea, vomiting, diarrhea, and dysuria. 10/09/2023: Place patient in IMU under observation status Continuous cardiac tele monitoring Patient is dropping his heart rate down in 30s when at rest Hold off on oral carvedilol Cardiology consult given for evaluation and treatment recommendations regarding bradycardia Patient admitted with hypoxia secondary to RSV He required BiPAP in the ER, now weaned off to oxygen via nasal cannula Continue with oxygen via nasal cannula to keep O2 sats around 94% Patient has ESRD with scheduled 3 times a week hemodialysis Nephrology consult given for hemodialysis and management recommendations PT/OT evaluation ordered DC patient home in next 24-48 hours if he remains stable, improves clinically and cleared by both Nephrology and Cardiology for discharge 10/10/2023: Patient seen and evaluated in the hemodialysis suite. He is feeling better today. He is not requiring o
== END 2023-10-10 17:48 | disposition home or self-care (01) ==
LOC: ANHED 15:37 → ANHIMU 17:49
PROVIDERS: Emergency Medicine; Internal Medicine Nephrology; Physician Assistant; Admitting Provider Family Medicine; Emergency Provider Emergency Medicine; PCP Family Medicine; Visit Provider Family Medicine
DX: J96.01 Acute respiratory failure with hypoxia (principal); J21.0 Acute bronchiolitis due to respiratory syncytial virus; J81.1 Chronic pulmonary edema; I13.2 Hypertensive heart and chronic kidney disease with heart failure and with stage 5 chronic kidney disease, or end stage renal disease; I50.9 Heart failure, unspecified; N18.6 End stage renal disease; D63.1 Anemia in chronic kidney disease; Z99.2 Dependence on renal dialysis; I48.91 Unspecified atrial fibrillation; N25.0 Renal osteodystrophy; R00.1 Bradycardia, unspecified; G47.33 Obstructive sleep apnea (adult) (pediatric); Z99.89 Dependence on other enabling machines and devices; M19.90 Unspecified osteoarthritis, unspecified site; Z20.822 Contact with and (suspected) exposure to COVID-19; Z79.01 Long term (current) use of anticoagulants; Z79.82 Long term (current) use of aspirin; Z79.899 Other long term (current) drug therapy
CPT/HCPCS: 36415; 71045; 80048; 80053; 80069; 83735; 83880; 84100; 84132; 84484; 85025; 86706; 87340; 87637; 93005; 93306; 94002; 96374; 96375; 97161; 97165; 99285; A9270; G0257; G0378; J1940; J7030; Q5105

== ENCOUNTER 2023-12-11 14:13 | Observation (INO) | payer OTHER, SELFPAY ==
[2023-12-11] VITALS (13 sets, daily range): BP systolic 119–141; BP diastolic 56–81; PULSE 60–108; RESP 11–23; TEMP 36.6–36.9; O2SAT 92–99; BMI 22.3
--- NOTE | ~2023-12-11 | US_ITS ---
EXAMINATION: US right upper quadrant DATE: 12/14/2023 09:13 INDICATION: Ascites. TECHNIQUE: Multiple grayscale and Doppler ultrasound images of the abdomen were obtained. COMPARISON: CT abdomen and pelvis 12/11/2023 FINDINGS: The visualized portions of the head, body, and tail of the pancreas are normal. The liver d emonstrates coarsened echotexture and surface nodularity. The gallbladder is normal in size contains sludge. Gallbladder wall thickening is noted, likely secondary to interstitial edema and chronic live r disease. There is no sonographic Aguero sign. The common duct is normal and measures 8 mm. There is a large volume of ascites. IMPRESSION: 1. Cirrhosis of the liver. 2. Large volume of ascites. Reviewed, dictated and finalized at location A.
--- NOTE | ~2023-12-11 | US_ITS ---
EXAMINATION: US paracentesis abd w/image DATE: 12/13/2023 10:44 INDICATION: Ascites. TECHNIQUE: The procedure and its risks, benefits, and alternatives were discussed with the patient. P otential risks discussed included bleeding and infection. The skin was prepped and draped in sterile fashion. 1% lidocaine was used for local anesthesia. Under ultrasound guidance, a 5 Fr catheter with trochar was advanced into the ascites in the left lower quadrant. Fluid was aspirated. The catheter w as removed, and a dressing was applied. There were no immediate complications. FINDINGS: Ultrasound images demonstrate ascites and the catheter within the fluid. IMPRESSION: 1. Successful ultrasound-guided paracentesis yielding 5000 mL of peter-colored fluid. Reviewed, dictated and finalized at location A.
--- NOTE | ~2023-12-11 | CT_ITS ---
EXAMINATION: CT abdomen pelvis wo con DATE: 12/11/2023 16:05 INDICATION: Low abdominal pain. Flank pain. Vomiting. TECHNIQUE: Computed tomography (CT) of the abdomen and pelvis was performed without intravenous contr ast. Automated exposure control and iterative reconstruction technique were employed. The dose-length product was 1342.45 mGy-cm. COMPARISON: CT abdomen and pelvis 03/06/2023 FINDINGS: The visualized portions of the lung bases demonstrate mild atelectasis. There is smooth sep raya thickening, consistent with mild pulmonary edema. Calcified pulmonary nodules and calcified hilar lymph nodes are consistent with old granulomatous disease. There are small pleural effusions. Cardio megaly is noted. There are coronary artery calcifications. There are calcifications of the aortic ry ve. No pericardial effusion. Calcifications in the liver and spleen are consistent with old granuloma tous disease. The gallbladder is normal in size and contains gallstones. There is calcified atheroscl erosis of the aorta and many of the other arteries. The pancreas and adrenal glands are normal. There is moderate atrophy of the kidneys. There are cysts in the kidneys measuring up to 3.9 cm on the rig ht. There is a large volume of ascites. There is a left inguinal hernia containing nonobstructed sigm oid colon and ascites. There is a right inguinal hernia containing nonobstructed small bowel and asci niurka. There is an umbilical hernia containing ascites. There is widespread body wall edema. There are no pathologically enlarged lymph nodes. There is severe thoracic and lumbar spondylosis. There is mil d chronic height loss of multiple vertebral bodies. There are old right rib fractures. IMPRESSION: 1. Large volume of ascites. 2. Bilateral inguinal hernias containing nonobstructed bowel. 3. Mild pulmonary edema. 4. Small pleural effusions. Reviewed, dictated and finalized at location E.
--- NOTE | 2023-12-11 14:50 | ED.ABDPAIN ---
HPI - Abdominal Pain General Chief Complaint: Abdominal Pain Stated Complaint: sent from with lower back and abdomen pain Time Seen by Provider: 12/11/23 14:30 Source: patient and family Mode of arrival: ambulatory Limitations: no limitations History of Present Illness HPI narrative: This is a 83 year old male that presents to the ER for low abdominal pain. Ongoing since last night. Associated with flank pain, nausea and vomiting. Reports abdominal distention worsening over the last couple of days. Denies fever, diarrhea, or dysuria. Related Data Home Medications Medication Instructions Recorded Confirmed furosemide 20 mg tablet 20 mg PO USEASDIRECTD 10/12/22 10/13/23 Allergies Allergy/AdvReac Type Severity Reaction Status Date / Time No Known Allergies Allergy Verified 12/11/23 14:13 Review of Systems Review of Systems: CONSTITUTIONAL: Denies fever GASTROINTESTINAL: Reports abdominal pain, nausea, vomiting. Denies diarrhea. GENITOURINARY: Denies dysuria All systems reviewed & are unremarkable except as noted in HPI and below PMFSH Past Medical History Medical History Amputation of finger of right hand Four digits sparing thumb, secondary to machinery accident Anemia due to chronic kidney disease, on chronic dialysis Anemia in chronic kidney disease Aortic stenosis Arthritis Atrial fibrillation Atrial fibrillation CHF (congestive heart failure) Chronic anticoagulation Congestive heart failure Dialysis patient Diarrhea End-stage renal disease on hemodialysis ESRD (end stage renal disease) Hypertension Hypertension Obstructive sleep apnea on CPAP Osteoarthritis Osteoarthritis of right shoulder Osteoporosis Sleep apnea Tricuspid insufficiency Surgical History Surgical History History of cataract extraction History of skin graft Presence of arteriovenous dialysis shunt L forearm w/ removal s/p infx, L upper arm placed Status post creation of arteriovenous fistula Status post surgical amputation of finger of right hand Family History Family History Sibling CKD (chronic kidney disease) Father Family history of coronary artery disease Social History Social History Social History: Surrogate medical decision maker: Dishatequila Carias, spouse. Code status: Full code. Smoking status: Never smoker Alcohol intake: never Alcohol use details: 2-3 beers per week. Denies history of heavy alcohol use. Substance use: never Do You Feel Safe in your Home?: Yes Lack of Transportation: No Lack of Food: Never True Current Housing: I Have Housing Concerned About Future Housing: No Difficulty Paying Gas/Electric Bills: No Difficulty Paying for Meds: No Currently Unemployed: No Education: High School Diploma/GED Difficulty w/ Childcare or Family Care: No Living arrangements: with family Occupation/Education: retired Spiritual care concerns: No Exam Narrative: GENERAL: Elderly, well-nourished, and in no acute distress. HEAD: Normocephalic, atraumatic. EYES: EOMI. ENT: Nares clear, no rhinorrhea or epistaxis. Mucous membranes moist. CHEST: Clear to auscultation. No respiratory distress. No wheezes rales or rhonchi HEART: Regular rate and rhythm. Normal peripheral pulses. ABDOMEN: Soft, nondistended, normal active bowel sounds. Tender to palpation throughout the lower abdomen, without guarding EXTREMITIES: Normal range of motion. No edema. SKIN: Warm, dry, no rash. NEURO: No focal deficits. Alert and oriented x3. PSYCH: Normal mood and affect Course Course Emergency Course: Patient and family updated on workup and agree with plan of care Consultations Consultation #1: Spoke with hospitalist about patient and workup who accepts admission Da
[2023-12-11 15:28] LABS: Basophils Percent Auto 0.4 % (0.2-1.2); Eosinophils Percent Auto 0.1 % (0-4.4); Hematocrit 32.5 % (42.0-52.0); Hemoglobin 10.5 g/dL (14.0-18.0); Immature Granulocyte Absolute 0.03 K/mm3 (0.00-0.031); Immature Granulocyte Percent A 0.4 % (0-0.5); Lymphocytes Absolute Auto 0.53 K/mm3 (0.9-3.2); Lymphocytes Percent Auto 7.5 % (18.3-44.2); Mean Corpuscular HGB Conc 32.3 g/dl (32-36); Mean Corpuscular Hemoglobin 30.6 pg (26-34); Mean Corpuscular Volume 94.8 fl (80-100); Mean Platelet Volume 10.6 fl (7.4-10.4); Monocytes Absolute Auto 0.5 K/mm3 (0.1-0.6); Monocytes Percent Auto 7.7 % (2.6-8.5); Neutrophils Absolute Auto 5.9 K/mm3 (1.3-6.7); Neutrophils Percent Auto 83.9 % (45.5-73.1); Platelet Count Result 289 k/mm3 (150-375); Red Blood Count 3.43 M/mm3 (4.6-6.20)
[2023-12-11] MEDS: ONDANSETRON INJ 4 MG/2 ML VIAL IV PUSH (15:28)
[2023-12-11] MEDS: MORPHINE SULFATE (*CRX) 2 MG/ML INJ IV PUSH ×2 (15:28→18:55)
[2023-12-11 15:46] LABS: Alanine Aminotransferase 10 U/L (6-50); Albumin Level 3.8 g/dL (3.5-5.1); Alkaline Phosphatase 99 U/L (38-126); Anion Gap 11 mmol/L (4-12); Aspartate Amino Transferase 22 U/L (17-59); Bilirubin,Total 0.9 mg/dL (0.2-1.3); Blood Urea Nitrogen 48 mg/dL (9-20); Calcium 9.8 mg/dL (8.4-10.2); Carbon Dioxide 31 mmol/L (22-30); Chloride 94 mmol/L (98-107); Estimated Glomerular Filt Rate 12; Glucose 107 mg/dL (65-110); Lipase 64 U/L (23-300); Potassium 3.6 mmol/L (3.4-5.0); Sodium 136 mmol/L (137-145)
--- NOTE | 2023-12-11 19:02 | PM.IMHP ---
H&P: HPI History of Present Illness Date/Time: 12/11/23 18:50 Chief Complaint: Lower abdomen pain. Narrative: This is a very pleasant 83-year-old male with end-stage renal disease on hemodialysis, congestive heart failure, paroxysmal atrial fibrillation, hypertension, anemia, dementia, and obstructive sleep apnea who presented to the emergency department via private vehicle from home for evaluation of low back and abdominal pain. He is a fair historian and his provides additional information, with the patient's permission. He started complaining of pain in his lower abdomen last night associated with several episodes of nonbloody and nonbilious emesis. He describes a tight and occasionally sharp shooting pain in the right middle to lower quadrant, radiating somewhat to the right flank. He has not noticed any significant alleviating or aggravating factors aside from palpation. He complains of abdominal distension and his has noticed in the last day or so that his abdomen has become increasingly more protuberant. He had similar symptoms last summer at which time he underwent paracentesis with pathology showing benign mesothelial cells, lymphocytes, and macrophages. The patient and his deny known history of liver disease but CT scan in February 2023 showed hepatic surface nodularity suggestive of cirrhosis. He denies further episodes of vomiting. He also denies fever, chills, sweats, melena, hematochezia, and hematemesis. In the ED: He was afebrile on arrival with stable blood pressures. Labs were significant for WBC count of 7.0, hemoglobin 10.5, sodium 136, potassium 3.6, BUN 48, creatinine 5.60, lipase 64. CT of the abdomen and pelvis showed a large volume of ascites, bilateral inguinal hernias, mild pulmonary edema, and small effusions. He is being admitted in this setting for further treatment and evaluation. COUNT INCLUDES THE [facility] Past Medical History Medical History (Updated 12/11/23 @ 22:38 by Sheron Jones PA-C) Amputation of finger of right hand Four digits sparing thumb, secondary to machinery accident Anemia in chronic kidney disease Aortic stenosis Atrial fibrillation Congestive heart failure End-stage renal disease on hemodialysis Hypertension Obstructive sleep apnea on CPAP Osteoarthritis Osteoporosis Tricuspid insufficiency Surgical History Surgical History History of cataract extraction History of skin graft Presence of arteriovenous dialysis shunt L forearm w/ removal s/p infx, L upper arm placed Status post creation of arteriovenous fistula Status post surgical amputation of finger of right hand Family History Family History Sibling CKD (chronic kidney disease) Father Family history of coronary artery disease Social History Social History Social History: Surrogate medical decision maker: Disha Carias, spouse. Code status: Full code. Smoking status: Never smoker Alcohol intake: never Alcohol use details: 2-3 beers per week. Denies history of heavy alcohol use. Substance use: never Do You Feel Safe in your Home?: Yes Lack of Transportation: No Lack of Food: Never True Current Housing: I Have Housing Concerned About Future Housing: No Difficulty Paying Gas/Electric Bills: No Difficulty Paying for Meds: No Currently Unemployed: No Education: High School Diploma/GED Difficulty w/ Childcare or Family Care: No Living arrangements: with family Occupation/Education: retired Spiritual care concerns: No Meds Home Medications and Allergies Home Medications Medication Instructions Recorded Confirmed Type cyanocobalamin (vitamin B-12) 1,000 mcg PO QAM #90 tabs 02/11/20 12/11/23 Rx 1,000 mcg tablet (Vitamin B-12) aspirin 81 mg tablet,delayed 81 mg PO QAM #90 tabs 02/18/20 12/11/23 Rx release amlod
[2023-12-11 19:08] LABS: INR 1.1; Prothrombin Time 14.3 Seconds (11.1-14.7)
[2023-12-11 19:09] LABS: Partial Thromboplastin Time 34.1 Seconds (22.3-36.8)
--- NOTE | 2023-12-11 20:00 | ADMGEN ---
This patient, Partha Carias Jr., was admitted to Medical Room 260-. Patient/family oriented to hospital policies and general routines including ID bracelet, bed and alarms, visiting hours, pain management, procedures, bathroom and other care routines, personal items, smoking policy, room service/diet, and visiting hours. Information on how to activate the Rapid Response Team has been discussed. Patient/Family are encouraged to report perceived risks to care and to ask questions if they do not understand what they are told or what they should do.
[2023-12-11] MEDS: fentaNYL CITRATE INJ (*CRX) 100 MCG/2 ML VIAL 25 MCG IV PUSH (22:19)
[2023-12-11 22:58] LABS: Albumin Level 3.8 g/dL (3.5-5.1)
[2023-12-11] MEDS: cefTRIAXone 2 GM/NS 100 ML 2 GM/100 ML BAG IVPB (23:16)
[2023-12-12] VITALS (20 sets, daily range): BP systolic 116–139; BP diastolic 63–103; PULSE 52–79; RESP 14–17; TEMP 36.5–37; O2SAT 98–99
[2023-12-12 05:47] LABS: Basophils Percent Auto 0.4 % (0.2-1.2); Eosinophils Percent Auto 0.3 % (0-4.4); Hematocrit 33.7 % (42.0-52.0); Hemoglobin 10.7 g/dL (14.0-18.0); Immature Granulocyte Absolute 0.03 K/mm3 (0.00-0.031); Immature Granulocyte Percent A 0.4 % (0-0.5); Lymphocytes Absolute Auto 0.65 K/mm3 (0.9-3.2); Mean Corpuscular HGB Conc 31.8 g/dl (32-36); Mean Corpuscular Hemoglobin 30.5 pg (26-34); Mean Platelet Volume 10.3 fl (7.4-10.4); Monocytes Absolute Auto 0.7 K/mm3 (0.1-0.6); Monocytes Percent Auto 9.7 % (2.6-8.5); Neutrophils Absolute Auto 5.8 K/mm3 (1.3-6.7); Neutrophils Percent Auto 80.2 % (45.5-73.1); Platelet Count Result 297 k/mm3 (150-375); Red Blood Count 3.51 M/mm3 (4.6-6.20); Red Cell Distribution Width 15.4 % (11.5-14.5); White Blood Count 7.2 K/mm3 (4.5-10.0)
[2023-12-12 06:00] LABS: Alanine Aminotransferase 9 U/L (6-50); Albumin Level 3.8 g/dL (3.5-5.1); Alkaline Phosphatase 103 U/L (38-126); Anion Gap 13 mmol/L (4-12); Aspartate Amino Transferase 21 U/L (17-59); Bilirubin,Total 0.8 mg/dL (0.2-1.3); Blood Urea Nitrogen 50 mg/dL (9-20); CRP 2.8 mg/dL (<1.0); Calcium 9.8 mg/dL (8.4-10.2); Carbon Dioxide 31 mmol/L (22-30); Chloride 94 mmol/L (98-107); Estimated CRCL calculation 9 ml/min; Estimated Glomerular Filt Rate 10; Glucose 101 mg/dL (65-110); Magnesium 2.1 mg/dL (1.6-2.3); Phosphorus 6.1 mg/dL (2.5-4.5); Potassium 3.7 mmol/L (3.4-5.0); Sodium 138 mmol/L (137-145)
[2023-12-12 06:20] LABS: Procalcitonin 0.7 ng/mL
[2023-12-12 06:38] LABS: Hepatitis B Surface Antigen Negative (Negative)
[2023-12-12 08:04] LABS: Hepatitis B Surface Anti Res Positive
--- NOTE | 2023-12-12 11:45 | PM.CNNEP ---
Assessment and Plan Assessment and plan (1) ESRD (end stage renal disease) on dialysis: Code(s): N18.6 - End stage renal disease; Z99.2 - Dependence on renal dialysis Status: Chronic Assessment and Plan: HD today continue M/W/F schedule while hospitalized follow trend of volume status, clearance, and electrolytes (2) Abdominal ascites: Code(s): R18.8 - Other ascites Status: Acute Assessment and Plan: presented with abdominal discomfort CT scan reveals large amount of ascites presumably due to liver disease/hepatic cirrhosis kidney disease in of itself usually does not cause this diagnostic and therapeutic paracentesis ordered attempt to be more aggressive with ultrafiltration with HD (although ascites is usually resistant to ultrafiltration with HD) (3) Hypertension: Qualifiers: Hypertension type: unspecified Qualified Code(s): I10 - Essential (primary) hypertension Code(s): I10 - Essential (primary) hypertension Status: Inactive Assessment and Plan: reasonable control at this time follow trend of hemodynamics (4) Fluid overload: Qualifiers: Hypervolemia type: unspecified Qualified Code(s): E87.70 - Fluid overload, unspecified Code(s): E87.70 - Fluid overload, unspecified Status: Acute Assessment and Plan: admission imaging noted (ascites, pleural effusions, body wall edema...etc) attempt more aggressive fluid removal/ultrafiltration however, in the past, his blood pressure does not always tolerate this intervention (5) Anemia: Code(s): D64.9 - Anemia, unspecified Status: Chronic Assessment and Plan: due to ESRD Epogen with HD follow trend of H/H I will continue follow the patient with you while he remains hospitalized make further recommendations as deemed necessary. Thank you for allowing me to participate in the care of this patient. History of Present Illness Reason for Consult Consult date: 12/12/23 Reason for consult: end stage renal disease Chief Complaint Chief complaint: Abd Pain, Ascites History of Present Illness Narrative: The patient is an 83-year-old male with a past medical history as outlined below who presented to [facility] Room with complaints of back pain and abdominal pain. The patient reports that he started having lower abdominal pain last night in association with several bouts of vomiting. The abdominal pain is described as a tightness with occasional sharp shooting pain in the right middle to lower quadrant with some radiation to his right flank area. He has not noted any type of alleviating or aggravating factors aside from palpation and massaging. He also notes that his abdomen seems a bit more distended than usual which was confirmed by his as she thinks his abdomen has become more protuberant. He had similar symptoms last summer which is thought to be secondary to large volume ascites that improved with a paracentesis. He gave no other subjective symptoms with regard to fevers, chills, diaphoresis, hematochezia, melena, or hematemesis. Given the persistence of the symptoms, the patient presented to the emergency room for further assessment. Workup and evaluation emergency room demonstrated the patient to be hemodynamically stable and in no acute distress. Routine blood tests were done which demonstrated his CBC with a white blood cell count 7.0, hemoglobin 10.5, and a chemistry that was consistent with his known history of end-stage renal disease. His lipase was within normal limits as well. A CT scan of his abdomen pelvis was done which showed a large volume of ascites, bilateral inguinal hernias, mild pleural edema, and small pleural effusions. Given his constellation of symptoms and the finding of the large volume of ascites, he was admitted to the hospital for further evaluation therapy and subsequen
[2023-12-12] MEDS: EPOETIN ALFA-EPBX 10,000 UNITS/ML VIAL 10000 UNITS IV PUSH (12:53)
[2023-12-12] MEDS: CYANOCOBALAMIN 1,000 MCG TABLET 1000 MCG PO (15:35)
[2023-12-12] MEDS: amLODIPine BESYLATE 5 MG TABLET PO (15:35)
--- NOTE | 2023-12-12 16:03 | PM.IMPN ---
Progress Note: A&P Assessment and Plan (1) Ascites: Qualifiers: Ascites type: other type Qualified Code(s): R18.8 - Other ascites Code(s): R18.8 - Other ascites Status: Acute Assessment and Plan: s/p 1 dose of antibiotics to cover for possible SBP CT showed large amount of ascites paracentesis ordered (2) Abdominal pain: Code(s): R10.9 - Unspecified abdominal pain Status: Acute (3) End-stage renal disease on hemodialysis: Code(s): N18.6 - End stage renal disease; Z99.2 - Dependence on renal dialysis Status: Chronic Assessment and Plan: M/W/F schedule nephrology following continue to monitor renal function (4) Hypertension: Code(s): I10 - Essential (primary) hypertension Status: Chronic Assessment and Plan: continue home meds (5) Anemia in chronic kidney disease: Code(s): N18.9 - Chronic kidney disease, unspecified; D63.1 - Anemia in chronic kidney disease Status: Chronic Assessment and Plan: stable, continue to monitor Subjective Date/time seen: 12/12/23 16:03 Interval history: Patient in no acute distress this morning, reports continued abdominal pain but denies SOB or chest pain. He is to have dialysis today to keep on schedule and then a paracentesis possibly this afternoon or tomorrow. Will continue to monitor. Review of Systems Review of Systems: All systems reviewed & are unremarkable except as noted in HPI and below Exam Narrative: General:?Well-developed, nontoxic-appearing elderly gentleman HEENT:?PERRLA, EOMI. Neck:??Supple. Respiratory:?Respirations are nonlabored. Lungs clear to auscultation. Cardiovascular:??RRR with S1-S2. 3-4/6 systolic murmur at the upper sternal border and apex verses radiation from left upper extremity fistula. Gastrointestinal:??Abdomen is slightly firm and distended with dullness to percussion at the flanks and fluid wave consistent with ascites. He seems to have some tenderness in the periumbilical region on the right but no voluntary guarding or rebound tenderness. Skin:??Warm and dry. Extremities:??No cyanosis, clubbing, or significant edema. Radial and pedal pulses intact. Left upper extremity fistula with positive thrill and bruit. Neurological:??Alert.? Cranial nerves 2-12 are grossly intact. No gross focal deficits to casual conversation. Psychiatric:??Pleasant and cooperative with normal mood and affect. Objective Data Vital Signs Vital Signs: Vital Signs - 24 hr 12/11/23 16:24 12/11/23 16:40 12/11/23 17:01 Temperature Pulse Rate 67 65 68 Respiratory Rate 19 20 11 L Blood Pressure 123/72 122/74 125/71 Pulse Oximetry 93 92 93 Oxygen Delivery Oxygen Flow Rate Fraction of Inspired Oxygen 12/11/23 17:21 12/11/23 17:41 12/11/23 18:02 Temperature Pulse Rate 69 66 70 Respiratory Rate 16 19 21 H Blood Pressure 127/72 138/70 133/73 Pulse Oximetry 97 92 94 Oxygen Delivery Oxygen Flow Rate Fraction of Inspired Oxygen 12/11/23 18:21 12/11/23 18:32 12/11/23 19:01 Temperature Pulse Rate 64 66 72 Respiratory Rate 23 H 20 20 Blood Pressure 135/66 130/66 124/81 Pulse Oximetry 94 93 94 Oxygen Delivery Oxygen Flow Rate Fraction of Inspired Oxygen 12/11/23 20:00 12/11/23 20:20 12/12/23 07:00 Temperature 97.9 F 97.9 F Pulse Rate 70 63 Respiratory Rate 16 14 Blood Pressure 119/63 128/77 Pulse Oximetry 94 98 Oxygen Delivery Room Air Oxygen Flow Rate Fraction of Inspired Oxygen 12/12/23 10:54 12/12/23 10:54 Temperature 98.6 F Pulse Rate 69 Respiratory Rate 17 Blood Pressure 130/71 Pulse Oximetry 99 Oxygen Delivery Oxygen Flow Rate 0 Fraction of Inspired Oxygen 0 Intake/Output Intake/Output: Intake & Output 12/09/23 12/10/23 12/11/23 12/12/23 23:59 23:59 23:59 23:59 Intake Total 100 50 Balance 100 50 Meds/Results Medications: Active Medications
[2023-12-12] MEDS: SODIUM BICARBONATE TAB 650 MG TABLET 1300 MG PO (18:28)
[2023-12-13 05:43] LABS: Basophils Percent Auto 0.4 % (0.2-1.2); Eosinophils Percent Auto 0.1 % (0-4.4); Hematocrit 35.8 % (42.0-52.0); Immature Granulocyte Absolute 0.01 K/mm3 (0.00-0.031); Immature Granulocyte Percent A 0.1 % (0-0.5); Lymphocytes Absolute Auto 0.84 K/mm3 (0.9-3.2); Lymphocytes Percent Auto 11.7 % (18.3-44.2); Mean Corpuscular HGB Conc 30.7 g/dl (32-36); Mean Corpuscular Hemoglobin 29.8 pg (26-34); Mean Platelet Volume 10.3 fl (7.4-10.4); Monocytes Absolute Auto 0.8 K/mm3 (0.1-0.6); Monocytes Percent Auto 10.4 % (2.6-8.5); Neutrophils Absolute Auto 5.5 K/mm3 (1.3-6.7); Neutrophils Percent Auto 77.3 % (45.5-73.1); Platelet Count Result 295 k/mm3 (150-375); Red Blood Count 3.69 M/mm3 (4.6-6.20); Red Cell Distribution Width 15.3 % (11.5-14.5); White Blood Count 7.2 K/mm3 (4.5-10.0)
[2023-12-13 06:01] LABS: Alanine Aminotransferase 10 U/L (6-50); Albumin Level 3.8 g/dL (3.5-5.1); Alkaline Phosphatase 105 U/L (38-126); Anion Gap 11 mmol/L (4-12); Aspartate Amino Transferase 20 U/L (17-59); Bilirubin,Total 0.8 mg/dL (0.2-1.3); Blood Urea Nitrogen 36 mg/dL (9-20); Calcium 9.8 mg/dL (8.4-10.2); Carbon Dioxide 29 mmol/L (22-30); Chloride 98 mmol/L (98-107); Estimated CRCL calculation 14 ml/min; Estimated Glomerular Filt Rate 15; Glucose 88 mg/dL (65-110); Potassium 3.9 mmol/L (3.4-5.0); Sodium 138 mmol/L (137-145)
[2023-12-13 06:05] VITALS: BP 134/55; PULSE 69; RESP 16; TEMP 36.6; O2SAT 98
[2023-12-13 10:43] VITALS: BP 130/60; PULSE 56; RESP 16; O2SAT 100
[2023-12-13] MEDS: SODIUM BICARBONATE TAB 650 MG TABLET 1300 MG PO (10:47)
[2023-12-13] MEDS: CYANOCOBALAMIN 1,000 MCG TABLET 1000 MCG PO (10:47)
[2023-12-13] MEDS: amLODIPine BESYLATE 5 MG TABLET PO (10:47)
[2023-12-13] MEDS: FUROSEMIDE 20 MG TABLET PO (10:48)
[2023-12-13 10:50] VITALS: PULSE 56; RESP 16; O2SAT 100
--- NOTE | 2023-12-13 11:03 | P.PNNP_ITS ---
Progress Note: A&P Assessment and Plan (1) ESRD (end stage renal disease) on dialysis: Code(s): N18.6 - End stage renal disease; Z99.2 - Dependence on renal dialysis Status: Chronic Assessment and Plan: * HD tomorrow * continue M/W/F schedule while hospitalized * follow trend of volume status, clearance, and electrolytes (2) Abdominal ascites: Code(s): R18.8 - Other ascites Status: Acute Assessment and Plan: * presented with abdominal discomfort * CT scan reveals large amount of ascites * presumably due to liver disease/hepatic cirrhosis * kidney disease in of itself usually does not cause this * diagnostic and therapeutic paracentesis done today * attempt to be more aggressive with ultrafiltration with HD (although ascites is usually resistant to ultrafiltration with HD) * GI consult? (3) Hypertension: Qualifiers: Hypertension type: unspecified Qualified Code(s): I10 - Essential (primary) hypertension Code(s): I10 - Essential (primary) hypertension Status: Chronic Assessment and Plan: * reasonable control at this time * follow trend of hemodynamics (4) Fluid overload: Qualifiers: Hypervolemia type: unspecified Qualified Code(s): E87.70 - Fluid overload, unspecified Code(s): E87.70 - Fluid overload, unspecified Status: Acute Assessment and Plan: * admission imaging noted (ascites, pleural effusions, body wall edema...etc) * attempt more aggressive fluid removal/ultrafiltration * however, in the past, his blood pressure does not always tolerate this intervention (5) Anemia: Code(s): D64.9 - Anemia, unspecified Status: Chronic Assessment and Plan: * due to ESRD * Epogen with HD * follow trend of H/H Will continue to follow. Subjective Date/time seen: 12/13/23 11:03 Interval history: Follow-up for end stage renal disease on hemodialysis. Tolerated hemodialysis treatment yesterday without any issues or problems; s/p large volume paracentesis earlier today and tolerated this intervention as well; report feeling significantly better following paracentesis; no apparent distress noted at the time of my visit. Exam Narrative: General: elderly male in NAD Heart: normal S1 and S2; no rub Lungs: coarse breath sounds; diminished at bases Abdomen: soft, nontender, non distended, positive bowel sounds Extremities: no cyanosis or clubbing; trace edema Skin: warm and dry Objective Data Vital Signs Vital Signs: Vital Signs Temp Pulse Resp BP Pulse Ox O2 Del Method FiO2 12/13/23 10:43 56 L 16 130/60 100 12/13/23 06:05 97.8 F 69 16 134/55 L 98 12/12/23 23:29 97.7 F 60 16 119/65 99 12/12/23 20:00 Room Air 0 12/12/23 14:57 98.2 F 75 14 119/72 98 12/12/23 14:38 77 124/81 12/12/23 14:30 79 122/91 H 12/12/23 14:15 57 L 116/78 12/12/23 14:00 68 123/80 12/12/23 13:45 60 121/103 H 12/12/23 13:30 61 127/79 12/12/23 13:15 58 L 120/82 12/12/23 13:00 58 L 133/83 12/12/23 12:45 57 L 131/85 Intake/Output Intake/Output: Intake & Output 12/10/23 12/11/23 12/12/23 12/13/23
--- NOTE | 2023-12-13 11:03 | PM.PNNEP ---
Progress Note: A&P Assessment and Plan (1) ESRD (end stage renal disease) on dialysis: Code(s): N18.6 - End stage renal disease; Z99.2 - Dependence on renal dialysis Status: Chronic Assessment and Plan: HD tomorrow continue M/W/F schedule while hospitalized follow trend of volume status, clearance, and electrolytes (2) Abdominal ascites: Code(s): R18.8 - Other ascites Status: Acute Assessment and Plan: presented with abdominal discomfort CT scan reveals large amount of ascites presumably due to liver disease/hepatic cirrhosis kidney disease in of itself usually does not cause this diagnostic and therapeutic paracentesis done today attempt to be more aggressive with ultrafiltration with HD (although ascites is usually resistant to ultrafiltration with HD) GI consult? (3) Hypertension: Qualifiers: Hypertension type: unspecified Qualified Code(s): I10 - Essential (primary) hypertension Code(s): I10 - Essential (primary) hypertension Status: Chronic Assessment and Plan: reasonable control at this time follow trend of hemodynamics (4) Fluid overload: Qualifiers: Hypervolemia type: unspecified Qualified Code(s): E87.70 - Fluid overload, unspecified Code(s): E87.70 - Fluid overload, unspecified Status: Acute Assessment and Plan: admission imaging noted (ascites, pleural effusions, body wall edema...etc) attempt more aggressive fluid removal/ultrafiltration however, in the past, his blood pressure does not always tolerate this intervention (5) Anemia: Code(s): D64.9 - Anemia, unspecified Status: Chronic Assessment and Plan: due to ESRD Epogen with HD follow trend of H/H Will continue to follow. Subjective Date/time seen: 12/13/23 11:03 Interval history: Follow-up for end stage renal disease on hemodialysis. Tolerated hemodialysis treatment yesterday without any issues or problems; s/p large volume paracentesis earlier today and tolerated this intervention as well; report feeling significantly better following paracentesis; no apparent distress noted at the time of my visit. Exam Narrative: General: elderly male in NAD Heart: normal S1 and S2; no rub Lungs: coarse breath sounds; diminished at bases Abdomen: soft, nontender, non distended, positive bowel sounds Extremities: no cyanosis or clubbing; trace edema Skin: warm and dry Objective Data Vital Signs Vital Signs: Vital Signs Temp Pulse Resp BP Pulse Ox O2 Del Method FiO2 12/13/23 10:43 56 L 16 130/60 100 12/13/23 06:05 97.8 F 69 16 134/55 L 98 12/12/23 23:29 97.7 F 60 16 119/65 99 12/12/23 20:00 Room Air 0 12/12/23 14:57 98.2 F 75 14 119/72 98 12/12/23 14:38 77 124/81 12/12/23 14:30 79 122/91 H 12/12/23 14:15 57 L 116/78 12/12/23 14:00 68 123/80 12/12/23 13:45 60 121/103 H 12/12/23 13:30 61 127/79 12/12/23 13:15 58 L 120/82 12/12/23 13:00 58 L 133/83 12/12/23 12:45 57 L 131/85 Intake/Output Intake/Output: Intake & Output 12/10/23 12/11/23 12/12/23 12/13/23 23:59 23:59 23:59 23:59 Intake Total 100 290 100 Output Total 3000 5000 Balance 100 -4400 -4900 Meds/Results Medications: Active Medications Generic Name Dose Route Start Last Admin Trade Name Jana PRN Reason Stop Dose Admin Acetaminophen 650 mg 12/11/23 22:44 Acetaminophen 325 Mg Tablet PO Q6H PRN Mild Pain (1-3) or Fever Amlodipine Besylate 5 mg 12/12/23 09:00 12/13/23 10:47 Amlodipine Besylate 5 Mg Tablet PO 5 mg QAM JAY Administration Cyanocobalamin 1,000 mcg 12/12/23 09:00 12/13/23 10:47 Cyanocobalamin 1,000 Mcg Tablet PO 1,000 mcg QAM AJY Administration Furosemide 20 mg 12/13/23 09:00 12/13/23 10:48 Furosemide 20 Mg Tablet PO 20 m
[2023-12-13 12:21] LABS: Appearance Peritoneal Fluid Clear (Clear); Color Peritoneal Fluid Yellow (Colorless); Source Peritoneal Fluid Peritoneal Fluid
[2023-12-13 12:22] LABS: Lymphocytes Peritoneal Fluid 18 %; Macrophages Peritoneal Fluid 72 %; Mesothelial Cells Peritoneal Fluid 2 %; Monocytes Peritoneal Fluid 7 %; Neutrophils Peritoneal Fluid 1 % (0-25); Nucleated Cells Peritoneal Flu 153 /uL (0-500); RBC Peritoneal Fluid 0 /uL (0-100000)
[2023-12-13 15:48] VITALS: BP 125/55; PULSE 58; RESP 16; TEMP 36.5; O2SAT 98
--- NOTE | 2023-12-13 15:58 | PM.IMPN ---
Progress Note: A&P Assessment and Plan (1) Ascites: Qualifiers: Ascites type: other type Qualified Code(s): R18.8 - Other ascites Code(s): R18.8 - Other ascites Status: Acute Assessment and Plan: s/p 1 dose of antibiotics to cover for possible SBP CT showed large amount of ascites paracentesis removed 5 L today, fluid sent for testing RUQ US ordered (2) Abdominal pain: Code(s): R10.9 - Unspecified abdominal pain Status: Resolved (3) End-stage renal disease on hemodialysis: Code(s): N18.6 - End stage renal disease; Z99.2 - Dependence on renal dialysis Status: Chronic Assessment and Plan: M/W/F schedule nephrology following continue to monitor renal function (4) Hypertension: Code(s): I10 - Essential (primary) hypertension Status: Chronic Assessment and Plan: continue home meds (5) Anemia in chronic kidney disease: Code(s): N18.9 - Chronic kidney disease, unspecified; D63.1 - Anemia in chronic kidney disease Status: Chronic Assessment and Plan: stable, continue to monitor Subjective Date/time seen: 12/13/23 15:58 Interval history: Patient is feeling much more comfortable today after dialysis and paracentesis. 5 l was pulled off and fluid sent for testing. Will order RUQ US to evaluate liver now that it can be visualized for evaluation of cause of ascites. Could be nephrotic. Will await results and plan for d/c tomorrow if unrevealing. Discussed questions and plan with at bedside. Review of Systems Review of Systems: All systems reviewed & are unremarkable except as noted in HPI and below Exam Narrative: General:?Well-developed, nontoxic-appearing elderly gentleman HEENT:?PERRLA, EOMI. Neck:??Supple. Respiratory:?Respirations are nonlabored. Lungs clear to auscultation. Cardiovascular:??RRR with S1-S2. 3-4/6 systolic murmur at the upper sternal border and apex verses radiation from left upper extremity fistula. Gastrointestinal:??Abdomen is soft, non-distended and non-tender. BS present. Skin:??Warm and dry. Extremities:??No cyanosis, clubbing, or significant edema. Radial and pedal pulses intact. Left upper extremity fistula with positive thrill and bruit. Neurological:??A&O x3.? Cranial nerves 2-12 are grossly intact. No gross focal deficits to casual conversation. Psychiatric:??Pleasant and cooperative with normal mood and affect. Objective Data Vital Signs Vital Signs: Vital Signs - 24 hr 12/12/23 20:00 12/12/23 23:29 12/13/23 06:05 Temperature 97.7 F 97.8 F Pulse Rate 60 69 Respiratory Rate 16 16 Blood Pressure 119/65 134/55 L Pulse Oximetry 99 98 Oxygen Delivery Room Air Fraction of Inspired Oxygen 0 12/13/23 10:43 12/13/23 10:50 12/13/23 15:48 Temperature 97.7 F Pulse Rate 56 L 56 L 58 L Respiratory Rate 16 16 16 Blood Pressure 130/60 125/55 L Pulse Oximetry 100 100 98 Oxygen Delivery Room Air Fraction of Inspired Oxygen 0 Intake/Output Intake/Output: Intake & Output 12/10/23 12/11/23 12/12/23 12/13/23 23:59 23:59 23:59 23:59 Intake Total 100 290 720 Output Total 3000 5000 Balance 100 -2554 -5540 Meds/Results Medications: Active Medications Generic Name Dose Route Start Last Admin Trade Name Freq PRN Reason Stop Dose Admin Acetaminophen 650 mg 12/11/23 22:44 Acetaminophen 325 Mg Tablet PO Q6H PRN Mild Pain (1-3) or Fever Amlodipine Besylate 5 mg 12/12/23 09:00 12/13/23 10:47 Amlodipine Besylate 5 Mg Tablet PO 5 mg QAM JAY Administration Cyanocobalamin 1,000 mcg 12/12/23 09:00 12/13/23 10:47 Cyanocobalamin 1,000 Mcg Tablet PO 1,000 mcg QAM JAY Administration Furosemide 20 mg 12/13/23 09:00 12/13/23 10:48 Furosemide 20 Mg Tablet PO 20 mg SuTuThSa JAY Administration Albumin Human 50 mls @ 999 mls/hr 12/11/23 21:22 Albutein IVPB 01/10/24 21:21 Q10M PRN
[2023-12-13 21:40] VITALS: BP 117/60; PULSE 60; RESP 16; TEMP 37.1; O2SAT 97
[2023-12-14] VITALS (23 sets, daily range): BP systolic 101–128; BP diastolic 53–71; PULSE 47–61; RESP 16–18; TEMP 36–37.2; O2SAT 97–100
[2023-12-14 05:23] LABS: Basophils Percent Auto 0.5 % (0.2-1.2); Eosinophils Absolute Auto 0.1 K/mm3 (0-0.3); Eosinophils Percent Auto 1.7 % (0-4.4); Hematocrit 33.4 % (42.0-52.0); Hemoglobin 10.4 g/dL (14.0-18.0); Immature Granulocyte Absolute 0.02 K/mm3 (0.00-0.031); Immature Granulocyte Percent A 0.3 % (0-0.5); Lymphocytes Absolute Auto 0.76 K/mm3 (0.9-3.2); Lymphocytes Percent Auto 11.9 % (18.3-44.2); Mean Corpuscular HGB Conc 31.1 g/dl (32-36); Mean Corpuscular Hemoglobin 30.1 pg (26-34); Mean Corpuscular Volume 96.8 fl (80-100); Mean Platelet Volume 10.6 fl (7.4-10.4); Monocytes Absolute Auto 0.9 K/mm3 (0.1-0.6); Monocytes Percent Auto 13.4 % (2.6-8.5); Neutrophils Absolute Auto 4.6 K/mm3 (1.3-6.7); Neutrophils Percent Auto 72.2 % (45.5-73.1); Platelet Count Result 268 k/mm3 (150-375); Red Blood Count 3.45 M/mm3 (4.6-6.20); Red Cell Distribution Width 15.3 % (11.5-14.5); White Blood Count 6.4 K/mm3 (4.5-10.0)
[2023-12-14 05:43] LABS: Anion Gap 9 mmol/L (4-12); Blood Urea Nitrogen 47 mg/dL (9-20); Calcium 9.4 mg/dL (8.4-10.2); Carbon Dioxide 27 mmol/L (22-30); Chloride 99 mmol/L (98-107); Estimated CRCL calculation 10 ml/min; Estimated Glomerular Filt Rate 11; Glucose 94 mg/dL (65-110); Potassium 3.9 mmol/L (3.4-5.0); Sodium 135 mmol/L (137-145)
[2023-12-14] MEDS: CYANOCOBALAMIN 1,000 MCG TABLET 1000 MCG PO (09:41)
--- NOTE | 2023-12-14 14:21 | PM.IMPN ---
Progress Note: A&P Assessment and Plan (1) Ascites: Qualifiers: Ascites type: other type Qualified Code(s): R18.8 - Other ascites Code(s): R18.8 - Other ascites Status: Acute Assessment and Plan: (2) Abdominal pain: Code(s): R10.9 - Unspecified abdominal pain Status: Resolved (3) End-stage renal disease on hemodialysis: Code(s): N18.6 - End stage renal disease; Z99.2 - Dependence on renal dialysis Status: Chronic Assessment and Plan: (4) Hypertension: Code(s): I10 - Essential (primary) hypertension Status: Chronic Assessment and Plan: (5) Anemia in chronic kidney disease: Code(s): N18.9 - Chronic kidney disease, unspecified; D63.1 - Anemia in chronic kidney disease Status: Chronic Assessment and Plan: (6) Cirrhosis: Code(s): K74.60 - Unspecified cirrhosis of liver Status: Acute Plan Cirrhosis newly diagnosed with ascites paracentesis removed 5 L fluid pending for testing GI consulted albumin as needed US shows cirrhosis with large ascites post 1st paracentesis Spironolactone started patient already on 20 of Lasix likely need a 2nd paracentesis ESRD M/W/F schedule nephrology consulted Avoid nephrotoxic drugs. Monitor antihypertensive drug therapy. Avoid NSAIDs. Routine CMP monitoring GFR. Monitor electrolytes especially potassium. Antibiotic doses depending on creatinine clearance. Pharmacy does medications. Cr Routine follow-up with Nephrology as an outpatient. HTN BP stable Resume home medication BP per unit protocol Albumin p.r.n. for hypotension Code status: Full code per patient DVT prophylaxis: Scd Stress ulcer prophylaxis: Protonix 40 daily PT/OT notes: Pending Disposition: Patient continues admission for new onset cirrohosis with ascites will need second paracentasis, GI consulted will continue with his dialysis scheduled. Time Spent With Patient Time with patient: 15 - 25 minutes Subjective Date/time seen: 12/14/23 14:21 Interval history: Admission: Medical Record his is a very pleasant 83-year-old male with end-stage renal disease on hemodialysis, congestive heart failure, paroxysmal atrial fibrillation, hypertension, anemia, dementia, and obstructive sleep apnea who presented to the emergency department via private vehicle from home for evaluation of low back and abdominal pain. He is a fair historian and his provides additional information, with the patient's permission. He started complaining of pain in his lower abdomen last night associated with several episodes of nonbloody and nonbilious emesis. He describes a tight and occasionally sharp shooting pain in the right middle to lower quadrant, radiating somewhat to the right flank. He has not noticed any significant alleviating or aggravating factors aside from palpation. He complains of abdominal distension and his has noticed in the last day or so that his abdomen has become increasingly more protuberant. He had similar symptoms last summer at which time he underwent paracentesis with pathology showing benign mesothelial cells, lymphocytes, and macrophages. The patient and his deny known history of liver disease but CT scan in February 2023 showed hepatic surface nodularity suggestive of cirrhosis. He denies further episodes of vomiting. He also denies fever, chills, sweats, melena, hematochezia, and hematemesis. In the ED: He was afebrile on arrival with stable blood pressures. Labs were significant for WBC count of 7.0, hemoglobin 10.5, sodium 136, potassium 3.6, BUN 48, creatinine 5.60, lipase 64. CT of the abdomen and pelvis showed a large volume of ascites, bilateral inguinal hernias, mild pulmonary edema, and small effusions. He is being admitted in this setting for further treatment and evaluation. 12/12: Medical Record Patient is feeling much
--- NOTE | 2023-12-14 14:40 | PM.PNNEP ---
Progress Note: A&P Assessment and Plan (1) ESRD (end stage renal disease) on dialysis: Code(s): N18.6 - End stage renal disease; Z99.2 - Dependence on renal dialysis Status: Chronic Assessment and Plan: HD todat continue M/W/F schedule while hospitalized follow trend of volume status, clearance, and electrolytes (2) Abdominal ascites: Code(s): R18.8 - Other ascites Status: Acute Assessment and Plan: presented with abdominal discomfort CT scan reveals large amount of ascites presumably due to liver disease/hepatic cirrhosis kidney disease in of itself usually does not cause this diagnostic and therapeutic paracentesis done on 12/12 attempt to be more aggressive with fluid removal with HD (although ascites is usually resistant to ultrafiltration with HD) GI consulted for further evaluation likely to need repeat paracentesis (3) Hypertension: Qualifiers: Hypertension type: unspecified Qualified Code(s): I10 - Essential (primary) hypertension Code(s): I10 - Essential (primary) hypertension Status: Chronic Assessment and Plan: reasonable control at this time follow trend of hemodynamics (4) Fluid overload: Qualifiers: Hypervolemia type: unspecified Qualified Code(s): E87.70 - Fluid overload, unspecified Code(s): E87.70 - Fluid overload, unspecified Status: Acute Assessment and Plan: admission imaging noted (ascites, pleural effusions, body wall edema...etc) attempt more aggressive fluid removal/ultrafiltration however, in the past, his blood pressure does not always tolerate this intervention (5) Anemia: Code(s): D64.9 - Anemia, unspecified Status: Chronic Assessment and Plan: due to ESRD Epogen with HD follow trend of H/H Will continue to follow. Subjective Date/time seen: 12/14/23 14:40 Interval history: Follow-up for end stage renal disease on hemodialysis. Tolerating hemodialysis treatment at the time of my visit (seen on HD at 2:30PM); repeat imaging confirms liver cirrhosis with the presence of ascites once again despite large volume paracentesis yesterday; GI consulted; no apparent distress noted; no other issues/events overnight or earlier this AM. Exam Narrative: General: elderly male in NAD Heart: normal S1 and S2; no rub Lungs: coarse breath sounds; diminished at bases Abdomen: soft, nontender, mild distension, positive bowel sounds Extremities: no cyanosis or clubbing; trace edema Skin: warm and intact Objective Data Vital Signs Vital Signs: Vital Signs Temp Pulse Resp BP Pulse Ox O2 Del Method 12/14/23 14:30 52 L 123/64 12/14/23 14:15 48 L 116/65 12/14/23 14:00 53 L 105/58 L 12/14/23 15:15 51 L 117/61 12/14/23 15:00 49 L 114/58 L 12/14/23 13:55 56 L 101/54 L 12/14/23 13:41 98.2 F 54 L 18 122/67 97 12/14/23 08:00 100 Room Air 12/14/23 06:00 98.7 F 55 L 18 127/71 100 12/13/23 20:00 Room Air 12/13/23 21:40 98.7 F 60 16 117/60 97 Intake/Output Intake/Output: Intake & Output 12/11/23 12/12/23 12/13/23 12/14/23 23:59 23:59 23:59 23:59 Intake Total 100 290 960 590 Output Total 3000 5000 0 Balance 100 -2710 -4040 590 Meds/Results Medications: Active Medications Generic Name Dose Route Start Last Admin Trade Name Freq PRN Reason Stop Dose Admin Acetaminophen 650 mg 12/11/23 22:44 Acetaminophen 325 Mg Tablet PO Q6H PRN Mild Pain (1-3) or Fever Amlodipine Besylate 5 mg 12/12/23 09:00 12/13/23 10:47 Amlodipine Besylate 5 Mg Tablet PO 5 mg QAM [facility] Administration Cyanocobalamin 1,000 mcg 12/12/23 09:00 12/14/23 09:41 Cyanocobalamin 1,000 Mcg Tablet PO 1,000 mcg QAM [facility] Administration Epoetin Marco A-epbx 10,000 units 12/14/23 20:00 12/14/23 16:50 Epoetin Marco A-Epbx 10,000 Units/Ml Vial
--- NOTE | 2023-12-14 14:40 | P.PNNP_ITS ---
Progress Note: A&P Assessment and Plan (1) ESRD (end stage renal disease) on dialysis: Code(s): N18.6 - End stage renal disease; Z99.2 - Dependence on renal dialysis Status: Chronic Assessment and Plan: * HD todat * continue M/W/F schedule while hospitalized * follow trend of volume status, clearance, and electrolytes (2) Abdominal ascites: Code(s): R18.8 - Other ascites Status: Acute Assessment and Plan: * presented with abdominal discomfort * CT scan reveals large amount of ascites * presumably due to liver disease/hepatic cirrhosis * kidney disease in of itself usually does not cause this * diagnostic and therapeutic paracentesis done on 12/12 * attempt to be more aggressive with fluid removal with HD (although ascites is usually resistant to ultrafiltration with HD) * GI consulted for further evaluation * likely to need repeat paracentesis (3) Hypertension: Qualifiers: Hypertension type: unspecified Qualified Code(s): I10 - Essential (primary) hypertension Code(s): I10 - Essential (primary) hypertension Status: Chronic Assessment and Plan: * reasonable control at this time * follow trend of hemodynamics (4) Fluid overload: Qualifiers: Hypervolemia type: unspecified Qualified Code(s): E87.70 - Fluid overload, unspecified Code(s): E87.70 - Fluid overload, unspecified Status: Acute Assessment and Plan: * admission imaging noted (ascites, pleural effusions, body wall edema...etc) * attempt more aggressive fluid removal/ultrafiltration * however, in the past, his blood pressure does not always tolerate this intervention (5) Anemia: Code(s): D64.9 - Anemia, unspecified Status: Chronic Assessment and Plan: * due to ESRD * Epogen with HD * follow trend of H/H Will continue to follow. Subjective Date/time seen: 12/14/23 14:40 Interval history: Follow-up for end stage renal disease on hemodialysis. Tolerating hemodialysis treatment at the time of my visit (seen on HD at 2:30PM); repeat imaging confirms liver cirrhosis with the presence of ascites once again despite large volume paracentesis yesterday; GI consulted; no apparent distress noted; no other issues/events overnight or earlier this AM. Exam Narrative: General: elderly male in NAD Heart: normal S1 and S2; no rub Lungs: coarse breath sounds; diminished at bases Abdomen: soft, nontender, mild distension, positive bowel sounds Extremities: no cyanosis or clubbing; trace edema Skin: warm and intact Objective Data Vital Signs Vital Signs: Vital Signs Temp Pulse Resp BP Pulse Ox O2 Del Method 12/14/23 14:30 52 L 123/64 12/14/23 14:15 48 L 116/65 12/14/23 14:00 53 L 105/58 L 12/14/23 15:15 51 L 117/61 12/14/23 15:00 49 L 114/58 L 12/14/23 13:55 56 L 101/54 L 12/14/23 13:41 98.2 F 54 L 18 122/67 97 12/14/23 08:00 100 Room Air 12/14/23 06:00 98.7 F 55 L 18 127/71 100 12/13/23 20:00 Room Air 12/13/23 21:40 98.7 F 60 16 117/60 97 Intake/Output Intake/Output: Intake & Output 12/11/23 12/12/23 12/13/23 12/14/23 23:59 23:59 23:59 23:59 Jaron
--- NOTE | 2023-12-14 15:55 | PCPTNOTE ---
attempted PT eval, per nursing assoc, pt is at dialysis, will follow
[2023-12-14] MEDS: EPOETIN ALFA-EPBX 10,000 UNITS/ML VIAL 10000 UNITS IV PUSH (16:50)
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
[2023-12-14] MEDS: SPIRONOLACTONE 50 MG TABLET PO (18:05)
[2023-12-14] MEDS: amLODIPine BESYLATE 5 MG TABLET PO (18:05)
[2023-12-15 04:00] VITALS: BP 121/67; PULSE 68; RESP 18; TEMP 36.3; O2SAT 100
[2023-12-15 05:20] LABS: Hematocrit 34.2 % (42.0-52.0); Hemoglobin 10.7 g/dL (14.0-18.0); Mean Corpuscular HGB Conc 31.3 g/dl (32-36); Mean Corpuscular Volume 95.8 fl (80-100); Mean Platelet Volume 10.5 fl (7.4-10.4); Platelet Count Result 244 k/mm3 (150-375); Red Blood Count 3.57 M/mm3 (4.6-6.20); White Blood Count 6.2 K/mm3 (4.5-10.0)
[2023-12-15 05:40] LABS: Alanine Aminotransferase 7 U/L (6-50); Albumin Level 3.5 g/dL (3.5-5.1); Alkaline Phosphatase 97 U/L (38-126); Anion Gap 6 mmol/L (4-12); Aspartate Amino Transferase 19 U/L (17-59); Bilirubin,Total 0.6 mg/dL (0.2-1.3); Blood Urea Nitrogen 28 mg/dL (9-20); Calcium 9.3 mg/dL (8.4-10.2); Carbon Dioxide 32 mmol/L (22-30); Chloride 99 mmol/L (98-107); Estimated CRCL calculation 14 ml/min; Estimated Glomerular Filt Rate 16; Glucose 99 mg/dL (65-110); Iron 34 ug/dL (49-181); Potassium 3.7 mmol/L (3.4-5.0); Sodium 137 mmol/L (137-145)
[2023-12-15 05:49] LABS: Percent Iron Saturation 23 % (20-50)
--- NOTE | 2023-12-15 06:17 | PC.NURSE ---
AMYLASE PERITONEAL FLUID NOT COLLECTED , LAB NOTIFIED, WILL ADD ON TO SPECIMEN COLLECTED 12/13/23
[2023-12-15 06:27] LABS: Hepatitis C Virus Antibody Negative (Negative)
[2023-12-15] MEDS: CYANOCOBALAMIN 1,000 MCG TABLET 1000 MCG PO (09:58)
[2023-12-15] MEDS: SPIRONOLACTONE 50 MG TABLET PO (09:58)
[2023-12-15] MEDS: PANTOPRAZOLE 40 MG TABLET PO (09:58)
[2023-12-15] MEDS: FUROSEMIDE 20 MG TABLET PO (09:58)
[2023-12-15] MEDS: amLODIPine BESYLATE 5 MG TABLET PO (09:58)
[2023-12-15 12:00] VITALS: BP 112/57; PULSE 70; RESP 18; TEMP 36.3; O2SAT 99
--- NOTE | 2023-12-15 13:26 | PC.NURSE ---
On 12/15/23, the student, [Nini Livingston], provided care and completed [facility] documentation on this patient. I have reviewed the student's documentation and agree with the findings.
--- NOTE | 2023-12-15 13:35 | PM.PNNEP ---
Progress Note: A&P Assessment and Plan (1) ESRD (end stage renal disease) on dialysis: Code(s): N18.6 - End stage renal disease; Z99.2 - Dependence on renal dialysis Status: Chronic Assessment and Plan: HD tomorrow continue M/W/F schedule while hospitalized follow trend of volume status, clearance, and electrolytes (2) Abdominal ascites: Code(s): R18.8 - Other ascites Status: Acute Assessment and Plan: presented with abdominal discomfort CT scan reveals large amount of ascites presumably due to liver disease/hepatic cirrhosis kidney disease in of itself usually does not cause this diagnostic and therapeutic paracentesis done on 12/12 attempt to be more aggressive with fluid removal with HD (although ascites is usually resistant to ultrafiltration with HD) GI recommendations likely to need recurrent paracenteses as an outpatient careful with use of spironolactone given ESRD status (3) Hypertension: Qualifiers: Hypertension type: unspecified Qualified Code(s): I10 - Essential (primary) hypertension Code(s): I10 - Essential (primary) hypertension Status: Chronic Assessment and Plan: reasonable control at this time follow trend of hemodynamics (4) Fluid overload: Qualifiers: Hypervolemia type: unspecified Qualified Code(s): E87.70 - Fluid overload, unspecified Code(s): E87.70 - Fluid overload, unspecified Status: Acute Assessment and Plan: admission imaging noted (ascites, pleural effusions, body wall edema...etc) attempt more aggressive fluid removal/ultrafiltration however, in the past, his blood pressure does not always tolerate this intervention (5) Anemia: Code(s): D64.9 - Anemia, unspecified Status: Chronic Assessment and Plan: due to ESRD Epogen with HD follow trend of H/H Will continue to follow. Subjective Date/time seen: 12/15/23 13:35 Interval history: Follow-up for end stage renal disease on hemodialysis. Tolerated dialysis treatment yesterday without any issues or problems; seen by GI earlier today with recommendations noted; no apparent distress noted at this time; no issues/.events overnight or earlier this morning. Exam Narrative: General: elderly male in NAD Heart: normal S1 and S2; no rub Lungs: coarse breath sounds; diminished at bases Abdomen: soft, nontender, mild distension, positive bowel sounds Extremities: no cyanosis or clubbing; trace edema Skin: no rash or nodules Objective Data Vital Signs Vital Signs: Vital Signs Temp Pulse Resp BP Pulse Ox O2 Del Method 12/15/23 13:25 96.9 F L 56 L 16 119/54 L 97 12/15/23 12:00 Room Air 12/15/23 12:00 97.4 F L 70 18 112/57 L 99 12/15/23 09:58 Room Air 12/15/23 11:05 Room Air 12/15/23 09:05 Room Air 12/15/23 04:00 97.4 F L 68 18 121/67 100 12/14/23 20:22 98.2 F 61 18 115/65 99 12/14/23 18:10 96.8 F L 51 L 16 128/64 99 12/14/23 17:27 60 120/61 12/14/23 17:15 53 L 120/65 12/14/23 17:00 50 L 120/63 12/14/23 17:32 98.1 F 61 18 125/63 98 12/14/23 16:45 52 L 113/64 12/14/23 16:30 54 L 122/63 12/14/23 16:15 60 115/53 L 12/14/23 16:00 47 L 121/66 12/14/23 15:45 51 L 118/60 12/14/23 15:30 51 L 111/56 L Intake/Output Intake/Output: Intake & Output 12/12/23 12/13/23 12/14/23 12/15/23 23:59 23:59 23:59 23:59 Intake Total 290 960 830 360 Output Total 3000 5000 1999 [facility] [phone] Meds/Results Medications: Active Medications Generic Name Dose Route Start Last Admin Trade Name Freq PRN Reason Stop Dose Admin Acetaminophen 650 mg 12/11/23 22:44 Acetaminophen 325 Mg Tablet PO Q6H PRN Mild Pain (1-3) or Fever Amlodipine Besylate 5 mg 12/12/23 09:00 12/15/23 09:58 Amlodipine Besylate 5 Mg
--- NOTE | 2023-12-15 13:35 | P.PNNP_ITS ---
Progress Note: A&P Assessment and Plan (1) ESRD (end stage renal disease) on dialysis: Code(s): N18.6 - End stage renal disease; Z99.2 - Dependence on renal dialysis Status: Chronic Assessment and Plan: * HD tomorrow * continue M/W/F schedule while hospitalized * follow trend of volume status, clearance, and electrolytes (2) Abdominal ascites: Code(s): R18.8 - Other ascites Status: Acute Assessment and Plan: * presented with abdominal discomfort * CT scan reveals large amount of ascites * presumably due to liver disease/hepatic cirrhosis * kidney disease in of itself usually does not cause this * diagnostic and therapeutic paracentesis done on 12/12 * attempt to be more aggressive with fluid removal with HD (although ascites is usually resistant to ultrafiltration with HD) * GI recommendations * likely to need recurrent paracenteses as an outpatient * careful with use of spironolactone given ESRD status (3) Hypertension: Qualifiers: Hypertension type: unspecified Qualified Code(s): I10 - Essential (primary) hypertension Code(s): I10 - Essential (primary) hypertension Status: Chronic Assessment and Plan: * reasonable control at this time * follow trend of hemodynamics (4) Fluid overload: Qualifiers: Hypervolemia type: unspecified Qualified Code(s): E87.70 - Fluid overload, unspecified Code(s): E87.70 - Fluid overload, unspecified Status: Acute Assessment and Plan: * admission imaging noted (ascites, pleural effusions, body wall edema...etc) * attempt more aggressive fluid removal/ultrafiltration * however, in the past, his blood pressure does not always tolerate this intervention (5) Anemia: Code(s): D64.9 - Anemia, unspecified Status: Chronic Assessment and Plan: * due to ESRD * Epogen with HD * follow trend of H/H Will continue to follow. Subjective Date/time seen: 12/15/23 13:35 Interval history: Follow-up for end stage renal disease on hemodialysis. Tolerated dialysis treatment yesterday without any issues or problems; seen by GI earlier today with recommendations noted; no apparent distress noted at this time; no issues/.events overnight or earlier this morning. Exam Narrative: General: elderly male in NAD Heart: normal S1 and S2; no rub Lungs: coarse breath sounds; diminished at bases Abdomen: soft, nontender, mild distension, positive bowel sounds Extremities: no cyanosis or clubbing; trace edema Skin: no rash or nodules Objective Data Vital Signs Vital Signs: Vital Signs Temp Pulse Resp BP Pulse Ox O2 Del Method 12/15/23 13:25 96.9 F L 56 L 16 119/54 L 97 12/15/23 12:00 Room Air 12/15/23 12:00 97.4 F L 70 18 112/57 L 99 12/15/23 09:58 Room Air 12/15/23 11:05 Room Air 12/15/23 09:05 Room Air 12/15/23 04:00 97.4 F L 68 18 121/67 100 12/14/23 20:22 98.2 F 61 18 115/65 99 12/14/23 18:10 96.8 F L 51 L 16 128/64 99 12/14/23 17:27 60 120/61 12/14/23 17:15 53 L 120/65 12/14/23 17:00 50 L 120/63 12/14/23 17:32 98.1 F 61 18 125/63 98 12/14/23 16:45 52 L 113/64 12/14/23 16:30 54 L 122/63 12/14/23 16:15 60
[2023-12-15 13:45] VITALS: BP 119/54; PULSE 56; RESP 16; TEMP 36.1; O2SAT 97
--- NOTE | 2023-12-15 14:31 | PC.NURSE ---
On 12/15/23, the student, [Vamsi Starr], provided care and completed [facility] documentation on this patient. I have reviewed the student's documentation and agree with the findings.
--- NOTE | 2023-12-15 14:35 | PM.DS ---
DS: Admitting Diagnosis Discharge Date 12/15/2023 Admitting Diagnosis New onset Ascites/ESRD/New onset Cirrhosis DS: Discharge Diagnosis Discharge Diagnosis (1) Ascites: Qualifiers: Ascites type: other type Qualified Code(s): R18.8 - Other ascites Code(s): R18.8 - Other ascites Status: Acute Assessment and Plan: (2) Abdominal pain: Code(s): R10.9 - Unspecified abdominal pain Status: Resolved (3) End-stage renal disease on hemodialysis: Code(s): N18.6 - End stage renal disease; Z99.2 - Dependence on renal dialysis Status: Chronic Assessment and Plan: (4) Hypertension: Code(s): I10 - Essential (primary) hypertension Status: Chronic Assessment and Plan: (5) Anemia in chronic kidney disease: Code(s): N18.9 - Chronic kidney disease, unspecified; D63.1 - Anemia in chronic kidney disease Status: Chronic Assessment and Plan: (6) Cirrhosis: Code(s): K74.60 - Unspecified cirrhosis of liver Status: Acute Plan Cirrhosis newly diagnosed with ascites paracentesis removed 5 L fluid pending for testing GI consulted albumin as needed US shows cirrhosis with large ascites post 1st paracentesis Spironolactone started patient already on 20 of Lasix likely need a 2nd paracentesis ESRD M/W/F schedule nephrology consulted Avoid nephrotoxic drugs. Monitor antihypertensive drug therapy. Avoid NSAIDs. Routine CMP monitoring GFR. Monitor electrolytes especially potassium. Antibiotic doses depending on creatinine clearance. Pharmacy does medications. Cr Routine follow-up with Nephrology as an outpatient. HTN BP stable Resume home medication BP per unit protocol Albumin p.r.n. for hypotension Disposition: Patient discharged home with home health via . Dialysis scheduled tomorrow will have f/u with GI and need to schedule paracentesis O/P intermittently. DS: Summary Hospital Course Reason for hospitalization: New onset Ascites/ESRD/New onset Cirrhosis Hospital Course: Admission: Medical Record his is a very pleasant 83-year-old male with end-stage renal disease on hemodialysis, congestive heart failure, paroxysmal atrial fibrillation, hypertension, anemia, dementia, and obstructive sleep apnea who presented to the emergency department via private vehicle from home for evaluation of low back and abdominal pain. He is a fair historian and his provides additional information, with the patient's permission. He started complaining of pain in his lower abdomen last night associated with several episodes of nonbloody and nonbilious emesis. He describes a tight and occasionally sharp shooting pain in the right middle to lower quadrant, radiating somewhat to the right flank. He has not noticed any significant alleviating or aggravating factors aside from palpation. He complains of abdominal distension and his has noticed in the last day or so that his abdomen has become increasingly more protuberant. He had similar symptoms last summer at which time he underwent paracentesis with pathology showing benign mesothelial cells, lymphocytes, and macrophages. The patient and his deny known history of liver disease but CT scan in February 2023 showed hepatic surface nodularity suggestive of cirrhosis. He denies further episodes of vomiting. He also denies fever, chills, sweats, melena, hematochezia, and hematemesis. In the ED: He was afebrile on arrival with stable blood pressures. Labs were significant for WBC count of 7.0, hemoglobin 10.5, sodium 136, potassium 3.6, BUN 48, creatinine 5.60, lipase 64. CT of the abdomen and pelvis showed a large volume of ascites, bilateral inguinal hernias, mild pulmonary edema, and small effusions. He is being admitted in this setting for further treatment and evaluation. 12/12: Medical Record Patient is feeling much mor
--- NOTE | 2023-12-15 17:45 | WPDGIPROGNO ---
Progress Note: A&P Assessment and Plan (1) Cirrhosis: Code(s): K74.60 - Unspecified cirrhosis of liver Status: Acute Assessment and Plan: work up in progress he can follow-up in office no objections to discharge (2) Ascites: Qualifiers: Ascites type: other type Qualified Code(s): R18.8 - Other ascites Code(s): R18.8 - Other ascites Status: Acute Assessment and Plan: paracentesis, no sbp feeling better 2g na diet difficult to treat with diuretics since he has ESRD (3) End stage renal disease: Code(s): N18.6 - End stage renal disease Status: Acute (4) Abdominal pain: Code(s): R10.9 - Unspecified abdominal pain Status: Resolved Assessment and Plan: resolved (5) Anemia due to chronic kidney disease, on chronic dialysis: Code(s): N18.6 - End stage renal disease; D63.1 - Anemia in chronic kidney disease; Z99.2 - Dependence on renal dialysis Status: Chronic Subjective Date/time seen: 12/15/23 17:45 Interval history: he is comfortable, better after paracentesis he is eating regular dinner Review of Systems Review of Systems: All systems reviewed & are unremarkable except as noted in HPI and below Exam Const: General: comfortable and no acute distress Other: he is pleasant HENMT: Face/Nose/Sinus: Normal nares present Eyes: General: appearance normal, both eyes and all related structures Neck: Neck: supple Resp: Auscultation: clear to auscultation bilaterally Cardio: Rate: regular rate Rhythm: regular rhythm GI: Inspection: non-distended GI Palp: Yes Soft to palpation and No Tenderness to palpation present (GI) Auscultation: normal bowel sounds Other: + less fluid wave Skin: General skin exam: normal color Neuro: Speech: normal speech Motor exam (neuro): 5/5 motor strength present throughout Extrem: General: normal to inspection Psych: Mental Status: mental status grossly normal Objective Data Vital Signs Vital Signs: Vital Signs - 24 hr 12/14/23 18:10 12/14/23 20:22 12/15/23 04:00 Temperature 96.8 F L 98.2 F 97.4 F L Pulse Rate 51 L 61 68 Respiratory Rate 16 18 18 Blood Pressure 128/64 115/65 121/67 Pulse Oximetry 99 99 100 Oxygen Delivery 12/15/23 09:05 12/15/23 11:05 12/15/23 09:58 Temperature Pulse Rate Respiratory Rate Blood Pressure Pulse Oximetry Oxygen Delivery Room Air Room Air Room Air 12/15/23 12:00 12/15/23 12:00 12/15/23 13:45 Temperature 97.4 F L 96.9 F L Pulse Rate 70 56 L Respiratory Rate 18 16 Blood Pressure 112/57 L 119/54 L Pulse Oximetry 99 97 Oxygen Delivery Room Air Intake/Output Intake/Output: Intake & Output 12/12/23 12/13/23 12/14/23 12/15/23 23:59 23:59 23:59 23:59 Intake Total 290 960 830 360 Output Total 3000 5000 2000 Balance -2800 -4040 -1170 360 Meds/Results Medications: Active Medications Generic Name Dose Route Start Last Admin Trade Name Freq PRN Reason Stop Dose Admin Acetaminophen 650 mg 12/11/23 22:44 Acetaminophen 325 Mg Tablet PO Q6H PRN Mild Pain (1-3) or Fever Amlodipine Besylate 5 mg 12/12/23 09:00 12/15/23 09:58 Amlodipine Besylate 5 Mg Tablet PO 5 mg QAM JAY Administration Cyanocobalamin 1,000 mcg 12/12/23 09:00 12/15/23 09:58 Cyanocobalamin 1,000 Mcg Tablet PO 1,000 mcg QAM JAY Administration Furosemide 20 mg 12/13/23 09:00 12/15/23 09:58 Furosemide 20 Mg Tablet PO 20 mg SuTuThSa JAY Administration Albumin Human 50 mls @ 999 mls/hr 12/11/23 21:22 Albutein IVPB 01/10/24 21:21 Q10M PRN HYPOTENSION Pantoprazole Sodium 40 mg 12/15/23 09:00 12/15/23 09:58 Pantoprazole 40 Mg Tablet PO 40 mg QAM JAY Administration Spironolactone 50 mg 12/14/23 09:00 12/15/23 09:58 Spironolactone 50 Mg Tablet PO 50 mg QAM JAY Administration Radiology Results: ITS Impressions Abdomen
[2023-12-18 20:49] LABS: Glucose Peritoneal Fluid 88 mg/dL; LDH Peritoneal Fluid 91 U/L (<63)
[2023-12-19 13:38] LABS: Total Protein Peritoneal Fluid 5.3 g/dL
[2023-12-19 22:02] LABS: Ceruloplasmin 24 mg/dL (18-36)
[2023-12-20 13:05] LABS: Albumin Peritoneal Fluid 2.6 g/dL
[2023-12-20 20:52] LABS: Amylase Peritoneal Fluid 49 U/L
[2023-12-20 21:27] LABS: Mitochondrial (M2) Ab (IgG) 81.2 U (<=20.0)
== END 2023-12-15 18:10 | disposition home health service (06) ==
LOC: ANHED 18:42 → ANH2MED 19:57
PROVIDERS: Internal Medicine Gastroenterology; Internal Medicine Nephrology; Nurse Practitioner; Nurse Practitioner Family; Physician Assistant; Admitting Provider Hospitalist; Emergency Provider Physician Assistant; PCP Family Medicine; Visit Provider Hospitalist
DX: R18.8 Other ascites (principal); K74.60 Unspecified cirrhosis of liver; I13.2 Hypertensive heart and chronic kidney disease with heart failure and with stage 5 chronic kidney disease, or end stage renal disease; N18.6 End stage renal disease; I50.9 Heart failure, unspecified; Z99.2 Dependence on renal dialysis; D63.1 Anemia in chronic kidney disease; E87.70 Fluid overload, unspecified; K40.20 Bilateral inguinal hernia, without obstruction or gangrene, not specified as recurrent; I48.0 Paroxysmal atrial fibrillation; F03.90 Unspecified dementia, unspecified severity, without behavioral disturbance, psychotic disturbance, mood disturbance, and anxiety; G47.33 Obstructive sleep apnea (adult) (pediatric); J81.1 Chronic pulmonary edema; J90 Pleural effusion, not elsewhere classified; Z99.89 Dependence on other enabling machines and devices; M19.011 Primary osteoarthritis, right shoulder; Z89.021 Acquired absence of right finger(s); M81.0 Age-related osteoporosis without current pathological fracture; F10.90 Alcohol use, unspecified, uncomplicated; Z79.82 Long term (current) use of aspirin; Z79.899 Other long term (current) drug therapy; Z84.1 Family history of disorders of kidney and ureter
CPT/HCPCS: 36415; 49083; 74176; 76705; 80048; 80053; 80076; 82040; 82042; 82104; 82150; 82390; 82728; 82945; 83520; 83540; 83550; 83615; 83690; 83735; 84100; 84145; 84157; 85025; 85027; 85610; 85730; 86038; 86140; 86706; 86803; 87070; 87075; 87205; 87340; 88108; 88305; 89051; 96365; 96375; 96376; 97161; 97165; 99285; A9270; G0257; G0378; J0696; J2270; J2405; J3010; J7030; Q5105

== ENCOUNTER 2024-02-28 00:13 | Day surgery (SDC) | payer OTHER, SELFPAY ==
[2024-02-15 11:20] VITALS: BMI 19.8
[2024-02-28 11:45] VITALS: BP 131/52; PULSE 59; RESP 20; TEMP 36.2; O2SAT 97; BMI 20.2
[2024-02-28] MEDS: SODIUM CHLORIDE 0.9% IV 500 ML 10 ML IV CONT (12:10)
--- NOTE | 2024-02-28 13:27 | SUR.PREOP ---
1230 Patient and family updated on procedure delay- denies any needs at this time.
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
[2024-02-28] MEDS: BENZOCAINE (*SP) 60 ML SPRAY CAN (HURRICAINE) 1 SPRAY MUCOUS MEM (14:36)
[2024-02-28 14:49] VITALS: BP 110/63; PULSE 72; RESP 18; O2SAT 100
[2024-02-28 14:59] VITALS: BP 112/82; PULSE 75; RESP 18; O2SAT 100
[2024-02-28 15:09] VITALS: BP 107/62; PULSE 68; RESP 18; O2SAT 100
--- NOTE | 2024-02-28 15:30 | SUR.PHASEII ---
1515 patient required 2 people assist to dress patient. Asked spouse if she would be ok getting him out of the vehicle once she arrived home due to patient's limited availability with movement especially after anesthesia with heavy assistance. Spouse said she would be ok with getting him out of the car and into the house once they got home. Assisted patient into vehicle out of wheelchair with 2 staff members. Patient had very limited movement and heavy assist. Struggled with getting patient into vehicle with patient not able to bend knees very well. Asked spouse again if she would be ok getting him out of vehicle and spouse said she they would be ok.
== END 2024-02-28 15:22 | disposition home or self-care (01) ==
PROVIDERS: PCP Family Medicine; Visit Provider Internal Medicine Gastroenterology
PROC: 0DJ08ZZ Inspection of Upper Intestinal Tract, Via Natural or Artificial Opening Endoscopic (ICD-10-PCS; CPT 43235; principal; 2024-02-28 13:00)
DX: K74.60 Unspecified cirrhosis of liver (principal); K44.9 Diaphragmatic hernia without obstruction or gangrene; K29.70 Gastritis, unspecified, without bleeding; K31.7 Polyp of stomach and duodenum; I13.2 Hypertensive heart and chronic kidney disease with heart failure and with stage 5 chronic kidney disease, or end stage renal disease; N18.6 End stage renal disease; I50.9 Heart failure, unspecified; Z99.2 Dependence on renal dialysis; D63.1 Anemia in chronic kidney disease; I48.91 Unspecified atrial fibrillation; G47.33 Obstructive sleep apnea (adult) (pediatric); M81.0 Age-related osteoporosis without current pathological fracture; Z79.82 Long term (current) use of aspirin
CPT/HCPCS: 43251; 88305; J2704; J7040

== ENCOUNTER 2024-03-30 06:35 | Emergency (ER) | payer OTHER, SELFPAY ==
--- NOTE | ~2024-03-30 | CT_ITS ---
Noncontrast CT scan of the cervical spine Technique: Multiple contiguous axial [address] images of the cervical spine were obtained and rec onstructed in 2D sagittal and coronal planes on the acquisition scanner. Dose reduction technique was used on this scan by utilizing automated exposure control, adjustment of the mA and/or kV according to patient size. The dose-length product (DLP) was 200.04 mGy-cm. Clinical History: Pain Findings: No fractures or dislocations. There is severe degenerative disc narrowing at C3-C4, C5-C6, and C6-C7. There is probable bilateral neural foraminal narrowing, right worse than left, at C3-C4, with moderate facet arthropathy. There is probable right neural foraminal narrowing at C5-C6. There i s mild bilateral neural foraminal narrowing at C6-C7. No prevertebral soft tissue swelling. Impression: No fracture or subluxation of the cervical spine. Degenerative spondylosis, as above. Reviewed, dictated and finalized at [facility]. Impression: No fracture or subluxation of the cervical spine. Degenerative spondylosis, as above.
--- NOTE | ~2024-03-30 | CT_ITS ---
EXAMINATION: CT brain wo con DATE: 03/30/2024 07:44 INDICATION: Status post fall. TECHNIQUE: Computed tomography (CT) of the head was performed without intravenous contrast. The dose- length product was 605.33 mGy-cm. Automated exposure control and iterative reconstruction technique w ere employed. COMPARISON: None FINDINGS: There are bilateral areas of subdural hemorrhage involving the frontal and parietal lobes w ith areas of subarachnoid and parenchymal hemorrhage in the left frontal and parietal locations. No v entriculomegaly or midline shift. There is subdural hemorrhage along the anterior aspect of the inter hemispheric fissure. Generalized atrophy. There are scattered moderate periventricular and subcortica l white matter changes, most likely related to small vessel ischemic disease (microangiopathy). There is intracranial atherosclerosis. Paranasal sinuses and mastoids are pneumatized. No depressed skull fractures are identified. IMPRESSION: 1. Bilateral subdural hemorrhage involving the frontal and parietal locations with areas of parenchym al and subarachnoid hemorrhage in the left hemisphere. Mild mass effect. 2: Chronic age-related findings. Dr. Gilles Lemus discussed with Dr. Madeleine Luna MD at 03/30/2024 07:50 CDT. Reviewed, dictated and finalized at location [facility]. IMPRESSION: 1. Bilateral subdural hemorrhage involving the frontal and parietal locations w ith areas of parenchymal and subarachnoid hemorrhage in the left hemisphere. Mi ld mass effect. 2: Chronic age-related findings. Dr. Gilles Lemus discussed with Dr. Madeleine Luna MD at 03/30/2024 07:50 CD T.
--- NOTE | ~2024-03-30 | XR_ITS ---
XR shoulder RT min 2V 03/30/2024 07:54 Indication: Right shoulder pain Procedure: 4 views right shoulder Comparison: 08/08/2022 Findings: there is severe right glenohumeral joint osteoarthritis with remodeling of the joint. Acrom ioclavicular joint and anatomic alignment. No acute fracture or traumatic malalignment. No focal soft tissue abnormality. Impression: 1: Severe right glenohumeral joint osteoarthritis. Reviewed, dictated and finalized at location [facility]. Impression: 1: Severe right glenohumeral joint osteoarthritis.
--- NOTE | ~2024-03-30 | XR_ITS ---
XR chest 1V 03/30/2024 07:54 Indication: Syncope Procedure: AP view of the chest Comparison: Comparison to multiple prior studies sequentially, with oldest reviewed study dated 05/28. Findings: Cardiomegaly with interstitial edema. No pleural effusion. No pneumothorax. No acute osseou s abnormality. Impression: 1: Cardiomegaly with interstitial edema. Reviewed, dictated and finalized at location [facility]. Impression: 1: Cardiomegaly with interstitial edema.
[2024-03-30 06:34] VITALS: BP 143/86; PULSE 68; RESP 12; TEMP 36.9; O2SAT 97
--- NOTE | 2024-03-30 06:38 | ECG_ITS ---
Test Date: 2024-03-30 06:41:22 Measurements Intervals [place] Rate: 62 P: 0 ME: 0 QRS: 5 QRSD: 101 T: 91 QT: 450 QTc: 459 Interpretive Statements ATRIAL FIBRILLATION VENTRICULAR TRIGEMINY LOW QRS VOLTAGE IN LIMB LEADS NONSPECIFIC ST & T-WAVE ABNORMALITY- DIFFUSE LEADS BASELINE ARTIFACT- V1-V2 ABNORMAL ECG No previous ECG available for comparison Electronically Signed On 03-31-2024 08:48:17 CDT by Hermelindo Mahoney D.O.
[2024-03-30 06:44] VITALS: O2SAT 96
[2024-03-30 06:47] VITALS: O2SAT 95
[2024-03-30 07:16] LABS: Basophils Percent Auto 0.2 % (0.2-1.2); Eosinophils Percent Auto 0.2 % (0-4.4); Hematocrit 31.3 % (42.0-52.0); Hemoglobin 9.9 g/dL (14.0-18.0); Immature Granulocyte Absolute 0.02 K/mm3 (0.00-0.031); Immature Granulocyte Percent A 0.3 % (0-0.5); Lymphocytes Absolute Auto 0.53 K/mm3 (0.9-3.2); Lymphocytes Percent Auto 8.5 % (18.3-44.2); Mean Corpuscular HGB Conc 31.6 g/dl (32-36); Mean Corpuscular Hemoglobin 30.4 pg (26-34); Mean Platelet Volume 10.4 fl (7.4-10.4); Monocytes Absolute Auto 0.4 K/mm3 (0.1-0.6); Monocytes Percent Auto 6.7 % (2.6-8.5); Neutrophils Absolute Auto 5.3 K/mm3 (1.3-6.7); Neutrophils Percent Auto 84.1 % (45.5-73.1); Platelet Count Result 265 k/mm3 (150-375); Red Blood Count 3.26 M/mm3 (4.6-6.20); Red Cell Distribution Width 14.8 % (11.5-14.5); White Blood Count 6.3 K/mm3 (4.5-10.0)
[2024-03-30 07:21] LABS: Alanine Aminotransferase 10 U/L (6-50); Albumin Level 3.9 g/dL (3.5-5.1); Alkaline Phosphatase 87 U/L (38-126); Anion Gap 14 mmol/L (4-12); Aspartate Amino Transferase 25 U/L (17-59); Bilirubin,Total 0.7 mg/dL (0.2-1.3); Blood Urea Nitrogen 58 mg/dL (9-20); Calcium 9.8 mg/dL (8.4-10.2); Carbon Dioxide 32 mmol/L (22-30); Chloride 88 mmol/L (98-107); Estimated CRCL calculation 13 ml/min; Estimated Glomerular Filt Rate 16; Glucose 101 mg/dL (65-110); Potassium 4.1 mmol/L (3.4-5.0); Sodium 134 mmol/L (137-145)
[2024-03-30 07:28] VITALS: BP 141/76; PULSE 55; RESP 14; O2SAT 100
--- NOTE | 2024-03-30 07:29 | PC.NURSE ---
Patient asleep at this time, but will wake and answer questions to the best of his ability. Patient A&Ox2 baseline per , but she states his memory comes and goes . Patient denies pain at this time.
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
[2024-03-30 08:05] VITALS: BP 124/74; PULSE 65; RESP 15; O2SAT 100
[2024-03-30 08:38] LABS: NT Pro B Type Natriuretic Pept > 30000 pg/mL (19.9-100)
== END 2024-03-30 08:44 | disposition short-term general hospital (02) ==
PROVIDERS: Emergency Medicine; Emergency Provider Student in an Organized Health Care Education/Training Program; PCP Family Medicine
DX: S06.5XAA Traumatic subdural hemorrhage with loss of consciousness status unknown, initial encounter (principal); R55 Syncope and collapse; D64.9 Anemia, unspecified; M19.011 Primary osteoarthritis, right shoulder; I48.91 Unspecified atrial fibrillation; I13.2 Hypertensive heart and chronic kidney disease with heart failure and with stage 5 chronic kidney disease, or end stage renal disease; N18.6 End stage renal disease; I50.9 Heart failure, unspecified; W18.30XA Fall on same level, unspecified, initial encounter; Z99.2 Dependence on renal dialysis
CPT/HCPCS: 36415; 70450; 71045; 72125; 73030; 80053; 83880; 85025; 93005; 99291